=== PATIENT | male | born 1955 | race African-American/Black ===

== ENCOUNTER 2016-05-25 04:37 | Inpatient (IN) | payer OTHER ==
[2016-05-25] VITALS (8 sets, daily range): BP systolic 116–134; BP diastolic 76–104
[~2016-05-25] VITALS: Ht 172.7 cm; Wt 56.7 kg
--- NOTE | 2016-05-25 04:34 | Emergency Room Report ---
History of Present Illness General Source: Patient, EMS Present Illness HPI 60 YO M + smoker with SOB since last night associated with cough, f ever/ chills. Known COPD. Never intubated. Here before for similar per EMS. Was given 1 neb with mild improvement. Has home O2 but ran out tonight. Only other home COPD med noted by EMS was albuterol inhaler. Allergies: Coded Allergies: NO KNOWN ALLERGIES (Unverified Allergy, Unknown, 03/01/15) Patient History Past Medical History: CHF, COPD Past Surgical History: none Pertinent Family History: none Social History: Reports: smoking Immunizations: UTD Reviewed Nursing Documentation: PMH: Agreed, PSxH: Agreed Review of Systems All Other Systems: negative except mentioned in HPI Physical Exam Sp02 EP Interpretation: reviewed, abnormal General Appearance: normal inspection, alert, moderate distress, cachetic Head: normocephalic, atraumatic Eyes: bilateral eye EOMI, bilateral eye PERRL ENT: normal ENT inspection, hearing grossly normal, normal voice Neck: normal inspection, full range of motion, supple, no bony tend Respiratory: normal inspection, no rhonchi, decreased breath sounds, accessory muscle use, wheezing Cardiovascular #1: normal peripheral pulses, no edema, no gallop, no JVD, tachycardia Gastrointestinal: normal inspection, normal bowel sounds, non tender, soft, no guarding, no hernia Genitourinary: no CVA tenderness Musculoskeletal: normal inspection, back normal, normal range of motion, Long' s Sign negative Neurologic: normal inspection, alert, oriented x3, responsive, fitness and wellness manager III-XII nml as tested, motor strength/tone normal, speech normal Psychiatric: normal inspection, judgement/insight normal, mood/affect normal Skin: normal inspection, normal color, no rash Procedures Critical Care Time Critical Care Time CC time of 45 minutes for this 60YOM who p/w acute SOB. 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 Normotensive. Not hypoxic Lungs with reduced air movement bilaterally Initial management indicated: CBC, CMP, troponin, BNP, CXR, nebs, steroids, empiric Abx, BIPAP, IV Mg Highly suspected: COPD exacerbation, +/- PNA Possible interventions - BIPAP, additional Abx. CC time included frequent re-exams, interpretation of labs, imaging, adjustment of Abx Critical care time of 45 minutes does not include reportable procedures. Medical Decision Making Diagnostic Impression: Primary Impression: COPD exacerbation Additional Impression: CHF, acute on chronic Qualified Codes: I50.9 - Heart failure, unspecified ER Course 60 YO M with acute dyspnea since last night. VS notable for tachycardia on arrival to 150. Improved to 120 s/p BIPAP, duonebs, steroids, IV Azithro and IV Mg. CXR negative for PNA Likely COPD exacerbation alone Admitted to ____ for [facility] admission at ____ EKG Diagnostic Results Rate: tachycardiac Rhythm: NSR ST Segments: no acute changes ASA given to the pt in ED: No Rhythm Strip Diag. Results EP Interpretation: yes Rate: 105 Rhythm: NSR, no PVC's, no ectopy, other - +PVCs Chest X-Ray Diagnostic Results EP Interpretation: Yes Findings: no consolidation, no pneumothorax Number of Views: 1 Reevaluation Time: 06:08 Status: improved Reevaluation Impression Labs: Normal H&H. No leuks. Troponin 0. Mild pro-BNP elevation. Normal SerumCr. CXR: hyperinflated, no acute PNA A: Improved significantly with BIPAP, duonebs, Mg, Azithromycin Also gave dose of IV Lasix for concomitant acute on chronic CHF Endorsed to Dr Randolph at 7pm for MOJGAN admission Disposition: ADMITTED INPATIENT Condition: Critical ARASH MATHIS M.D. May 25, 2016 04:34
[~2016-05-25 04:37] MED LIST: ALBUTEROL SULF8.5 GM INH; Azithromycin 500 MG in NS 275 ML IV ONE; GUAIFENESIN-CO118 M1 ORAL; Levalbuterol Inh UD 1.25mg/0.5ml HHN ONE; PREDNISONE20 M1 PO; Solu-MEDROL 125mg Inj IVP ONE
[2016-05-25] MEDS: Ipratropium 0.02% Inh Soln 2.5ml UD HHN SCH ×3 (04:47→04:49)
[2016-05-25 04:51] LABS: BASOPHILS % (AUTO) 2.9 % (0.0-2.0); EOSINOPHILS % (AUTO) 7.9 % (0.0-3.0); LYMPHOCYTES % (AUTO) 24.7 % (20.0-45.0); MEAN CORPUSCULAR HEMOGLOBIN 32.2 PG (27.0-31.0); MEAN CORPUSCULAR HGB CONC 31.9 G/DL (32.0-36.0); MEAN CORPUSCULAR VOLUME 101 FL (80-99); MEAN PLATELET VOLUME 6.2 FL (6.5-10.1); MONOCYTES % (AUTO) 8.5 % (1.0-10.0); NEUTROPHILS % (AUTO) 56.1 % (45.0-75.0); PLATELET COUNT 346 K/UL (150-450); RED CELL DISTRIBUTION WIDTH 12.8 % (11.6-14.8); WHITE BLOOD COUNT 6.1 K/UL (4.8-10.8)
[2016-05-25 05:05] LABS: ALANINE AMINOTRANSFERASE 37 U/L (3-41); ALBUMIN/GLOBULIN RATIO 0.9 (1.0-2.7); ANION GAP 17 (5-15); ASPARTATE AMINO TRANSFERASE 111 U/L (5-40); CALCIUM 7.9 mg/dL (8.6-10.2); CARBON DIOXIDE 25 mEQ/L (20-30); CHLORIDE 100 mEQ/L (98-107); CREATININE 0.7 mg/dL (0.7-1.2); GLOMERULAR FILTRATION RATE > 60 mL/min (>60); HEMOLYSIS 9; POTASSIUM 3.8 mEQ/L (3.4-4.9); SODIUM 142 mEQ/L (135-145); TOTAL PROTEIN 6.6 g/dL (6.6-8.7)
[2016-05-25 05:39] LABS: TROPONIN I < 0.30 ng/mL (<=0.30)
[2016-05-25] MEDS ORDERED: Azithromycin Inj IV ONE (05:50)
[2016-05-25 06:52] LABS: CKMB 6.4 ng/mL (< 6.7)
[2016-05-25] MEDS ORDERED: OMEPRAZOLE40 M1 ORAL (08:11)
[2016-05-25] MEDS ORDERED: NITROGLYCERIN0.4 MG SL (08:11)
[2016-05-25] MEDS ORDERED: VITAMIN B-122000 MC1 PO (08:11)
[2016-05-25] MEDS ORDERED: AEROSPAN8.9 GM IH (08:13)
[2016-05-25] MEDS ORDERED: ANORO ELLIPTA1 EACH INH (08:13)
[2016-05-25] MEDS ORDERED: MULTIVITAMINS1 EAC2 ORAL (08:14)
[2016-05-25] MEDS ORDERED: DAILY VITE1 EACH ORAL (08:14)
[2016-05-25] MEDS ORDERED: FOLIC ACID1 MG ORAL (08:15)
[2016-05-25] MEDS ORDERED: FERROUS SULFAT325 MG ORAL (08:15)
[2016-05-25] MEDS ORDERED: MEGESTROL ACETA40 MG PO (08:15)
[2016-05-25] MEDS ORDERED: ASPIR 8181 MG ORAL (08:15)
[2016-05-25] MEDS ORDERED: Promethazine/Codeine 5ml UD ORAL PRN (09:30)
[2016-05-25] MEDS ORDERED: DuoNeb 0.5-3(2.5)mg/3ml neb HHN PRN (09:30)
[2016-05-25] MEDS ORDERED: Ketorolac 30mg Inj IV PRN (09:30)
[2016-05-25] MEDS ORDERED: Nitroglycerin Subl 0.4mg tab (Bottle Of 25) SL PRN (09:30)
[2016-05-25] MEDS ORDERED: Morphine Sulfate 2mg/ml Inj IVP PRN (09:30)
[2016-05-25] MEDS ORDERED: LORazepam Inj 2mg/ml 1ml IV PRN (09:30)
--- NOTE | 2016-05-25 10:02 | Diagnostic Imaging Report ---
Indication: Dyspnea Comparison: 03/01/15 A single view chest radiograph was obtained. Findings: Lungs are hyperexpanded. There is no infiltrate seen. Heart size is within normal. Bones are osteopenic. Impression: COPD
[2016-05-25] MEDS: Solu-MEDROL 125mg Inj IV SCH ×2 (12:19→18:30)
[2016-05-25] MEDS: Zosyn 3.375gm q8h **Extended infusion IVPB SCH ×4 (12:19→22:08)
[2016-05-25] MEDS: NovoLOG Insulin Flexpen SUBQ SCH ×3 (12:20→21:00)
--- NOTE | 2016-05-25 12:46 | History and Physical ---
History of Present Illness General Date patient seen: May 25, 2016 Reason for Hospitalization: Dyspnea/Respdistress Present Illness HPI 60 year old male with hx of + smoker and ETOH abuse prsented to ER with Chief Complaint of Dyspnea associated with cough, f ever/chills. Has home O2 but ran out tonight. Only other home COPD med noted by EMS was albuterol inhaler. Pt was diagnosed to have acute exacerbation of COPD and admitted for further evaluation. Allergies: Coded Allergies: NO KNOWN ALLERGIES (Unverified Allergy, Unknown, 03/01/15) Medication History Scheduled Albuterol Sulfate* (Albuterol Sulfate Mdi*), 2 PUFF INH Q4H Aspirin* (Aspir 81*), 81 MG ORAL DAILY, (Reported) Cyanocobalamin (Vitamin B-12) (Vitamin B-12), 2,000 MCG PO DAILY, (Reported) Ferrous Sulfate* (Ferrous Sulfate*), 325 MG ORAL DAILY, (Reported) Flunisolide (Aerospan), 8.9 GM IH DAILY, (Reported) Folic Acid* (Folic Acid*), 1 MG ORAL DAILY, (Reported) Megestrol Acetate (Megestrol Acetate), 40 MG PO TID, (Reported) Multivitamin (Daily Fatou), 1 TAB ORAL DAILY, (Reported) Multivitamins* (Multivitamins*), 1 TAB ORAL DAILY, (Reported) Omeprazole (Omeprazole), 40 MG ORAL DAILY, (Reported) Prednisone (Prednisone), 40 MG PO DAILY Umeclidinium Brm/Vilanterol Tr (Anoro Ellipta 62.5-25 Mcg INH), 2 PUFFS INH DAILY, (Reported) Scheduled PRN Guaifenesin/Codeine Phos* (Robitussin Ac*), 1 TSP ORAL Q6H PRN for For Cough Nitroglycerin (Nitroglycerin), 0.4 MG SL Three times PRN for CHEST PAIN, ( Reported) Patient History Healthcare decision maker Resuscitation status Full Code Advanced Directive on File Past Medical/Surgical History Past Medical/Surgical History: (1) ETOH abuse (2) COPD (chronic obstructive pulmonary disease) (3) Hypoxia Review of Systems Constitutional: Reports: weakness Respiratory: Reports: shortness of breath, wheezing All Other Systems: negative except mentioned in HPI Physical Exam General Appearance: WD/WN Lines, tubes and drains: peripheral, central line HEENT: normocephalic, atraumatic Neck: non-tender, normal alignment Respiratory/Chest: chest wall non-tender, lungs clear Cardiovascular/Chest: normal peripheral pulses, normal rate Abdomen: normal bowel sounds Genitourinary/Rectal: normal genital exam Last 24 Hour Vital Signs Date Time Temp Pulse Resp B/P Pulse Ox O2 Delivery O2 Flow Rate FiO2 05/25/16 11:14 98 18 95 05/25/16 10:00 96.8 109 20 131/90 99 Nasal Cannula 2.0 05/25/16 09:29 116 18 96 Facial 30 05/25/16 09:23 106 17 117/83 100 Bi-pap 30 05/25/16 07:23 97.1 101 17 119/81 100 Bi-pap 05/25/16 06:50 97.0 109 18 129/87 100 Bi-pap 100 05/25/16 06:44 113 21 97 Facial 30 05/25/16 06:04 30 05/25/16 05:03 118 18 100 Bi-pap 30 05/25/16 04:55 97.0 127 24 121/104 100 Bi-pap 100 05/25/16 04:51 127 24 Bi-pap 100 05/25/16 04:45 135 23 100 Bi-pap 30 05/25/16 04:42 135 23 100 Facial 30 05/25/16 04:28 97.0 141 18 121/104 97 Bi-pap 30 Intake and Output 05/24/16 05/25/16 19:00 07:00 Intake Total 375 ml Balance 375 ml Intake IV Total 375 ml Laboratory Tests Test 05/25/16 04:25 White Blood Count 6.1 K/UL (4.8-10.8) Red Blood Count 4.00 M/UL (4.70-6.10) L Hemoglobin 12.9 G/DL (14.2-18.0) L Hematocrit 40.4 % (42.0-52.0) L Mean Corpuscular Volume 101 FL (80-99) H Mean Corpuscular Hemoglobin 32.2 PG (27.0-31.0) H Mean Corpuscular Hemoglobin Concent 31.9 G/DL (32.0-36.0) L Red Cell Distribution Width 12.8 % (11.6-14.8) Platelet Count 346 K/UL (150-450) Mean Platelet Volume 6.2 FL (6.5-10.1) L Neutrophils (%) (Auto) 56.1 % (45.0-75.0) Lymphocytes (%) (Auto) 24.7 % (20.0-45.0) Monocytes (%) (Auto) 8.5 % (1.0-10.0) Eosinophils (%) (Auto) 7.9 % (0.0-3.0) H Basophils (%) (Auto) 2.9 % (0.0-2.0) H Sodium Level 142 mEQ/L (135-145) Potassium Level 3.8 mEQ/L (3.4-4.9) Chloride Level 100 mEQ/L (98-107) Carbon Dioxide Level 25 mEQ/L (20-30) Anion Gap 17 (5-15) H Blood Urea Nitrogen 4 mg/dL (7-23) L Creatinine 0.7 mg/dL (0.7-1.2) Estimat Glomerular Filtration Rate > 60 mL/min (>60) Glucose Level 173 mg/dL (74-106) H Calcium Level 7.9 mg/dL (8.6-10.2) L Total Bilirubin 0.5 mg/dL (0.0-1.2) Aspartate Amino Transf (AST/SGOT) 111 U/L (5-40) H Alanine Aminotransferase (ALT/SGPT) 37 U/L (3-41) Alkaline Phosphatase 149 U/L (40-129) H Total Creatine Kinase 181 U/L (38-174) H Creatine Kinase MB 6.4 ng/mL (< 6.7) Creatine Kinase MB Relative Index 3.5 Troponin I < 0.30 ng/mL (<=0.30) Pro-B-Type Natriuretic Peptide 1459 pg/mL (0-125) H Total Protein 6.6 g/dL (6.6-8.7) Albumin 3.2 g/dL (3.5-5.2) L Globulin 3.4 g/dL Albumin/Globulin Ratio 0.9 (1.0-2.7) L Height (Feet): 5 Height (Inches): 8.00 Weight (Pounds): 125 Medications Current Medications Medications (Trade) Dose Ordered Sig/Agustin Route PRN Reason Start Time Stop Time Status Last Admin Dose Admin Albuterol/ Ipratropium (DuoNeb 0.5-3(2.5)mg/3ml) 3 ml Q4H PRN HHN DYSPNEA 05/25/16 09:30 05/30/16 09:29 Dextrose STAT PRN IV Hypoglycemia 05/25/16 09:30 06/24/16 09:29 Folic Acid 1 mg/ Magnesium Sulfate 2000 mg/ Multivitamins 10 ml/Sodium Chloride 1,014.2 ml @ 125 mls/ hr Q24H IV 05/25/16 16:00 06/24/16 15:59 Heparin Sodium (Porcine) (Heparin 5000 units/ml) 5,000 units EVERY 12 HOURS SUBQ 05/25/16 21:00 06/24/16 20:59 Insulin Aspart (NovoLOG) BEFORE MEALS AND HS SUBQ 05/25/16 11:30 06/24/16 11:29 05/25/16 12:20 Lorazepam (Ativan 2mg/ml 1ml) 0.5 mg Q4H PRN IV For Anxiety 05/25/16 09:30 06/01/16 09:29 Methylprednisolone Sodium Succinate (Solu-MEDROL) 60 mg EVERY 6 HOURS IV 05/25/16 12:00 06/24/16 11:59 05/25/16 12:19 Morphine Sulfate (Morphine Sulfate) 2 mg Q4H PRN IVP Severe Pain (Pain Scale 7-10) 05/25/16 09:30 06/01/16 09:29 Nitroglycerin (Ntg) 0.4 mg Q5M X 3 DOSES PRN SL Prn Chest Pain 05/25/16 09:30 06/24/16 09:29 Ondansetron HCl (Zofran) 4 mg Q6H PRN IVP Nausea & Vomiting 05/25/16 09:30 06/24/16 09:29 Piperacillin Sod/ Tazobactam Sod 3.375 gm/Dextrose 110 ml @ 27.5 mls/hr EVERY 8 HOURS IVPB 05/25/16 11:00 05/30/16 10:59 05/25/16 12:19 Promethazine HCl/ Codeine (Phenergan with Codeine) 5 ml Q6H PRN ORAL cough 05/25/16 09:30 06/24/16 09:29 Temazepam (Restoril) 15 mg HSPRN PRN ORAL Insomnia 05/25/16 21:00 06/01/16 20:59 Theophylline (Gaurav-Dur) 100 mg EVERY 12 HOURS ORAL 05/25/16 21:00 06/24/16 20:59 Thiamine HCl/ Dextrose (Vitamin B1/D5W) 56 ml @ 112 mls/hr Q24H IVPB 05/25/16 16:00 06/24/16 15:59 Assessment/Plan Problem List: (1) COPD with exacerbation ICD Codes: J44.1 - Chronic obstructive pulmonary disease with (acute) exacerbation SNOMED: 386652700 (2) Acute respiratory failure ICD Codes: J96.00 - Acute respiratory failure, unspecified whether with hypoxia or hypercapnia SNOMED: 38952907 (3) Hypoxia ICD Codes: R09.02 - Hypoxemia SNOMED: 077194060 (4) ETOH abuse ICD Codes: F10.10 - Alcohol abuse, uncomplicated SNOMED: 31805405, 75599469 (5) Severe protein-calorie malnutrition ICD Codes: E43 - Unspecified severe protein-calorie malnutrition SNOMED: 584782823 Assessment/Plan respiratory treatment IV steroids IV antibiotics Banana bag because of ETOH abuse. check sputum dc planning in 1-[address] chest to evaluate the extent of emphysema LAZARUS YATES May 25, 2016 12:46
[2016-05-25] MEDS: chlordiazePOXIDE 25mg Cap ORAL SCH ×2 (13:00→21:04)
[2016-05-25] MEDS ORDERED: Piperacillin/Tazobactam 2.25 GM in D5W 55 ML IV SCH (14:00)
--- NOTE | 2016-05-25 15:00 | Diagnostic Imaging Report ---
Indication: Dyspnea Technique: Continuous helical transaxial imaging of the chest was obtained from the thoracic inlet to the upper abdomen. No intravenous contrast was administered. Coronal 2-D reformats were also obtained. Total Dose length Product (DLP): [address] Dose Index Volume (CTDIvol): 11 mGy Comparison: none Findings: There are hyperlucency noted in the upper lobes consistent with emphysema. Reticular densities are mild noted at the right lung base with mild right basilar atelectasis. No adenopathy seen. Aorta is normal caliber. Visualized upper abdomen is unremarkable. Impression: Emphysema and COPD. Right basilar atelectasis, mild in degree The CT scanner at [facility] is accredited by the [employer] and the scans are performed using protocols designed to limit radiation exposure to as low as reasonably achievable to attain images of sufficient resolution adequate for diagnostic evaluation.
[2016-05-25] MEDS ORDERED: Folic Acid 1 MG, Magnesium Sulfate 2,000 MG, Multivitamin - 12 Injection 10 ML in NS w/... IV SCH (16:00)
[2016-05-25] MEDS ORDERED: Thiamine 100mg in D5W 55ml IVPB SCH (16:00)
[2016-05-25 17:13] LABS: INR 1.1 (0.9-1.1); PROTHROMBIN TIME 10.7 SEC (9.30-11.50)
[2016-05-25 17:25] LABS: LACTATE DEHYDROGENASE 249 U/L (135-230)
[2016-05-25 17:51] LABS: HEMOLYSIS 47; IRON 66 ug/dL (59-158); TOTAL IRON BINDING CAPACITY 232 ug/dL (250-400)
[2016-05-25 18:47] LABS: BAND NEUTROPHILS % (MANUAL) 2 % (0-8); LYMPHOCYTES % (MANUAL) 11 % (20-45); NEUTROPHILS % (MANUAL) 85 % (45-75); TOTAL CELLS COUNTED 100
[2016-05-25 18:48] LABS: ANISOCYTOSIS 1+; BASOPHILS % (MANUAL) 0 % (0-2); EOSINOPHILS % (MANUAL) 0 % (0-3); PLATELET ESTIMATE ADEQUATE; PLATELET MORPHOLOGY NORMAL
[2016-05-25 18:49] LABS: PATH BLOOD SMEAR/OMC SENT TO PATHOLOGIST
--- NOTE | 2016-05-25 18:51 | Cardiology Report ---
APPROVED REPORT EKG Measurement Heart [id number] Sinus tachycardia Nonspecific ST and T wave abnormality Abnormal ECG
[2016-05-25 20:16] LABS: RETICULOCYTE COUNT 0.6 % (0.0-2.0)
[2016-05-25] MEDS ORDERED: Heparin 5000 units/ml inj SUBQ SCH (21:00)
[2016-05-25] MEDS ORDERED: Theophylline ER 100mg ORAL SCH (21:00)
[2016-05-26] VITALS (7 sets, daily range): BP systolic 97–141; BP diastolic 63–88
[2016-05-26] MEDS: Solu-MEDROL 125mg Inj IV SCH ×4 (00:29→17:24)
[2016-05-26] MEDS ORDERED: Nitroglycerin Subl 0.4mg tab (Bottle Of 25) SL PRN (01:00)
[2016-05-26] MEDS ORDERED: LORazepam Inj 2mg/ml 1ml IV PRN (01:30)
[2016-05-26] MEDS: Piperacillin/Tazobactam 3.375 GM in D5W 110 ML IVPB SCH ×3 (04:56→22:08)
[2016-05-26] MEDS: NovoLOG Insulin Flexpen SUBQ SCH ×4 (06:08→20:42)
[2016-05-26 07:28] LABS: MEAN CORPUSCULAR HEMOGLOBIN 32.4 PG (27.0-31.0); MEAN CORPUSCULAR HGB CONC 32.8 G/DL (32.0-36.0); MEAN CORPUSCULAR VOLUME 99 FL (80-99); MEAN PLATELET VOLUME 6.3 FL (6.5-10.1); PLATELET COUNT 292 K/UL (150-450); RED BLOOD COUNT 3.45 M/UL (4.70-6.10); RED CELL DISTRIBUTION WIDTH 12.8 % (11.6-14.8)
[2016-05-26] MEDS: chlordiazePOXIDE 25mg Cap ORAL SCH ×2 (09:00→20:22)
[2016-05-26] MEDS: Heparin 5000 units/ml inj SUBQ SCH ×2 (09:00→20:26)
[2016-05-26 09:02] LABS: BAND NEUTROPHILS % (MANUAL) 0 % (0-8); BASOPHILS % (MANUAL) 0 % (0-2); EOSINOPHILS % (MANUAL) 0 % (0-3); LYMPHOCYTES % (MANUAL) 9 % (20-45); NEUTROPHILS % (MANUAL) 86 % (45-75); PLATELET ESTIMATE ADEQUATE; PLATELET MORPHOLOGY NORMAL; TOTAL CELLS COUNTED 100
[2016-05-26 09:03] LABS: HYPOCHROMASIA 1+
[2016-05-26] MEDS: DuoNeb 0.5-3(2.5)mg/3ml neb HHN PRN (09:20)
[2016-05-26] MEDS: Theophylline ER 100mg ORAL SCH ×2 (09:50→20:22)
[2016-05-26] MEDS: Morphine Sulfate 2mg/ml Inj IVP PRN (09:51)
[2016-05-26] MEDS: Promethazine/Codeine 5ml UD ORAL PRN (13:03)
[2016-05-26] MEDS: Folic Acid 1 MG, Magnesium Sulfate 2,000 MG, Multivitamin - 12 Injection 10 ML in NS w/... IV SCH (16:17)
[2016-05-26] MEDS: Thiamine HCl 100 MG in D5W 55 ML IVPB SCH (16:17)
--- NOTE | 2016-05-26 23:59 | Pulmonology Progress Note ---
Assessment/Plan Problems: (1) COPD with exacerbation (2) Acute respiratory failure (3) Hypoxia (4) ETOH abuse (5) Severe protein-calorie malnutrition Assessment/Plan improving continue antibiotics steroids check cutlrues Subjective ROS Limited/Unobtainable: No Constitutional: Reports: no symptoms HEENT: Repors: no symptoms Respiratory: Reports: no symptoms Gastrointestinal/Abdominal: Reports: no symptoms Allergies: Coded Allergies: NO KNOWN ALLERGIES (Unverified Allergy, Unknown, 03/01/15) Objective Last 24 Hour Vital Signs Date Time Temp Pulse Resp B/P Pulse Ox O2 Delivery O2 Flow Rate FiO2 05/26/16 20:21 108 18 Nasal Cannula 2.0 28 05/26/16 20:20 99 Nasal Cannula 2.0 28 05/26/16 20:20 Nasal Cannula 2.0 28 05/26/16 20:00 97.7 109 18 97/63 95 05/26/16 20:00 98.2 97 16 136/76 98 Room Air 05/26/16 16:00 98.2 107 17 141/87 98 Room Air 05/26/16 12:02 97.2 102 19 132/88 99 Nasal Cannula 2.0 05/26/16 11:59 97.2 102 19 132/88 99 Nasal Cannula 2.0 05/26/16 10:21 97.5 05/26/16 09:25 89 16 100 Nasal Cannula 2.0 28 05/26/16 09:15 84 16 98 Nasal Cannula 2.0 28 05/26/16 08:48 97.5 102 21 113/69 97 Room Air 102 05/26/16 07:59 Nasal Cannula 2.0 28 05/26/16 07:54 98 Nasal Cannula 2.0 28 05/26/16 07:53 84 18 Nasal Cannula 2.0 28 05/26/16 04:00 97.3 92 22 125/76 100 Room Air 05/26/16 00:00 95 05/26/16 00:00 97.7 97 20 122/84 98 Nasal Cannula 2.0 98 Intake and Output 05/25/16 05/26/16 18:59 06:59 Intake Total 516.0 ml 1281.7 ml Output Total 1630 ml 1100 ml Balance -1114.0 ml 181.7 ml Intake Oral 280 ml 130 ml IV Total 236.0 ml 1151.7 ml Output Urine Total 1630 ml 1100 ml # Voids 2 2 # Bowel Movements 2 General Appearance: WD/WN HEENT: normocephalic, anicteric Respiratory/Chest: chest wall non-tender, lungs clear Cardiovascular: normal peripheral pulses, normal rate Abdomen: normal bowel sounds, soft, non tender Genitourinary: normal external genitalia Extremities: no clubbing 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, no motor/sensory deficits Microbiology Date/Time Source Procedure Growth Status 05/25/16 04:35 Blood Blood Culture - Preliminary Resulted 05/25/16 04:25 Blood Blood Culture - Preliminary Resulted 05/26/16 00:30 Sputum Expectorated Gram Stain - Final Resulted 05/26/16 00:30 Sputum Expectorated Sputum Culture Pending Resulted Laboratory Tests 05/26/16 04:30: White Blood Count 10.0#, Red Blood Count 3.45L, Hemoglobin 11.2L, Hematocrit 34.1L, Mean Corpuscular Volume 99, Mean Corpuscular Hemoglobin 32.4H, Mean Corpuscular Hemoglobin Concent 32.8, Red Cell Distribution Width 12.8, Platelet Count 292, Mean Platelet Volume 6.3L, Neutrophils (%) (Auto) , Lymphocytes (%) ( Auto) , Monocytes (%) (Auto) , Eosinophils (%) (Auto) , Basophils (%) (Auto) , Differential Total Cells Counted 100, Neutrophils % (Manual) 86H, Lymphocytes % (Manual) 9L, Monocytes % (Manual) 5, Eosinophils % (Manual) 0, Basophils % ( Manual) 0, Band Neutrophils 0, Platelet Estimate Adequate, Platelet Morphology Normal, Hypochromasia 1+ Current Medications Medications (Trade) Dose Ordered Sig/Agustin Route PRN Reason Start Time Stop Time Status Last Admin Dose Admin Albuterol/ Ipratropium (DuoNeb 0.5-3(2.5)mg/3ml) 3 ml Q4H PRN HHN DYSPNEA 05/26/16 01:30 05/31/16 01:29 05/26/16 09:20 Chlordiazepoxide (Librium) 25 mg EVERY 12 HOURS ORAL 05/26/16 09:00 06/02/16 08:59 05/26/16 20:22 Dextrose (Dextrose 50%) STAT PRN IV Hypoglycemia 05/26/16 09:30 2/23/17 09:29 Folic Acid 1 mg/ Magnesium Sulfate 2000 mg/ Multivitamins 10 ml/Sodium Chloride 1,014.2 ml @ 125 mls/ hr Q24H IV 05/26/16 16:00 06/25/16 15:59 05/26/16 16:17 Heparin Sodium (Porcine) (Heparin 5000 units/ml) 5,000 units EVERY 12 HOURS SUBQ 05/26/16 09:00 06/25/16 08:59 05/26/16 20:26 Insulin Aspart (NovoLOG) BEFORE MEALS AND HS SUBQ 05/26/16 06:30 06/25/16 06:29 05/26/16 20:42 Lorazepam (Ativan 2mg/ml 1ml) 0.5 mg Q4H PRN IV For Anxiety 05/26/16 01:30 06/02/16 01:29 Methylprednisolone Sodium Succinate (Solu-MEDROL) 60 mg EVERY 6 HOURS IV 05/26/16 06:00 06/25/16 05:59 05/26/16 17:24 Morphine Sulfate (Morphine Sulfate) 2 mg Q4H PRN IVP Severe Pain (Pain Scale 7-10) 05/26/16 01:30 06/02/16 01:29 05/26/16 09:51 Nitroglycerin (Ntg) 0.4 mg Q5M X 3 DOSES PRN SL Prn Chest Pain 05/26/16 01:00 06/25/16 00:59 Ondansetron HCl (Zofran) 4 mg Q6H PRN IVP Nausea & Vomiting 05/26/16 03:30 06/25/16 03:29 Pantoprazole (Protonix) 40 mg DAILY ORAL 05/26/16 09:00 06/25/16 08:59 05/26/16 09:50 Piperacillin Sod/ Tazobactam Sod 3.375 gm/Dextrose 110 ml @ 27.5 mls/hr EVERY 8 HOURS IVPB 05/26/16 06:00 06/02/16 05:59 05/26/16 22:08 Promethazine HCl/ Codeine (Phenergan with Codeine) 5 ml Q6H PRN ORAL cough 05/26/16 03:30 06/25/16 03:29 05/26/16 13:03 Temazepam (Restoril) 15 mg HSPRN PRN ORAL Insomnia 05/26/16 21:00 06/02/16 20:59 Theophylline (Gaurav-Dur) 100 mg EVERY 12 HOURS ORAL 05/26/16 09:00 06/25/16 08:59 05/26/16 20:22 Thiamine HCl/ Dextrose (Vitamin B1/D5W) 56 ml @ 112 mls/hr Q24H IVPB 05/26/16 16:00 06/25/16 15:59 05/26/16 16:17 LAZARUS YATES May 26, 2016 23:59
[2016-05-27] VITALS: BP 129/80
[2016-05-27] MEDS: DuoNeb 0.5-3(2.5)mg/3ml neb HHN PRN
[2016-05-27] MEDS: Solu-MEDROL 125mg Inj IV SCH ×4 (00:29→17:17)
[2016-05-27 04:00] VITALS: BP 137/82
[2016-05-27] MEDS: Piperacillin/Tazobactam 3.375 GM in D5W 110 ML IVPB SCH ×3 (04:54→21:10)
[2016-05-27] MEDS: NovoLOG Insulin Flexpen SUBQ SCH ×4 (05:51→21:13)
[2016-05-27 08:00] VITALS: BP 136/81
[2016-05-27] MEDS: Promethazine/Codeine 5ml UD ORAL PRN (08:43)
[2016-05-27] MEDS: chlordiazePOXIDE 25mg Cap ORAL SCH ×2 (08:43→20:14)
[2016-05-27] MEDS: Heparin 5000 units/ml inj SUBQ SCH ×2 (08:48→20:18)
[2016-05-27] MEDS: Theophylline ER 100mg ORAL SCH ×2 (10:00→20:14)
[2016-05-27] MEDS: Morphine Sulfate 2mg/ml Inj IVP PRN ×2 (10:04→21:23)
[2016-05-27 12:00] VITALS: BP 137/82
--- NOTE | 2016-05-27 15:30 | GI Initial Consult Note ---
History of Present Illness General Date patient seen: May 27, 2016 Time patient seen: 12:00 Reason for Hospitalization: Dyspnea/Respdistress Referring physician: LAZARUS WALLACE Reason for Consultation: OCCULT STOOL POSITIVE Present Illness HPI 60 YO M + smoker with SOB since last night associated with cough, f ever/ chills. Known COPD. Never intubated. Here before for similar per EMS. Was given 1 neb with mild improvement. Has home O2 but ran out tonight. Only other home COPD med noted by EMS was albuterol inhaler. GI CONSULT: HPI as noted above. GI consulted for mild anemia per pathology report and OB stool positive. Pt seen on floor, awake A&Ox4 SOB NAD after PT evaluation. Pt is a ex-smoker, presents with chronic ETOH abuse approximately half gallon of gin every 3 nights for insomnia. Hx of EGD/colonoscopy in 2012 at [facility] per patient. Home Meds Active Scripts Albuterol Sulfate* (ALBUTEROL SULFATE MDI*) 8.5 Gm Hfa.aer.ad, 2 PUFF INH Q4H, # 1 INH 0 Refills Prov:Toni Barrientos MD 03/01/15 Prednisone (Prednisone) 20 Mg Tablet, 40 MG PO DAILY, #5 TAB Prov:Toni Barrientos MD 03/01/15 Guaifenesin/Codeine Phos* (ROBITUSSIN AC*) 118 Ml Liquid, 1 TSP ORAL Q6H Y for For Cough, #118 ML 0 Refills Prov:Toni Barrientos MD 03/01/15 Reported Medications Ferrous Sulfate* (FERROUS SULFATE*) 325 Mg Tablet, 325 MG ORAL DAILY, #30 TAB 0 Refills 05/25/16 Folic Acid* (FOLIC ACID*) 1 Mg Tablet, 1 MG ORAL DAILY, TAB 05/25/16 Megestrol Acetate (MEGESTROL ACETATE) 40 Mg Tablet, 40 MG PO TID, TAB 05/25/16 Aspirin* (ASPIR 81*) 81 Mg Tablet.dr, 81 MG ORAL DAILY, TAB 05/25/16 Multivitamins* (MULTIVITAMINS*) 1 Each Tablet, 1 TAB ORAL DAILY, TAB 0 Refills 05/25/16 Multivitamin (DAILY MELANIE) 1 Each Tablet, 1 TAB ORAL DAILY, #30 TAB 0 Refills 05/25/16 Flunisolide (Aerospan) 8.9 Gm Hfa.aer.ad, 8.9 GM IH DAILY 05/25/16 Umeclidinium Brm/Vilanterol Tr (Anoro Ellipta 62.5-25 Mcg INH) 1 Each Blst.w.dev , 2 PUFFS INH DAILY 05/25/16 Cyanocobalamin (Vitamin B-12) (Vitamin B-12) 2,000 Mcg Tablet, 2000 MCG PO DAILY , TAB 05/25/16 Nitroglycerin (NITROGLYCERIN) 0.4 Mg Tab.subl, 0.4 MG SL Three times Y for CHEST PAIN, TAB 05/25/16 Omeprazole (OMEPRAZOLE) 40 Mg Capsule.dr, 40 MG ORAL DAILY, CAP 05/25/16 Med list reviewed/reconciled: Yes Allergies: Coded Allergies: NO KNOWN ALLERGIES (Unverified Allergy, Unknown, 03/01/15) Patient History History Provided By: Patient, Medical Record PMH Narrative Past Medical History: CHF, COPD Past Surgical History: none Pertinent Family History: none Social History: Reports: smoking Immunizations: UTD Reviewed Nursing Documentation: PMH: Agreed, PSxH: Agreed Social History: Reports: alcohol use - half gallon every 3 days for sleep, smoking Review of Systems All Other Systems: negative except mentioned in HPI Physical Exam Vital Signs Date Time Temp Pulse Resp B/P Pulse Ox O2 Delivery O2 Flow Rate FiO2 05/25/16 04:28 97.0 141 18 121/104 97 Bi-pap 30 05/25/16 10:00 2.0 Sp02 EP Interpretation: reviewed General Appearance: well appearing, alert, mild distress, thin Head: normocephalic EENT: normal ENT inspection Neck: supple Respiratory: other - SOB, productive cough, 02 dependent Cardiovascular: normal rate Gastrointestinal: normal inspection, non tender, soft, normal bowel sounds Rectal: deferred Genitourinary: no CVA tenderness Musculoskeletal: back normal Neurologic: normal inspection, alert, oriented x3, responsive Psychiatric: normal inspection, judgement/insight normal, memory normal Skin: normal inspection, normal color, no rash, warm/dry Lymphatic: normal inspection, no adenopathy Current Medications Current Medications Medications (Trade) Dose Ordered Sig/Agustin Route PRN Reason Start Time Stop Time Status Last Admin Dose Admin Albuterol/ Ipratropium (DuoNeb 0.5-3(2.5)mg/3ml) 3 ml Q4H PRN HHN DYSPNEA 05/26/16 01:30 05/31/16 01:29 05/27/16 00:00 Chlordiazepoxide (Librium) 25 mg EVERY 12 HOURS ORAL 05/26/16 09:00 06/02/16 08:59 05/27/16 08:43 Dextrose (Dextrose 50%) STAT PRN IV Hypoglycemia 05/26/16 09:30 06/25/16 09:29 Folic Acid 1 mg/ Magnesium Sulfate 2000 mg/ Multivitamins 10 ml/Sodium Chloride 1,014.2 ml @ 125 mls/ hr Q24H IV 05/26/16 16:00 06/25/16 15:59 05/26/16 16:17 Heparin Sodium (Porcine) (Heparin 5000 units/ml) 5,000 units EVERY 12 HOURS SUBQ 05/26/16 09:00 06/25/16 08:59 05/27/16 08:48 Insulin Aspart (NovoLOG) BEFORE MEALS AND HS SUBQ 05/26/16 06:30 06/25/16 06:29 05/27/16 12:15 Lorazepam (Ativan 2mg/ml 1ml) 0.5 mg Q4H PRN IV For Anxiety 05/26/16 01:30 06/02/16 01:29 Methylprednisolone Sodium Succinate (Solu-MEDROL) 60 mg EVERY 6 HOURS IV 05/26/16 06:00 06/25/16 05:59 05/27/16 12:07 Morphine Sulfate (Morphine Sulfate) 2 mg Q4H PRN IVP Severe Pain (Pain Scale 7-10) 05/26/16 01:30 06/02/16 01:29 05/27/16 10:04 Nitroglycerin (Ntg) 0.4 mg Q5M X 3 DOSES PRN SL Prn Chest Pain 05/26/16 01:00 06/25/16 00:59 Ondansetron HCl (Zofran) 4 mg Q6H PRN IVP Nausea & Vomiting 05/26/16 03:30 06/25/16 03:29 Pantoprazole (Protonix) 40 mg DAILY ORAL 05/26/16 09:00 06/25/16 08:59 05/27/16 08:43 Piperacillin Sod/ Tazobactam Sod 3.375 gm/Dextrose 110 ml @ 27.5 mls/hr EVERY 8 HOURS IVPB 05/26/16 06:00 06/02/16 05:59 05/27/16 14:04 Promethazine HCl/ Codeine (Phenergan with Codeine) 5 ml Q6H PRN ORAL cough 05/26/16 03:30 06/25/16 03:29 05/27/16 08:43 Temazepam (Restoril) 15 mg HSPRN PRN ORAL Insomnia 05/26/16 21:00 06/02/16 20:59 Theophylline (Gaurav-Dur) 100 mg EVERY 12 HOURS ORAL 05/26/16 09:00 06/25/16 08:59 05/27/16 10:00 Thiamine HCl/ Dextrose (Vitamin B1/D5W) 56 ml @ 112 mls/hr Q24H IVPB 05/26/16 16:00 06/25/16 15:59 05/26/16 16:17 GI: Plan Problems: (1) Anemia (2) Severe protein-calorie malnutrition (3) ETOH abuse (4) COPD (chronic obstructive pulmonary disease) (5) Hypoalbuminemia Plan EGD/colonoscopy approximately 2 years ago OB stool positive ETOH abuse obtain endoscopic records from [facility] ordered abdominal U/S monitor H&H, transfuse prn monitor LFTs ETOH cessation education given ppi cardiac diet fu labs Discussed with Dr. Patton. Thank you for referring this patient, we will follow. Virgie Rivera N.P. May 27, 2016 15:30
[2016-05-27 16:00] VITALS: BP 154/77
[2016-05-27] MEDS: Folic Acid 1 MG, Magnesium Sulfate 2,000 MG, Multivitamin - 12 Injection 10 ML in NS w/... IV SCH (16:48)
[2016-05-27] MEDS: Thiamine HCl 100 MG in D5W 55 ML IVPB SCH (17:17)
[2016-05-27 20:00] VITALS: BP 139/88
--- NOTE | 2016-05-27 22:27 | Consultation ---
Consult Note Consult Note ID Dic # [id number] MADISON DEL CID M.D. May 27, 2016 22:27
--- NOTE | 2016-05-27 22:54 | Pulmonology Progress Note ---
Assessment/Plan Problems: (1) COPD with exacerbation (2) Acute respiratory failure (3) Hypoxia (4) ETOH abuse (5) Severe protein-calorie malnutrition Assessment/Plan same dose steroids titrate fio2 check cultures contineu antibiotics Subjective Interval Events: still sob Allergies: Coded Allergies: NO KNOWN ALLERGIES (Unverified Allergy, Unknown, 03/01/15) Objective Last 24 Hour Vital Signs Date Time Temp Pulse Resp B/P Pulse Ox O2 Delivery O2 Flow Rate FiO2 05/27/16 20:00 97.9 99 22 139/88 99 Nasal Cannula 2.0 05/27/16 19:18 95 20 Nasal Cannula 2.0 28 05/27/16 19:18 98 Nasal Cannula 2.0 28 05/27/16 19:18 Nasal Cannula 2.0 28 05/27/16 16:00 99.5 105 22 154/77 97 Nasal Cannula 2.0 05/27/16 12:00 97.5 118 20 137/82 99 Nasal Cannula 05/27/16 10:34 98.1 05/27/16 08:00 98.1 110 21 136/81 94 Nasal Cannula 05/27/16 07:40 92 18 Nasal Cannula 2.0 28 05/27/16 07:40 Nasal Cannula 2.0 28 05/27/16 07:40 98 Nasal Cannula 2.0 28 05/27/16 05:53 92 16 100 Nasal Cannula 2.0 28 05/27/16 05:40 110 16 98 Nasal Cannula 2.0 28 05/27/16 04:00 97.0 90 20 137/82 98 Nasal Cannula 2.0 05/27/16 00:00 98.2 95 20 129/80 99 Nasal Cannula 2.0 05/26/16 23:55 115 16 100 Nasal Cannula 2.0 28 05/26/16 23:50 120 16 98 Nasal Cannula 2.0 28 Intake and Output 05/26/16 05/27/16 19:00 07:00 Intake Total 720.0 ml 1289.2 ml Output Total 180 ml 300 ml Balance 540.0 ml 989.2 ml Intake Oral 360 ml 360 ml IV Total 360.0 ml 929.2 ml Output Urine Total 180 ml 300 ml # Voids 1 2 General Appearance: WD/WN HEENT: normocephalic, anicteric Respiratory/Chest: chest wall non-tender, normal breath sounds Cardiovascular: normal peripheral pulses, regularly irregular Abdomen: normal bowel sounds, soft, non tender Genitourinary: normal external genitalia Skin: no ulcers Neurologic/Psychiatric: alert Microbiology Date/Time Source Procedure Growth Status 05/25/16 04:35 Blood Blood Culture - Preliminary Staphylococcus Sp Coag Neg Resulted 05/25/16 04:25 Blood Blood Culture - Preliminary Staphylococcus Sp Coag Neg Resulted 05/26/16 00:30 Sputum Expectorated Gram Stain - Final Resulted 05/26/16 00:30 Sputum Expectorated Sputum Culture Pending Resulted Current Medications Medications (Trade) Dose Ordered Sig/Agustin Route PRN Reason Start Time Stop Time Status Last Admin Dose Admin Albuterol/ Ipratropium (DuoNeb 0.5-3(2.5)mg/3ml) 3 ml Q4H PRN HHN DYSPNEA 05/26/16 01:30 05/31/16 01:29 05/27/16 00:00 Azithromycin/ Dextrose (Zithromax/D5W) 275 ml @ 275 mls/hr Q24HRS IVPB 05/27/16 22:30 06/02/16 23:29 UNV Chlordiazepoxide (Librium) 25 mg EVERY 12 HOURS ORAL 05/26/16 09:00 06/02/16 08:59 05/27/16 20:14 Dextrose (Dextrose 50%) STAT PRN IV Hypoglycemia 05/26/16 09:30 06/25/16 09:29 Folic Acid 1 mg/ Magnesium Sulfate 2000 mg/ Multivitamins 10 ml/Sodium Chloride 1,014.2 ml @ 125 mls/ hr Q24H IV 05/26/16 16:00 06/25/16 15:59 05/27/16 16:48 Heparin Sodium (Porcine) (Heparin 5000 units/ml) 5,000 units EVERY 12 HOURS SUBQ 05/26/16 09:00 06/25/16 08:59 05/27/16 20:18 Insulin Aspart (NovoLOG) BEFORE MEALS AND HS SUBQ 05/26/16 06:30 06/25/16 06:29 05/27/16 21:13 Lorazepam (Ativan 2mg/ml 1ml) 0.5 mg Q4H PRN IV For Anxiety 05/26/16 01:30 06/02/16 01:29 Methylprednisolone Sodium Succinate (Solu-MEDROL) 60 mg EVERY 6 HOURS IV 05/26/16 06:00 06/25/16 05:59 05/27/16 17:17 Morphine Sulfate (Morphine Sulfate) 2 mg Q4H PRN IVP Severe Pain (Pain Scale 7-10) 05/26/16 01:30 06/02/16 01:29 05/27/16 21:23 Nitroglycerin (Ntg) 0.4 mg Q5M X 3 DOSES PRN SL Prn Chest Pain 05/26/16 01:00 06/25/16 00:59 Ondansetron HCl (Zofran) 4 mg Q6H PRN IVP Nausea & Vomiting 05/26/16 03:30 06/25/16 03:29 Pantoprazole (Protonix) 40 mg DAILY ORAL 05/26/16 09:00 06/25/16 08:59 05/27/16 08:43 Promethazine HCl/ Codeine (Phenergan with Codeine) 5 ml Q6H PRN ORAL cough 05/26/16 03:30 06/25/16 03:29 05/27/16 08:43 Temazepam (Restoril) 15 mg HSPRN PRN ORAL Insomnia 05/26/16 21:00 06/02/16 20:59 Theophylline 100 mg 100 mg EVERY 12 HOURS ORAL 05/26/16 09:00 06/25/16 08:59 05/27/16 20:14 Thiamine HCl/ Dextrose (Vitamin B1/D5W) 56 ml @ 112 mls/hr Q24H IVPB 05/26/16 16:00 06/25/16 15:59 05/27/16 17:17 Vancomycin HCl (Vanco rx to dose) 1 ea DAILY PRN MISC Per rx protocol 05/27/16 22:30 06/26/16 22:29 LAZARUS STONE May 27, 2016 22:54
[2016-05-28] VITALS: BP 138/84
[2016-05-28] MEDS ORDERED: Azithromycin 500 MG in D5W 275 ML IV SCH ×2
[2016-05-28] MEDS ORDERED: Azithromycin Inj IV ONE (00:20)
[2016-05-28] MEDS ORDERED: Vancomycin 1gm inj IVPB ONE (00:21)
[2016-05-28] MEDS ORDERED: Vancomycin 1gm/D5W 275ml IVPB SCH ×2 (01:00)
[2016-05-28] MEDS: Morphine Sulfate 2mg/ml Inj IVP PRN ×2 (02:31→12:03)
--- NOTE | 2016-05-28 03:48 | Consultation ---
DATE OF CONSULTATION: 05/27/2016 INFECTIOUS DISEASE CONSULTATION CONSULTING PHYSICIAN: Veto Muñoz M.D. REFERRING PHYSICIAN: Tyler Randolph M.D. REASON FOR CONSULTATION: Evaluation of patient for pneumonia. HISTORY OF PRESENT ILLNESS: The patient is a 60-year-old male with multiple medical problems, who came to the hospital with the chief complaint of cough, fever, and chills. The patient has been admitted for COPD exacerbation and pneumonia. Infectious Disease consultation has been requested for further evaluation of the patient's antibiotic management. PAST MEDICAL HISTORY: 1. Significant for smoking and history of alcohol abuse. 2. History of seizure disorder. 3. Hypertension. 4. Chronic obstructive pulmonary disease/asthma. ALLERGIES: No known drug allergies. MEDICATIONS: Zosyn and Solu-Medrol. FAMILY HISTORY: Noncontributory. REVIEW OF SYSTEMS: A 10-point was done except for what was mentioned was negative. PHYSICAL EXAMINATION: VITAL SIGNS: Temperature 97.9 degrees, blood pressure 130/80, pulse 89, and respiratory rate 20. HEENT: Mild pale conjunctivae. No icterus. NECK: Supple. CHEST: Coarse breathing sounds bilateral wheezes. HEART: S1 and S2. ABDOMEN: Soft and nontender. EXTREMITIES: No cyanosis. NEUROLOGIC: Awake. LABORATORY AND DIAGNOSTIC DATA: WBC 10, hemoglobin 11, and platelets 300,000. UA unremarkable. BUN 4 and creatinine 0.7. AST 111, ALT 37, and alcohol level 49. Blood culture is growing coagulase-negative Staph. Sputum culture is pending. CT of the chest showed COPD changes right bibasilar atelectasis mild. ASSESSMENT: The patient is a 60-year-old male with multiple medical problems, who has been admitted to this medical center for shortness of breath, chronic obstructive pulmonary disease exacerbation and evidence of pneumonia. The patient's blood culture is growing coagulase-negative Staph probably contaminant. PLAN: 1. We will start the patient on Zithromax for cough, fever and COPD exacerbation and add intravenous vancomycin for coagulase-negative Staph. We will hold Zosyn. 2. Monitor blood culture. 3. tests. 4. Based on the patient's clinical course and laboratories, we will do further recommendations. Veto Muñoz M.D. DR: LUKAS JOB#: [id number] CC:
[2016-05-28 04:00] VITALS: BP 138/80
[2016-05-28] MEDS: NovoLOG Insulin Flexpen SUBQ SCH ×4 (05:51→21:26)
[2016-05-28] MEDS: Solu-MEDROL 125mg Inj IV SCH ×4 (05:51→17:30)
[2016-05-28 07:31] LABS: MEAN CORPUSCULAR HEMOGLOBIN 32.3 PG (27.0-31.0); MEAN CORPUSCULAR HGB CONC 31.6 G/DL (32.0-36.0); MEAN CORPUSCULAR VOLUME 102 FL (80-99); MEAN PLATELET VOLUME 6.7 FL (6.5-10.1); PLATELET COUNT 298 K/UL (150-450); RED BLOOD COUNT 3.63 M/UL (4.70-6.10); RED CELL DISTRIBUTION WIDTH 13.5 % (11.6-14.8); WHITE BLOOD COUNT 15.7 K/UL (4.8-10.8)
[2016-05-28 07:56] LABS: ANION GAP 11 (5-15); CARBON DIOXIDE 30 mEQ/L (20-30); CHLORIDE 100 mEQ/L (98-107); GLOMERULAR FILTRATION RATE > 60 mL/min (>60); HEMOLYSIS 4; MAGNESIUM 2.2 mg/dL (1.7-2.5); POTASSIUM 3.9 mEQ/L (3.4-4.9); SODIUM 141 mEQ/L (135-145)
[2016-05-28 08:00] VITALS: BP 146/89
[2016-05-28] MEDS: chlordiazePOXIDE 25mg Cap ORAL SCH ×2 (08:37→20:22)
[2016-05-28] MEDS: Heparin 5000 units/ml inj SUBQ SCH ×2 (08:38→20:23)
[2016-05-28] MEDS: Theophylline ER 100mg ORAL SCH ×2 (08:38→20:22)
--- NOTE | 2016-05-28 10:35 | Infectious Diseases Prog Note ---
Assessment/Plan Assessment/Plan A: he patient is a 60-year-old male with Fever COPD exacerbation and pneumonia SCx: GNR CT of the chest: COPD changes right bibasilar atelectasis mild BLcx: CoNS ( contaminant ) history of alcohol abuse. Seizure disorder. HTN PLAN: DC Zithromax and IV Vanco d# 2 ,start Levaquin d# 1 Monitor blood culture.( repeat ) Monitor CBC, Monitor BMP Subjective Allergies: Coded Allergies: NO KNOWN ALLERGIES (Unverified Allergy, Unknown, 03/01/15) Objective Vital Signs Last 24 Hour Vital Signs Date Time Temp Pulse Resp B/P Pulse Ox O2 Delivery O2 Flow Rate FiO2 05/28/16 08:08 99 Nasal Cannula 2.0 28 05/28/16 08:08 94 18 Nasal Cannula 2.0 28 05/28/16 08:08 Nasal Cannula 2.0 28 05/28/16 08:00 97.7 80 20 146/89 100 Nasal Cannula 05/28/16 04:00 98.0 88 20 138/80 100 Nasal Cannula 2.0 05/28/16 03:02 98.1 05/28/16 00:00 98.1 87 24 138/84 98 Nasal Cannula 2.0 05/27/16 20:00 97.9 99 22 139/88 99 Nasal Cannula 2.0 05/27/16 19:18 95 20 Nasal Cannula 2.0 28 05/27/16 19:18 98 Nasal Cannula 2.0 28 05/27/16 19:18 Nasal Cannula 2.0 28 05/27/16 16:00 99.5 105 22 154/77 97 Nasal Cannula 2.0 05/27/16 12:00 97.5 118 20 137/82 99 Nasal Cannula Height (Feet): 5 Height (Inches): 8.00 Weight (Pounds): 125 Microbiology Date/Time Source Procedure Growth Status 05/27/16 23:25 Nasopharynx Influenza Types A,B Antigen (PIETRO) - Final Complete 05/26/16 00:30 Sputum Expectorated Gram Stain - Final Resulted 05/26/16 00:30 Sputum Culture - Preliminary Gram Negative Bacillus 1 Usual Upper Respiratory Quiana Resulted Laboratory Tests Test 05/28/16 05:45 White Blood Count 15.7 K/UL (4.8-10.8) H Red Blood Count 3.63 M/UL (4.70-6.10) L Hemoglobin 11.7 G/DL (14.2-18.0) L Hematocrit 37.1 % (42.0-52.0) L Mean Corpuscular Volume 102 FL (80-99) H Mean Corpuscular Hemoglobin 32.3 PG (27.0-31.0) H Mean Corpuscular Hemoglobin Concent 31.6 G/DL (32.0-36.0) L Red Cell Distribution Width 13.5 % (11.6-14.8) Platelet Count 298 K/UL (150-450) Mean Platelet Volume 6.7 FL (6.5-10.1) Neutrophils (%) (Auto) % (45.0-75.0) Lymphocytes (%) (Auto) % (20.0-45.0) Monocytes (%) (Auto) % (1.0-10.0) Eosinophils (%) (Auto) % (0.0-3.0) Basophils (%) (Auto) % (0.0-2.0) Neutrophils % (Manual) Pending Lymphocytes % (Manual) Pending Platelet Estimate Pending Platelet Morphology Pending Sodium Level 141 mEQ/L (135-145) Potassium Level 3.9 mEQ/L (3.4-4.9) Chloride Level 100 mEQ/L (98-107) Carbon Dioxide Level 30 mEQ/L (20-30) Anion Gap 11 (5-15) Blood Urea Nitrogen 11 mg/dL (7-23) Creatinine 1.0 mg/dL (0.7-1.2) Estimat Glomerular Filtration Rate > 60 mL/min (>60) Glucose Level 125 mg/dL (74-106) H Calcium Level 9.0 mg/dL (8.6-10.2) Phosphorus Level 3.0 mg/dL (2.5-4.8) Magnesium Level 2.2 mg/dL (1.7-2.5) Current Medications Medications (Trade) Dose Ordered Sig/Agustin Route PRN Reason Start Time Stop Time Status Last Admin Dose Admin Albuterol/ Ipratropium (DuoNeb 0.5-3(2.5)mg/3ml) 3 ml Q4H PRN HHN DYSPNEA 05/26/16 01:30 05/31/16 01:29 05/27/16 00:00 Azithromycin/ Dextrose (Zithromax/D5W) 275 ml @ 275 mls/hr Q24HRS IV 05/28/16 00:00 06/03/16 00:59 05/28/16 00:42 Chlordiazepoxide (Librium) 25 mg EVERY 12 HOURS ORAL 05/26/16 09:00 06/02/16 08:59 05/27/16 20:14 Dextrose (Dextrose 50%) STAT PRN IV Hypoglycemia 05/26/16 09:30 06/25/16 09:29 Folic Acid 1 mg/ Magnesium Sulfate 2000 mg/ Multivitamins 10 ml/Sodium Chloride 1,014.2 ml @ 125 mls/ hr Q24H IV 05/26/16 16:00 06/25/16 15:59 05/27/16 16:48 Heparin Sodium (Porcine) (Heparin 5000 units/ml) 5,000 units EVERY 12 HOURS SUBQ 05/26/16 09:00 06/25/16 08:59 05/27/16 20:18 Insulin Aspart (NovoLOG) BEFORE MEALS AND HS SUBQ 05/26/16 06:30 06/25/16 06:29 05/28/16 05:51 Lorazepam (Ativan 2mg/ml 1ml) 0.5 mg Q4H PRN IV For Anxiety 05/26/16 01:30 06/02/16 01:29 Methylprednisolone Sodium Succinate (Solu-MEDROL) 60 mg EVERY 6 HOURS IV 05/26/16 06:00 06/25/16 05:59 05/28/16 05:51 Morphine Sulfate (Morphine Sulfate) 2 mg Q4H PRN IVP Severe Pain (Pain Scale 7-10) 05/26/16 01:30 06/02/16 01:29 05/28/16 02:31 Nitroglycerin (Ntg) 0.4 mg Q5M X 3 DOSES PRN SL Prn Chest Pain 05/26/16 01:00 06/25/16 00:59 Ondansetron HCl (Zofran) 4 mg Q6H PRN IVP Nausea & Vomiting 05/26/16 03:30 06/25/16 03:29 Pantoprazole (Protonix) 40 mg DAILY ORAL 05/26/16 09:00 06/25/16 08:59 05/27/16 08:43 Promethazine HCl/ Codeine (Phenergan with Codeine) 5 ml Q6H PRN ORAL cough 05/26/16 03:30 06/25/16 03:29 05/27/16 08:43 Temazepam (Restoril) 15 mg HSPRN PRN ORAL Insomnia 05/26/16 21:00 06/02/16 20:59 Theophylline 100 mg 100 mg EVERY 12 HOURS ORAL 05/26/16 09:00 06/25/16 08:59 05/27/16 20:14 Thiamine HCl/ Dextrose (Vitamin B1/D5W) 56 ml @ 112 mls/hr Q24H IVPB 05/26/16 16:00 06/25/16 15:59 05/27/16 17:17 Vancomycin HCl 1 ea 1 ea DAILY PRN MISC Per rx protocol 05/27/16 22:30 06/26/16 22:29 Vancomycin HCl/ Dextrose (Vancomycin/D5W) 275 ml @ 183.708 mls/hr Q12H IVPB 05/28/16 01:00 06/02/16 00:59 05/28/16 02:32 MADISON DEL CID M.D. May 28, 2016 10:35
[2016-05-28 10:44] LABS: LYMPHOCYTES % (MANUAL) 7 % (20-45); NEUTROPHILS % (MANUAL) 91 % (45-75); TOTAL CELLS COUNTED 100
[2016-05-28 10:45] LABS: BAND NEUTROPHILS % (MANUAL) 0 % (0-8); BASOPHILS % (MANUAL) 0 % (0-2); EOSINOPHILS % (MANUAL) 0 % (0-3); HYPOCHROMASIA 1+; MACROCYTES 1+; PLATELET ESTIMATE ADEQUATE; PLATELET MORPHOLOGY NORMAL
[2016-05-28 12:00] VITALS: BP 150/90
--- NOTE | 2016-05-28 14:27 | GI Progress Note ---
Assessment/Plan Problems: (1) Hypoalbuminemia ICD Codes: E88.09 - Other disorders of plasma-protein metabolism, not elsewhere classified SNOMED: 325720406 (2) Anemia ICD Codes: D64.9 - Anemia, unspecified SNOMED: 809716186 (3) Upper GI bleeding ICD Codes: K92.2 - Gastrointestinal hemorrhage, unspecified SNOMED: 37487262 (4) Severe protein-calorie malnutrition ICD Codes: E43 - Unspecified severe protein-calorie malnutrition SNOMED: 507754897 (5) ETOH abuse ICD Codes: F10.10 - Alcohol abuse, uncomplicated SNOMED: 01460132, 53550510 Status: stable, progressing Status Narrative Discussed with Dr. Patton. Assessment/Plan EGD/colonoscopy approximately 2 years ago OB stool positive ETOH abuse endoscopic records from [facility] pending fu abdominal U/S monitor H&H, transfuse prn monitor LFTs ETOH cessation education given ppi cardiac diet fu labs Subjective Gastrointestinal/Abdominal: Reports: no symptoms Subjective SOB feels better Objective Last 24 Hour Vital Signs Date Time Temp Pulse Resp B/P Pulse Ox O2 Delivery O2 Flow Rate FiO2 05/28/16 12:33 97.7 05/28/16 12:00 97.9 110 20 150/90 92 Room Air 05/28/16 08:08 99 Nasal Cannula 2.0 28 05/28/16 08:08 94 18 Nasal Cannula 2.0 28 05/28/16 08:08 Nasal Cannula 2.0 28 05/28/16 08:00 97.7 80 20 146/89 100 Nasal Cannula 05/28/16 04:00 98.0 88 20 138/80 100 Nasal Cannula 2.0 05/28/16 00:00 98.1 87 24 138/84 98 Nasal Cannula 2.0 05/27/16 20:00 97.9 99 22 139/88 99 Nasal Cannula 2.0 05/27/16 19:18 95 20 Nasal Cannula 2.0 28 05/27/16 19:18 98 Nasal Cannula 2.0 28 05/27/16 19:18 Nasal Cannula 2.0 28 05/27/16 16:00 99.5 105 22 154/77 97 Nasal Cannula 2.0 Intake and Output 05/27/16 05/28/16 19:00 07:00 Intake Total 762.0 ml 550.000 ml Output Total 400 ml Balance 762.0 ml 150.000 ml Intake Oral 360 ml IV Total 402.0 ml 550.000 ml Output Urine Total 400 ml # Voids 1 # Bowel Movements 1 Laboratory Tests Test 05/28/16 05:45 White Blood Count 15.7 K/UL (4.8-10.8) H Red Blood Count 3.63 M/UL (4.70-6.10) L Hemoglobin 11.7 G/DL (14.2-18.0) L Hematocrit 37.1 % (42.0-52.0) L Mean Corpuscular Volume 102 FL (80-99) H Mean Corpuscular Hemoglobin 32.3 PG (27.0-31.0) H Mean Corpuscular Hemoglobin Concent 31.6 G/DL (32.0-36.0) L Red Cell Distribution Width 13.5 % (11.6-14.8) Platelet Count 298 K/UL (150-450) Mean Platelet Volume 6.7 FL (6.5-10.1) Neutrophils (%) (Auto) % (45.0-75.0) Lymphocytes (%) (Auto) % (20.0-45.0) Monocytes (%) (Auto) % (1.0-10.0) Eosinophils (%) (Auto) % (0.0-3.0) Basophils (%) (Auto) % (0.0-2.0) Differential Total Cells Counted 100 Neutrophils % (Manual) 91 % (45-75) H Lymphocytes % (Manual) 7 % (20-45) L Monocytes % (Manual) 2 % (1-10) Eosinophils % (Manual) 0 % (0-3) Basophils % (Manual) 0 % (0-2) Band Neutrophils 0 % (0-8) Platelet Estimate Adequate Platelet Morphology Normal Hypochromasia 1+ Macrocytosis 1+ Sodium Level 141 mEQ/L (135-145) Potassium Level 3.9 mEQ/L (3.4-4.9) Chloride Level 100 mEQ/L (98-107) Carbon Dioxide Level 30 mEQ/L (20-30) Anion Gap 11 (5-15) Blood Urea Nitrogen 11 mg/dL (7-23) Creatinine 1.0 mg/dL (0.7-1.2) Estimat Glomerular Filtration Rate > 60 mL/min (>60) Glucose Level 125 mg/dL (74-106) H Calcium Level 9.0 mg/dL (8.6-10.2) Phosphorus Level 3.0 mg/dL (2.5-4.8) Magnesium Level 2.2 mg/dL (1.7-2.5) Microbiology Date/Time Source Procedure Growth Status 05/27/16 23:25 Nasopharynx Influenza Types A,B Antigen (PIETRO) - Final Complete Height (Feet): 5 Height (Inches): 8.00 Weight (Pounds): 125 General Appearance: no apparent distress, alert Cardiovascular: normal rate Respiratory/Chest: accessory muscle use, rhonchi - bilaterally Abdominal Exam: normal bowel sounds, non tender, soft Extremities: normal range of motion Virgie Rivera N.P. May 28, 2016 14:27
[2016-05-28 14:32] LABS: ABG BASE EXCESS 0.7; ABG PCO2 48.1 mmHg (35.0-45.0)
[2016-05-28 16:00] VITALS: BP 133/88
[2016-05-28] MEDS: Folic Acid 1 MG, Magnesium Sulfate 2,000 MG, Multivitamin - 12 Injection 10 ML in NS w/... IV SCH (16:00)
[2016-05-28] MEDS: Thiamine HCl 100 MG in D5W 55 ML IVPB SCH (16:00)
[2016-05-28] MEDS ORDERED: D5W 275ml ONE (16:48)
--- NOTE | 2016-05-28 17:22 | Diagnostic Imaging Report ---
Indication: Abnormal liver function tests Technique: Hutchins-scale and duplex images of the upper abdomen were obtained Comparison: None Findings: . Gallbladder demonstrates gallstones.. Sonographic Glass's sign is negative. No gallbladder wall thickening or pericholecystic fluid. Common bile duct measures 7 mm in diameter. No intrahepatic biliary ductal dilatation. Liver demonstrates diffusely increased echogenicity, consistent with diffuse hepatocellular disease, most likely fatty change. No focal abnormality. Portal vein and hepatic veins are patent.. Pancreas is unremarkable, but the pancreatic duct is ectatic measuring 7 mm diameter.. Spleen is unremarkable. Left kidney measures 9.4 cm in length. Right kidney measures 9.8 cm length. Both kidneys demonstrate normal echogenicity. There is no hydronephrosis. No focal abnormality. . Non-aneurysmal abdominal aorta. Small left pleural effusion is incidentally noted Impression: Cholelithiasis. Negative for dilated ducts Meds ectatic pancreatic duct, etiology/significance uncertain Liver demonstrates diffusely increased echogenicity, consistent with diffuse hepatocellular disease, most likely fatty change.
[2016-05-28] MEDS ORDERED: NS 275ml ONE (18:17)
[2016-05-28 20:00] VITALS: BP 107/89
[2016-05-29] VITALS: BP 146/90
[2016-05-29] MEDS: Solu-MEDROL 125mg Inj IV SCH ×3 (00:06→12:27)
[2016-05-29 04:00] VITALS: BP 144/92
[2016-05-29] MEDS: NovoLOG Insulin Flexpen SUBQ SCH ×4 (06:10→22:18)
[2016-05-29 07:27] LABS: MEAN CORPUSCULAR HEMOGLOBIN 32.6 PG (27.0-31.0); MEAN CORPUSCULAR HGB CONC 32.2 G/DL (32.0-36.0); MEAN CORPUSCULAR VOLUME 101 FL (80-99); MEAN PLATELET VOLUME 7.1 FL (6.5-10.1); PLATELET COUNT 217 K/UL (150-450); RED BLOOD COUNT 3.26 M/UL (4.70-6.10); RED CELL DISTRIBUTION WIDTH 13.2 % (11.6-14.8); WHITE BLOOD COUNT 9.5 K/UL (4.8-10.8)
[2016-05-29 07:50] LABS: ALANINE AMINOTRANSFERASE 46 U/L (3-41); ALBUMIN/GLOBULIN RATIO 1.2 (1.0-2.7); ANION GAP 9 (5-15); ASPARTATE AMINO TRANSFERASE 53 U/L (5-40); CARBON DIOXIDE 28 mEQ/L (20-30); CHLORIDE 104 mEQ/L (98-107); CREATININE 0.8 mg/dL (0.7-1.2); GLOMERULAR FILTRATION RATE > 60 mL/min (>60); HEMOLYSIS 5; POTASSIUM 4.2 mEQ/L (3.4-4.9); SODIUM 141 mEQ/L (135-145); TOTAL PROTEIN 5.6 g/dL (6.6-8.7)
[2016-05-29 08:00] VITALS: BP 136/89
[2016-05-29] MEDS: chlordiazePOXIDE 25mg Cap ORAL SCH ×2 (09:15→22:18)
[2016-05-29] MEDS: Theophylline ER 100mg ORAL SCH (09:15)
--- NOTE | 2016-05-29 09:17 | Infectious Diseases Prog Note ---
Assessment/Plan Assessment/Plan A: he patient is a 60-year-old male with Fever COPD exacerbation and pneumonia SCx: PSA CT of the chest: COPD changes right bibasilar atelectasis mild BLcx: CoNS ( contaminant ) history of alcohol abuse. Seizure disorder. HTN PLAN: Levaquin d# 2 / 14 ( 05/28 SP DC Zithromax and IV Vanco d# 2 ) Monitor blood culture.( repeat ) Monitor CBC, Monitor BMP Subjective Constitutional: Denies: anorexia, chills, drenching sweats, fatigue, fever, no symptoms, other Allergies: Coded Allergies: NO KNOWN ALLERGIES (Unverified Allergy, Unknown, 03/01/15) Objective Vital Signs Last 24 Hour Vital Signs Date Time Temp Pulse Resp B/P Pulse Ox O2 Delivery O2 Flow Rate FiO2 05/29/16 08:00 98.2 97 19 136/89 98 Nasal Cannula 05/29/16 04:00 98.2 77 18 144/92 97 Nasal Cannula 2.0 05/29/16 00:00 97.2 83 20 146/90 99 Nasal Cannula 2.0 05/28/16 20:03 Nasal Cannula 2.0 28 05/28/16 20:03 110 20 Nasal Cannula 2.0 28 05/28/16 20:03 98 Nasal Cannula 2.0 28 05/28/16 20:00 97.9 118 24 107/89 94 Nasal Cannula 2.0 05/28/16 16:00 97.9 109 22 133/88 98 Nasal Cannula 2.0 05/28/16 12:33 97.7 05/28/16 12:00 97.9 110 20 150/90 92 Room Air Height (Feet): 5 Height (Inches): 8.00 Weight (Pounds): 125 HEENT: anicteric Respiratory/Chest: normal breath sounds Cardiovascular: regular rhythm Abdomen: no organomegaly Microbiology Date/Time Source Procedure Growth Status 05/27/16 23:25 Nasopharynx Influenza Types A,B Antigen (PIETRO) - Final Complete Laboratory Tests Test 05/28/16 14:18 05/29/16 06:10 Arterial Blood pH 7.360 (7.350-7.450) Arterial Blood Partial Pressure CO2 48.1 mmHg (35.0-45.0) H Arterial Blood Partial Pressure O2 52.0 mmHg (75.0-100.0) L Arterial Blood HCO3 26.7 mmol/L (22.0-26.0) H Arterial Blood Oxygen Saturation 83.0 % (92.0-98.0) L Arterial Blood Base Excess 0.7 Shekhar Test White Blood Count 9.5 K/UL (4.8-10.8) Red Blood Count 3.26 M/UL (4.70-6.10) L Hemoglobin 10.6 G/DL (14.2-18.0) L Hematocrit 33.0 % (42.0-52.0) L Mean Corpuscular Volume 101 FL (80-99) H Mean Corpuscular Hemoglobin 32.6 PG (27.0-31.0) H Mean Corpuscular Hemoglobin Concent 32.2 G/DL (32.0-36.0) Red Cell Distribution Width 13.2 % (11.6-14.8) Platelet Count 217 K/UL (150-450) Mean Platelet Volume 7.1 FL (6.5-10.1) Neutrophils (%) (Auto) % (45.0-75.0) Lymphocytes (%) (Auto) % (20.0-45.0) Monocytes (%) (Auto) % (1.0-10.0) Eosinophils (%) (Auto) % (0.0-3.0) Basophils (%) (Auto) % (0.0-2.0) Neutrophils % (Manual) Pending Lymphocytes % (Manual) Pending Platelet Estimate Pending Platelet Morphology Pending Sodium Level 141 mEQ/L (135-145) Potassium Level 4.2 mEQ/L (3.4-4.9) Chloride Level 104 mEQ/L (98-107) Carbon Dioxide Level 28 mEQ/L (20-30) Anion Gap 9 (5-15) Blood Urea Nitrogen 15 mg/dL (7-23) Creatinine 0.8 mg/dL (0.7-1.2) Estimat Glomerular Filtration Rate > 60 mL/min (>60) Glucose Level 203 mg/dL (74-106) H Calcium Level 9.0 mg/dL (8.6-10.2) Total Bilirubin 0.3 mg/dL (0.0-1.2) Aspartate Amino Transf (AST/SGOT) 53 U/L (5-40) H Alanine Aminotransferase (ALT/SGPT) 46 U/L (3-41) H Alkaline Phosphatase 74 U/L (40-129) Total Protein 5.6 g/dL (6.6-8.7) L Albumin 3.1 g/dL (3.5-5.2) L Globulin 2.5 g/dL Albumin/Globulin Ratio 1.2 (1.0-2.7) Current Medications Medications (Trade) Dose Ordered Sig/Agustin Route PRN Reason Start Time Stop Time Status Last Admin Dose Admin Albuterol/ Ipratropium (DuoNeb 0.5-3(2.5)mg/3ml) 3 ml Q4H PRN HHN DYSPNEA 05/26/16 01:30 05/31/16 01:29 05/27/16 00:00 Chlordiazepoxide (Librium) 25 mg EVERY 12 HOURS ORAL 05/26/16 09:00 06/02/16 08:59 05/28/16 20:22 Dextrose (Dextrose 50%) STAT PRN IV Hypoglycemia 05/26/16 09:30 06/25/16 09:29 Folic Acid 1 mg/ Magnesium Sulfate 2000 mg/ Multivitamins 10 ml/Sodium Chloride 1,014.2 ml @ 125 mls/ hr Q24H IV 05/26/16 16:00 06/25/16 15:59 05/28/16 16:00 Heparin Sodium (Porcine) (Heparin 5000 units/ml) 5,000 units EVERY 12 HOURS SUBQ 05/26/16 09:00 06/25/16 08:59 05/28/16 20:23 Insulin Aspart (NovoLOG) BEFORE MEALS AND HS SUBQ 05/26/16 06:30 06/25/16 06:29 05/29/16 06:10 Levofloxacin (Levaquin 750mg/ D5W) 150 ml @ 100 mls/hr Q24H IVPB 05/28/16 13:00 06/04/16 12:59 05/28/16 14:06 Lorazepam (Ativan 2mg/ml 1ml) 0.5 mg Q4H PRN IV For Anxiety 05/26/16 01:30 06/02/16 01:29 Methylprednisolone Sodium Succinate (Solu-MEDROL) 60 mg EVERY 6 HOURS IV 05/26/16 06:00 06/25/16 05:59 05/29/16 05:31 Morphine Sulfate (Morphine Sulfate) 2 mg Q4H PRN IVP Severe Pain (Pain Scale 7-10) 05/26/16 01:30 06/02/16 01:29 05/28/16 12:03 Nitroglycerin (Ntg) 0.4 mg Q5M X 3 DOSES PRN SL Prn Chest Pain 05/26/16 01:00 06/25/16 00:59 Ondansetron HCl (Zofran) 4 mg Q6H PRN IVP Nausea & Vomiting 05/26/16 03:30 06/25/16 03:29 Pantoprazole (Protonix) 40 mg DAILY ORAL 05/26/16 09:00 06/25/16 08:59 05/27/16 08:43 Promethazine HCl/ Codeine (Phenergan with Codeine) 5 ml Q6H PRN ORAL cough 05/26/16 03:30 06/25/16 03:29 05/27/16 08:43 Temazepam (Restoril) 15 mg HSPRN PRN ORAL Insomnia 05/26/16 21:00 06/02/16 20:59 05/29/16 00:14 Theophylline 100 mg 100 mg EVERY 12 HOURS ORAL 05/26/16 09:00 06/25/16 08:59 05/28/16 20:22 Thiamine HCl/ Dextrose (Vitamin B1/D5W) 56 ml @ 112 mls/hr Q24H IVPB 05/26/16 16:00 06/25/16 15:59 05/28/16 16:00 MADISON DEL CID M.D. May 29, 2016 09:17
[2016-05-29] MEDS: Heparin 5000 units/ml inj SUBQ SCH ×2 (09:19→22:19)
[2016-05-29 10:34] LABS: BAND NEUTROPHILS % (MANUAL) 0 % (0-8); BASOPHILS % (MANUAL) 0 % (0-2); EOSINOPHILS % (MANUAL) 0 % (0-3); HYPOCHROMASIA 1+; LYMPHOCYTES % (MANUAL) 6 % (20-45); MACROCYTES 1+; NEUTROPHILS % (MANUAL) 89 % (45-75); PLATELET ESTIMATE ADEQUATE; PLATELET MORPHOLOGY NORMAL; TOTAL CELLS COUNTED 100
--- NOTE | 2016-05-29 10:34 | GI Progress Note ---
Assessment/Plan Problems: (1) Hypoalbuminemia ICD Codes: E88.09 - Other disorders of plasma-protein metabolism, not elsewhere classified SNOMED: 617036616 (2) Anemia ICD Codes: D64.9 - Anemia, unspecified SNOMED: 486320483 (3) Upper GI bleeding ICD Codes: K92.2 - Gastrointestinal hemorrhage, unspecified SNOMED: 10002164 (4) Severe protein-calorie malnutrition ICD Codes: E43 - Unspecified severe protein-calorie malnutrition SNOMED: 747607198 (5) ETOH abuse ICD Codes: F10.10 - Alcohol abuse, uncomplicated SNOMED: 11493703, 46364599 Status: stable Status Narrative Discussed with Dr. Patton. Assessment/Plan OB stool positive ETOH abuse abd U/S reviewed >> hepatocellular disease, most likely fatty change. endoscopic records from [facility] reviewed - s/p EGD , unremarkable - s/p colonoscopy, internal hemorrhoids - recommend SB capsule endoscopy if heme positive, can be done as outpatient stable H&H, transfuse prn monitor LFTs ETOH cessation education given ppi cardiac diet fu labs Subjective Subjective SOB feels better Objective Last 24 Hour Vital Signs Date Time Temp Pulse Resp B/P Pulse Ox O2 Delivery O2 Flow Rate FiO2 05/29/16 08:00 98.2 97 19 136/89 98 Nasal Cannula 05/29/16 04:00 98.2 77 18 144/92 97 Nasal Cannula 2.0 05/29/16 00:00 97.2 83 20 146/90 99 Nasal Cannula 2.0 05/28/16 20:03 Nasal Cannula 2.0 28 05/28/16 20:03 110 20 Nasal Cannula 2.0 28 05/28/16 20:03 98 Nasal Cannula 2.0 28 05/28/16 20:00 97.9 118 24 107/89 94 Nasal Cannula 2.0 05/28/16 16:00 97.9 109 22 133/88 98 Nasal Cannula 2.0 05/28/16 12:33 97.7 05/28/16 12:00 97.9 110 20 150/90 92 Room Air Intake and Output 05/28/16 05/29/16 19:00 07:00 Intake Total 700 ml 720 ml Output Total 720 ml Balance 700 ml 0 ml Intake Oral 700 ml 720 ml Output Urine Total 720 ml # Voids 1 # Bowel Movements 1 Laboratory Tests Test 05/28/16 14:18 05/29/16 06:10 Arterial Blood pH 7.360 (7.350-7.450) Arterial Blood Partial Pressure CO2 48.1 mmHg (35.0-45.0) H Arterial Blood Partial Pressure O2 52.0 mmHg (75.0-100.0) L Arterial Blood HCO3 26.7 mmol/L (22.0-26.0) H Arterial Blood Oxygen Saturation 83.0 % (92.0-98.0) L Arterial Blood Base Excess 0.7 Shekhar Test White Blood Count 9.5 K/UL (4.8-10.8) Red Blood Count 3.26 M/UL (4.70-6.10) L Hemoglobin 10.6 G/DL (14.2-18.0) L Hematocrit 33.0 % (42.0-52.0) L Mean Corpuscular Volume 101 FL (80-99) H Mean Corpuscular Hemoglobin 32.6 PG (27.0-31.0) H Mean Corpuscular Hemoglobin Concent 32.2 G/DL (32.0-36.0) Red Cell Distribution Width 13.2 % (11.6-14.8) Platelet Count 217 K/UL (150-450) Mean Platelet Volume 7.1 FL (6.5-10.1) Neutrophils (%) (Auto) % (45.0-75.0) Lymphocytes (%) (Auto) % (20.0-45.0) Monocytes (%) (Auto) % (1.0-10.0) Eosinophils (%) (Auto) % (0.0-3.0) Basophils (%) (Auto) % (0.0-2.0) Neutrophils % (Manual) Pending Lymphocytes % (Manual) Pending Platelet Estimate Pending Platelet Morphology Pending Sodium Level 141 mEQ/L (135-145) Potassium Level 4.2 mEQ/L (3.4-4.9) Chloride Level 104 mEQ/L (98-107) Carbon Dioxide Level 28 mEQ/L (20-30) Anion Gap 9 (5-15) Blood Urea Nitrogen 15 mg/dL (7-23) Creatinine 0.8 mg/dL (0.7-1.2) Estimat Glomerular Filtration Rate > 60 mL/min (>60) Glucose Level 203 mg/dL (74-106) H Calcium Level 9.0 mg/dL (8.6-10.2) Total Bilirubin 0.3 mg/dL (0.0-1.2) Aspartate Amino Transf (AST/SGOT) 53 U/L (5-40) H Alanine Aminotransferase (ALT/SGPT) 46 U/L (3-41) H Alkaline Phosphatase 74 U/L (40-129) Total Protein 5.6 g/dL (6.6-8.7) L Albumin 3.1 g/dL (3.5-5.2) L Globulin 2.5 g/dL Albumin/Globulin Ratio 1.2 (1.0-2.7) Height (Feet): 5 Height (Inches): 8.00 Weight (Pounds): 125 General Appearance: no apparent distress Cardiovascular: normal rate Respiratory/Chest: rhonchi - bilaterally, other - 2LNC Abdominal Exam: normal bowel sounds, non tender, soft Extremities: normal range of motion Virgie Rivera N.P. May 29, 2016 10:34
[2016-05-29 12:00] VITALS: BP 147/78
[2016-05-29 16:00] VITALS: BP 150/93
--- NOTE | 2016-05-29 16:10 | Pulmonology Progress Note ---
Assessment/Plan Problems: (1) COPD with exacerbation (2) Acute respiratory failure (3) Hypoxia (4) ETOH abuse (5) Severe protein-calorie malnutrition Assessment/Plan decrease steroids pt/ot continue antibiotics tolerating diet Subjective ROS Limited/Unobtainable: No Constitutional: Reports: no symptoms HEENT: Repors: no symptoms Respiratory: Reports: no symptoms Cardiovascular: Reports: no symptoms Allergies: Coded Allergies: NO KNOWN ALLERGIES (Unverified Allergy, Unknown, 03/01/15) Objective Last 24 Hour Vital Signs Date Time Temp Pulse Resp B/P Pulse Ox O2 Delivery O2 Flow Rate FiO2 05/29/16 14:57 94 22 82 Room Air 21 05/29/16 12:00 97.6 122 20 147/78 96 Nasal Cannula 05/29/16 08:45 Nasal Cannula 2.0 28 05/29/16 08:00 98.2 97 19 136/89 98 Nasal Cannula 05/29/16 07:45 96 Nasal Cannula 2.0 28 05/29/16 07:45 80 18 Nasal Cannula 2.0 28 05/29/16 04:00 98.2 77 18 144/92 97 Nasal Cannula 2.0 05/29/16 00:00 97.2 83 20 146/90 99 Nasal Cannula 2.0 05/28/16 20:03 Nasal Cannula 2.0 28 05/28/16 20:03 110 20 Nasal Cannula 2.0 28 05/28/16 20:03 98 Nasal Cannula 2.0 28 05/28/16 20:00 97.9 118 24 107/89 94 Nasal Cannula 2.0 Intake and Output 05/28/16 05/29/16 19:00 07:00 Intake Total 700 ml 720 ml Output Total 720 ml Balance 700 ml 0 ml Intake Oral 700 ml 720 ml Output Urine Total 720 ml # Voids 1 # Bowel Movements 1 General Appearance: WD/WN HEENT: normocephalic, atraumatic Respiratory/Chest: chest wall non-tender, lungs clear Cardiovascular: normal peripheral pulses, normal rate Abdomen: normal bowel sounds, soft, non tender Extremities: no cyanosis, no clubbing 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, alert Lymphatic: no neck adenopathy Microbiology Date/Time Source Procedure Growth Status 05/27/16 23:25 Nasopharynx Influenza Types A,B Antigen (PIETRO) - Final Complete Laboratory Tests 05/29/16 06:10: White Blood Count 9.5, Red Blood Count 3.26L, Hemoglobin 10.6L, Hematocrit 33.0L , Mean Corpuscular Volume 101H, Mean Corpuscular Hemoglobin 32.6H, Mean Corpuscular Hemoglobin Concent 32.2, Red Cell Distribution Width 13.2, Platelet Count 217, Mean Platelet Volume 7.1, Neutrophils (%) (Auto) , Lymphocytes (%) ( Auto) , Monocytes (%) (Auto) , Eosinophils (%) (Auto) , Basophils (%) (Auto) , Differential Total Cells Counted 100, Neutrophils % (Manual) 89H, Lymphocytes % (Manual) 6L, Monocytes % (Manual) 5, Eosinophils % (Manual) 0, Basophils % ( Manual) 0, Band Neutrophils 0, Platelet Estimate Adequate, Platelet Morphology Normal, Hypochromasia 1+, Macrocytosis 1+, Sodium Level 141, Potassium Level 4.2 , Chloride Level 104, Carbon Dioxide Level 28, Anion Gap 9, Blood Urea Nitrogen 15, Creatinine 0.8, Estimat Glomerular Filtration Rate > 60, Glucose Level 203H , Calcium Level 9.0, Total Bilirubin 0.3, Aspartate Amino Transf (AST/SGOT) 53H , Alanine Aminotransferase (ALT/SGPT) 46H, Alkaline Phosphatase 74, Total Protein 5.6L, Albumin 3.1L, Globulin 2.5, Albumin/Globulin Ratio 1.2 Current Medications Medications (Trade) Dose Ordered Sig/Agustin Route PRN Reason Start Time Stop Time Status Last Admin Dose Admin Albuterol/ Ipratropium (DuoNeb 0.5-3(2.5)mg/3ml) 3 ml Q4H PRN HHN DYSPNEA 05/26/16 01:30 05/31/16 01:29 05/27/16 00:00 Chlordiazepoxide (Librium) 25 mg EVERY 12 HOURS ORAL 05/26/16 09:00 06/02/16 08:59 05/29/16 09:15 Dextrose (Dextrose 50%) STAT PRN IV Hypoglycemia 05/26/16 09:30 06/25/16 09:29 Folic Acid 1 mg/ Magnesium Sulfate 2000 mg/ Multivitamins 10 ml/Sodium Chloride 1,014.2 ml @ 125 mls/ hr Q24H IV 05/26/16 16:00 06/25/16 15:59 05/28/16 16:00 Heparin Sodium (Porcine) (Heparin 5000 units/ml) 5,000 units EVERY 12 HOURS SUBQ 05/26/16 09:00 06/25/16 08:59 05/29/16 09:19 Insulin Aspart (NovoLOG) BEFORE MEALS AND HS SUBQ 05/26/16 06:30 06/25/16 06:29 05/29/16 06:10 Levofloxacin (Levaquin 750mg/ D5W) 150 ml @ 100 mls/hr Q24H IVPB 05/28/16 13:00 06/04/16 12:59 05/29/16 12:34 Lorazepam (Ativan 2mg/ml 1ml) 0.5 mg Q4H PRN IV For Anxiety 05/26/16 01:30 06/02/16 01:29 Methylprednisolone Sodium Succinate (Solu-MEDROL) 60 mg EVERY 6 HOURS IV 05/26/16 06:00 06/25/16 05:59 05/29/16 12:27 Morphine Sulfate (Morphine Sulfate) 2 mg Q4H PRN IVP Severe Pain (Pain Scale 7-10) 05/26/16 01:30 06/02/16 01:29 05/28/16 12:03 Nitroglycerin (Ntg) 0.4 mg Q5M X 3 DOSES PRN SL Prn Chest Pain 05/26/16 01:00 06/25/16 00:59 Ondansetron HCl (Zofran) 4 mg Q6H PRN IVP Nausea & Vomiting 05/26/16 03:30 06/25/16 03:29 Pantoprazole (Protonix) 40 mg DAILY ORAL 05/26/16 09:00 06/25/16 08:59 05/29/16 09:15 Promethazine HCl/ Codeine (Phenergan with Codeine) 5 ml Q6H PRN ORAL cough 05/26/16 03:30 06/25/16 03:29 05/27/16 08:43 Temazepam (Restoril) 15 mg HSPRN PRN ORAL Insomnia 05/26/16 21:00 06/02/16 20:59 05/29/16 00:14 Theophylline 100 mg 100 mg EVERY 12 HOURS ORAL 05/26/16 09:00 06/25/16 08:59 05/29/16 09:15 Thiamine HCl/ Dextrose (Vitamin B1/D5W) 56 ml @ 112 mls/hr Q24H IVPB 05/26/16 16:00 06/25/16 15:59 05/28/16 16:00 LAZARUS YATES May 29, 2016 16:10
[2016-05-29] MEDS: Thiamine HCl 100 MG in D5W 55 ML IVPB SCH (16:14)
[2016-05-29] MEDS: Folic Acid 1 MG, Magnesium Sulfate 2,000 MG, Multivitamin - 12 Injection 10 ML in NS w/... IV SCH (17:26)
[2016-05-29 20:00] VITALS: BP 151/84
[2016-05-30] VITALS: BP 146/97
[2016-05-30 04:00] VITALS: BP 147/98
[2016-05-30] MEDS: NovoLOG Insulin Flexpen SUBQ SCH ×4 (06:17→21:02)
[2016-05-30 06:54] LABS: MEAN CORPUSCULAR HEMOGLOBIN 32.1 PG (27.0-31.0); MEAN CORPUSCULAR HGB CONC 31.5 G/DL (32.0-36.0); MEAN CORPUSCULAR VOLUME 102 FL (80-99); PLATELET COUNT 252 K/UL (150-450); RED BLOOD COUNT 3.39 M/UL (4.70-6.10); RED CELL DISTRIBUTION WIDTH 13.2 % (11.6-14.8); WHITE BLOOD COUNT 10.1 K/UL (4.8-10.8)
[2016-05-30 07:12] LABS: ANION GAP 10 (5-15); CARBON DIOXIDE 28 mEQ/L (20-30); CHLORIDE 104 mEQ/L (98-107); CREATININE 0.9 mg/dL (0.7-1.2); GLOMERULAR FILTRATION RATE > 60 mL/min (>60); HEMOLYSIS 3; POTASSIUM 3.9 mEQ/L (3.4-4.9); SODIUM 142 mEQ/L (135-145)
[2016-05-30 08:13] VITALS: BP 167/100
[2016-05-30 08:53] LABS: BAND NEUTROPHILS % (MANUAL) 0 % (0-8); BASOPHILS % (MANUAL) 0 % (0-2); EOSINOPHILS % (MANUAL) 4 % (0-3); LYMPHOCYTES % (MANUAL) 6 % (20-45); NEUTROPHILS % (MANUAL) 81 % (45-75); PLATELET ESTIMATE ADEQUATE; PLATELET MORPHOLOGY NORMAL; TOTAL CELLS COUNTED 100
[2016-05-30] MEDS ORDERED: Solu-MEDROL 125mg Inj IV SCH (09:00)
[2016-05-30] MEDS: Theophylline ER 100mg ORAL SCH (09:03)
[2016-05-30] MEDS: chlordiazePOXIDE 25mg Cap ORAL SCH ×2 (09:04→21:01)
[2016-05-30] MEDS: Heparin 5000 units/ml inj SUBQ SCH ×2 (09:05→21:02)
[2016-05-30 12:19] VITALS: BP 143/95
[2016-05-30 16:00] VITALS: BP 145/96
[2016-05-30] MEDS: Thiamine HCl 100 MG in D5W 55 ML IVPB SCH (16:55)
[2016-05-30] MEDS: Folic Acid 1 MG, Magnesium Sulfate 2,000 MG, Multivitamin - 12 Injection 10 ML in NS w/... IV SCH (18:02)
--- NOTE | 2016-05-30 19:16 | General Progress Note ---
Assessment/Plan Assessment/Plan Assessment/Plan Problems: (1) Hypoalbuminemia ICD Codes: E88.09 - Other disorders of plasma-protein metabolism, not elsewhere classified SNOMED: 871736305 (2) Anemia ICD Codes: D64.9 - Anemia, unspecified SNOMED: 607044837 (3) Upper GI bleeding ICD Codes: K92.2 - Gastrointestinal hemorrhage, unspecified SNOMED: 72324907 (4) Severe protein-calorie malnutrition ICD Codes: E43 - Unspecified severe protein-calorie malnutrition SNOMED: 781276833 (5) ETOH abuse ICD Codes: F10.10 - Alcohol abuse, uncomplicated SNOMED: 07510741, 93773553 Status: stable Assessment/Plan OB stool positive ETOH abuse abd U/S reviewed >> hepatocellular disease, most likely fatty change. endoscopic records from [facility] reviewed - s/p EGD , unremarkable - s/p colonoscopy, internal hemorrhoids - recommend SB capsule endoscopy if heme positive, can be done as outpatient stable H&H, transfuse prn monitor LFTs ETOH cessation education given ppi cardiac diet fu labs Subjective Allergies: Coded Allergies: NO KNOWN ALLERGIES (Unverified Allergy, Unknown, 03/01/15) Subjective Feels OK no abd pain tolerating PO Objective Last 24 Hour Vital Signs Date Time Temp Pulse Resp B/P Pulse Ox O2 Delivery O2 Flow Rate FiO2 05/30/16 16:00 98.9 100 22 145/96 96 Nasal Cannula 2.0 05/30/16 12:19 97.0 93 20 143/95 98 Nasal Cannula 2.0 05/30/16 08:13 97.9 75 20 167/100 98 Nasal Cannula 2.0 05/30/16 08:00 Nasal Cannula 2.0 28 05/30/16 08:00 100 18 Nasal Cannula 2.0 28 05/30/16 08:00 100 Nasal Cannula 2.0 28 05/30/16 04:00 97.9 76 20 147/98 99 Room Air 05/30/16 00:00 97.3 91 20 146/97 97 Nasal Cannula 2.0 05/29/16 20:00 97.9 104 22 151/84 95 Nasal Cannula 2.0 05/29/16 19:46 Nasal Cannula 2.0 28 05/29/16 19:46 99 Nasal Cannula 2.0 28 05/29/16 19:46 96 18 Nasal Cannula 2.0 28 Intake and Output 05/29/16 05/30/16 19:00 07:00 Intake Total 881 ml 500 ml Output Total 2 ml 2 ml Balance 879 ml 498 ml Intake Oral 700 ml IV Total 181 ml 500 ml Output Urine Total 2 ml 2 ml # Voids 2 # Bowel Movements 2 1 Laboratory Tests 05/30/16 05:15: White Blood Count 10.1, Red Blood Count 3.39L, Hemoglobin 10.9L, Hematocrit 34.7L, Mean Corpuscular Volume 102H, Mean Corpuscular Hemoglobin 32.1H, Mean Corpuscular Hemoglobin Concent 31.5L, Red Cell Distribution Width 13.2, Platelet Count 252, Mean Platelet Volume 7.0, Neutrophils (%) (Auto) , Lymphocytes (%) (Auto) , Monocytes (%) (Auto) , Eosinophils (%) (Auto) , Basophils (%) (Auto) , Differential Total Cells Counted 100, Neutrophils % ( Manual) 81H, Lymphocytes % (Manual) 6L, Monocytes % (Manual) 9, Eosinophils % ( Manual) 4H, Basophils % (Manual) 0, Band Neutrophils 0, Platelet Estimate Adequate, Platelet Morphology Normal, Red Blood Cell Morphology Normal, Sodium Level 142, Potassium Level 3.9, Chloride Level 104, Carbon Dioxide Level 28, Anion Gap 10, Blood Urea Nitrogen 16, Creatinine 0.9, Estimat Glomerular Filtration Rate > 60, Glucose Level 162H, Calcium Level 9.0 Height (Feet): 5 Height (Inches): 8.00 Weight (Pounds): 125 Objective WDWN NCAT supple CTA RRR Soft ND NT No edema non focal EMILY RICE May 30, 2016 19:16
[2016-05-30 19:58] VITALS: BP 146/97
--- NOTE | 2016-05-30 21:58 | Pulmonology Progress Note ---
Assessment/Plan Problems: (1) COPD with exacerbation (2) Acute respiratory failure (3) Hypoxia (4) ETOH abuse (5) Severe protein-calorie malnutrition Assessment/Plan improving continue antibiotics check cutlrues dc planning Subjective ROS Limited/Unobtainable: No Allergies: Coded Allergies: NO KNOWN ALLERGIES (Unverified Allergy, Unknown, 03/01/15) Objective Last 24 Hour Vital Signs Date Time Temp Pulse Resp B/P Pulse Ox O2 Delivery O2 Flow Rate FiO2 05/30/16 19:58 98 18 Nasal Cannula 2.0 28 05/30/16 19:58 98.6 103 21 146/97 98 Nasal Cannula 2.0 05/30/16 19:57 Nasal Cannula 2.0 28 05/30/16 19:57 97 Nasal Cannula 2.0 28 05/30/16 16:00 98.9 100 22 145/96 96 Nasal Cannula 2.0 05/30/16 12:19 97.0 93 20 143/95 98 Nasal Cannula 2.0 05/30/16 08:13 97.9 75 20 167/100 98 Nasal Cannula 2.0 05/30/16 08:00 Nasal Cannula 2.0 28 05/30/16 08:00 100 18 Nasal Cannula 2.0 28 05/30/16 08:00 100 Nasal Cannula 2.0 28 05/30/16 04:00 97.9 76 20 147/98 99 Room Air 05/30/16 00:00 97.3 91 20 146/97 97 Nasal Cannula 2.0 Intake and Output 05/29/16 05/30/16 19:00 07:00 Intake Total 881 ml 500 ml Output Total 2 ml 2 ml Balance 879 ml 498 ml Intake Oral 700 ml IV Total 181 ml 500 ml Output Urine Total 2 ml 2 ml # Voids 2 # Bowel Movements 2 1 General Appearance: WD/WN HEENT: normocephalic Respiratory/Chest: chest wall non-tender Cardiovascular: normal peripheral pulses Abdomen: normal bowel sounds Extremities: no cyanosis 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 Microbiology Date/Time Source Procedure Growth Status 05/28/16 05:50 Blood Blood Culture - Preliminary NO GROWTH AFTER 24 HOURS Resulted 05/28/16 05:45 Blood Blood Culture - Preliminary NO GROWTH AFTER 24 HOURS Resulted 05/27/16 23:25 Nasopharynx Influenza Types A,B Antigen (PIETRO) - Final Complete Laboratory Tests 05/30/16 05:15: White Blood Count 10.1, Red Blood Count 3.39L, Hemoglobin 10.9L, Hematocrit 34.7L, Mean Corpuscular Volume 102H, Mean Corpuscular Hemoglobin 32.1H, Mean Corpuscular Hemoglobin Concent 31.5L, Red Cell Distribution Width 13.2, Platelet Count 252, Mean Platelet Volume 7.0, Neutrophils (%) (Auto) , Lymphocytes (%) (Auto) , Monocytes (%) (Auto) , Eosinophils (%) (Auto) , Basophils (%) (Auto) , Differential Total Cells Counted 100, Neutrophils % ( Manual) 81H, Lymphocytes % (Manual) 6L, Monocytes % (Manual) 9, Eosinophils % ( Manual) 4H, Basophils % (Manual) 0, Band Neutrophils 0, Platelet Estimate Adequate, Platelet Morphology Normal, Red Blood Cell Morphology Normal, Sodium Level 142, Potassium Level 3.9, Chloride Level 104, Carbon Dioxide Level 28, Anion Gap 10, Blood Urea Nitrogen 16, Creatinine 0.9, Estimat Glomerular Filtration Rate > 60, Glucose Level 162H, Calcium Level 9.0 Current Medications Medications (Trade) Dose Ordered Sig/Agustin Route PRN Reason Start Time Stop Time Status Last Admin Dose Admin Albuterol/ Ipratropium (DuoNeb 0.5-3(2.5)mg/3ml) 3 ml Q4H PRN HHN DYSPNEA 05/26/16 01:30 05/31/16 01:29 05/27/16 00:00 Chlordiazepoxide (Librium) 25 mg EVERY 12 HOURS ORAL 05/26/16 09:00 06/02/16 08:59 05/30/16 21:01 Dextrose (Dextrose 50%) STAT PRN IV Hypoglycemia 05/26/16 09:30 06/25/16 09:29 Folic Acid 1 mg/ Magnesium Sulfate 2000 mg/ Multivitamins 10 ml/Sodium Chloride 1,014.2 ml @ 125 mls/ hr Q24H IV 05/26/16 16:00 06/25/16 15:59 05/30/16 18:02 Heparin Sodium (Porcine) (Heparin 5000 units/ml) 5,000 units EVERY 12 HOURS SUBQ 05/26/16 09:00 06/25/16 08:59 05/30/16 21:02 Insulin Aspart (NovoLOG) BEFORE MEALS AND HS SUBQ 05/26/16 06:30 06/25/16 06:29 05/30/16 21:02 Levofloxacin (Levaquin) 750 mg DAILY ORAL 05/31/16 09:00 06/04/16 08:59 Lorazepam (Ativan 2mg/ml 1ml) 0.5 mg Q4H PRN IV For Anxiety 05/26/16 01:30 06/02/16 01:29 Methylprednisolone Sodium Succinate (Solu-MEDROL) 60 mg DAILY IV 05/30/16 09:00 06/29/16 08:59 05/30/16 09:03 Morphine Sulfate (Morphine Sulfate) 2 mg Q4H PRN IVP Severe Pain (Pain Scale 7-10) 05/26/16 01:30 06/02/16 01:29 05/28/16 12:03 Nitroglycerin (Ntg) 0.4 mg Q5M X 3 DOSES PRN SL Prn Chest Pain 05/26/16 01:00 06/25/16 00:59 Ondansetron HCl (Zofran) 4 mg Q6H PRN IVP Nausea & Vomiting 05/26/16 03:30 06/25/16 03:29 Pantoprazole (Protonix) 40 mg DAILY ORAL 05/26/16 09:00 06/25/16 08:59 05/30/16 09:03 Promethazine HCl/ Codeine (Phenergan with Codeine) 5 ml Q6H PRN ORAL cough 05/26/16 03:30 06/25/16 03:29 05/27/16 08:43 Temazepam (Restoril) 15 mg HSPRN PRN ORAL Insomnia 05/26/16 21:00 06/02/16 20:59 05/30/16 21:40 Theophylline (Gaurav-Dur) 100 mg DAILY ORAL 05/30/16 09:00 06/29/16 08:59 05/30/16 09:03 Thiamine HCl/ Dextrose (Vitamin B1/D5W) 56 ml @ 112 mls/hr Q24H IVPB 05/26/16 16:00 06/25/16 15:59 05/30/16 16:55 LAZARUS YATES May 30, 2016 21:58
[2016-05-31] VITALS: BP 148/100
[2016-05-31 04:00] VITALS: BP 144/101
[2016-05-31] MEDS: NovoLOG Insulin Flexpen SUBQ SCH ×4 (06:26→21:00)
[2016-05-31 08:00] VITALS: BP 117/99
[2016-05-31] MEDS: Theophylline ER 100mg ORAL SCH (08:36)
[2016-05-31] MEDS: chlordiazePOXIDE 25mg Cap ORAL SCH ×2 (08:36→21:16)
[2016-05-31] MEDS: Heparin 5000 units/ml inj SUBQ SCH ×2 (08:45→21:16)
[2016-05-31 12:00] VITALS: BP 139/88
--- NOTE | 2016-05-31 14:00 | Infectious Diseases Prog Note ---
Assessment/Plan Assessment/Plan A: he patient is a 60-year-old male with Fever, SP COPD exacerbation and pneumonia SCx: PSA CT of the chest: COPD changes right bibasilar atelectasis mild BLcx: CoNS ( contaminant ) history of alcohol abuse. Seizure disorder. HTN PLAN: Levaquin d# 4 /14 ( 05/28 SP DC Zithromax and IV Vanco d# 2 ) Monitor blood culture.( repeat ) Monitor CBC, Monitor BMP Subjective Constitutional: Denies: anorexia, chills, drenching sweats, fatigue, fever, no symptoms, other Allergies: Coded Allergies: NO KNOWN ALLERGIES (Unverified Allergy, Unknown, 03/01/15) Objective Vital Signs Last 24 Hour Vital Signs Date Time Temp Pulse Resp B/P Pulse Ox O2 Delivery O2 Flow Rate FiO2 05/31/16 12:00 97.5 98 20 139/88 99 Nasal Cannula 2.0 05/31/16 08:00 97.3 110 19 117/99 98 Room Air 05/31/16 07:30 98 Nasal Cannula 2.0 28 05/31/16 07:30 Nasal Cannula 2.0 28 05/31/16 07:30 77 18 Nasal Cannula 2.0 28 05/31/16 04:00 97.3 86 18 144/101 100 Nasal Cannula 2.0 05/31/16 00:00 97.7 86 18 148/100 100 Nasal Cannula 2.0 05/30/16 19:58 98 18 Nasal Cannula 2.0 28 05/30/16 19:58 98.6 103 21 146/97 98 Nasal Cannula 2.0 05/30/16 19:57 Nasal Cannula 2.0 28 05/30/16 19:57 97 Nasal Cannula 2.0 28 05/30/16 16:00 98.9 100 22 145/96 96 Nasal Cannula 2.0 Height (Feet): 5 Height (Inches): 8.00 Weight (Pounds): 125 HEENT: atraumatic Respiratory/Chest: lungs clear, normal breath sounds Cardiovascular: normal rate Abdomen: soft, non tender, no organomegaly Current Medications Medications (Trade) Dose Ordered Sig/Agustin Route PRN Reason Start Time Stop Time Status Last Admin Dose Admin Chlordiazepoxide (Librium) 25 mg EVERY 12 HOURS ORAL 05/26/16 09:00 06/02/16 08:59 05/31/16 08:36 Dextrose (Dextrose 50%) STAT PRN IV Hypoglycemia 05/26/16 09:30 06/25/16 09:29 Folic Acid 1 mg/ Magnesium Sulfate 2000 mg/ Multivitamins 10 ml/Sodium Chloride 1,014.2 ml @ 125 mls/ hr Q24H IV 05/26/16 16:00 06/25/16 15:59 05/30/16 18:02 Heparin Sodium (Porcine) (Heparin 5000 units/ml) 5,000 units EVERY 12 HOURS SUBQ 05/26/16 09:00 06/25/16 08:59 05/31/16 08:45 Insulin Aspart (NovoLOG) BEFORE MEALS AND HS SUBQ 05/26/16 06:30 06/25/16 06:29 05/30/16 21:02 Levofloxacin (Levaquin) 750 mg DAILY ORAL 05/31/16 09:00 06/04/16 08:59 05/31/16 08:36 Lorazepam (Ativan 2mg/ml 1ml) 0.5 mg Q4H PRN IV For Anxiety 05/26/16 01:30 06/02/16 01:29 Morphine Sulfate (Morphine Sulfate) 2 mg Q4H PRN IVP Severe Pain (Pain Scale 7-10) 05/26/16 01:30 06/02/16 01:29 05/28/16 12:03 Nitroglycerin (Ntg) 0.4 mg Q5M X 3 DOSES PRN SL Prn Chest Pain 05/26/16 01:00 06/25/16 00:59 Ondansetron HCl (Zofran) 4 mg Q6H PRN IVP Nausea & Vomiting 05/26/16 03:30 06/25/16 03:29 Pantoprazole (Protonix) 40 mg DAILY ORAL 05/26/16 09:00 06/25/16 08:59 05/31/16 08:36 Promethazine HCl/ Codeine (Phenergan with Codeine) 5 ml Q6H PRN ORAL cough 05/26/16 03:30 06/25/16 03:29 05/27/16 08:43 Temazepam (Restoril) 15 mg HSPRN PRN ORAL Insomnia 05/26/16 21:00 06/02/16 20:59 05/30/16 21:40 Theophylline (Gaurav-Dur) 100 mg DAILY ORAL 05/30/16 09:00 06/29/16 08:59 05/31/16 08:36 Thiamine HCl/ Dextrose (Vitamin B1/D5W) 56 ml @ 112 mls/hr Q24H IVPB 05/26/16 16:00 06/25/16 15:59 05/30/16 16:55 MADISON DEL CID M.D. May 31, 2016 14:00
[2016-05-31 16:00] VITALS: BP 124/94
[2016-05-31] MEDS: Thiamine HCl 100 MG in D5W 55 ML IVPB SCH (16:53)
[2016-05-31] MEDS: Folic Acid 1 MG, Magnesium Sulfate 2,000 MG, Multivitamin - 12 Injection 10 ML in NS w/... IV SCH (16:54)
[2016-05-31 20:00] VITALS: BP 127/86
--- NOTE | 2016-05-31 21:51 | Pulmonology Progress Note ---
Assessment/Plan Problems: (1) COPD with exacerbation (2) Acute respiratory failure (3) Hypoxia (4) ETOH abuse (5) Severe protein-calorie malnutrition Assessment/Plan improving continue antibiotics check cutlrues dc planning for am Subjective ROS Limited/Unobtainable: No Allergies: Coded Allergies: NO KNOWN ALLERGIES (Unverified Allergy, Unknown, 03/01/15) Objective Last 24 Hour Vital Signs Date Time Temp Pulse Resp B/P Pulse Ox O2 Delivery O2 Flow Rate FiO2 05/31/16 20:20 Nasal Cannula 2.0 28 05/31/16 20:20 97 Nasal Cannula 2.0 28 05/31/16 20:00 97.7 94 20 127/86 99 Nasal Cannula 2.0 05/31/16 16:00 97.7 105 20 124/94 99 Nasal Cannula 2.0 05/31/16 12:00 97.5 98 20 139/88 99 Nasal Cannula 2.0 05/31/16 08:00 97.3 110 19 117/99 98 Room Air 05/31/16 07:30 98 Nasal Cannula 2.0 05/31/16 07:30 Nasal Cannula 2.0 28 05/31/16 07:30 77 18 Nasal Cannula 2.0 05/31/16 04:00 97.3 86 18 144/101 100 Nasal Cannula 2.0 05/31/16 00:00 97.7 86 18 148/100 100 Nasal Cannula 2.0 Intake and Output 05/30/16 05/31/16 19:00 07:00 Intake Total 566 ml 1725 ml Output Total 240 ml 1000 ml Balance 326 ml 725 ml Intake Oral 360 ml 600 ml IV Total 206 ml 1125 ml Output Urine Total 240 ml 1000 ml # Voids 1 4 General Appearance: WD/WN HEENT: normocephalic Respiratory/Chest: chest wall non-tender, normal breath sounds Cardiovascular: normal peripheral pulses Abdomen: normal bowel sounds Current Medications Medications (Trade) Dose Ordered Sig/Agustin Route PRN Reason Start Time Stop Time Status Last Admin Dose Admin Chlordiazepoxide (Librium) 25 mg EVERY 12 HOURS ORAL 05/26/16 09:00 06/02/16 08:59 05/31/16 21:16 Dextrose (Dextrose 50%) STAT PRN IV Hypoglycemia 05/26/16 09:30 06/25/16 09:29 Folic Acid 1 mg/ Magnesium Sulfate 2000 mg/ Multivitamins 10 ml/Sodium Chloride 1,014.2 ml @ 125 mls/ hr Q24H IV 05/26/16 16:00 06/25/16 15:59 05/31/16 16:54 Heparin Sodium (Porcine) (Heparin 5000 units/ml) 5,000 units EVERY 12 HOURS SUBQ 05/26/16 09:00 06/25/16 08:59 05/31/16 21:16 Insulin Aspart (NovoLOG) BEFORE MEALS AND HS SUBQ 05/26/16 06:30 06/25/16 06:29 05/31/16 16:58 Levofloxacin (Levaquin) 750 mg DAILY ORAL 05/31/16 09:00 06/04/16 08:59 05/31/16 08:36 Lorazepam (Ativan 2mg/ml 1ml) 0.5 mg Q4H PRN IV For Anxiety 05/26/16 01:30 06/02/16 01:29 Morphine Sulfate (Morphine Sulfate) 2 mg Q4H PRN IVP Severe Pain (Pain Scale 7-10) 05/26/16 01:30 06/02/16 01:29 05/28/16 12:03 Nitroglycerin (Ntg) 0.4 mg Q5M X 3 DOSES PRN SL Prn Chest Pain 05/26/16 01:00 06/25/16 00:59 Ondansetron HCl (Zofran) 4 mg Q6H PRN IVP Nausea & Vomiting 05/26/16 03:30 06/25/16 03:29 Pantoprazole (Protonix) 40 mg DAILY ORAL 05/26/16 09:00 06/25/16 08:59 05/31/16 08:36 Promethazine HCl/ Codeine (Phenergan with Codeine) 5 ml Q6H PRN ORAL cough 05/26/16 03:30 06/25/16 03:29 05/27/16 08:43 Temazepam (Restoril) 15 mg HSPRN PRN ORAL Insomnia 05/26/16 21:00 06/02/16 20:59 05/30/16 21:40 Theophylline (Gaurav-Dur) 100 mg DAILY ORAL 05/30/16 09:00 06/29/16 08:59 05/31/16 08:36 Thiamine HCl/ Dextrose (Vitamin B1/D5W) 56 ml @ 112 mls/hr Q24H IVPB 05/26/16 16:00 06/25/16 15:59 05/31/16 16:53 LAZARUS YATES May 31, 2016 21:51
[2016-06-01] VITALS: BP 141/94
[2016-06-01 04:00] VITALS: BP 149/98
[2016-06-01] MEDS: NovoLOG Insulin Flexpen SUBQ SCH ×4 (06:30→20:19)
[2016-06-01 08:00] VITALS: BP 145/91
[2016-06-01] MEDS: Theophylline ER 100mg ORAL SCH (09:30)
[2016-06-01] MEDS: chlordiazePOXIDE 25mg Cap ORAL SCH ×2 (09:30→20:12)
[2016-06-01] MEDS: Heparin 5000 units/ml inj SUBQ SCH ×2 (09:32→20:18)
--- NOTE | 2016-06-01 11:04 | GI Progress Note ---
Assessment/Plan Problems: (1) Hypoalbuminemia ICD Codes: E88.09 - Other disorders of plasma-protein metabolism, not elsewhere classified SNOMED: 550915060 (2) Anemia ICD Codes: D64.9 - Anemia, unspecified SNOMED: 709716880 (3) Upper GI bleeding ICD Codes: K92.2 - Gastrointestinal hemorrhage, unspecified SNOMED: 85183363 (4) Severe protein-calorie malnutrition ICD Codes: E43 - Unspecified severe protein-calorie malnutrition SNOMED: 690269731 (5) ETOH abuse ICD Codes: F10.10 - Alcohol abuse, uncomplicated SNOMED: 01697589, 92003687 Status: stable Status Narrative Discussed with Dr. Patton. Assessment/Plan OB stool positive ETOH abuse abd U/S reviewed >> hepatocellular disease, most likely fatty change. endoscopic records from [facility] reviewed - s/p EGD -, unremarkable - s/p colonoscopy, internal hemorrhoids - recommend SB capsule endoscopy if heme positive, can be done as outpatient ok for DC per GI standpoint stable H&H, transfuse prn monitor LFTs ETOH cessation education given ppi cardiac diet fu labs Subjective Gastrointestinal/Abdominal: Reports: no symptoms Subjective SOB feels better Objective Last 24 Hour Vital Signs Date Time Temp Pulse Resp B/P Pulse Ox O2 Delivery O2 Flow Rate FiO2 06/01/16 08:12 98 Nasal Cannula 2.0 28 06/01/16 08:12 Nasal Cannula 2.0 28 06/01/16 08:00 97.5 80 20 145/91 98 Nasal Cannula 2.0 06/01/16 04:00 97.3 92 19 149/98 98 Nasal Cannula 2.0 06/01/16 00:00 97.9 118 20 141/94 90 Room Air 05/31/16 20:20 Nasal Cannula 2.0 28 05/31/16 20:20 97 Nasal Cannula 2.0 28 05/31/16 20:00 97.7 94 20 127/86 99 Nasal Cannula 2.0 05/31/16 16:00 97.7 105 20 124/94 99 Nasal Cannula 2.0 05/31/16 12:00 97.5 98 20 139/88 99 Nasal Cannula 2.0 Intake and Output 05/31/16 06/01/16 19:00 07:00 Intake Total 725 ml 1370 ml Output Total 300 ml 1000 ml Balance 425 ml 370 ml Intake Oral 600 ml 620 ml IV Total 125 ml 750 ml Output Urine Total 300 ml 1000 ml # Voids 2 # Bowel Movements 1 1 Height (Feet): 5 Height (Inches): 8.00 Weight (Pounds): 125 General Appearance: no apparent distress, alert Cardiovascular: normal rate Respiratory/Chest: other - 2LNC Abdominal Exam: normal bowel sounds, non tender, soft Extremities: normal range of motion Virgie Rivera N.P. Jun 01, 2016 11:04
[2016-06-01 12:00] VITALS: BP 131/88
[2016-06-01 16:13] VITALS: BP 118/86
[2016-06-01] MEDS: Thiamine HCl 100 MG in D5W 55 ML IVPB SCH (16:50)
[2016-06-01] MEDS: Folic Acid 1 MG, Magnesium Sulfate 2,000 MG, Multivitamin - 12 Injection 10 ML in NS w/... IV SCH (16:50)
--- NOTE | 2016-06-01 18:31 | Infectious Diseases Prog Note ---
Assessment/Plan Assessment/Plan A: he patient is a 60-year-old male with Fever, SP COPD exacerbation and pneumonia SCx: PSA CT of the chest: COPD changes right bibasilar atelectasis mild BLcx: CoNS ( contaminant ) history of alcohol abuse. Seizure disorder. HTN PLAN: Levaquin d# 5 / ( 05/28 SP DC Zithromax and IV Vanco d# 2 ) Monitor blood culture.( repeat ) Monitor CBC, Monitor BMP Subjective Constitutional: Denies: anorexia, chills, drenching sweats, fatigue, fever, no symptoms, other Allergies: Coded Allergies: NO KNOWN ALLERGIES (Unverified Allergy, Unknown, 03/01/15) Objective Vital Signs Last 24 Hour Vital Signs Date Time Temp Pulse Resp B/P Pulse Ox O2 Delivery O2 Flow Rate FiO2 06/01/16 16:13 97.9 107 21 118/86 94 Nasal Cannula 2.0 06/01/16 12:00 97.2 100 18 131/88 99 Nasal Cannula 2.0 06/01/16 08:12 98 Nasal Cannula 2.0 28 06/01/16 08:12 Nasal Cannula 2.0 28 06/01/16 08:00 97.5 80 20 145/91 98 Nasal Cannula 2.0 06/01/16 04:00 97.3 92 19 149/98 98 Nasal Cannula 2.0 06/01/16 00:00 97.9 118 20 141/94 90 Room Air 05/31/16 20:20 Nasal Cannula 2.0 28 05/31/16 20:20 97 Nasal Cannula 2.0 28 05/31/16 20:00 97.7 94 20 127/86 99 Nasal Cannula 2.0 Height (Feet): 5 Height (Inches): 8.00 Weight (Pounds): 125 HEENT: anicteric Respiratory/Chest: normal breath sounds Cardiovascular: normal rate Abdomen: non distended Current Medications Medications (Trade) Dose Ordered Sig/Agustin Route PRN Reason Start Time Stop Time Status Last Admin Dose Admin Chlordiazepoxide (Librium) 25 mg EVERY 12 HOURS ORAL 05/26/16 09:00 06/02/16 08:59 06/01/16 09:30 Dextrose (Dextrose 50%) STAT PRN IV Hypoglycemia 05/26/16 09:30 06/25/16 09:29 Folic Acid 1 mg/ Magnesium Sulfate 2000 mg/ Multivitamins 10 ml/Sodium Chloride 1,014.2 ml @ 125 mls/ hr Q24H IV 05/26/16 16:00 06/25/16 15:59 06/01/16 16:50 Heparin Sodium (Porcine) (Heparin 5000 units/ml) 5,000 units EVERY 12 HOURS SUBQ 05/26/16 09:00 06/25/16 08:59 06/01/16 09:32 Insulin Aspart (NovoLOG) BEFORE MEALS AND HS SUBQ 05/26/16 06:30 06/25/16 06:29 05/31/16 16:58 Levofloxacin (Levaquin) 750 mg DAILY ORAL 05/31/16 09:00 06/04/16 08:59 06/01/16 09:31 Lorazepam (Ativan 2mg/ml 1ml) 0.5 mg Q4H PRN IV For Anxiety 05/26/16 01:30 06/02/16 01:29 Morphine Sulfate (Morphine Sulfate) 2 mg Q4H PRN IVP Severe Pain (Pain Scale 7-10) 05/26/16 01:30 06/02/16 01:29 05/28/16 12:03 Nitroglycerin (Ntg) 0.4 mg Q5M X 3 DOSES PRN SL Prn Chest Pain 05/26/16 01:00 06/25/16 00:59 Ondansetron HCl (Zofran) 4 mg Q6H PRN IVP Nausea & Vomiting 05/26/16 03:30 06/25/16 03:29 Pantoprazole (Protonix) 40 mg DAILY ORAL 05/26/16 09:00 06/25/16 08:59 06/01/16 09:31 Promethazine HCl/ Codeine (Phenergan with Codeine) 5 ml Q6H PRN ORAL cough 05/26/16 03:30 06/25/16 03:29 05/27/16 08:43 Temazepam (Restoril) 15 mg HSPRN PRN ORAL Insomnia 05/26/16 21:00 06/02/16 20:59 06/01/16 00:28 Theophylline (Gaurav-Dur) 100 mg DAILY ORAL 05/30/16 09:00 06/29/16 08:59 06/01/16 09:30 Thiamine HCl/ Dextrose (Vitamin B1/D5W) 56 ml @ 112 mls/hr Q24H IVPB 05/26/16 16:00 06/25/16 15:59 06/01/16 16:50 MADISON DEL CID M.D. Jun 01, 2016 18:31
[2016-06-01 19:56] VITALS: BP 137/82
--- NOTE | 2016-06-01 23:36 | Pulmonology Progress Note ---
Assessment/Plan Problems: (1) COPD with exacerbation (2) Acute respiratory failure (3) Hypoxia (4) ETOH abuse (5) Severe protein-calorie malnutrition Assessment/Plan improving titrate fio2 to sat of 92% comfort care dc planning for am Subjective ROS Limited/Unobtainable: No Allergies: Coded Allergies: NO KNOWN ALLERGIES (Unverified Allergy, Unknown, 03/01/15) Objective Last 24 Hour Vital Signs Date Time Temp Pulse Resp B/P Pulse Ox O2 Delivery O2 Flow Rate FiO2 06/01/16 19:56 98.6 110 23 137/82 93 Nasal Cannula 2.0 06/01/16 16:13 97.9 107 21 118/86 94 Nasal Cannula 2.0 06/01/16 12:00 97.2 100 18 131/88 99 Nasal Cannula 2.0 06/01/16 08:12 98 Nasal Cannula 2.0 28 06/01/16 08:12 Nasal Cannula 2.0 28 06/01/16 08:00 97.5 80 20 145/91 98 Nasal Cannula 2.0 06/01/16 04:00 97.3 92 19 149/98 98 Nasal Cannula 2.0 06/01/16 00:00 97.9 118 20 141/94 90 Room Air Intake and Output 05/31/16 06/01/16 19:00 07:00 Intake Total 725 ml 1370 ml Output Total 300 ml 1000 ml Balance 425 ml 370 ml Intake Oral 600 ml 620 ml IV Total 125 ml 750 ml Output Urine Total 300 ml 1000 ml # Voids 2 # Bowel Movements 1 1 General Appearance: WD/WN HEENT: normocephalic, anicteric Respiratory/Chest: chest wall non-tender, lungs clear Cardiovascular: normal peripheral pulses Abdomen: normal bowel sounds, soft, non tender Extremities: no clubbing Neurologic/Psychiatric: pm head cook II-XII grossly normal, no motor/sensory deficits Lymphatic: no neck adenopathy Current Medications Medications (Trade) Dose Ordered Sig/Agustin Route PRN Reason Start Time Stop Time Status Last Admin Dose Admin Chlordiazepoxide (Librium) 25 mg EVERY 12 HOURS ORAL 05/26/16 09:00 06/02/16 08:59 06/01/16 20:12 Dextrose (Dextrose 50%) STAT PRN IV Hypoglycemia 05/26/16 09:30 06/25/16 09:29 Folic Acid 1 mg/ Magnesium Sulfate 2000 mg/ Multivitamins 10 ml/Sodium Chloride 1,014.2 ml @ 125 mls/ hr Q24H IV 05/26/16 16:00 06/25/16 15:59 06/01/16 16:50 Heparin Sodium (Porcine) (Heparin 5000 units/ml) 5,000 units EVERY 12 HOURS SUBQ 05/26/16 09:00 06/25/16 08:59 06/01/16 20:18 Insulin Aspart (NovoLOG) BEFORE MEALS AND HS SUBQ 05/26/16 06:30 06/25/16 06:29 06/01/16 20:19 Levofloxacin (Levaquin) 750 mg DAILY ORAL 05/31/16 09:00 06/04/16 08:59 06/01/16 09:31 Lorazepam (Ativan 2mg/ml 1ml) 0.5 mg Q4H PRN IV For Anxiety 05/26/16 01:30 06/02/16 01:29 Morphine Sulfate (Morphine Sulfate) 2 mg Q4H PRN IVP Severe Pain (Pain Scale 7-10) 05/26/16 01:30 06/02/16 01:29 05/28/16 12:03 Nitroglycerin (Ntg) 0.4 mg Q5M X 3 DOSES PRN SL Prn Chest Pain 05/26/16 01:00 06/25/16 00:59 Ondansetron HCl (Zofran) 4 mg Q6H PRN IVP Nausea & Vomiting 05/26/16 03:30 06/25/16 03:29 Pantoprazole (Protonix) 40 mg DAILY ORAL 05/26/16 09:00 06/25/16 08:59 06/01/16 09:31 Promethazine HCl/ Codeine (Phenergan with Codeine) 5 ml Q6H PRN ORAL cough 05/26/16 03:30 06/25/16 03:29 05/27/16 08:43 Temazepam (Restoril) 15 mg HSPRN PRN ORAL Insomnia 05/26/16 21:00 06/02/16 20:59 06/01/16 00:28 Theophylline (Gaurav-Dur) 100 mg DAILY ORAL 05/30/16 09:00 06/29/16 08:59 06/01/16 09:30 Thiamine HCl/ Dextrose (Vitamin B1/D5W) 56 ml @ 112 mls/hr Q24H IVPB 05/26/16 16:00 06/25/16 15:59 06/01/16 16:50 LAZARUS YATES Jun 01, 2016 23:36
[2016-06-02] VITALS: BP 117/81
[2016-06-02 04:00] VITALS: BP 143/101
[2016-06-02] MEDS: NovoLOG Insulin Flexpen SUBQ SCH ×2 (06:30→11:30)
[2016-06-02 07:18] LABS: EOSINOPHILS % (AUTO) 5.7 % (0.0-3.0); MEAN CORPUSCULAR HGB CONC 32.8 G/DL (32.0-36.0); MEAN CORPUSCULAR VOLUME 101 FL (80-99); MEAN PLATELET VOLUME 6.6 FL (6.5-10.1); MONOCYTES % (AUTO) 13.3 % (1.0-10.0); PLATELET COUNT 180 K/UL (150-450); RED BLOOD COUNT 3.27 M/UL (4.70-6.10); RED CELL DISTRIBUTION WIDTH 13.1 % (11.6-14.8); WHITE BLOOD COUNT 7.4 K/UL (4.8-10.8)
[2016-06-02 07:33] LABS: ANION GAP 10 (5-15); CALCIUM 8.8 mg/dL (8.6-10.2); CARBON DIOXIDE 32 mEQ/L (20-30); CHLORIDE 101 mEQ/L (98-107); CREATININE 0.7 mg/dL (0.7-1.2); GLOMERULAR FILTRATION RATE > 60 mL/min (>60); HEMOLYSIS 1; POTASSIUM 3.6 mEQ/L (3.4-4.9); SODIUM 143 mEQ/L (135-145)
[2016-06-02 08:00] VITALS: BP 129/96
[2016-06-02] MEDS: Theophylline ER 100mg ORAL SCH (08:06)
[2016-06-02] MEDS: Heparin 5000 units/ml inj SUBQ SCH (08:08)
--- NOTE | 2016-06-02 10:00 | Infectious Diseases Prog Note ---
Assessment/Plan Assessment/Plan A: he patient is a 60-year-old male with Fever, SP COPD exacerbation and pneumonia SCx: PSA CT of the chest: COPD changes right bibasilar atelectasis mild BLcx: CoNS ( contaminant ) history of alcohol abuse. Seizure disorder. HTN PLAN: Levaquin d# 6 / , ok to DC w cont of oral Levaquin to complete the course ( 05/28 SP DC Zithromax and IV Vanco d# 2 ) Monitor blood culture.( repeat ) Monitor CBC, Monitor BMP Subjective Constitutional: Denies: anorexia, chills, drenching sweats, fatigue, fever, no symptoms, other Allergies: Coded Allergies: NO KNOWN ALLERGIES (Unverified Allergy, Unknown, 03/01/15) Objective Vital Signs Last 24 Hour Vital Signs Date Time Temp Pulse Resp B/P Pulse Ox O2 Delivery O2 Flow Rate FiO2 06/02/16 08:55 Nasal Cannula 2.0 28 06/02/16 08:55 98 Nasal Cannula 2.0 28 06/02/16 08:00 97.7 108 20 129/96 Nasal Cannula 2.0 06/02/16 04:00 97.9 96 20 143/101 96 Nasal Cannula 2.0 06/02/16 00:00 97.9 91 20 117/81 97 Nasal Cannula 2.0 06/01/16 19:56 98.6 110 23 137/82 93 Nasal Cannula 2.0 06/01/16 16:13 97.9 107 21 118/86 94 Nasal Cannula 2.0 06/01/16 12:00 97.2 100 18 131/88 99 Nasal Cannula 2.0 Height (Feet): 5 Height (Inches): 8.00 Weight (Pounds): 125 HEENT: atraumatic Respiratory/Chest: lungs clear Cardiovascular: normal rate Abdomen: soft, non tender Laboratory Tests Test 06/02/16 05:15 White Blood Count 7.4 K/UL (4.8-10.8) Red Blood Count 3.27 M/UL (4.70-6.10) L Hemoglobin 10.8 G/DL (14.2-18.0) L Hematocrit 32.9 % (42.0-52.0) L Mean Corpuscular Volume 101 FL (80-99) H Mean Corpuscular Hemoglobin 33.0 PG (27.0-31.0) H Mean Corpuscular Hemoglobin Concent 32.8 G/DL (32.0-36.0) Red Cell Distribution Width 13.1 % (11.6-14.8) Platelet Count 180 K/UL (150-450) Mean Platelet Volume 6.6 FL (6.5-10.1) Neutrophils (%) (Auto) 66.0 % (45.0-75.0) Lymphocytes (%) (Auto) 13.0 % (20.0-45.0) L Monocytes (%) (Auto) 13.3 % (1.0-10.0) H Eosinophils (%) (Auto) 5.7 % (0.0-3.0) H Basophils (%) (Auto) 2.0 % (0.0-2.0) Sodium Level 143 mEQ/L (135-145) Potassium Level 3.6 mEQ/L (3.4-4.9) Chloride Level 101 mEQ/L (98-107) Carbon Dioxide Level 32 mEQ/L (20-30) H Anion Gap 10 (5-15) Blood Urea Nitrogen 7 mg/dL (7-23) Creatinine 0.7 mg/dL (0.7-1.2) Estimat Glomerular Filtration Rate > 60 mL/min (>60) Glucose Level 79 mg/dL (74-106) Calcium Level 8.8 mg/dL (8.6-10.2) Current Medications Medications (Trade) Dose Ordered Sig/Agustin Route PRN Reason Start Time Stop Time Status Last Admin Dose Admin Dextrose (Dextrose 50%) STAT PRN IV Hypoglycemia 05/26/16 09:30 06/25/16 09:29 Folic Acid 1 mg/ Magnesium Sulfate 2000 mg/ Multivitamins 10 ml/Sodium Chloride 1,014.2 ml @ 125 mls/ hr Q24H IV 05/26/16 16:00 06/25/16 15:59 06/01/16 16:50 Heparin Sodium (Porcine) (Heparin 5000 units/ml) 5,000 units EVERY 12 HOURS SUBQ 05/26/16 09:00 06/25/16 08:59 06/02/16 08:08 Insulin Aspart (NovoLOG) BEFORE MEALS AND HS SUBQ 05/26/16 06:30 06/25/16 06:29 06/01/16 20:19 Levofloxacin (Levaquin) 750 mg DAILY ORAL 05/31/16 09:00 06/04/16 08:59 06/02/16 08:06 Nitroglycerin (Ntg) 0.4 mg Q5M X 3 DOSES PRN SL Prn Chest Pain 05/26/16 01:00 06/25/16 00:59 Ondansetron HCl (Zofran) 4 mg Q6H PRN IVP Nausea & Vomiting 05/26/16 03:30 06/25/16 03:29 Pantoprazole (Protonix) 40 mg DAILY ORAL 05/26/16 09:00 06/25/16 08:59 06/02/16 08:06 Promethazine HCl/ Codeine (Phenergan with Codeine) 5 ml Q6H PRN ORAL cough 05/26/16 03:30 06/25/16 03:29 05/27/16 08:43 Temazepam (Restoril) 15 mg HSPRN PRN ORAL Insomnia 05/26/16 21:00 06/02/16 20:59 06/02/16 00:06 Theophylline (Gaurav-Dur) 100 mg DAILY ORAL 05/30/16 09:00 06/29/16 08:59 06/02/16 08:06 Thiamine HCl/ Dextrose (Vitamin B1/D5W) 56 ml @ 112 mls/hr Q24H IVPB 05/26/16 16:00 06/25/16 15:59 06/01/16 16:50 MADISON DEL CID M.D. Jun 02, 2016 10:00
--- NOTE | 2016-06-02 11:33 | GI Progress Note ---
Assessment/Plan Problems: (1) Hypoalbuminemia ICD Codes: E88.09 - Other disorders of plasma-protein metabolism, not elsewhere classified SNOMED: 629218793 (2) Anemia ICD Codes: D64.9 - Anemia, unspecified SNOMED: 646029420 (3) Upper GI bleeding ICD Codes: K92.2 - Gastrointestinal hemorrhage, unspecified SNOMED: 59936610 (4) Severe protein-calorie malnutrition ICD Codes: E43 - Unspecified severe protein-calorie malnutrition SNOMED: 066762658 (5) ETOH abuse ICD Codes: F10.10 - Alcohol abuse, uncomplicated SNOMED: 92959679, 83560501 Status: stable Status Narrative Discussed with Dr. Patton. Assessment/Plan OB stool positive ETOH abuse abd U/S reviewed >> hepatocellular disease, most likely fatty change. endoscopic records from [facility] reviewed - s/p EGD -, unremarkable - s/p colonoscopy, internal hemorrhoids - recommend SB capsule endoscopy if heme positive, can be done as outpatient ok for DC per GI standpoint stable H&H, transfuse prn monitor LFTs ETOH cessation education given ppi cardiac diet fu labs Subjective Gastrointestinal/Abdominal: Reports: no symptoms Subjective SOB feels better Objective Last 24 Hour Vital Signs Date Time Temp Pulse Resp B/P Pulse Ox O2 Delivery O2 Flow Rate FiO2 06/02/16 08:55 Nasal Cannula 2.0 28 06/02/16 08:55 98 Nasal Cannula 2.0 28 06/02/16 08:00 97.7 108 20 129/96 Nasal Cannula 2.0 06/02/16 04:00 97.9 96 20 143/101 96 Nasal Cannula 2.0 06/02/16 00:00 97.9 91 20 117/81 97 Nasal Cannula 2.0 06/01/16 19:56 98.6 110 23 137/82 93 Nasal Cannula 2.0 06/01/16 16:13 97.9 107 21 118/86 94 Nasal Cannula 2.0 06/01/16 12:00 97.2 100 18 131/88 99 Nasal Cannula 2.0 Intake and Output 06/01/16 06/02/16 19:00 07:00 Intake Total 837 ml 1620 ml Output Total 1300 ml 600 ml Balance -463 ml 1020 ml Intake Oral 600 ml 1120 ml IV Total 237 ml 500 ml Output Urine Total 1300 ml 600 ml # Voids 5 # Bowel Movements 2 Laboratory Tests Test 06/02/16 05:15 White Blood Count 7.4 K/UL (4.8-10.8) Red Blood Count 3.27 M/UL (4.70-6.10) L Hemoglobin 10.8 G/DL (14.2-18.0) L Hematocrit 32.9 % (42.0-52.0) L Mean Corpuscular Volume 101 FL (80-99) H Mean Corpuscular Hemoglobin 33.0 PG (27.0-31.0) H Mean Corpuscular Hemoglobin Concent 32.8 G/DL (32.0-36.0) Red Cell Distribution Width 13.1 % (11.6-14.8) Platelet Count 180 K/UL (150-450) Mean Platelet Volume 6.6 FL (6.5-10.1) Neutrophils (%) (Auto) 66.0 % (45.0-75.0) Lymphocytes (%) (Auto) 13.0 % (20.0-45.0) L Monocytes (%) (Auto) 13.3 % (1.0-10.0) H Eosinophils (%) (Auto) 5.7 % (0.0-3.0) H Basophils (%) (Auto) 2.0 % (0.0-2.0) Sodium Level 143 mEQ/L (135-145) Potassium Level 3.6 mEQ/L (3.4-4.9) Chloride Level 101 mEQ/L (98-107) Carbon Dioxide Level 32 mEQ/L (20-30) H Anion Gap 10 (5-15) Blood Urea Nitrogen 7 mg/dL (7-23) Creatinine 0.7 mg/dL (0.7-1.2) Estimat Glomerular Filtration Rate > 60 mL/min (>60) Glucose Level 79 mg/dL (74-106) Calcium Level 8.8 mg/dL (8.6-10.2) Height (Feet): 5 Height (Inches): 8.00 Weight (Pounds): 125 General Appearance: no apparent distress, alert, thin Cardiovascular: normal rate Respiratory/Chest: accessory muscle use, rhonchi - bilaterally, other - SOB with ambulation Abdominal Exam: normal bowel sounds, non tender, soft Extremities: normal range of motion Rivera,Virgie Ck N.P. Jun 02, 2016 11:33
[2016-06-02 12:00] VITALS: BP 129/87
[2016-06-02] MEDS ORDERED: Sterile Water Irrig 1000ml IRRIG ONE (15:29)
[2016-06-02] MEDS ORDERED: NS 550ML IV ONE (15:29)
[2016-06-02] MEDS ORDERED: Tubing IV Secondary IV ONE (15:29)
--- NOTE | 2016-06-03 19:20 | Discharge Summary ---
Discharge Summary Hospital Course Date of Admission May 25, 2016 at 05:55 Date of Discharge Jun 02, 2016 at 15:30 Admitting Diagnosis COPD exacerbation HPI Cesar Mckinney is a 60 year old male who was admitted on May 25, 2016 at 05:55 for Copd Exacerbation Hospital Course [id number] Discharge Discharge Disposition Patient was discharged to Home (01) Discharge Diagnoses: Chely Almonte NP Jun 03, 2016 19:19
--- NOTE | 2016-06-04 11:08 | Discharge Summary 2 SIG ---
DATE OF ADMISSION: 05/25/2016 DATE OF DISCHARGE: 06/02/2016 CONSULTANTS: 1. Veto Muñoz M.D. 2. Grover Patton M.D. BRIEF HOSPITAL COURSE: The patient is a 60-year-old male with history of smoking and ETOH abuse, presented to the ER with chief complaint of dyspnea associated with cough, fever, and chills. The patient is O2 dependent and has been on home O2, but ran out. On evaluation at ED, the patient was tachycardic and heart rate of 150s. He was placed on BiPAP and was given DuoNebs, IV antibiotics, steroids, and magnesium. Chest x-ray was negative for pneumonia. The patient was admitted to [facility] due to COPD exacerbation. He was given respiratory treatments, chest percussion, IV steroids and was started on banana bag secondary to ETOH abuse. Dr. Patton was consulted for mild anemia and stool OB was positive. He was given PPI and was educated on ETOH cessation. Dr. Muñoz was also consulted. CT of the chest showed COPD changes with right bibasilar atelectasis. He was given Zithromax for cough, fever, and COPD exacerbation and also vancomycin for coagulase-negative Staph. Sputum culture showed gram-negative [place] and pseudomonas. He was then given Levaquin. Repeat blood culture done was negative. Abdominal ultrasound was done and showed cholelithiasis negative dilated ducts with hepatocellular disease most likely fatty change. Endoscopic records from [facility] was reviewed. The patient had an unremarkable EGD with colonoscopy showing internal hemorrhoids. He was recommended small bowel capsule endoscopy, which can be done as an outpatient. He was eventually discharged home with hospice. FINAL DIAGNOSES: 1. Chronic obstructive pulmonary disease exacerbation. 2. Acute respiratory failure requiring BiPAP, resolved. 3. Hypoxia. 4. ETOH abuse. 5. Severe protein-calorie malnutrition. 6. Anemia. 7. Hypoalbuminemia. Tyler Randolph M.D. I have been assigned to dictate discharge summary on this account and I was not involved in the patient's management. Chely Almonte N.P. DR: Irene JOB#: [id number] CC:
== END 2016-06-02 15:30 | disposition hospice, home (50) | DRG 140 ==
LOC: EDBD 04:37 → EMR 05:30 → 2W 05:55 → EDBEDREQ 09:04 → 4W 05-26 00:41
PROC: 5A09357 Assistance with Respiratory Ventilation, Less than 24 Consecutive Hours, Continuous Positive Airway Pressure (ICD-10-PCS; principal; 2016-05-25)
DX: J44.1 Chronic obstructive pulmonary disease with (acute) exacerbation (principal); J96.01 Acute respiratory failure with hypoxia; E43 Unspecified severe protein-calorie malnutrition; Z99.81 Dependence on supplemental oxygen; E88.09 Other disorders of plasma-protein metabolism, not elsewhere classified; K92.2 Gastrointestinal hemorrhage, unspecified; F10.10 Alcohol abuse, uncomplicated; Z68.1 Body mass index [BMI] 19.9 or less, adult; D64.9 Anemia, unspecified; Z72.0 Tobacco use; K80.20 Calculus of gallbladder without cholecystitis without obstruction; J98.11 Atelectasis; K64.8 Other hemorrhoids; I10 Essential (primary) hypertension; G40.909 Epilepsy, unspecified, not intractable, without status epilepticus; Z51.5 Encounter for palliative care
CPT/HCPCS: 36415; 36600; 71010; 71250; 76700; 80048; 80053; 82270; 82378; 82550; 82553; 82607; 82746; 82803; 82962; 83540; 83550; 83615; 83735; 83880; 84100; 84484; 85007; 85025; 85044; 85060; 85610; 85651; 85730; 86710; 87040; 87070; 87181; 87205; 93005; 94640; 94660; 94664; 94760; J1815; J7620

== ENCOUNTER 2016-06-14 19:57 | Inpatient (IN) | payer OTHER ==
[~2016-06-14] VITALS: Ht 172.7 cm; Wt 59.0 kg
[~2016-06-14 19:57] MED LIST changes: +AEROSPAN8.9 GM IH; +ANORO ELLIPTA1 EACH INH; +ASPIR 8181 MG ORAL; -Azithromycin 500 MG in NS 275 ML IV ONE; +DAILY VITE1 EACH ORAL; +FERROUS SULFAT325 MG ORAL; +FOLIC ACID1 MG ORAL; -Levalbuterol Inh UD 1.25mg/0.5ml HHN ONE; +MEGESTROL ACETA40 MG PO; +MULTIVITAMINS1 EAC2 ORAL; +NITROGLYCERIN0.4 MG SL; +OMEPRAZOLE40 M1 ORAL; -Solu-MEDROL 125mg Inj IVP ONE; +VITAMIN B-122000 MC1 PO
[2016-06-14 20:04] VITALS: BP 163/107
[2016-06-14] MEDS ORDERED: Solu-MEDROL 125mg Inj IVP ONE (20:15)
[2016-06-14] MEDS ORDERED: Ipratropium 0.02% Inh Soln 2.5ml UD HHN ONE (20:15)
[2016-06-14] MEDS ORDERED: Nitroglycerin 2% oint pkt TOPIC ONE (20:45)
[2016-06-14] MEDS ORDERED: Morphine Sulfate 2mg/ml Inj IVP ONE (20:45)
[2016-06-14 20:59] LABS: PROTHROMBIN TIME 10.5 SEC (9.30-11.50)
[2016-06-14 21:11] LABS: BASOPHILS % (AUTO) 1.5 % (0.0-2.0); LYMPHOCYTES % (AUTO) 23.9 % (20.0-45.0); MEAN CORPUSCULAR HEMOGLOBIN 31.4 PG (27.0-31.0); MEAN CORPUSCULAR HGB CONC 31.8 G/DL (32.0-36.0); MEAN CORPUSCULAR VOLUME 99 FL (80-99); MEAN PLATELET VOLUME 5.9 FL (6.5-10.1); NEUTROPHILS % (AUTO) 58.6 % (45.0-75.0); PLATELET COUNT 225 K/UL (150-450); RED BLOOD COUNT 3.44 M/UL (4.70-6.10); RED CELL DISTRIBUTION WIDTH 13.2 % (11.6-14.8); WHITE BLOOD COUNT 7.8 K/UL (4.8-10.8)
[2016-06-14 21:12] LABS: ALANINE AMINOTRANSFERASE 16 U/L (3-41); ALBUMIN/GLOBULIN RATIO 1.2 (1.0-2.7); ANION GAP 16 (5-15); ASPARTATE AMINO TRANSFERASE 25 U/L (5-40); CALCIUM 9.3 mg/dL (8.6-10.2); CARBON DIOXIDE 29 mEQ/L (20-30); CHLORIDE 98 mEQ/L (98-107); CREATININE 0.7 mg/dL (0.7-1.2); GLOMERULAR FILTRATION RATE > 60 mL/min (>60); HEMOLYSIS 16; POTASSIUM 3.5 mEQ/L (3.4-4.9); SODIUM 143 mEQ/L (135-145); TOTAL PROTEIN 6.8 g/dL (6.6-8.7); TROPONIN I < 0.30 ng/mL (<=0.30)
--- NOTE | 2016-06-14 22:01 | Emergency Room Report ---
History of Present Illness General Chief Complaint: Chest Pain Source: Patient Present Illness HPI Patient presents with several days of dyspnea and wheezing. Use of inhaler and nebulizer. Possible fever, not documented. Rates dyspnea as severe. Has been on prednisone. He also has sharp and pressured chest pain across chest. He rates the pain as 8 /10 mid to upper chest band-like across the chest. Somewhat pleuritic. Also states has had some alcohol. No NVD. Continued weight loss. Generalized weakness. No headache. No rashes. No dysuria. Recent admission for COPD. Discharge dx: 1. Chronic obstructive pulmonary disease exacerbation. 2. Acute respiratory failure requiring BiPAP, resolved. 3. Hypoxia. 4. ETOH abuse. 5. Severe protein-calorie malnutrition. 6. Anemia. 7. Hypoalbuminemia. Allergies: Coded Allergies: NO KNOWN ALLERGIES (Unverified Allergy, Unknown, 03/01/15) Patient History Past Medical History: see triage record Social History: Reports: alcohol use, smoking - prior Social History Narrative hospice Reviewed Nursing Documentation: PMH: Agreed, PSxH: Agreed Nursing Documentation-PMH Hx Cardiac Problems: Yes - HTN Hx Hypertension: Yes Hx Asthma: Yes Hx COPD: Yes Hx Cancer: No Hx Gastrointestinal Problems: No Hx Seizures: Yes - > couple of years ago Review of Systems All Other Systems: negative except mentioned in HPI Physical Exam Vital Signs Date Time Temp Pulse Resp B/P Pulse Ox O2 Delivery O2 Flow Rate FiO2 06/14/16 19:53 97.5 107 16 163/107 99 Nasal Cannula 6.0 Sp02 EP Interpretation: reviewed, normal General Appearance: no apparent distress, GCS 15, non-toxic, thin, Chronically Ill Head: normocephalic Eyes: bilateral eye PERRL, bilateral eye normal inspection ENT: moist mucus membranes Neck: supple Respiratory: chest non-tender, wheezing, expiration, inspiration Cardiovascular #1: no edema, tachycardia Cardiovascular #2: 2+ radial (R) Gastrointestinal: soft, scaphoid Musculoskeletal: no calf tenderness, other - atrophy Neurologic: oriented x3, DTRs symmetric, grossly normal Psychiatric: mood/affect normal Skin: normal inspection, normal color, other - alopecia Medical Decision Making Diagnostic Impression: Primary Impression: COPD with exacerbation Additional Impression: Chest pain Qualified Codes: R07.9 - Chest pain, unspecified ER Course Patient presents with dyspnea and wheezing. Ddx: COPD exacerbation, bronchitis , pneumonia. With chest pain need to consider AMI, ACS, GERD, gastritis. Patient with mild resp distress and poor respiratory reserve. Emergent evaluation with labs, EKG, CXR. Treatment with solumedrol, albuterol/atrovent and fluids. Some improvement with breathing treatments. Labs against acute significant infection. EKG against ischemia or acute injury. CXR with COPD, scarring, RLL process not significantly changed. Improved, but still ARMENDARIZ with minimal exertion. Admit tele Dr. Randolph. Laboratory Tests Test 06/14/16 20:30 06/14/16 21:38 White Blood Count 7.8 K/UL (4.8-10.8) Red Blood Count 3.44 M/UL (4.70-6.10) L Hemoglobin 10.8 G/DL (14.2-18.0) L Hematocrit 34.0 % (42.0-52.0) L Mean Corpuscular Volume 99 FL (80-99) Mean Corpuscular Hemoglobin 31.4 PG (27.0-31.0) H Mean Corpuscular Hemoglobin Concent 31.8 G/DL (32.0-36.0) L Red Cell Distribution Width 13.2 % (11.6-14.8) Platelet Count 225 K/UL (150-450) Mean Platelet Volume 5.9 FL (6.5-10.1) L Neutrophils (%) (Auto) 58.6 % (45.0-75.0) Lymphocytes (%) (Auto) 23.9 % (20.0-45.0) Monocytes (%) (Auto) 6.0 % (1.0-10.0) Eosinophils (%) (Auto) 10.0 % (0.0-3.0) H Basophils (%) (Auto) 1.5 % (0.0-2.0) Prothrombin Time 10.5 SEC (9.30-11.50) Prothrombin Time INR 1.0 (0.9-1.1) PTT 27 SEC (23-33) Sodium Level 143 mEQ/L (135-145) Potassium Level 3.5 mEQ/L (3.4-4.9) Chloride Level 98 mEQ/L (98-107) Carbon Dioxide Level 29 mEQ/L (20-30) Anion Gap 16 (5-15) H Blood Urea Nitrogen 6 mg/dL (7-23) L Creatinine 0.7 mg/dL (0.7-1.2) Estimate Glomerular Filtration Rate > 60 mL/min (>60) Glucose Level 101 mg/dL (74-106) Lactic Acid Level 1.20 mmol/L (0.66-2.22) Calcium Level 9.3 mg/dL (8.6-10.2) Total Bilirubin 0.4 mg/dL (0.0-1.2) Aspartate Amino Transferase (AST) 25 U/L (5-40) Alanine Aminotransferase (ALT) 16 U/L (3-41) Alkaline Phosphatase 87 U/L (40-129) Total Creatine Kinase 93 U/L (38-174) Troponin I < 0.30 ng/mL (<=0.30) Pro-B-Type Natriuretic Peptide 2096 pg/mL (0-125) H Total Protein 6.8 g/dL (6.6-8.7) Albumin 3.8 g/dL (3.5-5.2) Globulin 3.0 g/dL Albumin/Globulin Ratio 1.2 (1.0-2.7) Urine Color Pale yellow Urine Appearance Clear Urine pH 8 (4.5-8.0) Urine Specific [place] 1.010 (1.005-1.035) Urine Protein Negative (NEGATIVE) Urine Glucose (UA) Negative (NEGATIVE) Urine Ketones Negative (NEGATIVE) Urine Occult Blood Negative (NEGATIVE) Urine Nitrite Negative (NEGATIVE) Urine Bilirubin Negative (NEGATIVE) Urine Urobilinogen Normal MG/DL (0.0-1.0) Urine Leukocyte Esterase Negative (NEGATIVE) Microbiology Date/Time Source Procedure Growth Status 06/14/16 20:30 Nasal Nares Influenza Types A,B Antigen (PIETRO) - Final Complete EKG Diagnostic Results Rate: tachycardiac ST Segments: no acute changes Rhythm Strip Diag. Results EP Interpretation: yes Rhythm: no PVC's, no ectopy, other - ST Chest X-Ray Diagnostic Results EP Interpretation: Yes Findings: other - COPD consolidation which has been present before Number of Views: 1 Last Vital Signs Date Time Temp Pulse Resp B/P Pulse Ox O2 Delivery O2 Flow Rate FiO2 06/14/16 20:51 141/101 06/14/16 20:04 97.5 79 16 99 Nasal Cannula 6.0 Status: improved Disposition: ADMITTED INPATIENT Condition: Serious Referrals: [facility],REFERRING (PCP) Nicolas Chavez M.D. Jun 14, 2016 22:01
[2016-06-14] MEDS: Albuterol ud Inhalation HHN SCH ×3 (22:08→22:32)
[2016-06-14 22:24] LABS: APPEARANCE,URINE CLEAR; KETONES,URINE NEGATIVE (NEGATIVE); LEUKOCYTE ESTERASE ,URINE NEGATIVE (NEGATIVE); NITRITE,URINE NEGATIVE (NEGATIVE); PH,URINE 8 (4.5-8.0); PROTEIN,URINE NEGATIVE (NEGATIVE); UROBILINOGEN,URINE NORMAL MG/DL (0.0-1.0)
[2016-06-14 22:39] VITALS: BP 150/98
[2016-06-14 23:18] VITALS: BP 145/91
[2016-06-15] VITALS (7 sets, daily range): BP systolic 125–160; BP diastolic 87–110
[2016-06-15] MEDS ORDERED: LORazepam Inj 2mg/ml 1ml IV PRN (00:15)
[2016-06-15] MEDS ORDERED: Promethazine/Codeine 5ml UD ORAL PRN (00:15)
[2016-06-15] MEDS ORDERED: Nitroglycerin Subl 0.4mg tab (Bottle Of 25) SL PRN (00:15)
[2016-06-15] MEDS ORDERED: Ketorolac 30mg Inj IV PRN (00:15)
[2016-06-15] MEDS ORDERED: DuoNeb 0.5-3(2.5)mg/3ml neb HHN PRN (00:15)
[2016-06-15] MEDS ORDERED: Morphine Sulfate 2mg/ml Inj IVP PRN (00:15)
[2016-06-15] MEDS ORDERED: TYLENOL EXTRA500 MG ORAL (01:11)
[2016-06-15] MEDS ORDERED: SENNA8.6 M2 PO (01:14)
[2016-06-15] MEDS ORDERED: NORCO 5-325 TA1 EAC1 ORAL (01:14)
[2016-06-15] MEDS ORDERED: Zosyn 3.375gm inj ONE (01:57)
[2016-06-15] MEDS: Zoysn 3.37gm in D5W 110ml IVPB SCH ×3 (02:07→17:14)
[2016-06-15] MEDS ORDERED: VITAMIN D1000 UNI1 ORAL (02:40)
[2016-06-15] MEDS ORDERED: TYLENOL650 MG/20. ORAL (02:40)
[2016-06-15] MEDS ORDERED: MAGNESIUM250 M3 PO (02:40)
[2016-06-15] MEDS ORDERED: Piperacillin/Tazobactam 2.25 GM in D5W 55 ML IV SCH (06:00)
[2016-06-15] MEDS: Solu-MEDROL 125mg Inj IV SCH ×3 (06:20→17:15)
[2016-06-15] MEDS: NovoLOG Insulin Flexpen SUBQ SCH ×4 (06:22→21:42)
[2016-06-15] MEDS: Theophylline ER 100mg ORAL SCH ×2 (08:33→21:39)
[2016-06-15] MEDS: Heparin 5000 units/ml inj SUBQ SCH ×2 (08:34→21:41)
--- NOTE | 2016-06-15 11:55 | Diagnostic Imaging Report ---
Indication: COUGH Technique: One view of the chest Comparison: 05/25/2016 Findings: Lungs are hyperinflated, as in COPD. There is slight flattening of diaphragm, presumably related to the above. Calcified fibronodular markings are seen at the right lung apex and reticular markings at the right lung base, presumed chronic, similar to previous. No acute infiltrates. No definite effusions. Normal heart size Impression: Findings as noted. No acute process This agrees with the preliminary interpretation provided by the emergency room physician
--- NOTE | 2016-06-15 12:14 | Cardiology Report ---
APPROVED REPORT EKG Measurement Heart [id number] Sinus tachycardia Otherwise normal ECG
--- NOTE | 2016-06-15 15:16 | History and Physical ---
History of Present Illness General Date patient seen: Jun 15, 2016 Reason for Hospitalization: Chest Pain Present Illness HPI 60 year old male with hx of end stage COPD, emphysema on home O2 presents to [facility] [place] [facility] via Paramedics with CC of several days of dyspnea and wheezing. Use of inhaler and nebulizer. Possible fever, not documented. He also has sharp and pressured chest pain across chest. Patient admits to prudencio drinking. seems chronically ill and dyspnic. Allergies: Coded Allergies: NO KNOWN ALLERGIES (Unverified Allergy, Unknown, 03/01/15) Medication History Scheduled Aspirin* (Aspir 81*), 81 MG ORAL DAILY, (Reported) Cholecalciferol (Vitamin D3)* (Vitamin D*), 1,000 UNIT ORAL DAILY, (Reported) Cyanocobalamin (Vitamin B-12) (Vitamin B-12), 2,000 MCG PO DAILY, (Reported) Ferrous Sulfate* (Ferrous Sulfate*), 325 MG ORAL DAILY, (Reported) Flunisolide (Aerospan), 8.9 GM IH DAILY, (Reported) Folic Acid* (Folic Acid*), 1 MG ORAL DAILY, (Reported) Magnesium (Magnesium), 500 MG PO DAILY, (Reported) Megestrol Acetate (Megestrol Acetate), 40 MG PO TID, (Reported) Omeprazole (Omeprazole), 40 MG ORAL DAILY, (Reported) Prednisone (Prednisone), 40 MG PO DAILY Umeclidinium Brm/Vilanterol Tr (Anoro Ellipta 62.5-25 Mcg INH), 2 PUFFS INH DAILY, (Reported) Scheduled PRN Acetaminophen (Acetaminophen), 650 MG ORAL Q6H PRN for Prn Headache/Temp > 101, (Reported) Nitroglycerin (Nitroglycerin), 0.4 MG SL Three times PRN for CHEST PAIN, ( Reported) Miscellaneous Medications Sennosides (Senna), Unknown Dose PO, (Reported) Patient History Healthcare decision maker Resuscitation status Full Code Advanced Directive on File Past Medical/Surgical History Past Medical/Surgical History: (1) Respiratory distress (2) Acute respiratory failure (3) Severe protein-calorie malnutrition (4) Anemia (5) Hypoalbuminemia (6) Upper GI bleeding (7) Hypoxia (8) COPD (chronic obstructive pulmonary disease) (9) Chest pain (10) COPD with exacerbation (11) ETOH abuse Review of Systems Constitutional: Reports: malaise, weakness Respiratory: Reports: ARMENDARIZ, cough, orthopnea, shortness of breath, wheezing Physical Exam General Appearance: moderate distress Lines, tubes and drains: peripheral HEENT: normocephalic, atraumatic, anicteric, PERRL Neck: non-tender, normal alignment, supple Respiratory/Chest: decreased breath sounds, accessory muscle use, crackles/ rales, rhonchi - bilaterally, expiratory wheezing Cardiovascular/Chest: normal peripheral pulses, normal rate, regular rhythm, no JVD Abdomen: normal bowel sounds, non tender, soft, no organomegaly Genitourinary/Rectal: normal genital exam, normal rectal exam Extremities: normal range of motion, non-tender, normal inspection Skin Exam: normal pigmentation, warm/dry 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, no motor/sensory deficits Last 24 Hour Vital Signs Date Time Temp Pulse Resp B/P Pulse Ox O2 Delivery O2 Flow Rate FiO2 06/15/16 12:00 98.0 97 16 125/94 98 Room Air 06/15/16 12:00 92 06/15/16 08:00 101 06/15/16 08:00 98.2 99 17 138/87 97 Room Air 06/15/16 07:00 103 19 99 Room Air 21 06/15/16 07:00 109 18 95 Nasal Cannula 2.0 28 06/15/16 07:00 103 21 Room Air 21 06/15/16 04:30 97.0 101 20 155/92 97 Nasal Cannula 2.0 06/15/16 04:00 87 06/15/16 01:41 97.7 110 24 159/100 94 Nasal Cannula 2.0 06/15/16 01:15 97.5 110 19 145/88 95 Nasal Cannula 3.0 32 06/15/16 01:05 110 19 145/88 95 Nasal Cannula 3.0 32 06/14/16 23:18 97.5 98 22 145/91 98 Nasal Cannula 3.0 32 06/14/16 22:44 108 20 99 Nasal Cannula 3.0 32 06/14/16 22:39 97.5 117 25 150/98 100 Nasal Cannula 3.0 32 06/14/16 22:30 98 19 100 Nasal Cannula 3.0 32 06/14/16 22:30 98 20 100 Nasal Cannula 3.0 32 2/12/17 22:18 93 17 100 Nasal Cannula 3.0 32 06/14/16 22:18 93 17 100 Nasal Cannula 3.0 32 06/14/16 22:05 101 19 Nasal Cannula 3.0 32 06/14/16 22:05 101 19 94 Nasal Cannula 3.0 32 06/14/16 21:49 97.5 06/14/16 21:19 97.5 06/14/16 20:51 141/101 06/14/16 20:04 97.5 79 16 163/107 99 Nasal Cannula 6.0 06/14/16 20:04 107 16 Nasal Cannula 6.0 06/14/16 19:53 97.5 107 16 163/107 99 Nasal Cannula 6.0 Intake and Output 06/14/16 06/15/16 19:00 07:00 Intake Total 1055.0 ml Balance 1055.0 ml IV Total 1055.0 ml # Voids 1 Laboratory Tests Test 06/14/16 20:30 06/14/16 21:38 White Blood Count 7.8 K/UL (4.8-10.8) Red Blood Count 3.44 M/UL (4.70-6.10) L Hemoglobin 10.8 G/DL (14.2-18.0) L Hematocrit 34.0 % (42.0-52.0) L Mean Corpuscular Volume 99 FL (80-99) Mean Corpuscular Hemoglobin 31.4 PG (27.0-31.0) H Mean Corpuscular Hemoglobin Concent 31.8 G/DL (32.0-36.0) L Red Cell Distribution Width 13.2 % (11.6-14.8) Platelet Count 225 K/UL (150-450) Mean Platelet Volume 5.9 FL (6.5-10.1) L Neutrophils (%) (Auto) 58.6 % (45.0-75.0) Lymphocytes (%) (Auto) 23.9 % (20.0-45.0) Monocytes (%) (Auto) 6.0 % (1.0-10.0) Eosinophils (%) (Auto) 10.0 % (0.0-3.0) H Basophils (%) (Auto) 1.5 % (0.0-2.0) Prothrombin Time 10.5 SEC (9.30-11.50) Prothromb Time International Ratio 1.0 (0.9-1.1) Activated Partial Thromboplast Time 27 SEC (23-33) Sodium Level 143 mEQ/L (135-145) Potassium Level 3.5 mEQ/L (3.4-4.9) Chloride Level 98 mEQ/L (98-107) Carbon Dioxide Level 29 mEQ/L (20-30) Anion Gap 16 (5-15) H Blood Urea Nitrogen 6 mg/dL (7-23) L Creatinine 0.7 mg/dL (0.7-1.2) Estimat Glomerular Filtration Rate > 60 mL/min (>60) Glucose Level 101 mg/dL (74-106) Lactic Acid Level 1.20 mmol/L (0.66-2.22) Calcium Level 9.3 mg/dL (8.6-10.2) Total Bilirubin 0.4 mg/dL (0.0-1.2) Aspartate Amino Transf (AST/SGOT) 25 U/L (5-40) Alanine Aminotransferase (ALT/SGPT) 16 U/L (3-41) Alkaline Phosphatase 87 U/L (40-129) Total Creatine Kinase 93 U/L (38-174) Troponin I < 0.30 ng/mL (<=0.30) Pro-B-Type Natriuretic Peptide 2096 pg/mL (0-125) H Total Protein 6.8 g/dL (6.6-8.7) Albumin 3.8 g/dL (3.5-5.2) Globulin 3.0 g/dL Albumin/Globulin Ratio 1.2 (1.0-2.7) Urine Color Pale yellow Urine Appearance Clear Urine pH 8 (4.5-8.0) Urine Specific [place] 1.010 (1.005-1.035) Urine Protein Negative (NEGATIVE) Urine Glucose (UA) Negative (NEGATIVE) Urine Ketones Negative (NEGATIVE) Urine Occult Blood Negative (NEGATIVE) Urine Nitrite Negative (NEGATIVE) Urine Bilirubin Negative (NEGATIVE) Urine Urobilinogen Normal MG/DL (0.0-1.0) Urine Leukocyte Esterase Negative (NEGATIVE) Microbiology Date/Time Source Procedure Growth Status 06/14/16 20:30 Nasal Nares Influenza Types A,B Antigen (PIETRO) - Final Complete Height (Feet): 5 Height (Inches): 8.00 Weight (Pounds): 130 Medications Current Medications Medications (Trade) Dose Ordered Sig/Agustin Route PRN Reason Start Time Stop Time Status Last Admin Dose Admin Albuterol/ Ipratropium (DuoNeb 0.5-3(2.5)mg/3ml) 3 ml Q4H PRN HHN dyspnea 06/15/16 00:15 06/20/16 00:14 Dextrose STAT PRN IV Hypoglycemia 06/15/16 00:15 07/15/16 00:14 Heparin Sodium (Porcine) (Heparin 5000 units/ml) 5,000 units EVERY 12 HOURS SUBQ 06/15/16 09:00 07/15/16 08:59 06/15/16 08:34 Insulin Aspart (NovoLOG) BEFORE MEALS AND HS SUBQ 06/15/16 06:30 07/15/16 06:29 06/15/16 11:58 Ketorolac Tromethamine (Toradol 30mg) 30 mg Q8H PRN IV moderate pain 4-6 06/15/16 00:15 06/20/16 00:14 Lorazepam (Ativan 2mg/ml 1ml) 0.5 mg Q4H PRN IV For Anxiety 06/15/16 00:15 06/22/16 00:14 Methylprednisolone Sodium Succinate (Solu-MEDROL) 60 mg EVERY 6 HOURS IV 06/15/16 06:00 07/15/16 05:59 06/15/16 11:56 Morphine Sulfate (Morphine Sulfate) 2 mg Q4H PRN IVP severe pain 7-10 06/15/16 00:15 06/22/16 00:14 Nitroglycerin (Ntg) 0.4 mg Q5M X 3 DOSES PRN SL Prn Chest Pain 06/15/16 00:15 07/15/16 00:14 Ondansetron HCl (Zofran) 4 mg Q6H PRN IVP Nausea & Vomiting 06/15/16 00:15 07/15/16 00:14 Piperacillin Sod/ Tazobactam Sod/ Dextrose (Zosyn/D5W) 110 ml @ 27.5 mls/hr Q8H IVPB 06/15/16 01:30 06/22/16 01:29 06/15/16 08:33 Promethazine HCl/ Codeine (Phenergan with Codeine) 5 ml Q6H PRN ORAL cough 06/15/16 00:15 07/15/16 00:14 Temazepam (Restoril) 15 mg HSPRN PRN ORAL Insomnia 06/15/16 00:15 06/22/16 00:14 06/15/16 02:07 Theophylline (Gaurav-Dur) 100 mg EVERY 12 HOURS ORAL 06/15/16 09:00 07/15/16 08:59 06/15/16 08:33 Assessment/Plan Status: stable, progressing Assessment/Plan Assessment/Plan Problems: (1) COPD with exacerbation (2) Chest pain (3) ETOH abuse Assessment/Plan Supplemental O2 Aspiration precautions Breathing Tx as needed for SOB Albuterol / Atroven UD q 6 hours continue current meds LAZARUS YATES Jun 15, 2016 15:16
[2016-06-16] VITALS: BP 140/105
[2016-06-16] MEDS: Solu-MEDROL 125mg Inj IV SCH ×4 (00:24→18:23)
[2016-06-16] MEDS: Zoysn 3.37gm in D5W 110ml IVPB SCH ×2 (00:31→08:46)
[2016-06-16 04:00] VITALS: BP 147/95
[2016-06-16] MEDS: NovoLOG Insulin Flexpen SUBQ SCH ×4 (06:31→22:32)
[2016-06-16 08:40] VITALS: BP 148/95
[2016-06-16] MEDS: Theophylline ER 100mg ORAL SCH ×2 (08:46→22:30)
[2016-06-16] MEDS: Heparin 5000 units/ml inj SUBQ SCH ×2 (08:47→22:31)
[2016-06-16 11:44] VITALS: BP 150/95
[2016-06-16] MEDS ORDERED: Nitroglycerin Subl 0.4mg tab (Bottle Of 25) SL PRN (14:45)
--- NOTE | 2016-06-16 15:05 | Pulmonology Progress Note ---
Assessment/Plan Problems: (1) COPD with exacerbation (2) Chest pain (3) ETOH abuse Assessment/Plan improving respiratory status better continue current meds Subjective ROS Limited/Unobtainable: No Constitutional: Reports: no symptoms HEENT: Repors: no symptoms Respiratory: Reports: no symptoms Cardiovascular: Reports: no symptoms Allergies: Coded Allergies: NO KNOWN ALLERGIES (Unverified Allergy, Unknown, 03/01/15) Objective Last 24 Hour Vital Signs Date Time Temp Pulse Resp B/P Pulse Ox O2 Delivery O2 Flow Rate FiO2 06/16/16 12:00 86 06/16/16 11:44 97.2 102 20 150/95 95 Nasal Cannula 3.0 06/16/16 08:40 98.1 107 20 148/95 98 Nasal Cannula 3.0 06/16/16 08:00 107 06/16/16 06:50 104 18 Nasal Cannula 3.0 96 06/16/16 04:00 85 06/16/16 04:00 98.1 97 20 147/95 95 Nasal Cannula 3.0 06/16/16 00:00 95 06/16/16 00:00 98.1 91 22 140/105 99 Nasal Cannula 3.0 06/15/16 20:00 101 06/15/16 20:00 98.2 133 20 160/110 Nasal Cannula 2.0 91 06/15/16 16:00 98.2 92 19 158/98 Nasal Cannula 2.0 93 06/15/16 16:00 116 Intake and Output 06/15/16 06/16/16 19:00 07:00 Intake Total 1118.5 ml 637.0 ml Output Total 430 ml 700 ml Balance 688.5 ml -63.0 ml Intake Oral 960 ml 500 ml IV Total 158.5 ml 137.0 ml Output Urine Total 430 ml 700 ml # Voids 2 General Appearance: no acute distress HEENT: normocephalic Respiratory/Chest: chest wall non-tender, normal breath sounds Cardiovascular: normal peripheral pulses, normal rate Abdomen: normal bowel sounds, soft, non tender Genitourinary: normal external genitalia Extremities: no cyanosis 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 Microbiology Date/Time Source Procedure Growth Status 06/14/16 20:30 Blood Blood Culture - Preliminary NO GROWTH AFTER 24 HOURS Resulted 06/14/16 20:15 Blood Blood Culture - Preliminary NO GROWTH AFTER 24 HOURS Resulted 06/14/16 20:30 Nasal Nares Influenza Types A,B Antigen (PIETRO) - Final Complete Current Medications Medications (Trade) Dose Ordered Sig/Agustin Route PRN Reason Start Time Stop Time Status Last Admin Dose Admin Albuterol/ Ipratropium (DuoNeb 0.5-3(2.5)mg/3ml) 3 ml Q4H PRN HHN dyspnea 06/16/16 16:15 06/21/16 16:14 UNV Dextrose (Dextrose 50%) STAT PRN IV Hypoglycemia 06/17/16 00:15 07/17/16 00:14 UNV Heparin Sodium (Porcine) (Heparin 5000 units/ml) 5,000 units EVERY 12 HOURS SUBQ 06/16/16 21:00 07/16/16 20:59 UNV Insulin Aspart (NovoLOG) BEFORE MEALS AND HS SUBQ 06/16/16 16:30 07/16/16 16:29 UNV Ketorolac Tromethamine (Toradol 30mg) 30 mg Q8H PRN IV moderate pain 4-6 06/16/16 16:15 06/21/16 16:14 UNV Lorazepam (Ativan 2mg/ml 1ml) 0.5 mg Q4H PRN IV For Anxiety 06/16/16 16:15 06/23/16 16:14 UNV Methylprednisolone Sodium Succinate (Solu-MEDROL) 60 mg EVERY 6 HOURS IV 06/16/16 18:00 07/16/16 17:59 UNV Morphine Sulfate (Morphine Sulfate) 2 mg Q4H PRN IVP severe pain 7-10 06/16/16 16:15 06/23/16 16:14 UNV Nitroglycerin (Ntg) 0.4 mg Q5M X 3 DOSES PRN SL Prn Chest Pain 06/16/16 14:45 07/16/16 14:44 UNV Ondansetron HCl (Zofran) 4 mg Q6H PRN IVP Nausea & Vomiting 06/16/16 18:15 07/16/16 18:14 UNV Piperacillin Sod/ Tazobactam Sod/ Dextrose (Zosyn/D5W) 110 ml @ 27.5 mls/hr Q8H IVPB 06/16/16 17:30 06/23/16 17:29 UNV Promethazine HCl/ Codeine (Phenergan with Codeine) 5 ml Q6H PRN ORAL cough 06/16/16 18:15 07/16/16 18:14 UNV Temazepam (Restoril) 15 mg HSPRN PRN ORAL Insomnia 06/17/16 00:15 06/24/16 00:14 UNV Theophylline (Gaurav-Dur) 100 mg EVERY 12 HOURS ORAL 06/16/16 21:00 07/16/16 20:59 UNV LAZARUS YATES Jun 16, 2016 15:05
[2016-06-16 16:00] VITALS: BP 157/89
[2016-06-16] MEDS ORDERED: Promethazine/Codeine 5ml UD ORAL PRN (16:00)
[2016-06-16] MEDS ORDERED: Ketorolac 30mg Inj IV PRN (16:15)
[2016-06-16] MEDS ORDERED: DuoNeb 0.5-3(2.5)mg/3ml neb HHN PRN (16:15)
[2016-06-16] MEDS ORDERED: Morphine Sulfate 2mg/ml Inj IVP PRN (16:15)
[2016-06-16] MEDS ORDERED: LORazepam Inj 2mg/ml 1ml IV PRN (16:15)
[2016-06-16] MEDS: Piperacillin/Tazobactam 3.375 GM in D5W 110 ML IVPB SCH (18:23)
[2016-06-16 19:00] VITALS: BP 153/94
[2016-06-17] VITALS: BP 156/96
[2016-06-17] MEDS: Solu-MEDROL 125mg Inj IV SCH ×3 (00:02→12:40)
[2016-06-17] MEDS ORDERED: Zosyn 3.375gm inj ONE (01:26)
[2016-06-17] MEDS: Piperacillin/Tazobactam 3.375 GM in D5W 110 ML IVPB SCH ×2 (01:30→09:57)
[2016-06-17 04:00] VITALS: BP 144/94
[2016-06-17] MEDS: NovoLOG Insulin Flexpen SUBQ SCH ×2 (06:18→12:39)
[2016-06-17 08:12] VITALS: BP 136/82
[2016-06-17] MEDS: Theophylline ER 100mg ORAL SCH (09:52)
[2016-06-17] MEDS: Heparin 5000 units/ml inj SUBQ SCH (09:57)
[2016-06-17 11:48] VITALS: BP 148/88
--- NOTE | 2016-06-18 16:17 | Discharge Summary ---
Discharge Summary Hospital Course Date of Admission Jun 14, 2016 at 22:24 Date of Discharge Jun 17, 2016 at 15:16 Admitting Diagnosis COPD exacerbation/chest pain HPI Cesar Mckinney is a 60 year old male who was admitted on Jun 14, 2016 at 22:24 for Chronic Obstructive Pulmonary Disease Exacerbation Hospital Course [id number] Discharge Discharge Disposition Patient was discharged to Home (01) Discharge Diagnoses: Chely Almonte NP Jun 18, 2016 16:17
--- NOTE | 2016-06-18 22:49 | Discharge Summary 2 SIG ---
DATE OF ADMISSION: 06/14/2016 DATE OF DISCHARGE: 06/17/2016 BRIEF HOSPITAL COURSE: The patient is a 60-year-old male with history of end-stage chronic obstructive pulmonary disease and emphysema, who is on home O2, presented to the ED for several days of dyspnea and wheezing despite the use of inhaler and nebulizers. He also had sharp chest pain across the chest and admits to binge drinking. Chest x-ray done showed COPD with scarring on the right lower lobe process. He continued to have dyspnea on minimal exertion and was admitted to telemetry for further workup. He was given IV antibiotics and IV prednisolone. His blood sugars were monitored. Influenza A and B was negative. Sputum culture showed growth of normal upper respiratory haylee. Blood culture did not isolate any growth. Respiratory status improved and the patient was discharged home. FINAL DIAGNOSES: 1. Acute chronic obstructive pulmonary disease exacerbation. 2. Etoh abuse. 3. Chest pain. Tyler Randolph M.D. I have been assigned to dictate discharge summary on this account and I was not involved in the patient's management. Chely Almonte N.P. DR: DEXTER JOB#: [id number] CC: CASA
== END 2016-06-17 15:16 | disposition home or self-care (01) | DRG 140 ==
LOC: EDBD 19:57 → EMR 20:15 → 2E 22:24 → EDBEDREQ 06-15 00:45 → 4E 06-16 14:46
DX: J44.1 Chronic obstructive pulmonary disease with (acute) exacerbation (principal); Z99.81 Dependence on supplemental oxygen; F10.10 Alcohol abuse, uncomplicated; Z79.82 Long term (current) use of aspirin
CPT/HCPCS: 36415; 71010; 80053; 81003; 82550; 82962; 83605; 83880; 84484; 85025; 85610; 85730; 86710; 87040; 87070; 87205; 93005; 94640; 94664; J1815

== ENCOUNTER 2016-08-03 13:49 | Emergency (ER) | payer MEDICAID, OTHER ==
[~2016-08-03] VITALS: Ht 172.7 cm; Wt 63.5 kg
[~2016-08-03 13:49] MED LIST changes: +MAGNESIUM250 M3 PO; +NORCO 5-325 TA1 EAC1 ORAL; +SENNA8.6 M2 PO; +TYLENOL EXTRA500 MG ORAL; +TYLENOL650 MG/20. ORAL; +VITAMIN D1000 UNI1 ORAL
[2016-08-03] MEDS ORDERED: Albuterol ud Inhalation HHN ONE (14:30)
[2016-08-03] MEDS ORDERED: PrednisoLONE 15mg/5ml Syrup ORAL ONE (14:30)
[2016-08-03] MEDS ORDERED: Ipratropium 0.02% Inh Soln 2.5ml UD HHN ONE (14:30)
--- NOTE | 2016-08-03 14:37 | Emergency Room Report ---
History of Present Illness General Chief Complaint: Dyspnea/Respdistress Source: Patient Present Illness HPI Patient present with complaints of sore throat Also felt short of breath Patient has a history of COPD Has had recent previous admission Denies any chest pain denies any fevers or chills He feels that his voice is somewhat hoarse as well Denies any recent travel denies any neck pain or photophobia Denies any difficulty swallowing Allergies: Coded Allergies: NO KNOWN ALLERGIES (Unverified Allergy, Unknown, 03/01/15) Patient History Past Medical History: see triage record Pertinent Family History: none Reviewed Nursing Documentation: PMH: Agreed, PSxH: Agreed Nursing Documentation-PMH Past Medical History: No History, Except For Hx Cardiac Problems: Yes Hx Hypertension: Yes Hx Asthma: Yes Hx COPD: Yes Hx Cancer: No Hx Gastrointestinal Problems: No Hx Neurological Problems: Yes Hx Seizures: Yes - > couple of years ago Review of Systems All Other Systems: negative except mentioned in HPI Physical Exam Vital Signs Date Time Temp Pulse Resp B/P Pulse Ox O2 Delivery O2 Flow Rate FiO2 08/03/16 14:05 98.1 121 18 140/80 94 Nasal Cannula 2.0 Sp02 EP Interpretation: reviewed, normal General Appearance: well appearing, no apparent distress Head: normocephalic, atraumatic Eyes: bilateral eye EOMI, bilateral eye PERRL ENT: hearing grossly normal, normal pharynx, TMs + canals normal, uvula midline Neck: full range of motion, supple, no meningismus, no bony tend Respiratory: no rhonchi, no respiratory distress, no retraction, no accessory muscle use, crackles - Fine crackles diffusely Cardiovascular #1: normal peripheral pulses, regular rate, rhythm, no edema, no gallop, no JVD, no murmur Gastrointestinal: normal bowel sounds, non tender, soft, no mass, no organomegaly, non-distended, no guarding, no hernia, no pulsatile mass, no rebound Genitourinary: no CVA tenderness Musculoskeletal: normal inspection Neurologic: oriented x3, responsive, sample builder III-XII nml as tested, motor strength/ tone normal, sensory intact Psychiatric: mood/affect normal Skin: normal color, no rash, warm/dry, palpation normal Lymphatic: normal inspection, no adenopathy Medical Decision Making Diagnostic Impression: Primary Impression: Laryngitis Additional Impression: COPD (chronic obstructive pulmonary disease) ER Course Multiple differentials were considered Patient's breath sounds had fine crackles in very mild wheezing significantly improved with one breathing treatment patient remains appropriate with oxygenation reported that his oxygen tanks were getting empty We did make contact with his oxygen supplier And they will be coming tonight to replace his oxygen tank Patient does not have any upper respiratory distress no stridor appears to have findings in line with likely laryngitis and stable for close outpatient followup Last Vital Signs Date Time Temp Pulse Resp B/P Pulse Ox O2 Delivery O2 Flow Rate FiO2 08/03/16 14:05 98.1 121 18 140/80 94 Nasal Cannula 2.0 Status: improved Disposition: HOME, SELF-CARE Condition: Improved Scripts Prednisolone* (PRELONE*) 15 Mg/5 Ml Solution 45 MG ORAL DAILY for 7 Days, ML Prov: GUANAKITO CAPONE D.O. 08/03/16 Additional Instructions: Patient is provided with the discharge instructions notified to follow up with primary doctor in the next 2-3 days otherwise return to the er with any worsening symptoms. Please note that this report is being documented using Logopro technology. This can lead to erroneous entry secondary to incorrect interpretation by the dictating instrument. GUANAKITO CAPONE D.O. Aug 03, 2016 14:37
[2016-08-03] MEDS ORDERED: PREDNISOLO15 MG/5 M1 ORAL (15:01)
[2016-08-03 15:22] VITALS: BP 140/80
[2016-08-03 15:29] VITALS: BP 140/80
== END 2016-08-03 17:48 | disposition home or self-care (01) ==
LOC: EMR 14:50
DX: J44.9 Chronic obstructive pulmonary disease, unspecified (principal); J04.0 Acute laryngitis; J45.909 Unspecified asthma, uncomplicated; I10 Essential (primary) hypertension
CPT/HCPCS: 94640; 94664; 99283

== ENCOUNTER 2016-10-19 16:35 | Inpatient (IN) | payer MEDICAID ==
[~2016-10-19] VITALS: Ht 175.3 cm; Wt 79.4 kg
[~2016-10-19 16:35] MED LIST changes: +PREDNISOLO15 MG/5 M1 ORAL
[2016-10-19] MEDS ORDERED: Ipratropium 0.02% Inh Soln 2.5ml UD HHN ONE (17:00)
[2016-10-19] MEDS ORDERED: Albuterol ud Inhalation HHN ONE (17:00)
[2016-10-19 17:34] VITALS: BP 160/85
[2016-10-19 17:50] LABS: MEAN CORPUSCULAR HEMOGLOBIN 23.9 PG (27.0-31.0); MEAN CORPUSCULAR HGB CONC 29.7 G/DL (32.0-36.0); MEAN CORPUSCULAR VOLUME 80 FL (80-99); PLATELET COUNT 248 K/UL (150-450); RED BLOOD COUNT 3.78 M/UL (4.70-6.10); RED CELL DISTRIBUTION WIDTH 19.1 % (11.6-14.8); WHITE BLOOD COUNT 12.2 K/UL (4.8-10.8)
[2016-10-19 18:06] LABS: TROPONIN I < 0.30 ng/mL (<=0.30)
[2016-10-19 18:09] LABS: ALANINE AMINOTRANSFERASE 17 U/L (3-41); ALBUMIN/GLOBULIN RATIO 1.7 (1.0-2.7); ANION GAP 14 (5-15); ASPARTATE AMINO TRANSFERASE 24 U/L (5-40); CALCIUM 9.3 mg/dL (8.6-10.2); CARBON DIOXIDE 30 mEQ/L (20-30); CHLORIDE 95 mEQ/L (98-107); CREATININE 0.9 mg/dL (0.7-1.2); GLOMERULAR FILTRATION RATE > 60 mL/min (>60); HEMOLYSIS 20; POTASSIUM 4.8 mEQ/L (3.4-4.9); SODIUM 139 mEQ/L (135-145); TOTAL PROTEIN 6.3 g/dL (6.6-8.7)
[2016-10-19 18:19] LABS: CKMB 4.1 ng/mL (< 6.7)
[2016-10-19 18:28] LABS: BASOPHILS % (AUTO) 0.3 % (0.0-2.0); LYMPHOCYTES % (AUTO) 3.3 % (20.0-45.0); MONOCYTES % (AUTO) 1.8 % (1.0-10.0); NEUTROPHILS % (AUTO) 94.6 % (45.0-75.0)
[2016-10-19 18:50] VITALS: BP 145/86
--- NOTE | 2016-10-19 19:15 | Emergency Room Report ---
History of Present Illness General Chief Complaint: Dyspnea/Respdistress Source: Patient, EMS Present Illness HPI This patient has a history of COPD. He has home oxygen. He is very distressed and states that he continues to have difficulty breathing. He states he feels like his throat is swelling up. He is very frustrated and states he has too many medications. He is afraid that his medications are causing his symptoms. 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 He admits that he did stop drinking alcohol 2 days ago. He has been taking prednisone for the past few days hoping that we'll halt his lungs. He denies nausea or vomiting. He denies chest pain. He denies abdominal pain. He has no other complaints. Allergies: Coded Allergies: NO KNOWN ALLERGIES (Unverified Allergy, Unknown, 03/01/15) Patient History Past Medical History: see triage record, HTN, asthma, COPD, GERD, seizures, psych hx Social History: Reports: alcohol use, smoking, Denies: drug use Reviewed Nursing Documentation: PMH: Agreed, PSxH: Agreed Nursing Documentation-PMH Past Medical History: No History, Except For Hx Cardiac Problems: Yes Hx Hypertension: Yes Hx Asthma: Yes Hx COPD: Yes Hx Cancer: No Hx Gastrointestinal Problems: No Hx Neurological Problems: Yes Hx Seizures: Yes - > couple of years ago Review of Systems All Other Systems: negative except mentioned in HPI Physical Exam Vital Signs Date Time Temp Pulse Resp B/P Pulse Ox O2 Delivery O2 Flow Rate FiO2 10/19/16 16:29 98.1 109 20 135/93 100 Room Air 10/19/16 17:00 2.0 28 Sp02 EP Interpretation: reviewed, normal General Appearance: no apparent distress, alert, GCS 15, non-toxic Head: normocephalic, atraumatic Eyes: bilateral eye PERRL, bilateral eye normal inspection ENT: hearing grossly normal, normal pharynx, no angioedema, normal voice Neck: full range of motion, supple/symm/no masses Respiratory: chest non-tender, no respiratory distress, no retraction, no accessory muscle use, speaking full sentences, wheezing, expiration Cardiovascular #1: no edema, tachycardia Gastrointestinal: normal bowel sounds, non tender, soft, non-distended, no guarding, no rebound Rectal: deferred Musculoskeletal: back normal, gait/station normal, normal range of motion, non- tender, calf tenderness Neurologic: alert, oriented x3, responsive, motor strength/tone normal, sensory intact, speech normal Psychiatric: judgement/insight normal, memory normal, no suicidal/homicidal ideation, anxious Skin: normal color, no rash, warm/dry, well hydrated Medical Decision Making Diagnostic Impression: Primary Impression: COPD with exacerbation Additional Impression: Alcohol withdrawal ER Course This patient has ongoing COPD. Patient has a poor sophistication level with his treatments. He has a very complicated medication regimen and his very overwhelmed by this. I feel this patient's presentation is multifactorial. Patient has ongoing poorly controlled COPD and also is having some mild alcohol withdrawal. Patient was given breathing treatments and Ativan. He is admitted for further evaluation and treatment. Labs Test 10/19/16 17:40 10/19/16 20:11 White Blood Count 12.2 K/UL (4.8-10.8) Red Blood Count 3.78 M/UL (4.70-6.10) Hemoglobin 9.0 G/DL (14.2-18.0) Hematocrit 30.3 % (42.0-52.0) Mean Corpuscular Volume 80 FL (80-99) Mean Corpuscular Hemoglobin 23.9 PG (27.0-31.0) Mean Corpuscular Hemoglobin Concent 29.7 G/DL (32.0-36.0) Red Cell Distribution Width 19.1 % (11.6-14.8) Platelet Count 248 K/UL (150-450) Mean Platelet Volume 7.0 FL (6.5-10.1) Neutrophils (%) (Auto) 94.6 % (45.0-75.0) Lymphocytes (%) (Auto) 3.3 % (20.0-45.0) Monocytes (%) (Auto) 1.8 % (1.0-10.0) Eosinophils (%) (Auto) 0.0 % (0.0-3.0) Basophils (%) (Auto) 0.3 % (0.0-2.0) Sodium Level 139 mEQ/L (135-145) Potassium Level 4.8 mEQ/L (3.4-4.9) Chloride Level 95 mEQ/L (98-107) Carbon Dioxide Level 30 mEQ/L (20-30) Anion Gap 14 (5-15) Blood Urea Nitrogen 12 mg/dL (7-23) Creatinine 0.9 mg/dL (0.7-1.2) Estimat Glomerular Filtration Rate > 60 mL/min (>60) Glucose Level 191 mg/dL (74-106) Calcium Level 9.3 mg/dL (8.6-10.2) Total Bilirubin 0.6 mg/dL (0.0-1.2) Aspartate Amino Transf (AST/SGOT) 24 U/L (5-40) Alanine Aminotransferase (ALT/SGPT) 17 U/L (3-41) Alkaline Phosphatase 38 U/L (40-129) Total Creatine Kinase 67 U/L (38-174) Creatine Kinase MB 4.1 ng/mL (< 6.7) Creatine Kinase MB Relative Index 6.1 Troponin I < 0.30 ng/mL (<=0.30) Total Protein 6.3 g/dL (6.6-8.7) Albumin 4.0 g/dL (3.5-5.2) Globulin 2.3 g/dL Albumin/Globulin Ratio 1.7 (1.0-2.7) Serum Alcohol < 10 mg/dL Urine Opiates Screen Negative (NEGATIVE) Urine Barbiturates Screen Negative (NEGATIVE) Phencyclidine (PCP) Screen Negative (NEGATIVE) Urine Amphetamines Screen Negative (NEGATIVE) Urine Benzodiazepines Screen Negative (NEGATIVE) Urine Cocaine Screen Negative (NEGATIVE) Urine Marijuana (THC) Screen Negative (NEGATIVE) Labs Test 10/19/16 17:40 White Blood Count 12.2 K/UL (4.8-10.8) Red Blood Count 3.78 M/UL (4.70-6.10) Hemoglobin 9.0 G/DL (14.2-18.0) Hematocrit 30.3 % (42.0-52.0) Mean Corpuscular Volume 80 FL (80-99) Mean Corpuscular Hemoglobin 23.9 PG (27.0-31.0) Mean Corpuscular Hemoglobin Concent 29.7 G/DL (32.0-36.0) Red Cell Distribution Width 19.1 % (11.6-14.8) Platelet Count 248 K/UL (150-450) Mean Platelet Volume 7.0 FL (6.5-10.1) Neutrophils (%) (Auto) 94.6 % (45.0-75.0) Lymphocytes (%) (Auto) 3.3 % (20.0-45.0) Monocytes (%) (Auto) 1.8 % (1.0-10.0) Eosinophils (%) (Auto) 0.0 % (0.0-3.0) Basophils (%) (Auto) 0.3 % (0.0-2.0) Sodium Level 139 mEQ/L (135-145) Potassium Level 4.8 mEQ/L (3.4-4.9) Chloride Level 95 mEQ/L (98-107) Carbon Dioxide Level 30 mEQ/L (20-30) Anion Gap 14 (5-15) Blood Urea Nitrogen 12 mg/dL (7-23) Creatinine 0.9 mg/dL (0.7-1.2) Estimat Glomerular Filtration Rate > 60 mL/min (>60) Glucose Level 191 mg/dL (74-106) Calcium Level 9.3 mg/dL (8.6-10.2) Total Bilirubin 0.6 mg/dL (0.0-1.2) Aspartate Amino Transf (AST/SGOT) 24 U/L (5-40) Alanine Aminotransferase (ALT/SGPT) 17 U/L (3-41) Alkaline Phosphatase 38 U/L (40-129) Total Creatine Kinase 67 U/L (38-174) Creatine Kinase MB 4.1 ng/mL (< 6.7) Creatine Kinase MB Relative Index 6.1 Troponin I < 0.30 ng/mL (<=0.30) Total Protein 6.3 g/dL (6.6-8.7) Albumin 4.0 g/dL (3.5-5.2) Globulin 2.3 g/dL Albumin/Globulin Ratio 1.7 (1.0-2.7) EKG Diagnostic Results Rate: normal Rhythm: NSR ST Segments: no acute changes Rhythm Strip Diag. Results EP Interpretation: yes Rate: 60's Rhythm: NSR, no PVC's, no ectopy Chest X-Ray Diagnostic Results Chest X-Ray Ordered: Yes # of Views/Limited/Complete: 1 View Interpretation: no consolidation, no effusion, no pneumothorax, no acute cardiopulmonary disease Indication: Shortness of Breath Impression: No acute disease Date Electronically Signed: Oct 19, 2016 Time Electronically Signed: 19:59 Interpreting ER Physician: Femi Last Vital Signs Date Time Temp Pulse Resp B/P Pulse Ox O2 Delivery O2 Flow Rate FiO2 10/19/16 18:50 70 20 145/86 100 Nasal Cannula 2.0 28 10/19/16 16:29 98.1 Disposition: ADMITTED INPATIENT Condition: Stable Referrals: [id number],REFERRING (PCP) JO-ANN ARBOLEDA D.O. Oct 19, 2016 19:15
[2016-10-19] MEDS ORDERED: LOSARTAN POTASS25 MG ORAL (19:24)
[2016-10-19] MEDS ORDERED: VITAMIN B-1100 MG ORAL (19:24)
[2016-10-19] MEDS ORDERED: TRAZODONE HCL150 MG ORAL (19:24)
[2016-10-19] MEDS ORDERED: ATORVASTATIN CA10 MG ORAL (19:24)
[2016-10-19] MEDS ORDERED: LORAZEPAM1 MG ORAL (19:24)
[2016-10-19] MEDS ORDERED: PREDNISONE20 MG ORAL (19:24)
[2016-10-19] MEDS ORDERED: AEROSPAN8.9 GM IH (19:24)
[2016-10-19] MEDS ORDERED: SPIRONOLACTONE1 EACH ORAL (19:24)
[2016-10-19] MEDS ORDERED: LORazepam 1mg tab ORAL ONE (20:00)
[2016-10-19 20:43] VITALS: BP 139/92
[2016-10-19] MEDS ORDERED: Morphine Sulfate 2mg/ml Inj IVP PRN (22:30)
[2016-10-19] MEDS ORDERED: LORazepam Inj 2mg/ml 1ml IV PRN (22:30)
[2016-10-19] MEDS ORDERED: Promethazine/Codeine 5ml UD ORAL PRN (22:30)
[2016-10-19] MEDS ORDERED: Nitroglycerin Subl 0.4mg tab (Bottle Of 25) SL PRN (22:30)
[2016-10-19 22:39] VITALS: BP 139/72
[2016-10-20] MEDS ORDERED: Zosyn 3.375gm inj ONE (00:30)
[2016-10-20 00:31] VITALS: BP 142/90
[2016-10-20] MEDS: Solu-MEDROL 125mg Inj IV SCH ×5 (00:45→23:39)
[2016-10-20] MEDS: Zosyn 3.375gm q8h **Extended infusion IVPB SCH ×8 (00:46→23:37)
[2016-10-20 04:42] VITALS: BP 154/81
[2016-10-20] MEDS ORDERED: Piperacillin/Tazobactam 2.25 GM in D5W 55 ML IV SCH (06:00)
[2016-10-20 08:30] VITALS: BP 143/82
[2016-10-20] MEDS: Theophylline ER 100mg ORAL SCH ×2 (08:55→20:26)
[2016-10-20] MEDS: Losartan 25mg tab ORAL SCH (08:55)
[2016-10-20] MEDS ORDERED: Aspirin EC 81mg tab ORAL SCH (09:00)
[2016-10-20] MEDS: Heparin 5000 units/ml inj SUBQ SCH ×2 (09:08→20:33)
[2016-10-20 09:23] LABS: MEAN CORPUSCULAR HEMOGLOBIN 23.7 PG (27.0-31.0); MEAN CORPUSCULAR HGB CONC 29.3 G/DL (32.0-36.0); MEAN CORPUSCULAR VOLUME 81 FL (80-99); MEAN PLATELET VOLUME 5.6 FL (6.5-10.1); PLATELET COUNT 232 K/UL (150-450); RED BLOOD COUNT 3.68 M/UL (4.70-6.10); WHITE BLOOD COUNT 11.8 K/UL (4.8-10.8)
[2016-10-20] MEDS: DuoNeb 0.5-3(2.5)mg/3ml neb HHN PRN (09:23)
[2016-10-20 09:40] LABS: PROTHROMBIN TIME 10.5 SEC (9.30-11.50)
[2016-10-20 10:20] LABS: ANISOCYTOSIS 1+; BAND NEUTROPHILS % (MANUAL) 0 % (0-8); BASOPHILS % (MANUAL) 0 % (0-2); EOSINOPHILS % (MANUAL) 0 % (0-3); HYPOCHROMASIA 1+; LYMPHOCYTES % (MANUAL) 1 % (20-45); MICROCYTES 1+; NEUTROPHILS % (MANUAL) 98 % (45-75); PLATELET ESTIMATE ADEQUATE; PLATELET MORPHOLOGY NORMAL; TOTAL CELLS COUNTED 100
[2016-10-20 10:39] LABS: ERYTHROCYTE SEDIMENTATION RATE 19 MM/HR (0-20); PATH BLOOD SMEAR/OMC SENT TO PATHOLOGIST
[2016-10-20 11:30] LABS: RETICULOCYTE COUNT 1.7 % (0.0-2.0)
[2016-10-20 11:50] VITALS: BP 149/87
--- NOTE | 2016-10-20 12:53 | Diagnostic Imaging Report ---
Indication: SOB Technique: One view of the chest Comparison: 06/14/2016 Findings: Upper lobe hyperinflation, lower lobe prominent interstitial opacities probably reflect chronic changes. No definite acute infiltrates, effusions, or congestion. Normal heart size. No significant change Impression: No acute process. Findings as noted
--- NOTE | 2016-10-20 15:27 | History and Physical ---
History of Present Illness General Date patient seen: Oct 20, 2016 Reason for Hospitalization: Dyspnea/Respdistress Present Illness HPI 60 year old male with hx of COPD on home oxygen presented to Er with CC of difficulty breathing. He states he feels like his throat is swelling up. He is admitted for acute exacerbation of COPD. Allergies: Coded Allergies: NO KNOWN ALLERGIES (Unverified Allergy, Unknown, 03/01/15) Medication History Scheduled Aspirin* (Aspir 81*), 81 MG ORAL DAILY, (Reported) Atorvastatin Calcium* (Lipitor*), 10 MG ORAL BEDTIME, (Reported) Cholecalciferol (Vitamin D3)* (Vitamin D*), 1,000 UNIT ORAL DAILY, (Reported) Cyanocobalamin (Vitamin B-12) (Vitamin B-12), 2,000 MCG PO DAILY, (Reported) Ferrous Sulfate* (Ferrous Sulfate*), 325 MG ORAL DAILY, (Reported) Flunisolide (Aerospan), 8.9 GM IH DAILY, (Reported) Folic Acid* (Folic Acid*), 1 MG ORAL DAILY, (Reported) Lorazepam* (Lorazepam*), 1 MG ORAL THREE TIMES A DAY, (Reported) Losartan Potassium* (Losartan Potassium*), 25 MG ORAL DAILY, (Reported) Magnesium (Magnesium), 500 MG PO DAILY, (Reported) Megestrol Acetate (Megestrol Acetate), 40 MG PO TID, (Reported) Omeprazole (Omeprazole), 40 MG ORAL DAILY, (Reported) Prednisolone* (Prelone*), 45 MG ORAL DAILY Prednisone (Prednisone), 40 MG PO DAILY Prednisone* (Prednisone*), 20 MG ORAL DAILY, (Reported) Spironolact/Hydrochlorothiazid (Spironolactone-Hctz 25-25 Tab), 1 TAB ORAL DAILY , (Reported) Thiamine Hcl* (Vitamin B-1*), 100 MG ORAL DAILY, (Reported) Trazodone* (Trazodone*), 50 MG ORAL BEDTIME, (Reported) Umeclidinium Brm/Vilanterol Tr (Anoro Ellipta 62.5-25 Mcg INH), 2 PUFFS INH DAILY, (Reported) Scheduled PRN Acetaminophen (Acetaminophen), 650 MG ORAL Q6H PRN for Prn Headache/Temp > 101, (Reported) Nitroglycerin (Nitroglycerin), 0.4 MG SL Three times PRN for CHEST PAIN, ( Reported) Miscellaneous Medications Flunisolide (Aerospan), 8.9 GM IH, (Reported) Sennosides (Senna), Unknown Dose PO, (Reported) Patient History Healthcare decision maker Resuscitation status Advanced Directive on File Past Medical/Surgical History Past Medical/Surgical History: (1) COPD (chronic obstructive pulmonary disease) (2) Hypoxia (3) Anemia Review of Systems All Other Systems: negative except mentioned in HPI Physical Exam General Appearance: cachetic Lines, tubes and drains: peripheral HEENT: normocephalic, atraumatic Neck: non-tender, normal alignment Respiratory/Chest: chest wall non-tender, lungs clear Cardiovascular/Chest: normal peripheral pulses Abdomen: normal bowel sounds, non tender Extremities: normal range of motion Last 24 Hour Vital Signs Date Time Temp Pulse Resp B/P Pulse Ox O2 Delivery O2 Flow Rate FiO2 10/20/16 11:50 98.1 100 20 149/87 98 Nasal Cannula 2.0 10/20/16 09:33 77 20 100 Nasal Cannula 2.0 10/20/16 09:23 77 20 100 Nasal Cannula 2.0 10/20/16 08:55 143/82 10/20/16 08:30 97.3 86 20 143/82 100 Nasal Cannula 2.0 10/20/16 07:22 77 20 Nasal Cannula 2.0 10/20/16 04:42 98.1 70 18 154/81 100 Nasal Cannula 2.0 10/20/16 00:31 96.8 102 20 142/90 99 Nasal Cannula 2.0 10/19/16 22:41 98.1 71 17 139/72 100 Nasal Cannula 2.0 10/19/16 22:39 98.1 71 17 139/72 100 Nasal Cannula 2.0 10/19/16 20:43 98.1 92 20 139/92 100 Nasal Cannula 2.0 10/19/16 18:50 70 20 145/86 100 Nasal Cannula 2.0 10/19/16 17:34 99 20 160/85 100 Nasal Cannula 2.0 10/19/16 17:00 99 20 Nasal Cannula 2.0 10/19/16 17:00 99 20 Nasal Cannula 2.0 28 10/19/16 17:00 99 20 100 Nasal Cannula 2.0 10/19/16 16:29 98.1 109 20 135/93 100 Room Air Intake and Output 10/19/16 10/20/16 19:00 07:00 Intake Total 0 ml 240 ml Output Total 500 ml Balance 0 ml -260 ml Intake Oral 0 ml 240 ml Output Urine Total 500 ml # Voids 1 # Bowel Movements 1 Laboratory Tests Test 10/19/16 17:40 10/19/16 20:11 10/20/16 08:55 White Blood Count 12.2 K/UL (4.8-10.8) H 11.8 K/UL (4.8-10.8) H Red Blood Count 3.78 M/UL (4.70-6.10) L 3.68 M/UL (4.70-6.10) L Hemoglobin 9.0 G/DL (14.2-18.0) L 8.7 G/DL (14.2-18.0) L Hematocrit 30.3 % (42.0-52.0) L 29.8 % (42.0-52.0) L Mean Corpuscular Volume 80 FL (80-99) 81 FL (80-99) Mean Corpuscular Hemoglobin 23.9 PG (27.0-31.0) L 23.7 PG (27.0-31.0) L Mean Corpuscular Hemoglobin Concent 29.7 G/DL (32.0-36.0) L 29.3 G/DL (32.0-36.0) L Red Cell Distribution Width 19.1 % (11.6-14.8) H 19.0 % (11.6-14.8) H Platelet Count 248 K/UL (150-450) 232 K/UL (150-450) Mean Platelet Volume 7.0 FL (6.5-10.1) 5.6 FL (6.5-10.1) L Neutrophils (%) (Auto) 94.6 % (45.0-75.0) H % (45.0-75.0) Lymphocytes (%) (Auto) 3.3 % (20.0-45.0) L % (20.0-45.0) Monocytes (%) (Auto) 1.8 % (1.0-10.0) % (1.0-10.0) Eosinophils (%) (Auto) 0.0 % (0.0-3.0) % (0.0-3.0) Basophils (%) (Auto) 0.3 % (0.0-2.0) % (0.0-2.0) Sodium Level 139 mEQ/L (135-145) Potassium Level 4.8 mEQ/L (3.4-4.9) Chloride Level 95 mEQ/L (98-107) L Carbon Dioxide Level 30 mEQ/L (20-30) Anion Gap 14 (5-15) Blood Urea Nitrogen 12 mg/dL (7-23) Creatinine 0.9 mg/dL (0.7-1.2) Estimat Glomerular Filtration Rate > 60 mL/min (>60) Glucose Level 191 mg/dL (74-106) H Calcium Level 9.3 mg/dL (8.6-10.2) Total Bilirubin 0.6 mg/dL (0.0-1.2) Aspartate Amino Transf (AST/SGOT) 24 U/L (5-40) Alanine Aminotransferase (ALT/SGPT) 17 U/L (3-41) Alkaline Phosphatase 38 U/L (40-129) L Total Creatine Kinase 67 U/L (38-174) Creatine Kinase MB 4.1 ng/mL (< 6.7) Creatine Kinase MB Relative Index 6.1 Troponin I < 0.30 ng/mL (<=0.30) Total Protein 6.3 g/dL (6.6-8.7) L Albumin 4.0 g/dL (3.5-5.2) Globulin 2.3 g/dL Albumin/Globulin Ratio 1.7 (1.0-2.7) Serum Alcohol < 10 mg/dL Urine Opiates Screen Negative (NEGATIVE) Urine Barbiturates Screen Negative (NEGATIVE) Phencyclidine (PCP) Screen Negative (NEGATIVE) Urine Amphetamines Screen Negative (NEGATIVE) Urine Benzodiazepines Screen Negative (NEGATIVE) Urine Cocaine Screen Negative (NEGATIVE) Urine Marijuana (THC) Screen Negative (NEGATIVE) Differential Total Cells Counted 100 Neutrophils % (Manual) 98 % (45-75) H Lymphocytes % (Manual) 1 % (20-45) L Monocytes % (Manual) 1 % (1-10) Eosinophils % (Manual) 0 % (0-3) Basophils % (Manual) 0 % (0-2) Band Neutrophils 0 % (0-8) Platelet Estimate Adequate Platelet Morphology Normal Hypochromasia 1+ Anisocytosis 1+ Microcytosis 1+ Erythrocyte Sedimentation Rate 19 MM/HR (0-20) Reticulocyte Count 1.7 % (0.0-2.0) Prothrombin Time 10.5 SEC (9.30-11.50) Prothromb Time International Ratio 1.0 (0.9-1.1) Activated Partial Thromboplast Time 24 SEC (23-33) Iron Level 28 ug/dL (59-158) L Total Iron Binding Capacity 356 ug/dL (250-400) Percent Iron Saturation 8 % (15-50) L Unsaturated Iron Binding 328 ug/dL (112-346) Lactate Dehydrogenase 218 U/L (135-230) Carcinoembryonic Antigen 2.3 ng/mL Vitamin B12 Level 645 pg/mL (211-946) Folate Pending Height (Feet): 5 Height (Inches): 9.00 Weight (Pounds): 175 Medications Current Medications Medications (Trade) Dose Ordered Sig/Agustin Route PRN Reason Start Time Stop Time Status Last Admin Dose Admin Albuterol/ Ipratropium (DuoNeb 0.5-3(2.5)mg/3ml) 3 ml Q4H PRN HHN dyspnea 10/19/16 22:30 10/24/16 22:29 10/20/16 09:23 Aspirin (Ecotrin) 81 mg DAILY ORAL 10/20/16 09:00 11/19/16 08:59 10/20/16 08:54 Atorvastatin Calcium (Lipitor) 10 mg BEDTIME ORAL 10/20/16 21:00 11/19/16 20:59 Dextrose STAT PRN IV Hypoglycemia 10/19/16 22:30 11/18/16 22:29 Folic Acid (Folate) 1 mg DAILY ORAL 10/20/16 09:00 11/19/16 08:59 10/20/16 08:55 Heparin Sodium (Porcine) (Heparin 5000 units/ml) 5,000 units EVERY 12 HOURS SUBQ 10/20/16 09:00 11/19/16 08:59 10/20/16 09:08 Iron Sucrose/ Sodium Chloride (Venofer/Sodium Chloride) 60 ml @ 240 mls/hr BEDTIME IVPB 10/20/16 21:00 10/24/16 21:14 Lorazepam (Ativan 2mg/ml 1ml) 0.5 mg Q4H PRN IV For Anxiety 10/19/16 22:30 10/26/16 22:29 Losartan Potassium (Cozaar) 25 mg DAILY ORAL 10/20/16 09:00 11/19/16 08:59 10/20/16 08:55 Methylprednisolone Sodium Succinate (Solu-MEDROL) 60 mg EVERY 6 HOURS IV 10/20/16 00:00 11/19/16 00:00 10/20/16 12:49 Morphine Sulfate (Morphine Sulfate) 2 mg Q4H PRN IVP severe pain 7-10 10/19/16 22:30 10/26/16 22:29 Nitroglycerin (Ntg) 0.4 mg Q5M X 3 DOSES PRN SL Prn Chest Pain 10/19/16 22:30 11/18/16 22:29 Ondansetron HCl (Zofran) 4 mg Q6H PRN IVP Nausea & Vomiting 10/19/16 22:30 11/18/16 22:29 Piperacillin Sod/ Tazobactam Sod 3.375 gm/Dextrose 110 ml @ 27.5 mls/hr Q8H IVPB 10/20/16 00:00 10/27/16 00:00 10/20/16 08:54 Promethazine HCl/ Codeine (Phenergan with Codeine) 5 ml Q6H PRN ORAL cough 10/19/16 22:30 11/18/16 22:29 Temazepam (Restoril) 15 mg HSPRN PRN ORAL Insomnia 10/19/16 22:30 10/26/16 22:29 10/20/16 00:46 Theophylline (Gaurav-Dur) 100 mg EVERY 12 HOURS ORAL 10/20/16 09:00 11/19/16 08:59 10/20/16 08:55 Trazodone HCl (Desyrel) 50 mg BEDTIME ORAL 10/20/16 21:00 11/19/16 20:59 Assessment/Plan Problem List: (1) Acute respiratory failure ICD Codes: J96.00 - Acute respiratory failure, unspecified whether with hypoxia or hypercapnia SNOMED: 04737962 (2) COPD with exacerbation ICD Codes: J44.1 - Chronic obstructive pulmonary disease with (acute) exacerbation SNOMED: 244725040 (3) Laryngitis ICD Codes: J04.0 - Acute laryngitis SNOMED: 84512875 (4) Anemia ICD Codes: D64.9 - Anemia, unspecified SNOMED: 230748593 (5) Hypoxia ICD Codes: R09.02 - Hypoxemia SNOMED: 279422259 (6) Severe protein-calorie malnutrition ICD Codes: E43 - Unspecified severe protein-calorie malnutrition SNOMED: 453445619 (7) Hypoalbuminemia ICD Codes: E88.09 - Other disorders of plasma-protein metabolism, not elsewhere classified SNOMED: 347432799 Assessment/Plan iv abx iv steroids check sputum respiratory treatment chest PT LAZARUS YATES Oct 20, 2016 15:27
--- NOTE | 2016-10-20 15:29 | Cardiology Report ---
APPROVED REPORT EKG Measurement Heart [id number] VA 100P77 [id number] Sinus rhythm with short VA with premature atrial complexes, blocked PACs. Nonspecific ST abnormality Abnormal ECG
[2016-10-20 16:06] VITALS: BP 129/84
[2016-10-20 20:00] VITALS: BP 128/74
[2016-10-20] MEDS: Iron Sucrose 100 MG in NS 55 ML IVPB SCH (20:26)
[2016-10-20] MEDS: TraZODone 50mg tab ORAL SCH (20:26)
[2016-10-21 00:25] VITALS: BP 131/66
--- NOTE | 2016-10-21 03:00 | Consultation ---
DATE OF CONSULTATION: HISTORY OF PRESENT ILLNESS: This is a 60-year-old -[place] male with a history of COPD, on home oxygen, admitted to the hospital due to difficulty breathing. The patient has a history of hypoxia and anemia. He is a smoker. During the evaluation, presents with depressed mood, anhedonia, worthlessness, hopelessness, decreased energy, insomnia, and anxiety. The patient also has a history of drinking. He stopped drinking alcohol. He is afebrile. ALLERGIES: No known drug allergies. SUBSTANCE ABUSE HISTORY: As above. MENTAL STATUS EXAMINATION: The patient is alert and oriented x3. Mood is depressed. Affect is constricted. Congruent with mood. Thought process is concrete. Thought content, no suicidal, homicidal ideation. ASSESSMENT: [place] I Major depressive disorder. [place] II Deferred. [place] III As above. [place] IV Moderate. [place] V Global assessment of functioning is 20. PLAN: 1. The patient will be started on fluoxetine 20 mg in the morning. 2. Trazodone 50 mg at bedtime. 3. We will continue Ativan p.r.n. 4. We will continue to follow and readjust the medications. Sun Christina M.D. DR: FABIANO JOB#: [id number] CC:
[2016-10-21 04:00] VITALS: BP 121/70
[2016-10-21] MEDS: Solu-MEDROL 125mg Inj IV SCH ×4 (05:31→23:35)
[2016-10-21 06:14] LABS: MEAN CORPUSCULAR HEMOGLOBIN 24.4 PG (27.0-31.0); MEAN CORPUSCULAR HGB CONC 30.4 G/DL (32.0-36.0); MEAN CORPUSCULAR VOLUME 80 FL (80-99); MEAN PLATELET VOLUME 6.2 FL (6.5-10.1); PLATELET COUNT 179 K/UL (150-450); RED BLOOD COUNT 3.24 M/UL (4.70-6.10); RED CELL DISTRIBUTION WIDTH 19.2 % (11.6-14.8); WHITE BLOOD COUNT 17.9 K/UL (4.8-10.8)
[2016-10-21 06:29] LABS: ALANINE AMINOTRANSFERASE 13 U/L (3-41); ALBUMIN/GLOBULIN RATIO 1.5 (1.0-2.7); ANION GAP 16 (5-15); ASPARTATE AMINO TRANSFERASE 14 U/L (5-40); CALCIUM 8.8 mg/dL (8.6-10.2); CARBON DIOXIDE 27 mEQ/L (20-30); CHLORIDE 94 mEQ/L (98-107); CREATININE 0.9 mg/dL (0.7-1.2); GLOMERULAR FILTRATION RATE > 60 mL/min (>60); HEMOLYSIS 7; PHOSPHORUS 3.3 mg/dL (2.5-4.8); POTASSIUM 4.1 mEQ/L (3.4-4.9); SODIUM 137 mEQ/L (135-145); TOTAL PROTEIN 5.6 g/dL (6.6-8.7)
[2016-10-21 08:08] VITALS: BP 130/73
[2016-10-21] MEDS: Zosyn 3.375gm q8h **Extended infusion IVPB SCH ×6 (08:11→23:36)
[2016-10-21] MEDS: Theophylline ER 100mg ORAL SCH ×2 (08:11→21:43)
[2016-10-21] MEDS: Losartan 25mg tab ORAL SCH (08:12)
[2016-10-21] MEDS: Heparin 5000 units/ml inj SUBQ SCH ×2 (08:18→21:47)
[2016-10-21 08:23] LABS: BAND NEUTROPHILS % (MANUAL) 0 % (0-8); BASOPHILS % (MANUAL) 0 % (0-2); EOSINOPHILS % (MANUAL) 0 % (0-3); LYMPHOCYTES % (MANUAL) 2 % (20-45); NEUTROPHILS % (MANUAL) 95 % (45-75); PLATELET ESTIMATE ADEQUATE; TOTAL CELLS COUNTED 100
[2016-10-21 08:24] LABS: ANISOCYTOSIS 2+; HYPOCHROMASIA 3+; PLATELET MORPHOLOGY NORMAL
[2016-10-21] MEDS: DuoNeb 0.5-3(2.5)mg/3ml neb HHN PRN ×2 (10:13→14:54)
[2016-10-21 12:27] VITALS: BP 141/65
--- NOTE | 2016-10-21 13:08 | Consultation ---
MADISON DEL CID M.D. Oct 21, 2016 13:08
[2016-10-21 15:58] VITALS: BP 132/75
--- NOTE | 2016-10-21 17:15 | Pulmonology Progress Note ---
Assessment/Plan Problems: (1) Acute respiratory failure (2) COPD with exacerbation (3) Laryngitis (4) Anemia (5) Hypoxia (6) Severe protein-calorie malnutrition (7) Hypoalbuminemia Assessment/Plan improving no new cultures continue the same treatment dc planning for am Subjective ROS Limited/Unobtainable: No Constitutional: Reports: no symptoms HEENT: Repors: no symptoms Respiratory: Reports: no symptoms Cardiovascular: Reports: no symptoms Allergies: Coded Allergies: NO KNOWN ALLERGIES (Unverified Allergy, Unknown, 03/01/15) Objective Last 24 Hour Vital Signs Date Time Temp Pulse Resp B/P Pulse Ox O2 Delivery O2 Flow Rate FiO2 10/21/16 15:58 98.2 68 20 132/75 100 Nasal Cannula 2.0 10/21/16 15:02 78 18 100 Nasal Cannula 2.0 10/21/16 14:52 75 18 96 Nasal Cannula 2.0 28 10/21/16 12:27 97.2 100 21 141/65 97 Nasal Cannula 2.0 10/21/16 10:26 75 18 100 Nasal Cannula 2.0 10/21/16 10:18 65 18 100 Nasal Cannula 2.0 10/21/16 08:12 130/73 10/21/16 08:08 97.7 92 20 130/73 100 Nasal Cannula 2.0 10/21/16 07:16 96 Nasal Cannula 2.0 10/21/16 07:16 Nasal Cannula 2.0 10/21/16 07:16 85 18 Nasal Cannula 2.0 10/21/16 04:00 97.7 63 18 121/70 97 Room Air 10/21/16 00:25 97.8 97 20 131/66 97 Room Air 10/20/16 20:00 97.0 97 18 128/74 100 Room Air 10/20/16 19:30 Nasal Cannula 2.0 28 10/20/16 19:30 95 Nasal Cannula 2.0 28 10/20/16 19:30 120 20 Nasal Cannula 2.0 28 Intake and Output 10/20/16 10/21/16 19:00 07:00 Intake Total 1342.5 ml 530.0 ml Output Total 750 ml 500 ml Balance 592.5 ml 30.0 ml Intake Oral 1315 ml 360 ml IV Total 27.5 ml 170.0 ml Output Urine Total 750 ml 500 ml # Voids 4 1 # Bowel Movements 2 General Appearance: WD/WN HEENT: normocephalic, atraumatic Respiratory/Chest: chest wall non-tender, lungs clear Cardiovascular: normal peripheral pulses, normal rate Abdomen: normal bowel sounds, soft, non tender Genitourinary: normal external genitalia Extremities: no cyanosis Skin: no lesions Neurologic/Psychiatric: abnormal gait Microbiology Date/Time Source Procedure Growth Status 10/20/16 09:25 Sputum Gram Stain - Final Resulted 10/20/16 09:25 Sputum Sputum Culture Pending Resulted Laboratory Tests 10/21/16 05:00: White Blood Count 17.9#H, Red Blood Count 3.24L, Hemoglobin 7.9L, Hematocrit 26.1L, Mean Corpuscular Volume 80, Mean Corpuscular Hemoglobin 24.4L, Mean Corpuscular Hemoglobin Concent 30.4L, Red Cell Distribution Width 19.2H, Platelet Count 179, Mean Platelet Volume 6.2L, Neutrophils (%) (Auto) , Lymphocytes (%) (Auto) , Monocytes (%) (Auto) , Eosinophils (%) (Auto) , Basophils (%) (Auto) , Differential Total Cells Counted 100, Neutrophils % ( Manual) 95H, Lymphocytes % (Manual) 2L, Monocytes % (Manual) 3, Eosinophils % ( Manual) 0, Basophils % (Manual) 0, Band Neutrophils 0, Platelet Estimate Adequate, Platelet Morphology Normal, Hypochromasia 3+, Anisocytosis 2+, Sodium Level 137, Potassium Level 4.1, Chloride Level 94L, Carbon Dioxide Level 27, Anion Gap 16H, Blood Urea Nitrogen 17, Creatinine 0.9, Estimat Glomerular Filtration Rate > 60, Glucose Level 232H, Calcium Level 8.8, Phosphorus Level 3.3, Magnesium Level 2.0, Total Bilirubin 0.3, Aspartate Amino Transf (AST/SGOT ) 14, Alanine Aminotransferase (ALT/SGPT) 13, Alkaline Phosphatase 36L, Total Protein 5.6L, Albumin 3.4L, Globulin 2.2, Albumin/Globulin Ratio 1.5 Current Medications Medications (Trade) Dose Ordered Sig/Agustin Route PRN Reason Start Time Stop Time Status Last Admin Dose Admin Albuterol/ Ipratropium (DuoNeb 0.5-3(2.5)mg/3ml) 3 ml Q4H PRN HHN dyspnea 10/19/16 22:30 10/24/16 22:29 10/21/16 14:54 Dextrose STAT PRN IV Hypoglycemia 10/19/16 22:30 11/18/16 22:29 Fluoxetine HCl (PROzac) 20 mg DAILY ORAL 10/21/16 09:00 11/20/16 08:59 10/21/16 08:12 Heparin Sodium (Porcine) (Heparin 5000 units/ml) 5,000 units EVERY 12 HOURS SUBQ 10/20/16 09:00 11/19/16 08:59 10/21/16 08:18 Iron Sucrose/ Sodium Chloride (Venofer/Sodium Chloride) 60 ml @ 240 mls/hr BEDTIME IVPB 10/20/16 21:00 10/24/16 21:14 10/20/16 20:26 Lorazepam (Ativan 2mg/ml 1ml) 0.5 mg Q4H PRN IV For Anxiety 10/19/16 22:30 10/26/16 22:29 Losartan Potassium (Cozaar) 25 mg DAILY ORAL 10/20/16 09:00 11/19/16 08:59 10/21/16 08:12 Methylprednisolone Sodium Succinate (Solu-MEDROL) 60 mg EVERY 6 HOURS IV 10/20/16 00:00 11/19/16 00:00 10/21/16 17:07 Morphine Sulfate (Morphine Sulfate) 2 mg Q4H PRN IVP severe pain 7-10 10/19/16 22:30 10/26/16 22:29 Nitroglycerin (Ntg) 0.4 mg Q5M X 3 DOSES PRN SL Prn Chest Pain 10/19/16 22:30 11/18/16 22:29 Ondansetron HCl (Zofran) 4 mg Q6H PRN IVP Nausea & Vomiting 10/19/16 22:30 11/18/16 22:29 Piperacillin Sod/ Tazobactam Sod 3.375 gm/Dextrose 110 ml @ 27.5 mls/hr Q8H IVPB 10/20/16 00:00 10/27/16 00:00 10/21/16 17:07 Promethazine HCl/ Codeine (Phenergan with Codeine) 5 ml Q6H PRN ORAL cough 10/19/16 22:30 11/18/16 22:29 Temazepam (Restoril) 15 mg HSPRN PRN ORAL Insomnia 10/19/16 22:30 10/26/16 22:29 10/20/16 23:41 Theophylline (Gaurav-Dur) 100 mg EVERY 12 HOURS ORAL 10/20/16 09:00 11/19/16 08:59 10/21/16 08:11 Trazodone HCl (Desyrel) 50 mg BEDTIME ORAL 10/20/16 21:00 11/19/16 20:59 10/20/16 20:26 LAZARUS YATES Oct 21, 2016 17:15
[2016-10-21 20:00] VITALS: BP 146/87
[2016-10-21] MEDS: Iron Sucrose 100 MG in NS 55 ML IVPB SCH (21:43)
[2016-10-21] MEDS: TraZODone 50mg tab ORAL SCH (21:43)
[2016-10-22 04:00] VITALS: BP 132/70
[2016-10-22] MEDS: Solu-MEDROL 125mg Inj IV SCH ×4 (06:21→23:35)
[2016-10-22 07:47] VITALS: BP 142/90
[2016-10-22] MEDS: Theophylline ER 100mg ORAL SCH ×2 (08:26→21:54)
[2016-10-22] MEDS: Losartan 25mg tab ORAL SCH (08:26)
[2016-10-22] MEDS: Zosyn 3.375gm q8h **Extended infusion IVPB SCH ×6 (08:28→23:35)
[2016-10-22] MEDS: Heparin 5000 units/ml inj SUBQ SCH ×2 (08:28→21:57)
--- NOTE | 2016-10-22 10:22 | General Progress Note ---
Assessment/Plan Status: stable, not improved Assessment/Plan MDD prozac 20mg qam trazadone 50mg qhs Subjective Date patient seen: Oct 21, 2016 Constitutional: Reports: weakness Neurologic/Psychiatric: Reports: anxiety, depressed, emotional problems Allergies: Coded Allergies: NO KNOWN ALLERGIES (Unverified Allergy, Unknown, 03/01/15) Objective Last 24 Hour Vital Signs Date Time Temp Pulse Resp B/P Pulse Ox O2 Delivery O2 Flow Rate FiO2 10/22/16 08:26 142/90 10/22/16 07:47 97.7 71 20 142/90 97 Nasal Cannula 2.0 10/22/16 07:24 100 Nasal Cannula 2.0 28 10/22/16 07:24 Nasal Cannula 2.0 28 10/22/16 07:24 60 18 Nasal Cannula 2.0 28 10/22/16 04:00 97.5 69 18 132/70 96 Nasal Cannula 2.0 10/21/16 20:24 100 Nasal Cannula 2.0 28 10/21/16 20:24 Nasal Cannula 2.0 28 10/21/16 20:24 60 18 Nasal Cannula 2.0 28 10/21/16 20:00 97.7 87 20 146/87 99 Nasal Cannula 2.0 10/21/16 15:58 98.2 68 20 132/75 100 Nasal Cannula 2.0 10/21/16 15:02 78 18 100 Nasal Cannula 2.0 28 10/21/16 14:52 75 18 96 Nasal Cannula 2.0 28 10/21/16 12:27 97.2 100 21 141/65 97 Nasal Cannula 2.0 10/21/16 10:26 75 18 100 Nasal Cannula 2.0 28 Intake and Output 10/21/16 10/22/16 19:00 07:00 Intake Total 1430.0 ml 780 ml Output Total 350 ml 1000 ml Balance 1080.0 ml -220 ml Intake Oral 1320 ml 780 ml IV Total 110.0 ml Output Urine Total 350 ml 1000 ml # Voids 3 # Bowel Movements 2 1 Height (Feet): 5 Height (Inches): 9.00 Weight (Pounds): 175 General Appearance: no apparent distress, alert, thin Neurologic: alert, oriented x 3, responsive, depressed affect Sun Christina M.D. Oct 22, 2016 10:22
--- NOTE | 2016-10-22 11:15 | Progress Note ---
SUBJECTIVE: The patient overall doing better, however, still believes that he is presenting with depressed mood, anhedonia, worthlessness, hopelessness, and decreased energy. He does not have any side effects from new antidepressant. MENTAL STATUS EXAMINATION: Alert and oriented x4. Mood is depressed. Affect is constricted. Congruent mood. Thought process is concrete. Thought content, no suicidal or homicidal ideation. ASSESSMENT: Major depressive disorder, recurrent, moderate. PLAN: 1. The patient will be continued on fluoxetine 20 mg in the morning. 2. Trazodone 50 mg at bedtime. 3. We will continue to readjust the medications and monitor his symptoms. Sun Christina M.D. DR: Gary JOB#: [id number] CC:
[2016-10-22 11:56] VITALS: BP 130/93
--- NOTE | 2016-10-22 13:29 | Pulmonology Progress Note ---
Assessment/Plan Problems: (1) Acute respiratory failure (2) COPD with exacerbation (3) Laryngitis (4) Anemia (5) Hypoxia (6) Severe protein-calorie malnutrition (7) Hypoalbuminemia Assessment/Plan improving no new cultures continue the same treatment dc planning today taper steroids avoid ETOH Subjective ROS Limited/Unobtainable: No Constitutional: Reports: no symptoms HEENT: Repors: no symptoms Respiratory: Reports: no symptoms Cardiovascular: Reports: no symptoms Allergies: Coded Allergies: NO KNOWN ALLERGIES (Unverified Allergy, Unknown, 03/01/15) Objective Last 24 Hour Vital Signs Date Time Temp Pulse Resp B/P Pulse Ox O2 Delivery O2 Flow Rate FiO2 10/22/16 11:56 98.2 82 20 130/93 100 Nasal Cannula 2.0 10/22/16 08:26 142/90 10/22/16 07:47 97.7 71 20 142/90 97 Nasal Cannula 2.0 10/22/16 07:24 100 Nasal Cannula 2.0 28 10/22/16 07:24 Nasal Cannula 2.0 28 10/22/16 07:24 60 18 Nasal Cannula 2.0 28 10/22/16 04:00 97.5 69 18 132/70 96 Nasal Cannula 2.0 10/21/16 20:24 100 Nasal Cannula 2.0 28 10/21/16 20:24 Nasal Cannula 2.0 28 10/21/16 20:24 60 18 Nasal Cannula 2.0 28 10/21/16 20:00 97.7 87 20 146/87 99 Nasal Cannula 2.0 10/21/16 15:58 98.2 68 20 132/75 100 Nasal Cannula 2.0 10/21/16 15:02 78 18 100 Nasal Cannula 2.0 28 10/21/16 14:52 75 18 96 Nasal Cannula 2.0 28 Intake and Output 10/21/16 10/22/16 19:00 07:00 Intake Total 1430.0 ml 780 ml Output Total 350 ml 1000 ml Balance 1080.0 ml -220 ml Intake Oral 1320 ml 780 ml IV Total 110.0 ml Output Urine Total 350 ml 1000 ml # Voids 3 # Bowel Movements 2 1 General Appearance: cachetic HEENT: normocephalic, atraumatic Respiratory/Chest: decreased breath sounds, crackles/rales Cardiovascular: normal peripheral pulses, normal rate, regular rhythm Abdomen: normal bowel sounds, soft, non tender, no organomegaly Extremities: no cyanosis 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 Microbiology Date/Time Source Procedure Growth Status 10/20/16 09:25 Sputum Gram Stain - Final Resulted 10/20/16 09:25 Sputum Culture - Preliminary Gram Negative Bacillus 1 Carmen Albicans Usual Respiratory Quiana Resulted Current Medications Medications (Trade) Dose Ordered Sig/Agustin Route PRN Reason Start Time Stop Time Status Last Admin Dose Admin Albuterol/ Ipratropium (DuoNeb 0.5-3(2.5)mg/3ml) 3 ml Q4H PRN HHN dyspnea 10/19/16 22:30 10/24/16 22:29 10/21/16 14:54 Dextrose STAT PRN IV Hypoglycemia 10/19/16 22:30 11/18/16 22:29 Fluoxetine HCl (PROzac) 20 mg DAILY ORAL 10/21/16 09:00 11/20/16 08:59 10/22/16 08:27 Heparin Sodium (Porcine) (Heparin 5000 units/ml) 5,000 units EVERY 12 HOURS SUBQ 10/20/16 09:00 11/19/16 08:59 10/22/16 08:28 Iron Sucrose/ Sodium Chloride (Venofer/Sodium Chloride) 60 ml @ 240 mls/hr BEDTIME IVPB 10/20/16 21:00 10/24/16 21:14 10/21/16 21:43 Lorazepam (Ativan 2mg/ml 1ml) 0.5 mg Q4H PRN IV For Anxiety 10/19/16 22:30 10/26/16 22:29 Losartan Potassium (Cozaar) 25 mg DAILY ORAL 10/20/16 09:00 11/19/16 08:59 10/22/16 08:26 Methylprednisolone Sodium Succinate (Solu-MEDROL) 60 mg EVERY 6 HOURS IV 10/20/16 00:00 11/19/16 00:00 10/22/16 12:59 Morphine Sulfate (Morphine Sulfate) 2 mg Q4H PRN IVP severe pain 7-10 10/19/16 22:30 10/26/16 22:29 Nitroglycerin (Ntg) 0.4 mg Q5M X 3 DOSES PRN SL Prn Chest Pain 10/19/16 22:30 11/18/16 22:29 Ondansetron HCl (Zofran) 4 mg Q6H PRN IVP Nausea & Vomiting 10/19/16 22:30 11/18/16 22:29 Piperacillin Sod/ Tazobactam Sod 3.375 gm/Dextrose 110 ml @ 27.5 mls/hr Q8H IVPB 10/20/16 00:00 10/27/16 00:00 10/22/16 08:28 Promethazine HCl/ Codeine (Phenergan with Codeine) 5 ml Q6H PRN ORAL cough 10/19/16 22:30 11/18/16 22:29 Temazepam (Restoril) 15 mg HSPRN PRN ORAL Insomnia 10/19/16 22:30 10/26/16 22:29 10/20/16 23:41 Theophylline (Gaurav-Dur) 100 mg EVERY 12 HOURS ORAL 10/20/16 09:00 11/19/16 08:59 10/22/16 08:26 Trazodone HCl (Desyrel) 50 mg BEDTIME ORAL 10/20/16 21:00 11/19/16 20:59 10/21/16 21:43 LAZARUS YATES Oct 22, 2016 13:29
[2016-10-22] MEDS ORDERED: THEOPHYLLINE A100 MG ORAL (13:32)
[2016-10-22] MEDS ORDERED: FLUOXETINE HCL20 MG ORAL (13:32)
[2016-10-22] MEDS ORDERED: Tubing IV Secondary IV ONE (15:27)
[2016-10-22 16:01] VITALS: BP 121/59
[2016-10-22 20:00] VITALS: BP 150/85
--- NOTE | 2016-10-22 21:23 | Infectious Diseases Prog Note ---
Assessment/Plan Assessment/Plan A: he patient is a 60-year-old male with COPD exacerbation and pneumonia SCx: GNR Leukocytosis : 2/2 steroids history of alcohol abuse. Seizure disorder. HTN PLAN: con IV Zosyn d # 3 Monitor SP culture Monitor CBC, Monitor BMP Monitor Cxray Subjective Respiratory: Reports: dry cough, productive cough, shortness of breath Allergies: Coded Allergies: NO KNOWN ALLERGIES (Unverified Allergy, Unknown, 03/01/15) Objective Vital Signs Last 24 Hour Vital Signs Date Time Temp Pulse Resp B/P Pulse Ox O2 Delivery O2 Flow Rate FiO2 10/22/16 20:00 97.6 91 21 150/85 100 Room Air 10/22/16 19:27 100 Nasal Cannula 2.0 28 10/22/16 19:27 Nasal Cannula 2.0 28 10/22/16 19:26 62 18 Nasal Cannula 2.0 28 10/22/16 16:01 97.6 100 20 121/59 100 Room Air 10/22/16 11:56 98.2 82 20 130/93 100 Nasal Cannula 2.0 10/22/16 08:26 142/90 10/22/16 07:47 97.7 71 20 142/90 97 Nasal Cannula 2.0 10/22/16 07:24 100 Nasal Cannula 2.0 28 10/22/16 07:24 Nasal Cannula 2.0 28 10/22/16 07:24 60 18 Nasal Cannula 2.0 28 10/22/16 04:00 97.5 69 18 132/70 96 Nasal Cannula 2.0 Height (Feet): 5 Height (Inches): 9.00 Weight (Pounds): 175 Respiratory/Chest: no respiratory distress Cardiovascular: regularly irregular Abdomen: non distended Microbiology Date/Time Source Procedure Growth Status 10/20/16 09:25 Sputum Gram Stain - Final Resulted 10/20/16 09:25 Sputum Culture - Preliminary Gram Negative Bacillus 1 Carmen Albicans Usual Respiratory Quiana Resulted Current Medications Medications (Trade) Dose Ordered Sig/Agustin Route PRN Reason Start Time Stop Time Status Last Admin Dose Admin Albuterol/ Ipratropium (DuoNeb 0.5-3(2.5)mg/3ml) 3 ml Q4H PRN HHN dyspnea 10/19/16 22:30 10/24/16 22:29 10/21/16 14:54 Dextrose STAT PRN IV Hypoglycemia 10/19/16 22:30 11/18/16 22:29 Fluoxetine HCl (PROzac) 20 mg DAILY ORAL 10/21/16 09:00 11/20/16 08:59 10/22/16 08:27 Heparin Sodium (Porcine) (Heparin 5000 units/ml) 5,000 units EVERY 12 HOURS SUBQ 10/20/16 09:00 11/19/16 08:59 10/22/16 08:28 Iron Sucrose/ Sodium Chloride (Venofer/Sodium Chloride) 60 ml @ 240 mls/hr BEDTIME IVPB 10/20/16 21:00 10/24/16 21:14 10/21/16 21:43 Lorazepam (Ativan 2mg/ml 1ml) 0.5 mg Q4H PRN IV For Anxiety 10/19/16 22:30 10/26/16 22:29 Losartan Potassium (Cozaar) 25 mg DAILY ORAL 10/20/16 09:00 11/19/16 08:59 10/22/16 08:26 Methylprednisolone Sodium Succinate (Solu-MEDROL) 60 mg EVERY 6 HOURS IV 10/20/16 00:00 11/19/16 00:00 10/22/16 12:59 Morphine Sulfate (Morphine Sulfate) 2 mg Q4H PRN IVP severe pain 7-10 10/19/16 22:30 10/26/16 22:29 Nitroglycerin (Ntg) 0.4 mg Q5M X 3 DOSES PRN SL Prn Chest Pain 10/19/16 22:30 11/18/16 22:29 Ondansetron HCl (Zofran) 4 mg Q6H PRN IVP Nausea & Vomiting 10/19/16 22:30 11/18/16 22:29 Piperacillin Sod/ Tazobactam Sod 3.375 gm/Dextrose 110 ml @ 27.5 mls/hr Q8H IVPB 10/20/16 00:00 10/27/16 00:00 10/22/16 08:28 Promethazine HCl/ Codeine (Phenergan with Codeine) 5 ml Q6H PRN ORAL cough 10/19/16 22:30 11/18/16 22:29 Temazepam (Restoril) 15 mg HSPRN PRN ORAL Insomnia 10/19/16 22:30 10/26/16 22:29 10/20/16 23:41 Theophylline (Gaurav-Dur) 100 mg EVERY 12 HOURS ORAL 10/20/16 09:00 11/19/16 08:59 10/22/16 08:26 Trazodone HCl (Desyrel) 50 mg BEDTIME ORAL 10/20/16 21:00 11/19/16 20:59 10/21/16 21:43 MADISON DEL CID M.D. Oct 22, 2016 21:23
[2016-10-22] MEDS: Iron Sucrose 100 MG in NS 55 ML IVPB SCH (21:54)
[2016-10-22] MEDS: TraZODone 50mg tab ORAL SCH (21:55)
--- NOTE | 2016-10-22 22:00 | Consultation ---
DATE OF CONSULTATION: 10/21/2016 INFECTIOUS DISEASES CONSULT CONSULTING PHYSICIAN: Veto Muñoz M.D. REQUESTING PHYSICIAN: Tyler Randolph M.D. REASON FOR CONSULTATION: Evaluation of the patient for pneumonia and antibiotic management. HISTORY OF PRESENT ILLNESS: The patient is a 60-year-old male with multiple medical problems, as listed above, who has been admitted to this medical center due to shortness of breath and hypoxemia. The patient was admitted with the impression of COPD exacerbation. An Infectious Diseases consultation has been requested for further evaluation of the patient and antibiotic management. PAST MEDICAL HISTORY: 1. Seizure disorder. 2. Hypertension. 3. COPD. 4. Asthma. 5. History of alcohol abuse. MEDICATIONS: Zosyn and Solu-Medrol. FAMILY HISTORY: Noncontributory. REVIEW OF SYSTEMS: HEENT: No recent change in vision or hearing. Pulmonary: Cough, shortness of breath, and sputum production. Cardiovascular: No chest pain or palpitations. Gastrointestinal/Abdomen: No nausea or vomiting. Genitourinary: No dysuria. Musculoskeletal: No pain in the extremities. Neurologic: As mentioned above. PHYSICAL EXAMINATION: VITAL SIGNS: Temperature 98.2 degrees, pulse 86, respiratory rate 18, and blood pressure 150/85. HEENT: Mild pale conjunctivae. No icterus. NECK: No lymphadenopathy. CHEST: Coarse breathing sounds. Mild wheezes at bases of both lungs. HEART: S1 and S2. ABDOMEN: Soft and nontender. EXTREMITIES: No cyanosis. NEUROLOGIC: Awake and alert. LABORATORY DATA: White blood cells , hemoglobin 8.7, and platelets 232,000. UA, unremarkable. BUN 12 and creatinine 0.9. ALT, AST, and alkaline phosphatase were all unremarkable. Sputum culture is pending. Chest x-ray showed no acute process. ASSESSMENT: The patient is a 60-year-old male with multiple medical problems with a history of chronic obstructive pulmonary disease exacerbation, who came to the hospital with mild leukocytosis and pneumonia. The patient has been started on IV antibiotics and Solu-Medrol. PLAN: 1. We will continue the patient on Zosyn. 2. Monitor CBC. 3. Monitor BMP. 4. Monitor cultures. 5. Monitor chest x-ray. 6. Based on the patient's clinical course and labs, we will do further recommendation. Thank you, Dr. Randolph, for allowing me to participate in the care of this patient. I will follow the patient with you during this hospitalization. Veto Muñoz M.D. DR: GIFTY JOB#: [id number] CC:
[2016-10-23] VITALS: BP 152/95
[2016-10-23 04:00] VITALS: BP 145/84
[2016-10-23] MEDS: Solu-MEDROL 125mg Inj IV SCH (05:56)
[2016-10-23 08:00] VITALS: BP 150/84
[2016-10-23] MEDS: Theophylline ER 100mg ORAL SCH (08:49)
[2016-10-23] MEDS: Losartan 25mg tab ORAL SCH (08:49)
[2016-10-23] MEDS: Zosyn 3.375gm q8h **Extended infusion IVPB SCH ×2 (08:49)
[2016-10-23] MEDS: Heparin 5000 units/ml inj SUBQ SCH (08:51)
[2016-10-23 09:14] LABS: MEAN CORPUSCULAR HEMOGLOBIN 25.5 PG (27.0-31.0); MEAN CORPUSCULAR HGB CONC 30.3 G/DL (32.0-36.0); MEAN CORPUSCULAR VOLUME 84 FL (80-99); PLATELET COUNT 167 K/UL (150-450); RED BLOOD COUNT 4.28 M/UL (4.70-6.10); RED CELL DISTRIBUTION WIDTH 19.1 % (11.6-14.8)
[2016-10-23 10:48] LABS: BAND NEUTROPHILS % (MANUAL) 0 % (0-8); BASOPHILS % (MANUAL) 0 % (0-2); EOSINOPHILS % (MANUAL) 0 % (0-3); LYMPHOCYTES % (MANUAL) 2 % (20-45); NEUTROPHILS % (MANUAL) 94 % (45-75); NUCLEATED RED BLOOD CELLS 2 /100 WBC; PLATELET ESTIMATE ADEQUATE; TOTAL CELLS COUNTED 100
[2016-10-23 10:49] LABS: ANISOCYTOSIS 2+; HYPOCHROMASIA 1+; PLATELET MORPHOLOGY NORMAL
[2016-10-23 12:00] VITALS: BP 120/87
--- NOTE | 2016-10-23 12:38 | Infectious Diseases Prog Note ---
Assessment/Plan Assessment/Plan A: he patient is a 60-year-old male with COPD exacerbation and pneumonia SCx: Ecoli and Yeast Leukocytosis : 2/2 steroids , improving history of alcohol abuse. Seizure disorder. HTN PLAN: DC IV Zosyn d # 4 , change to Keflex : , ok to DC pt from ID stand point on oral AB Rx to complete the course Monitor CBC, Monitor BMP Monitor Cxray Subjective Allergies: Coded Allergies: NO KNOWN ALLERGIES (Unverified Allergy, Unknown, 03/01/15) Subjective cough improving Objective Vital Signs Last 24 Hour Vital Signs Date Time Temp Pulse Resp B/P Pulse Ox O2 Delivery O2 Flow Rate FiO2 10/23/16 12:00 97.7 69 20 120/87 98 Nasal Cannula 2.0 10/23/16 08:49 150/84 10/23/16 08:00 97.5 79 20 150/84 97 Nasal Cannula 2.0 10/23/16 07:32 97 Nasal Cannula 2.0 10/23/16 07:32 Nasal Cannula 2.0 10/23/16 07:32 107 18 Nasal Cannula 2.0 10/23/16 04:00 97.8 61 19 145/84 93 Room Air 10/23/16 00:00 97.8 90 20 152/95 98 Nasal Cannula 2.0 10/22/16 20:00 97.6 91 21 150/85 100 Room Air 10/22/16 19:27 100 Nasal Cannula 2.0 28 10/22/16 19:27 Nasal Cannula 2.0 28 10/22/16 19:26 62 18 Nasal Cannula 2.0 28 10/22/16 16:01 97.6 100 20 121/59 100 Room Air Height (Feet): 5 Height (Inches): 9.00 Weight (Pounds): 175 HEENT: atraumatic Respiratory/Chest: no accessory muscle use Cardiovascular: regular rhythm Abdomen: no mass Laboratory Tests Test 10/23/16 08:00 White Blood Count 12.0 K/UL (4.8-10.8) H Red Blood Count 4.28 M/UL (4.70-6.10) L Hemoglobin 10.9 G/DL (14.2-18.0) L Hematocrit 36.0 % (42.0-52.0) L Mean Corpuscular Volume 84 FL (80-99) Mean Corpuscular Hemoglobin 25.5 PG (27.0-31.0) L Mean Corpuscular Hemoglobin Concent 30.3 G/DL (32.0-36.0) L Red Cell Distribution Width 19.1 % (11.6-14.8) H Platelet Count 167 K/UL (150-450) Mean Platelet Volume 7.0 FL (6.5-10.1) Neutrophils (%) (Auto) % (45.0-75.0) Lymphocytes (%) (Auto) % (20.0-45.0) Monocytes (%) (Auto) % (1.0-10.0) Eosinophils (%) (Auto) % (0.0-3.0) Basophils (%) (Auto) % (0.0-2.0) Differential Total Cells Counted 100 Neutrophils % (Manual) 94 % (45-75) H Lymphocytes % (Manual) 2 % (20-45) L Monocytes % (Manual) 4 % (1-10) Eosinophils % (Manual) 0 % (0-3) Basophils % (Manual) 0 % (0-2) Band Neutrophils 0 % (0-8) Nucleated Red Blood Cells 2 /100 WBC Platelet Estimate Adequate Platelet Morphology Normal Hypochromasia 1+ Anisocytosis 2+ Current Medications Medications (Trade) Dose Ordered Sig/Agustin Route PRN Reason Start Time Stop Time Status Last Admin Dose Admin Albuterol/ Ipratropium (DuoNeb 0.5-3(2.5)mg/3ml) 3 ml Q4H PRN HHN dyspnea 10/19/16 22:30 10/24/16 22:29 10/21/16 14:54 Dextrose STAT PRN IV Hypoglycemia 10/19/16 22:30 11/18/16 22:29 Fluoxetine HCl (PROzac) 20 mg DAILY ORAL 10/21/16 09:00 11/20/16 08:59 10/23/16 08:55 Heparin Sodium (Porcine) (Heparin 5000 units/ml) 5,000 units EVERY 12 HOURS SUBQ 10/20/16 09:00 11/19/16 08:59 10/23/16 08:51 Iron Sucrose/ Sodium Chloride (Venofer/Sodium Chloride) 60 ml @ 240 mls/hr BEDTIME IVPB 10/20/16 21:00 10/24/16 21:14 10/22/16 21:54 Lorazepam (Ativan 2mg/ml 1ml) 0.5 mg Q4H PRN IV For Anxiety 10/19/16 22:30 10/26/16 22:29 Losartan Potassium (Cozaar) 25 mg DAILY ORAL 10/20/16 09:00 11/19/16 08:59 10/23/16 08:49 Methylprednisolone Sodium Succinate (Solu-MEDROL) 60 mg EVERY 6 HOURS IV 10/20/16 00:00 11/19/16 00:00 10/23/16 05:56 Morphine Sulfate (Morphine Sulfate) 2 mg Q4H PRN IVP severe pain 7-10/19/16 22:30 10/26/16 22:29 Nitroglycerin (Ntg) 0.4 mg Q5M X 3 DOSES PRN SL Prn Chest Pain 10/19/16 22:30 11/18/16 22:29 Ondansetron HCl (Zofran) 4 mg Q6H PRN IVP Nausea & Vomiting 10/19/16 22:30 11/18/16 22:29 Piperacillin Sod/ Tazobactam Sod 3.375 gm/Dextrose 110 ml @ 27.5 mls/hr Q8H IVPB 10/20/16 00:00 10/27/16 00:00 10/23/16 08:49 Promethazine HCl/ Codeine (Phenergan with Codeine) 5 ml Q6H PRN ORAL cough 10/19/16 22:30 11/18/16 22:29 Temazepam (Restoril) 15 mg HSPRN PRN ORAL Insomnia 10/19/16 22:30 10/26/16 22:29 10/20/16 23:41 Theophylline (Gaurav-Dur) 100 mg EVERY 12 HOURS ORAL 10/20/16 09:00 11/19/16 08:59 10/23/16 08:49 Trazodone HCl (Desyrel) 50 mg BEDTIME ORAL 10/20/16 21:00 11/19/16 20:59 10/22/16 21:55 MADSION DEL CID M.D. Oct 23, 2016 12:38
--- NOTE | 2016-10-23 12:48 | Pulmonology Progress Note ---
Assessment/Plan Problems: (1) Acute respiratory failure (2) COPD with exacerbation (3) Laryngitis (4) Anemia (5) Hypoxia (6) Severe protein-calorie malnutrition (7) Hypoalbuminemia Assessment/Plan improving no new cultures continue the same treatment dc planning today taper steroids avoid ETOH received one unit of prbc yesterday. Subjective ROS Limited/Unobtainable: No Constitutional: Reports: no symptoms HEENT: Repors: no symptoms Respiratory: Reports: no symptoms Cardiovascular: Reports: no symptoms Allergies: Coded Allergies: NO KNOWN ALLERGIES (Unverified Allergy, Unknown, 03/01/15) Objective Last 24 Hour Vital Signs Date Time Temp Pulse Resp B/P Pulse Ox O2 Delivery O2 Flow Rate FiO2 10/23/16 12:00 97.7 69 20 120/87 98 Nasal Cannula 2.0 10/23/16 08:49 150/84 10/23/16 08:00 97.5 79 20 150/84 97 Nasal Cannula 2.0 10/23/16 07:32 97 Nasal Cannula 2.0 10/23/16 07:32 Nasal Cannula 2.0 10/23/16 07:32 107 18 Nasal Cannula 2.0 10/23/16 04:00 97.8 61 19 145/84 93 Room Air 10/23/16 00:00 97.8 90 20 152/95 98 Nasal Cannula 2.0 10/22/16 20:00 97.6 91 21 150/85 100 Room Air 10/22/16 19:27 100 Nasal Cannula 2.0 28 10/22/16 19:27 Nasal Cannula 2.0 28 10/22/16 19:26 62 18 Nasal Cannula 2.0 28 10/22/16 16:01 97.6 100 20 121/59 100 Room Air Intake and Output 10/22/16 10/23/16 19:00 07:00 Intake Total 1090.0 ml 120 ml Output Total 300 ml 300 ml Balance 790.0 ml -180 ml Intake Oral 980 ml 120 ml IV Total 110.0 ml Output Urine Total 300 ml 300 ml # Voids 5 # Bowel Movements 2 General Appearance: cachetic HEENT: normocephalic, atraumatic Respiratory/Chest: chest wall non-tender, lungs clear Cardiovascular: normal peripheral pulses, normal rate Abdomen: normal bowel sounds, soft, non tender Extremities: no cyanosis Skin: no lesions Laboratory Tests 10/23/16 08:00: White Blood Count 12.0H, Red Blood Count 4.28L, Hemoglobin 10.9L, Hematocrit 36.0L, Mean Corpuscular Volume 84, Mean Corpuscular Hemoglobin 25.5L, Mean Corpuscular Hemoglobin Concent 30.3L, Red Cell Distribution Width 19.1H, Platelet Count 167, Mean Platelet Volume 7.0, Neutrophils (%) (Auto) , Lymphocytes (%) (Auto) , Monocytes (%) (Auto) , Eosinophils (%) (Auto) , Basophils (%) (Auto) , Differential Total Cells Counted 100, Neutrophils % ( Manual) 94H, Lymphocytes % (Manual) 2L, Monocytes % (Manual) 4, Eosinophils % ( Manual) 0, Basophils % (Manual) 0, Band Neutrophils 0, Nucleated Red Blood Cells 2, Platelet Estimate Adequate, Platelet Morphology Normal, Hypochromasia 1 +, Anisocytosis 2+ Current Medications Medications (Trade) Dose Ordered Sig/Agustin Route PRN Reason Start Time Stop Time Status Last Admin Dose Admin Albuterol/ Ipratropium (DuoNeb 0.5-3(2.5)mg/3ml) 3 ml Q4H PRN HHN dyspnea 10/19/16 22:30 10/24/16 22:29 10/21/16 14:54 Cephalexin (Keflex) 500 mg FOUR TIMES A DAY ORAL 10/23/16 13:00 10/30/16 12:59 Dextrose STAT PRN IV Hypoglycemia 10/19/16 22:30 11/18/16 22:29 Fluoxetine HCl (PROzac) 20 mg DAILY ORAL 10/21/16 09:00 11/20/16 08:59 10/23/16 08:55 Heparin Sodium (Porcine) (Heparin 5000 units/ml) 5,000 units EVERY 12 HOURS SUBQ 10/20/16 09:00 11/19/16 08:59 10/23/16 08:51 Iron Sucrose/ Sodium Chloride (Venofer/Sodium Chloride) 60 ml @ 240 mls/hr BEDTIME IVPB 10/20/16 21:00 10/24/16 21:14 10/22/16 21:54 Lorazepam (Ativan 2mg/ml 1ml) 0.5 mg Q4H PRN IV For Anxiety 10/19/16 22:30 10/26/16 22:29 Losartan Potassium (Cozaar) 25 mg DAILY ORAL 10/20/16 09:00 11/19/16 08:59 10/23/16 08:49 Methylprednisolone Sodium Succinate (Solu-MEDROL) 60 mg EVERY 6 HOURS IV 10/20/16 00:00 11/19/16 00:00 10/23/16 05:56 Morphine Sulfate (Morphine Sulfate) 2 mg Q4H PRN IVP severe pain 7-10 10/19/16 22:30 10/26/16 22:29 Nitroglycerin (Ntg) 0.4 mg Q5M X 3 DOSES PRN SL Prn Chest Pain 10/19/16 22:30 11/18/16 22:29 Ondansetron HCl (Zofran) 4 mg Q6H PRN IVP Nausea & Vomiting 10/19/16 22:30 11/18/16 22:29 Promethazine HCl/ Codeine (Phenergan with Codeine) 5 ml Q6H PRN ORAL cough 10/19/16 22:30 11/18/16 22:29 Temazepam (Restoril) 15 mg HSPRN PRN ORAL Insomnia 10/19/16 22:30 10/26/16 22:29 10/20/16 23:41 Theophylline (Gaurav-Dur) 100 mg EVERY 12 HOURS ORAL 10/20/16 09:00 11/19/16 08:59 10/23/16 08:49 Trazodone HCl (Desyrel) 50 mg BEDTIME ORAL 10/20/16 21:00 11/19/16 20:59 10/22/16 21:55 LAZARUS YATES Oct 23, 2016 12:48
[2016-10-23] MEDS ORDERED: Cephalexin 500mg cap ORAL SCH (13:00)
[2016-10-26] MEDS ORDERED: CEPHALEXIN500 MG ORAL (10:10)
--- NOTE | 2016-10-26 10:18 | Discharge Summary ---
Discharge Summary Hospital Course Date of Admission Oct 19, 2016 at 21:00 Date of Discharge Oct 23, 2016 at 12:50 Admitting Diagnosis COPD exacerbation HPI Cesar Mckinney is a 60 year old male who was admitted on Oct 19, 2016 at 21: 00 for Chronic Obstructive Pulmonary Disease Hospital Course dc summary #[id number] Discharge Medications New Medications: Cephalexin* (Keflex*) 500 Mg Capsule 500 MG ORAL EVERY 12 HOURS, #8 CAP 0 Refills Fluoxetine Hcl* (Fluoxetine Hcl*) 20 Mg Capsule 20 MG ORAL DAILY for 30 Days, CAP Theophylline (Theodur*) 100 Mg Tab.er.12h 100 MG ORAL EVERY 12 HOURS for 30 Days, TAB Continued Medications: Lorazepam* (Lorazepam*) 1 Mg Tablet 1 MG ORAL THREE TIMES A DAY, TAB Prednisone* (Prednisone*) 20 Mg Tablet 20 MG ORAL DAILY, TAB 0 Refills Trazodone* (Trazodone*) 150 Mg Tablet 50 MG ORAL BEDTIME, TAB Discharge Condition Upon Discharge: stable Discharge Disposition Patient was discharged to Home (01) Discharge Diagnoses: Discharge Instructions Discharge Instructions Special Instructions I have been assigned to complete a D/C Summary on this account. I was not involved in the patient management Kim Turcios NP ([place]te[place]) Oct 26, 2016 10:18
--- NOTE | 2016-10-27 01:01 | Discharge Summary 2 SIG ---
DATE OF ADMISSION: 10/19/2016 DATE OF DISCHARGE: 10/23/2016 REASON FOR ADMISSION: The patient is a 60-year-old male with history of chronic obstructive pulmonary disease presents to emergency department with the complaints of difficulty breathing. The patient uses home oxygen. The patient reported weak and feeling like his throat was swollen. 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 He admits to drinking alcohol two days ago. He took prednisone for past few days without any relieve. No nausea. No vomiting. No chest pain. No abdominal pain. No other complaints. Workup in the emergency room revealed mild leukocytosis of 12.2. Anemia with hemoglobin 9, hematocrit 30.3. On two liters nasal cannula, the patient was saturating 100%. LFT were within normal limits. Troponin negative. Serum alcohol level less than 10. Urine toxicology screen negative. EKG shows normal sinus rhythm. Chest x-ray revealed no acute cardiopulmonary process. In the emergency department, patient received nebulizing treatment with bronchodilator, given Ativan and admitted for further management. ADMITTING DIAGNOSES: 1. Acute hypoxemic respiratory failure. 2. Chronic obstructive pulmonary disease with exacerbation. 3. Possible pneumonia. 4. Laryngitis. 5. Alcohol abuse. HOSPITAL COURSE: The patient admitted. ID and psych consult was requested. The patient started on supplemental oxygen and pulmonary toilet in form of nebulizing treatment and chest physical therapy. Antitussive provided as needed. The patient started on theophylline. Sputum culture revealed E coli, and Carmen. ID followed. The patient was on the IV antibiotics, we changed to the oral prior to discharge per ID recommendation. Chest x-ray revealed no evidence of pneumonia. It showed upper lobe hyperinflation, lower lobe prominent interstitial opacity probably reflected chronic changes, no definite acute infiltrate, effusion, or congestion. The patient noted to be anemic. At some point, hemoglobin down to 7.9, hematocrit 26.1. The patient undergone transfusion of one unit of packed red blood cells on 10/21/2016 and prior to discharge latest hemoglobin 10.9, hematocrit 36. Anemia workup revealed iron deficiency anemia. Stool OB was not collected since the patient did not provide. CEA was within normal limits. Recommended outpatient colonoscopy. Psychiatrist seen and evaluated the patient and diagnosed him with major depressive recurrent disorder. She added Prozac to psychiatric medication regimen in the morning and continued trazodone at night time. The patient was stable for discharge. DISCHARGE DIAGNOSES: 1. Acute hypoxemic respiratory failure, chronic obstructive pulmonary disease with exacerbation. 2. Laryngitis. 3. Possible pneumonia. 4. Alcohol abuse. 5. Hypertension. 6. Anemia, status post blood transfusion. 7. Major depressive disorder, recurrent. DISCHARGE MEDICATIONS: See medication reconciliation list. DISCHARGE INSTRUCTIONS: The patient discharged home. Followup with the primary medical doctor. Recommended outpatient colonoscopy . Tyler Randolph M.D. I have been assigned to dictate discharge summary on this account and I was not involved in the patient's management. [facility] N.PKt DR: Aiden JOB#: [id number] CC:
== END 2016-10-23 12:50 | disposition home or self-care (01) | DRG 140 ==
LOC: EDBD 16:35 → EMR 17:02 → 3E 21:00 → EDBEDREQ 22:14
PROC: 30233N1 Transfusion of Nonautologous Red Blood Cells into Peripheral Vein, Percutaneous Approach (ICD-10-PCS; principal; 2016-10-22)
DX: J44.1 Chronic obstructive pulmonary disease with (acute) exacerbation (principal); J96.01 Acute respiratory failure with hypoxia; E43 Unspecified severe protein-calorie malnutrition; J18.9 Pneumonia, unspecified organism; R56.9 Unspecified convulsions; J04.0 Acute laryngitis; D64.9 Anemia, unspecified; E88.09 Other disorders of plasma-protein metabolism, not elsewhere classified; I10 Essential (primary) hypertension; F33.9 Major depressive disorder, recurrent, unspecified; F17.200 Nicotine dependence, unspecified, uncomplicated; F10.21 Alcohol dependence, in remission; D72.829 Elevated white blood cell count, unspecified; T38.0X5A Adverse effect of glucocorticoids and synthetic analogues, initial encounter
CPT/HCPCS: 36415; 71010; 80053; 80300; 80329; 82378; 82550; 82553; 82607; 82746; 83540; 83550; 83615; 83735; 84100; 84484; 85007; 85025; 85044; 85060; 85610; 85651; 85730; 86850; 86900; 86901; 86920; 87070; 87181; 87205; 93005; 94640; 94664; 94760; J7620

== ENCOUNTER 2017-04-26 20:55 | Inpatient (IN) | payer MEDICAID ==
[~2017-04-26] VITALS: Ht 172.7 cm; Wt 71.7 kg
[~2017-04-26 20:55] MED LIST changes: +ATORVASTATIN CA10 MG ORAL; +CEPHALEXIN500 MG ORAL; +FLUOXETINE HCL20 MG ORAL; +LORAZEPAM1 MG ORAL; +LOSARTAN POTASS25 MG ORAL; +PREDNISONE20 MG ORAL; +SPIRONOLACTONE1 EACH ORAL; +THEOPHYLLINE A100 MG ORAL; +TRAZODONE HCL150 MG ORAL; +VITAMIN B-1100 MG ORAL
[2017-04-26] MEDS ORDERED: Ipratropium 0.02% Inh Soln 2.5ml UD HHN ONE (21:30)
[2017-04-26] MEDS: Albuterol ud Inhalation HHN SCH ×3 (21:30→22:00)
[2017-04-26] MEDS ORDERED: Solu-MEDROL 125mg Inj IVP ONE (21:30)
[2017-04-26 22:04] LABS: BASOPHILS % (AUTO) 1.4 % (0.0-2.0); EOSINOPHILS % (AUTO) 2.9 % (0.0-3.0); HEMATOCRIT 40.7 % (42.0-52.0); HEMOGLOBIN 11.9 G/DL (14.2-18.0); LYMPHOCYTES % (AUTO) 19.5 % (20.0-45.0); MEAN CORPUSCULAR VOLUME 90 FL (80-99); MONOCYTES % (AUTO) 6.5 % (1.0-10.0); NEUTROPHILS % (AUTO) 69.7 % (45.0-75.0); PLATELET COUNT 463 K/UL (150-450); RED BLOOD COUNT 4.54 M/UL (4.70-6.10); RED CELL DISTRIBUTION WIDTH 17.4 % (11.6-14.8); WHITE BLOOD COUNT 7.7 K/UL (4.8-10.8)
[2017-04-26 22:16] LABS: ANION GAP 9 mmol/L (5-15); BLOOD UREA NITROGEN 5 mg/dL (7-18); CALCIUM 8.4 MG/DL (8.5-10.1); CARBON DIOXIDE 30 MMOL/L (21-32); CHLORIDE 97 MMOL/L (98-107); CREATININE 0.9 MG/DL (0.55-1.30); POTASSIUM 3.9 MMOL/L (3.5-5.1); SODIUM 136 MMOL/L (136-145)
[2017-04-26 22:21] LABS: INR 1.1 (0.9-1.1)
[2017-04-26 22:27] LABS: ALANINE AMINOTRANSFERASE 10 U/L (12-78); ALBUMIN 2.7 G/DL (3.4-5.0); ALBUMIN/GLOBULIN RATIO 0.5 (1.0-2.7); ALKALINE PHOSPHATASE 95 U/L (46-116); ASPARTATE AMINO TRANSFERASE 22 U/L (15-37); BILIRUBIN,TOTAL 0.2 MG/DL (0.2-1.0); CREATINE KINASE 68 U/L (26-308)
[2017-04-27] VITALS (7 sets, daily range): BP systolic 108–137; BP diastolic 64–81
[2017-04-27 00:25] LABS: APPEARANCE,URINE CLEAR; BILIRUBIN, URINE NEGATIVE (NEGATIVE); GLUCOSE, URINE (UA) NEGATIVE (NEGATIVE); KETONES,URINE NEGATIVE (NEGATIVE); LEUKOCYTE ESTERASE ,URINE NEGATIVE (NEGATIVE); NITRITE,URINE NEGATIVE (NEGATIVE); PH,URINE 5 (4.5-8.0); PROTEIN,URINE NEGATIVE (NEGATIVE); UROBILINOGEN,URINE NORMAL MG/DL (0.0-1.0)
[2017-04-27 00:28] LABS: COLOR,URINE YELLOW
--- NOTE | 2017-04-27 00:58 | Emergency Room Report ---
History of Present Illness General Chief Complaint: Dyspnea/Respdistress Source: Patient Present Illness HPI Patient presents with dyspnea and wheezing. Denies fever or productive cough. States emphysema is worsened. Has had prednisone in the past, not now. On home O2. Minimal chest pain 2/10, L sided. Not worst "attack". No NVD, dysuria, muscle pain, anxiety, rashes, constipation. Not depressed, but some anxiety. + lack of appetite. Last discharge October 2016 with these dx: 1. Acute hypoxemic respiratory failure 2. Chronic obstructive pulmonary disease with exacerbation. 3. Laryngitis. 4. Pneumonia with E coli. 5. Hypertension. 6. Iron deficiency anemia, status post blood transfusion. 7. Major depressive disorder, recurrent. 8. Alcohol abuse Allergies: Coded Allergies: NO KNOWN ALLERGIES (Unverified Allergy, Unknown, 03/01/15) Patient History Past Medical History: see triage record, old chart reviewed Social History: Reports: smoking - prior, alcohol use Social History Narrative at home Reviewed Nursing Documentation: PMH: Agreed, PSxH: Agreed Nursing Documentation-PMH Hx Cardiac Problems: Yes Hx Hypertension: Yes Hx Asthma: Yes Hx COPD: Yes Hx Cancer: No Hx Gastrointestinal Problems: No Hx Neurological Problems: Yes Hx Seizures: Yes - > couple of years ago Review of Systems All Other Systems: negative except mentioned in HPI Physical Exam Vital Signs Date Time Temp Pulse Resp B/P (MAP) Pulse Ox O2 Delivery O2 Flow Rate FiO2 04/26/17 21:13 98.4 125 16 118/66 85 Room Air 04/26/17 23:30 3.0 32 Sp02 EP Interpretation: reviewed, abnormal - low as interpreted by me General Appearance: cachetic, thin, Chronically Ill Head: normocephalic Eyes: bilateral eye normal inspection, bilateral eye PERRL ENT: moist mucus membranes Neck: supple Respiratory: wheezing, expiration, inspiration Cardiovascular #1: tachycardia Cardiovascular #2: 2+ radial (R) Gastrointestinal: normal inspection, normal bowel sounds, non tender, no mass, non-distended, scaphoid Musculoskeletal: back normal, gait/station normal, normal range of motion Neurologic: alert, oriented x3, motor strength/tone normal, normal gait, grossly normal Psychiatric: depressed affect Skin: normal inspection, warm/dry Medical Decision Making Diagnostic Impression: Primary Impression: COPD with exacerbation Additional Impressions: Hypoxia Severe protein-calorie malnutrition ER Course Patient presents with several days of worsened dyspnea with h/o COPD. DDx: pneumonia, bronchitis, AMI, exacerbation of COPD amongst others. Evaluation with EKG, CXR and labs. Treatment with steroids and breathing treatments. EKG with ST, no injury. CXR with COPD, no infiltrates. Labs with normal WBC and neg troponin. Improved, but still with resting dyspnea and hypoxia. O2 sats still low but improved. Admit med Dr. Randolph. Dr. Dumont covering. Laboratory Tests Test 04/26/17 21:45 04/27/17 00:05 White Blood Count 7.7 K/UL (4.8-10.8) Red Blood Count 4.54 M/UL (4.70-6.10) L Hemoglobin 11.9 G/DL (14.2-18.0) L Hematocrit 40.7 % (42.0-52.0) L Mean Corpuscular Volume 90 FL (80-99) Mean Corpuscular Hemoglobin 26.1 PG (27.0-31.0) L Mean Corpuscular Hemoglobin Concent 29.1 G/DL (32.0-36.0) L Red Cell Distribution Width 17.4 % (11.6-14.8) H Platelet Count 463 K/UL (150-450) H Mean Platelet Volume 5.6 FL (6.5-10.1) L Neutrophils (%) (Auto) 69.7 % (45.0-75.0) Lymphocytes (%) (Auto) 19.5 % (20.0-45.0) L Monocytes (%) (Auto) 6.5 % (1.0-10.0) Eosinophils (%) (Auto) 2.9 % (0.0-3.0) Basophils (%) (Auto) 1.4 % (0.0-2.0) Prothrombin Time 11.0 SEC (9.30-11.50) Prothrombin Time INR 1.1 (0.9-1.1) PTT 28 SEC (23-33) Sodium Level 136 MMOL/L (136-145) Potassium Level 3.9 MMOL/L (3.5-5.1) Chloride Level 97 MMOL/L (98-107) L Carbon Dioxide Level 30 MMOL/L (21-32) Anion Gap 9 mmol/L (5-15) Blood Urea Nitrogen 5 mg/dL (7-18) L Creatinine 0.9 MG/DL (0.55-1.30) Estimate Glomerular Filtration Rate > 60 mL/min (>60) Glucose Level 119 MG/DL (74-106) H Lactic Acid Level 1.20 mmol/L (0.66-2.22) Calcium Level 8.4 MG/DL (8.5-10.1) L Total Bilirubin 0.2 MG/DL (0.2-1.0) Aspartate Amino Transferase (AST) 22 U/L (15-37) Alanine Aminotransferase (ALT) 10 U/L (12-78) L Alkaline Phosphatase 95 U/L (46-116) Total Creatine Kinase 68 U/L (26-308) Troponin I 0.002 ng/mL (0.000-0.056) Pro-B-Type Natriuretic Peptide 651 pg/mL (0-125) H Total Protein 7.9 G/DL (6.4-8.2) Albumin 2.7 G/DL (3.4-5.0) L Globulin 5.2 g/dL Albumin/Globulin Ratio 0.5 (1.0-2.7) L Urine Color Yellow Urine Appearance Clear Urine pH 5 (4.5-8.0) Urine Specific [place] 1.015 (1.005-1.035) Urine Protein Negative (NEGATIVE) Urine Glucose (UA) Negative (NEGATIVE) Urine Ketones Negative (NEGATIVE) Urine Occult Blood 2+ (NEGATIVE) H Urine Nitrite Negative (NEGATIVE) Urine Bilirubin Negative (NEGATIVE) Urine Urobilinogen Normal MG/DL (0.0-1.0) Urine Leukocyte Esterase Negative (NEGATIVE) Urine RBC 5-10 /HPF (0 - 0) H Urine WBC 0-2 /HPF (0 - 0) Urine Squamous Epithelial Cells Occasional /LPF Urine Bacteria Occasional /HPF (NONE) Urine Opiates Screen Negative (NEGATIVE) Urine Barbiturates Screen Negative (NEGATIVE) Phencyclidine (PCP) Screen Negative (NEGATIVE) Urine Amphetamines Screen Negative (NEGATIVE) Urine Benzodiazepines Screen Positive (NEGATIVE) H Urine Cocaine Screen Negative (NEGATIVE) Urine Marijuana (THC) Screen Negative (NEGATIVE) EKG Diagnostic Results Rate: tachycardiac ST Segments: no acute changes Rhythm Strip Diag. Results EP Interpretation: yes Rhythm: no PVC's, no ectopy, other - ST Chest X-Ray Diagnostic Results Chest X-Ray Diagnostic Results : Chest X-Ray Ordered: Yes # of Views/Limited/Complete: 1 View Indication: Shortness of Breath Interpretation: no consolidation, no effusion, no pneumothorax, other - COPD Impression: Other Electronically Signed by: Electronically signed by Nicolas Chavez MD Status: improved Disposition: ADMITTED INPATIENT Condition: Serious Referrals: [facility]ERR[facility] (PCP) Nicolas Chavez M.D. Apr 27, 2017 00:58
[2017-04-27] MEDS: Heparin 5000 units/ml inj SUBQ SCH ×2 (09:34→21:20)
[2017-04-27] MEDS: Solu-MEDROL 125mg Inj IVP SCH (09:34)
[2017-04-27 09:40] LABS: HEMATOCRIT 38.3 % (42.0-52.0); HEMOGLOBIN 11.8 G/DL (14.2-18.0); MEAN CORPUSCULAR VOLUME 90 FL (80-99); PLATELET COUNT 478 K/UL (150-450); RED BLOOD COUNT 4.27 M/UL (4.70-6.10); RED CELL DISTRIBUTION WIDTH 18.1 % (11.6-14.8); WHITE BLOOD COUNT 6.8 K/UL (4.8-10.8)
[2017-04-27 09:46] LABS: ANION GAP 8 mmol/L (5-15); BLOOD UREA NITROGEN 6 mg/dL (7-18); CALCIUM 8.1 MG/DL (8.5-10.1); CARBON DIOXIDE 30 MMOL/L (21-32); CHLORIDE 101 MMOL/L (98-107); CREATININE 0.8 MG/DL (0.55-1.30); POTASSIUM 4.2 MMOL/L (3.5-5.1); SODIUM 139 MMOL/L (136-145)
--- NOTE | 2017-04-27 12:16 | Diagnostic Imaging Report ---
Indication: Dyspnea Comparison: 10/19/2016 A single view chest radiograph was obtained. Findings: Reticular densities consistent with scarring noted at the right lung base with some pleural thickening. Findings are unchanged. Heart is normal in size. Bones are unremarkable. IMPRESSION: No acute disease
[2017-04-27] MEDS ORDERED: LORazepam 1mg tab ORAL PRN (18:30)
[2017-04-27] MEDS ORDERED: Nitroglycerin Subl 0.4mg tab SL PRN (18:30)
--- NOTE | 2017-04-27 20:15 | Consultation ---
DATE OF CONSULTATION: 04/27/2017 PULMONARY CONSULTATION REASON FOR CONSULTATION: COPD and shortness of breath. HISTORY OF PRESENT ILLNESS: The patient is a 61-year-old male with history known history of underlying COPD, presents with increasing shortness of breath and increasing distress. The patient now admitted for further care and management. I was called to assist and evaluate from pulmonary standpoint. The patient denies significant sputum production at present. PAST MEDICAL HISTORY: As above and also notable for seizures, COPD as mentioned, and history of cardiac disease of unclear severity. MEDICATIONS: Reviewed. PHYSICAL EXAMINATION: GENERAL: A well-developed male, somewhat frail. VITAL SIGNS: Blood pressure 126/81, pulse 98, respirations 21, saturation 91%, and temperature 97.7 degrees. HEENT: Negative. NECK: Supple. LUNGS: Moderate breath sounds. Scattered wheezes. CARDIAC: Normal S1 and S2. Regular rate and rhythm. ABDOMEN: Soft and nontender. EXTREMITIES: No edema. NEUROLOGICAL: Grossly nonfocal. Alert and oriented x3. LABORATORY DATA: Lab data reviewed. IMPRESSION: 1. Chronic obstructive pulmonary disease acute exacerbation. 2. Shortness of breath. 3. Respiratory insufficiency, possibly mild acute bronchitis. RECOMMENDATIONS: Supportive care. IV Solu-Medrol. Recommended nebulized therapy. Recommended oxygen therapy. I will follow clinically for further changes, intervention, and ongoing recommendations, and taper medications to off pending evaluation. Jeffery [place] M.D. DR: YANET JOB#: [id number] CC: CASA
[2017-04-27] MEDS: TraZODone 50mg tab ORAL SCH (21:12)
[2017-04-27] MEDS: Theophylline ER 100mg ORAL SCH (21:12)
[2017-04-27] MEDS: Chloraseptic Spray 20mL Bottle ORAL PRN (21:13)
[2017-04-28] VITALS: BP 132/89
[2017-04-28 04:00] VITALS: BP 138/81
--- NOTE | 2017-04-28 04:15 | History and Physical Report ---
DATE OF ADMISSION: 04/27/[address] Randolph. IDENTIFICATION DATA: The patient is a pleasant 61-year-old male with past medical history significant for chronic obstructive pulmonary disease, prior exacerbations, most recent noted to be in October 2016. He received intravenous antibiotics by ID service and sputum and respiratory cultures, at this time presents with similar exacerbation. Pulmonary team has been consulted. According to Dr. Randolph, the patient did have significant sputum production at the moment. Continue to closely monitor. PAST MEDICAL HISTORY: Seizure disorder, COPD, and cardiac disease, unknown history. MEDICATIONS: Reviewed. REVIEW OF SYSTEMS: CONSTITUTIONAL: No fevers, chills, or night sweats. SKIN: No rashes, bumps, or itching. HEENT: No headache, hearing or vision changes. BREASTS: No lumps, pain, or discharge. PULMONARY: No cough, sputum, or shortness of breath. GASTROINTESTINAL: No nausea or vomiting. GENITOURINARY: No dysuria, frequency, or urgency. MUSCULOSKELETAL: No joint swelling, muscle pain, or trauma. PHYSICAL EXAMINATION: VITAL SIGNS: Reviewed. GENERAL: No acute distress. PULMONARY: Decreased breath sounds. CARDIOVASCULAR: Regular rate. No S3 or S4. ABDOMEN: Soft, nontender, and nondistended. EXTREMITIES: A 1+ edema. LABORATORY DATA: WBC of 6.9, hemoglobin 11.8, and platelet count 178,000. BUN of 6 and creatinine 0.8. INR 1.1. Urine toxicology is positive for benzodiazepines. ASSESSMENT AND RECOMMENDATIONS: 1. Chronic obstructive pulmonary disease exacerbation. Continue steroids, fluids, and antibiotics as needed. 2. Shortness of breath due to chronic obstructive pulmonary disease exacerbation. 3. Alcohol abuse history. Continue to closely monitor. Currently, . 4. Hypertension. 5. Iron deficiency anemia history in the past, status post blood transfusion. 6. Laryngitis history. I appreciate consult and care. Tab Rapp M.D. DR: LOBITO JOB#: [id number] CC:
--- NOTE | 2017-04-28 08:27 | Pulmonology Progress Note ---
Assessment/Plan Assessment/Plan IMPRESSION: 1. Chronic obstructive pulmonary disease acute exacerbation. 2. Shortness of breath. 3. Respiratory insufficiency, possibly mild acute bronchitis. PLAN overall stable care reviewed oxygen monitor and optimize impression, plan, and exam edited and reviewed in detail care discussed with RN Subjective Allergies: Coded Allergies: NO KNOWN ALLERGIES (Unverified Allergy, Unknown, 03/01/15) Subjective stable Objective Last 24 Hour Vital Signs Date Time Temp Pulse Resp B/P (MAP) Pulse Ox O2 Delivery O2 Flow Rate FiO2 04/28/17 05:20 98.7 04/28/17 04:00 101.0 101 20 138/81 95 Nasal Cannula 2.0 04/28/17 00:00 98.6 104 20 132/89 95 Nasal Cannula 2.0 04/27/17 20:00 98.3 98 18 113/76 96 Room Air 04/27/17 16:00 97.6 99 18 108/64 96 04/27/17 12:20 97.9 91 20 128/73 97 Intake and Output 04/27/17 04/28/17 19:00 07:00 Intake Total 805 ml Balance 805 ml Intake Oral 805 ml Objective PHYSICAL EXAMINATION: GENERAL: A well-developed male, somewhat frail. HEENT: Negative. NECK: Supple. LUNGS: Moderate breath sounds. Scattered wheezes. CARDIAC: Normal S1 and S2. Regular rate and rhythm. ABDOMEN: Soft and nontender. EXTREMITIES: No edema. NEUROLOGICAL: Grossly nonfocal. Alert and oriented x3. Laboratory Tests 04/27/17 09:10: White Blood Count 6.8, Red Blood Count 4.27L, Hemoglobin 11.8L, Hematocrit 38.3L , Mean Corpuscular Volume 90, Mean Corpuscular Hemoglobin 27.5, Mean Corpuscular Hemoglobin Concent 30.7L, Red Cell Distribution Width 18.1H, Platelet Count 478H, Mean Platelet Volume 6.4L, Neutrophils (%) (Auto) , Lymphocytes (%) (Auto) , Monocytes (%) (Auto) , Eosinophils (%) (Auto) , Basophils (%) (Auto) , Differential Total Cells Counted 100, Neutrophils % ( Manual) 93H, Lymphocytes % (Manual) 4L, Monocytes % (Manual) 3, Eosinophils % ( Manual) 0, Basophils % (Manual) 0, Band Neutrophils 0, Platelet Estimate Adequate, Platelet Morphology Normal, Hypochromasia 1+, Anisocytosis 1+, Sodium Level 139, Potassium Level 4.2, Chloride Level 101, Carbon Dioxide Level 30, Anion Gap 8, Blood Urea Nitrogen 6L, Creatinine 0.8, Estimat Glomerular Filtration Rate > 60, Glucose Level 201H, Calcium Level 8.1L Current Medications Medications (Trade) Dose Ordered Sig/Agustin Route PRN Reason Start Time Stop Time Status Last Admin Dose Admin Acetaminophen (Tylenol) 650 mg Q6H PRN ORAL Headache/Temp > 101 04/27/17 18:30 05/27/17 18:29 04/28/17 04:21 Albuterol Sulfate (Proventil MDI) 2 puff Q4H PRN INH Shortness of Breath 04/28/17 06:45 05/28/17 06:44 Aspirin (Ecotrin) 81 mg DAILY ORAL 04/28/17 09:00 05/28/17 08:59 Atorvastatin Calcium (Lipitor) 10 mg BEDTIME ORAL 04/27/17 21:00 05/27/17 20:59 04/27/17 21:12 Ferrous Sulfate (Feosol) 325 mg DAILY ORAL 04/28/17 09:00 05/28/17 08:59 Fluoxetine HCl (PROzac) 20 mg DAILY ORAL 04/28/17 09:00 05/28/17 08:59 Folic Acid (Folate) 1 mg DAILY ORAL 04/28/17 09:00 05/28/17 08:59 Heparin Sodium (Porcine) (Heparin 5000 units/ml) 5,000 units EVERY 12 HOURS SUBQ 04/27/17 09:00 05/27/17 08:59 04/27/17 21:20 Lorazepam (Ativan) 1 mg THREE TIMES A DAY PRN ORAL ANXIETY 04/27/17 18:30 05/04/17 18:29 Losartan Potassium (Cozaar) 25 mg DAILY ORAL 04/28/17 09:00 05/28/17 08:59 Methylprednisolone Sodium Succinate (Solu-MEDROL) 125 mg DAILY IVP 04/27/17 09:00 04/30/17 09:00 04/27/17 09:34 Nitroglycerin (Ntg) 0.4 mg Q5MIN X 3 DOSES PRN SL Prn Chest Pain 04/27/17 18:30 05/27/17 18:29 Phenol/Menthol (Chloraseptic) 1 spray Q3H PRN ORAL Sore throat 04/27/17 18:30 05/27/17 18:29 04/27/17 21:13 Sennosides (Senokot) 1 tab DAILY ORAL 04/28/17 09:00 05/28/17 08:59 Theophylline (Gaurav-Dur) 100 mg EVERY 12 HOURS ORAL 04/27/17 21:00 05/27/17 20:59 04/27/17 21:12 Thiamine HCl (Vitamin B1) 100 mg DAILY ORAL 04/28/17 09:00 05/28/17 08:59 Trazodone HCl (Desyrel) 50 mg BEDTIME ORAL 04/27/17 21:00 05/27/17 20:59 04/27/17 21:12 Vitamin D (Vitamin D) 1,000 intlu DAILY ORAL 04/28/17 09:00 05/28/17 08:59 MIRIAN BLANCO Apr 28, 2017 08:27
[2017-04-28] MEDS: Thiamine 100mg tab ORAL SCH (09:01)
[2017-04-28] MEDS: Solu-MEDROL 125mg Inj IVP SCH (09:01)
[2017-04-28] MEDS: Vitamin D 1000 IU Tab ORAL SCH (09:01)
[2017-04-28] MEDS: Theophylline ER 100mg ORAL SCH ×2 (09:02→20:46)
[2017-04-28] MEDS: Sennosides 8.6mg ORAL SCH (09:02)
[2017-04-28] MEDS: Losartan 25mg tab ORAL SCH (09:02)
[2017-04-28] MEDS: Heparin 5000 units/ml inj SUBQ SCH ×2 (09:05→20:50)
[2017-04-28] MEDS: Aspirin EC 81mg tab ORAL SCH (09:06)
[2017-04-28 12:00] VITALS: BP 127/81
[2017-04-28 16:02] VITALS: BP 126/74
[2017-04-28 20:25] VITALS: BP 126/74
[2017-04-28] MEDS: TraZODone 50mg tab ORAL SCH (20:45)
--- NOTE | 2017-04-28 21:43 | General Progress Note ---
Assessment/Plan Assessment/Plan ASSESSMENT AND RECOMMENDATIONS: 1. Chronic obstructive pulmonary disease exacerbation. Continue steroids, fluids, and antibiotics as needed. 2. Shortness of breath due to chronic obstructive pulmonary disease exacerbation. 3. Alcohol abuse history. Continue to closely monitor. 4. Hypertension. 5. Iron deficiency anemia history in the past, currently mild. Will order anemia work up if H/H drops further. Subjective Constitutional: Reports: no symptoms HEENT: Reports: no symptoms Cardiovascular: Reports: no symptoms Respiratory: Reports: SOB with excertion Gastrointestinal/Abdominal: Reports: no symptoms Neurologic/Psychiatric: Reports: no symptoms Endocrine: Reports: no symptoms Hematologic/Lymphatic: Reports: no symptoms Allergies: Coded Allergies: NO KNOWN ALLERGIES (Unverified Allergy, Unknown, 03/01/15) All Systems: reviewed and negative except above Subjective no events overnight, on 2L NC Objective Last 24 Hour Vital Signs Date Time Temp Pulse Resp B/P (MAP) Pulse Ox O2 Delivery O2 Flow Rate FiO2 04/28/17 20:25 98.2 81 20 126/74 100 04/28/17 17:20 98.2 04/28/17 16:02 98.2 81 20 126/74 100 04/28/17 12:00 98.3 77 20 127/81 99 04/28/17 09:02 130/81 04/28/17 04:00 101.0 101 20 138/81 95 Nasal Cannula 2.0 04/28/17 00:00 98.6 104 20 132/89 95 Nasal Cannula 2.0 Intake and Output 04/27/17 04/28/17 19:00 07:00 Intake Total 805 ml Balance 805 ml Intake Oral 805 ml Height (Feet): 5 Height (Inches): 8.00 Weight (Pounds): 158 General Appearance: no apparent distress EENT: normal ENT inspection Neck: normal alignment Cardiovascular: normal peripheral pulses Abdomen: normal bowel sounds, non tender Neurologic: deburrer machine II-XII grossly normal Skin: normal pigmentation Tab Rapp Apr 28, 2017 21:43
[2017-04-29 00:39] VITALS: BP 120/65
[2017-04-29 04:00] VITALS: BP 117/70
--- NOTE | 2017-04-29 08:26 | Pulmonology Progress Note ---
Assessment/Plan Assessment/Plan IMPRESSION: 1. Chronic obstructive pulmonary disease acute exacerbation. 2. Shortness of breath. 3. Respiratory insufficiency, possibly mild acute bronchitis. PLAN overall stable care reviewed oxygen monitor and optimize reduce iv solumedrol with hopes of po in am add advair hope to dc in am impression, plan, and exam edited and reviewed in detail care discussed with RN Subjective Allergies: Coded Allergies: NO KNOWN ALLERGIES (Unverified Allergy, Unknown, 03/01/15) Subjective stable Objective Last 24 Hour Vital Signs Date Time Temp Pulse Resp B/P (MAP) Pulse Ox O2 Delivery O2 Flow Rate FiO2 04/29/17 04:00 98.1 90 20 117/70 97 04/29/17 04:00 Nasal Cannula 2.0 04/29/17 00:39 Nasal Cannula 2.0 04/29/17 00:39 98.2 73 19 120/65 100 04/28/17 20:25 98.2 81 20 126/74 100 04/28/17 20:25 Nasal Cannula 2.0 04/28/17 17:20 98.2 04/28/17 16:02 98.2 81 20 126/74 100 04/28/17 12:00 98.3 77 20 127/81 99 04/28/17 09:02 130/81 Intake and Output 04/28/17 04/29/17 19:00 07:00 Intake Total 1060 ml 240 ml Balance 1060 ml 240 ml Intake Oral 1060 ml 240 ml # Voids 2 1 # Bowel Movements 2 Objective PHYSICAL EXAMINATION: GENERAL: A well-developed male, somewhat frail. HEENT: Negative. NECK: Supple. LUNGS: Moderate breath sounds. Scattered wheezes. CARDIAC: Normal S1 and S2. Regular rate and rhythm. ABDOMEN: Soft and nontender. EXTREMITIES: No edema. NEUROLOGICAL: Grossly nonfocal. Alert and oriented x3. Current Medications Medications (Trade) Dose Ordered Sig/Agustin Route PRN Reason Start Time Stop Time Status Last Admin Dose Admin Acetaminophen (Tylenol) 650 mg Q6H PRN ORAL Headache/Temp > 101 04/27/17 18:30 05/27/17 18:29 04/28/17 16:23 Albuterol Sulfate (Proventil MDI) 2 puff Q4H PRN INH Shortness of Breath 04/28/17 06:45 05/28/17 06:44 Aspirin (Ecotrin) 81 mg DAILY ORAL 04/28/17 09:00 05/28/17 08:59 04/28/17 09:06 Atorvastatin Calcium (Lipitor) 10 mg BEDTIME ORAL 04/27/17 21:00 05/27/17 20:59 04/28/17 20:45 Ferrous Sulfate (Feosol) 325 mg DAILY ORAL 04/28/17 09:00 05/28/17 08:59 04/28/17 09:01 Fluoxetine HCl (PROzac) 20 mg DAILY ORAL 04/28/17 09:00 05/28/17 08:59 04/28/17 09:01 Folic Acid (Folate) 1 mg DAILY ORAL 04/28/17 09:00 05/28/17 08:59 04/28/17 09:01 Heparin Sodium (Porcine) (Heparin 5000 units/ml) 5,000 units EVERY 12 HOURS SUBQ 04/27/17 09:00 05/27/17 08:59 04/28/17 20:50 Lorazepam (Ativan) 1 mg THREE TIMES A DAY PRN ORAL ANXIETY 04/27/17 18:30 05/04/17 18:29 Losartan Potassium (Cozaar) 25 mg DAILY ORAL 04/28/17 09:00 05/28/17 08:59 04/28/17 09:02 Methylprednisolone Sodium Succinate (Solu-MEDROL) 40 mg EVERY 12 HOURS IVP 04/29/17 09:00 05/29/17 08:59 Nitroglycerin (Ntg) 0.4 mg Q5MIN X 3 DOSES PRN SL Prn Chest Pain 04/27/17 18:30 05/27/17 18:29 Phenol/Menthol (Chloraseptic) 1 spray Q3H PRN ORAL Sore throat 04/27/17 18:30 05/27/17 18:29 04/27/17 21:13 Sennosides (Senokot) 1 tab DAILY ORAL 04/28/17 09:00 05/28/17 08:59 04/28/17 09:02 Theophylline (Gaurav-Dur) 100 mg EVERY 12 HOURS ORAL 04/27/17 21:00 05/27/17 20:59 04/28/17 20:46 Thiamine HCl (Vitamin B1) 100 mg DAILY ORAL 04/28/17 09:00 05/28/17 08:59 04/28/17 09:01 Trazodone HCl (Desyrel) 50 mg BEDTIME ORAL 04/27/17 21:00 05/27/17 20:59 04/28/17 20:45 Vitamin D (Vitamin D) 1,000 intlu DAILY ORAL 04/28/17 09:00 05/28/17 08:59 04/28/17 09:01 MIRIAN BLANCO Apr 29, 2017 08:26
[2017-04-29 08:52] VITALS: BP 108/63
[2017-04-29] MEDS ORDERED: Solu-MEDROL 40mg Inj IVP SCH ×2 (09:00)
[2017-04-29] MEDS: Sennosides 8.6mg ORAL SCH (09:00)
[2017-04-29] MEDS: Advair 250/50 Inhaler - 14 dose INH SCH ×2 (09:00→20:44)
[2017-04-29] MEDS: Solu-MEDROL 40mg Inj IM SCH (09:28)
[2017-04-29] MEDS: Chloraseptic Spray 20mL Bottle ORAL PRN (09:28)
[2017-04-29] MEDS: Losartan 25mg tab ORAL SCH (09:28)
[2017-04-29] MEDS: Vitamin D 1000 IU Tab ORAL SCH (09:28)
[2017-04-29] MEDS: Aspirin EC 81mg tab ORAL SCH (09:28)
[2017-04-29] MEDS: Thiamine 100mg tab ORAL SCH (09:28)
[2017-04-29] MEDS: Theophylline ER 100mg ORAL SCH ×2 (09:28→20:24)
[2017-04-29] MEDS: Heparin 5000 units/ml inj SUBQ SCH ×2 (09:30→20:28)
[2017-04-29 12:52] VITALS: BP 116/77
[2017-04-29] MEDS: Albuterol 90mcg Inhaler 8gm INH PRN (15:18)
[2017-04-29 15:52] VITALS: BP 100/62
[2017-04-29] MEDS: TraZODone 50mg tab ORAL SCH (20:24)
[2017-04-29 20:26] VITALS: BP 107/61
[2017-04-30 00:21] VITALS: BP 110/60
[2017-04-30] MEDS: Albuterol 90mcg Inhaler 8gm INH PRN (03:45)
[2017-04-30 04:00] VITALS: BP 120/70
[2017-04-30 08:00] VITALS: BP 107/65
--- NOTE | 2017-04-30 08:32 | General Progress Note ---
Assessment/Plan Assessment/Plan ASSESSMENT AND RECOMMENDATIONS: 1. Chronic obstructive pulmonary disease exacerbation. Continue steroids, fluids, and antibiotics as needed. Pulm following 2. Shortness of breath due to chronic obstructive pulmonary disease exacerbation. 3. Alcohol abuse history. Continue to closely monitor. 4. Hypertension. 5. Iron deficiency anemia history in the past, currently mild. Will order anemia work up if H/H drops further. Subjective Date patient seen: Apr 29, 2017 Allergies: Coded Allergies: NO KNOWN ALLERGIES (Unverified Allergy, Unknown, 03/01/15) All Systems: reviewed and negative except above Subjective NAD Objective Last 24 Hour Vital Signs Date Time Temp Pulse Resp B/P (MAP) Pulse Ox O2 Delivery O2 Flow Rate FiO2 04/30/17 08:00 97.7 104 20 107/65 96 04/30/17 04:00 98.1 81 18 120/70 98 04/30/17 03:46 82 22 95 Nasal Cannula 3.0 32 04/30/17 03:45 32 04/30/17 03:45 80 22 95 Nasal Cannula 3.0 32 04/30/17 00:21 97.9 80 19 110/60 95 04/29/17 20:46 84 20 98 Nasal Cannula 2.0 28 04/29/17 20:44 86 20 96 Nasal Cannula 2.0 28 04/29/17 20:26 97.6 78 17 107/61 96 04/29/17 15:52 97.4 87 20 100/62 98 04/29/17 15:21 90 22 97 Nasal Cannula 2.0 28 04/29/17 15:18 88 22 96 Nasal Cannula 2.0 28 04/29/17 12:52 97.4 86 18 116/77 98 04/29/17 10:00 Nasal Cannula 2.0 04/29/17 10:00 Nasal Cannula 2.0 04/29/17 09:28 108/63 04/29/17 08:52 98.1 84 18 108/63 97 Intake and Output 04/29/17 04/30/17 19:00 07:00 Intake Total 935 ml 1020 ml Output Total 700 ml Balance 935 ml 320 ml Intake Oral 935 ml 1020 ml Output Urine Total 700 ml # Voids 4 1 # Bowel Movements 3 Height (Feet): 5 Height (Inches): 8.00 Weight (Pounds): 158 General Appearance: no apparent distress EENT: normal ENT inspection Neck: normal alignment Cardiovascular: normal peripheral pulses Respiratory/Chest: chest wall non-tender, respiratory distress Extremities: non-tender Tab Rapp Apr 30, 2017 08:32
[2017-04-30] MEDS: Solu-MEDROL 40mg Inj IM SCH (08:50)
[2017-04-30] MEDS: Vitamin D 1000 IU Tab ORAL SCH (08:50)
[2017-04-30] MEDS: Aspirin EC 81mg tab ORAL SCH (08:50)
[2017-04-30] MEDS: Heparin 5000 units/ml inj SUBQ SCH (08:53)
[2017-04-30 09:01] VITALS: BP 107/65
[2017-04-30] MEDS: Sennosides 8.6mg ORAL SCH (09:01)
[2017-04-30] MEDS: Thiamine 100mg tab ORAL SCH (09:01)
[2017-04-30] MEDS: Theophylline ER 100mg ORAL SCH (09:01)
[2017-04-30] MEDS: Losartan 25mg tab ORAL SCH (09:01)
[2017-04-30] MEDS: Advair 250/50 Inhaler - 14 dose INH SCH (09:56)
--- NOTE | 2017-04-30 13:01 | Pulmonology Progress Note ---
Assessment/Plan Assessment/Plan IMPRESSION: 1. Chronic obstructive pulmonary disease acute exacerbation. 2. Shortness of breath. 3. Respiratory insufficiency, possibly mild acute bronchitis. PLAN overall stable care reviewed oxygen monitor and optimize dc solumedrol prednisone dc with advair ok to dc per pulmonary impression, plan, and exam edited and reviewed in detail care discussed with RN Subjective Allergies: Coded Allergies: NO KNOWN ALLERGIES (Unverified Allergy, Unknown, 03/01/15) Subjective stable Objective Last 24 Hour Vital Signs Date Time Temp Pulse Resp B/P (MAP) Pulse Ox O2 Delivery O2 Flow Rate FiO2 04/30/17 09:56 80 20 96 Nasal Cannula 2.0 28 04/30/17 09:56 80 20 98 Nasal Cannula 2.0 28 04/30/17 09:01 107/65 04/30/17 08:00 97.7 104 20 107/65 96 04/30/17 04:00 98.1 81 18 120/70 98 04/30/17 03:46 82 22 95 Nasal Cannula 3.0 32 04/30/17 03:45 32 04/30/17 03:45 80 22 95 Nasal Cannula 3.0 32 04/30/17 00:21 97.9 80 19 110/60 95 04/29/17 20:46 84 20 98 Nasal Cannula 2.0 28 04/29/17 20:44 86 20 96 Nasal Cannula 2.0 28 04/29/17 20:26 97.6 78 17 107/61 96 04/29/17 15:52 97.4 87 20 100/62 98 04/29/17 15:21 90 22 97 Nasal Cannula 2.0 28 04/29/17 15:18 88 22 96 Nasal Cannula 2.0 28 Intake and Output 04/29/17 04/30/17 19:00 07:00 Intake Total 935 ml 1020 ml Output Total 700 ml Balance 935 ml 320 ml Intake Oral 935 ml 1020 ml Output Urine Total 700 ml # Voids 4 1 # Bowel Movements 3 Objective PHYSICAL EXAMINATION: GENERAL: A well-developed male, somewhat frail. HEENT: Negative. NECK: Supple. LUNGS: Moderate breath sounds. Scattered wheezes. CARDIAC: Normal S1 and S2. Regular rate and rhythm. ABDOMEN: Soft and nontender. EXTREMITIES: No edema. NEUROLOGICAL: Grossly nonfocal. Alert and oriented x3. Current Medications Medications (Trade) Dose Ordered Sig/Agustin Route PRN Reason Start Time Stop Time Status Last Admin Dose Admin Acetaminophen (Tylenol) 650 mg Q6H PRN ORAL Headache/Temp > 101 04/27/17 18:30 05/27/17 18:29 04/30/17 05:16 Albuterol Sulfate (Proventil MDI) 2 puff Q4H PRN INH Shortness of Breath 04/28/17 06:45 05/28/17 06:44 04/30/17 03:45 Aspirin (Ecotrin) 81 mg DAILY ORAL 04/28/17 09:00 05/28/17 08:59 04/30/17 08:50 Atorvastatin Calcium (Lipitor) 10 mg BEDTIME ORAL 04/27/17 21:00 05/27/17 20:59 04/29/17 20:24 Ferrous Sulfate (Feosol) 325 mg DAILY ORAL 04/28/17 09:00 05/28/17 08:59 04/30/17 08:50 Fluoxetine HCl (PROzac) 20 mg DAILY ORAL 04/28/17 09:00 05/28/17 08:59 04/30/17 08:51 Folic Acid (Folate) 1 mg DAILY ORAL 04/28/17 09:00 05/28/17 08:59 04/30/17 08:51 Heparin Sodium (Porcine) (Heparin 5000 units/ml) 5,000 units EVERY 12 HOURS SUBQ 04/27/17 09:00 05/27/17 08:59 04/30/17 08:53 Lorazepam (Ativan) 1 mg THREE TIMES A DAY PRN ORAL ANXIETY 04/27/17 18:30 05/04/17 18:29 Losartan Potassium (Cozaar) 25 mg DAILY ORAL 04/28/17 09:00 05/28/17 08:59 04/30/17 09:01 Methylprednisolone Sodium Succinate (Solu-MEDROL) 40 mg DAILY IM 04/29/17 09:00 05/29/17 08:59 04/30/17 08:50 Nitroglycerin (Ntg) 0.4 mg Q5MIN X 3 DOSES PRN SL Prn Chest Pain 04/27/17 18:30 05/27/17 18:29 Phenol/Menthol (Chloraseptic) 1 spray Q3H PRN ORAL Sore throat 04/27/17 18:30 05/27/17 18:29 04/29/17 09:28 Salmeterol Xinafoate/ Fluticasone (Advair 250/50 Diskus) 1 puffs BID INH 04/29/17 09:00 05/29/17 08:59 04/30/17 09:56 Sennosides (Senokot) 1 tab DAILY ORAL 04/28/17 09:00 05/28/17 08:59 04/30/17 09:01 Theophylline (Gaurav-Dur) 100 mg EVERY 12 HOURS ORAL 04/27/17 21:00 05/27/17 20:59 04/30/17 09:01 Thiamine HCl (Vitamin B1) 100 mg DAILY ORAL 04/28/17 09:00 05/28/17 08:59 04/30/17 09:01 Trazodone HCl (Desyrel) 50 mg BEDTIME ORAL 04/27/17 21:00 05/27/17 20:59 04/29/17 20:24 Vitamin D (Vitamin D) 1,000 intlu DAILY ORAL 04/28/17 09:00 05/28/17 08:59 04/30/17 08:50 MIRIAN BLANCO Apr 30, 2017 13:01
[2017-04-30] MEDS ORDERED: NS 500ML ONE (13:56)
--- NOTE | 2017-05-04 10:21 | Discharge Summary ---
Discharge Summary Hospital Course Date of Admission Apr 27, 2017 at 00:20 Date of Discharge Apr 30, 2017 at 13:57 Admitting Diagnosis COPD exacerbation HPI Cesar Mckinney is a 61 year old male who was admitted on Apr 27, 2017 at 00: 20 for Chronic Obstructive Pulmonary Disease Exacerbation Hospital Course dc summary #[id number] Discharge Medications Continued Medications: Acetaminophen (Acetaminophen) 650 Mg/20.3 Ml Solution 650 MG ORAL Q6H PRN for Prn Headache/Temp > 101, ML 0 Refills Aspirin* (Aspir 81*) 81 Mg Tablet.dr 81 MG ORAL DAILY, TAB Atorvastatin Calcium* (Lipitor*) 10 Mg Tablet 10 MG ORAL BEDTIME, TAB Cephalexin* (Keflex*) 500 Mg Capsule 500 MG ORAL EVERY 12 HOURS, #8 CAP 0 Refills Cholecalciferol (Vitamin D3)* (Vitamin D*) 1,000 Unit Tablet 1000 UNIT ORAL DAILY, #30 TAB Ferrous Sulfate* (Ferrous Sulfate*) 325 Mg Tablet 325 MG ORAL DAILY, #30 TAB 0 Refills Fluoxetine Hcl* (Fluoxetine Hcl*) 20 Mg Capsule 20 MG ORAL DAILY for 30 Days, CAP Folic Acid* (Folic Acid*) 1 Mg Tablet 1 MG ORAL DAILY, TAB Lorazepam* (Lorazepam*) 1 Mg Tablet 1 MG ORAL THREE TIMES A DAY, TAB Losartan Potassium* (Losartan Potassium*) 25 Mg Tablet 25 MG ORAL DAILY, TAB Nitroglycerin (Nitroglycerin) 0.4 Mg Tab.subl 0.4 MG SL Three times PRN for CHEST PAIN, TAB Omeprazole (Omeprazole) 40 Mg Capsule.dr 40 MG ORAL DAILY, CAP Prednisolone* (Prelone*) 15 Mg/5 Ml Solution 45 MG ORAL DAILY for 7 Days, ML Prednisone (Prednisone) 20 Mg Tablet 40 MG PO DAILY, #5 TAB Prednisone* (Prednisone*) 20 Mg Tablet 20 MG ORAL DAILY, TAB 0 Refills Sennosides (Senna) 8.6 Mg Tablet Unknown Dose PO, TAB Theophylline (Theodur*) 100 Mg Tab.er.12h 100 MG ORAL EVERY 12 HOURS for 30 Days, TAB Thiamine Hcl* (Vitamin B-1*) 100 Mg Tablet 100 MG ORAL DAILY, #30 TAB 0 Refills Trazodone* (Trazodone*) 150 Mg Tablet 50 MG ORAL BEDTIME, TAB Discharge Condition Upon Discharge: stable Discharge Disposition Patient was discharged to Home (01) Discharge Diagnoses: Discharge Instructions Discharge Instructions Special Instructions I have been assigned to complete a D/C Summary on this account. I was not involved in the patient management Kim Turcios NP (Vanchte[facility]) May 04, 2017 10:21
--- NOTE | 2017-05-05 02:30 | Discharge Summary 2 SIG ---
DATE OF ADMISSION: 04/27/2017 DATE OF DISCHARGE: 04/30/2017 REASON FOR ADMISSION: 61-year-old male with history of COPD, hypertension, iron-deficiency anemia, major depressive disorder, and alcohol abuse, presented with dyspnea and wheezing. He denied fever and cough. The patient uses oxygen at home. Chest pain was minimal 2/10, left-sided. Upon evaluation in the emergency room, the patient was found to be hypoxic. Pulse oximetry on room air was 85%. The patient required placement on oxygen via nasal cannula. The patient was afebrile, but tachycardic with heart rate of 125. No leukocytosis. Hemoglobin -11.9 and hematocrit- 40.7. Stable renal parameters and electrolytes. Lactic acid-1.2. Troponin negative. ProBNP- 651. Urine toxicology screen was positive for benzodiazepine. EKG revealed sinus tachycardia, but no acute ischemic changes. Chest x-ray revealed changes consistent with COPD, but no acute cardiopulmonary pathology. The patient was admitted with acute exacerbation of chronic obstructive pulmonary disease and hypoxia. HOSPITAL COURSE: The patient was admitted. Pulmonology consult was requested. The patient was started on supplemental oxygen, which was titrated to keep saturation above 92%. Pulmonary toilet with bronchodilator was provided. The patient was started on the IV steroids, which were gradually tapered as permitted. Patient was started on empiric antibiotics. A trial of theophylline was started. Antitussive provided as needed. Home medications were resumed including antihypertensive for blood pressure control. Aspirin and nitrates were continued. Hemoglobin and hematocrit were closely monitored and remained at the baseline. Iron supplement was continued. Thiamine replacement was continued. The patient was counseled on abstinence from the alcohol. Bowel regimen instituted. DVT prophylaxis provided. The patient was clinically improving. The patient was stable for discharge home. FINAL DIAGNOSES: 1. Chronic obstructive pulmonary disease with acute exacerbation. 2. Possible acute bronchitis. 3. Shortness of breath secondary to acute chronic obstructive pulmonary disease exacerbation. 4. Hypertension. 5. Iron-deficiency anemia. 6. History of alcohol abuse. 7. Respiratory insufficiency DISCHARGE MEDICATIONS: See medication reconciliation list. DISCHARGE INSTRUCTIONS: The patient was discharged home. FOLLOWUP: Follow up with the primary medical doctor next week. The patient was advised on abstinence from alcohol. Tab Rapp M.D. I have been assigned to dictate discharge summary on this account and I was not involved in the patient's management. Kim Turcios (Vanchtein) NCeli DR: JANNA JOB#: [id number] CC: CASA
--- NOTE | 2017-05-11 00:23 | Cardiology Report ---
APPROVED REPORT EKG Measurement Heart [id number] Sinus tachycardia with premature atrial complexes Nonspecific ST and T wave abnormality Abnormal ECG
== END 2017-04-30 13:57 | disposition home or self-care (01) | DRG 140 ==
LOC: EMR 21:50 → 3E 04-27 00:20 → EDBEDREQ 04-27 01:48 → 3E 04-28 08:09
DX: J44.1 Chronic obstructive pulmonary disease with (acute) exacerbation (principal); E43 Unspecified severe protein-calorie malnutrition; I10 Essential (primary) hypertension; F10.11 Alcohol abuse, in remission; R09.02 Hypoxemia; J44.0 Chronic obstructive pulmonary disease with (acute) lower respiratory infection; J20.9 Acute bronchitis, unspecified; Z68.24 Body mass index [BMI] 24.0-24.9, adult; Z79.899 Other long term (current) drug therapy
CPT/HCPCS: 36415; 71010; 80048; 80053; 80307; 81003; 82550; 83605; 83880; 84484; 85007; 85025; 85610; 85730; 93005; 94640; 94664; 99285

== ENCOUNTER 2017-09-21 18:20 | Inpatient (IN) | payer MEDICAID ==
[~2017-09-21] VITALS: Ht 172.7 cm; Wt 56.7 kg
[2017-09-21 18:50] VITALS: BP 85/55
[2017-09-21] MEDS ORDERED: Albuterol ud Inhalation HHN ONE (19:00)
[2017-09-21] MEDS ORDERED: Solu-MEDROL 125mg Inj IVP ONE (19:00)
[2017-09-21] MEDS ORDERED: Ipratropium 0.02% Inh Soln 2.5ml UD HHN ONE (19:00)
[2017-09-21] MEDS ORDERED: Naloxone 1mg/ml 2ml IVP ONE ×2 (19:15→21:15)
--- NOTE | 2017-09-21 19:16 | Emergency Room Report ---
History of Present Illness General Chief Complaint: Generalized Weakness Source: Patient, Family Member Present Illness HPI Patient is brought in for complaints of shortness of breath Upon arrival the patient reports that the patient was found with her morphine pills in his hand and appeared to be altered Patient is extremely hypoxic has history of COPD Is on oxygen at home Patient himself is altered and cannot provide significant history History of present illness is limited Allergies: Coded Allergies: NO KNOWN ALLERGIES (Unverified Allergy, Unknown, 03/01/15) Patient History Past Medical History: see triage record Pertinent Family History: none Reviewed Nursing Documentation: PMH: Agreed; PSxH: Agreed Nursing Documentation-PMH Hx Cardiac Problems: Yes Hx Hypertension: Yes Hx Asthma: Yes Hx COPD: Yes Hx Cancer: No Hx Gastrointestinal Problems: No Hx Neurological Problems: Yes Hx Seizures: Yes - > couple of years ago Review of Systems All Other Systems: limited - Other than the ones mentioned in the history of present illness all others are reviewed however they do stay limited due to the patient's mental status Physical Exam Vital Signs Date Time Temp Pulse Resp B/P (MAP) Pulse Ox O2 Delivery O2 Flow Rate FiO2 09/21/17 18:44 97.9 130 17 85/55 62 Room Air 97.9 Sp02 EP Interpretation: reviewed, abnormal - Abnormal pulse ox interpretation, on 3 L nasal cannula, patient is saturating at 95% which is normal General Appearance: mild distress - Appears confused Head: normocephalic, atraumatic Eyes: bilateral eye other - Pinpoint pupils ENT: normal pharynx, dry mucus membranes Neck: supple Respiratory: no respiratory distress, no retraction, crackles - Diffusely Cardiovascular #1: regular rate, rhythm, no edema Gastrointestinal: non tender, soft Musculoskeletal: other - Patient not following commands fully however no obvious focal deficit, withdraws from physical stimuli Neurologic: responsive - To physical stimuli Skin: normal color, no rash Lymphatic: no adenopathy Procedures Critical Care Time Critical Care Time 50 minutes for multiple re-evaluations Concerning findings with abnormal blood work concerning for cardiac pathology and possible worsening decompensation not including any procedural time Medical Decision Making Diagnostic Impression: Primary Impression: Respiratory distress Additional Impressions: COPD (chronic obstructive pulmonary disease) Drug overdose Elevated troponin I level Rhabdomyolysis ER Course Patient is a fairly complex patient with multiple differential to consideration including but not limited to cardiac cardiopulmonary and vascular emergencies Given the 's history patient was given Narcan and did respond well to that becoming more awake and responsive patient has significantly abnormal blood work including elevated troponin and total CK Chest x-ray does not show obvious CHF however BNP was elevated Patient receiving further hydration given the rhabdo Labs Test 09/21/17 19:10 09/21/17 19:30 09/21/17 19:35 09/21/17 20:51 White Blood Count 12.0 K/UL (4.8-10.8) Red Blood Count 5.89 M/UL (4.70-6.10) Hemoglobin 12.5 G/DL (14.2-18.0) Hematocrit 43.6 % (42.0-52.0) Mean Corpuscular Volume 74 FL (80-99) Mean Corpuscular Hemoglobin 21.2 PG (27.0-31.0) Mean Corpuscular Hemoglobin Concent 28.7 G/DL (32.0-36.0) Red Cell Distribution Width 17.3 % (11.6-14.8) Platelet Count 328 K/UL (150-450) Mean Platelet Volume 6.5 FL (6.5-10.1) Neutrophils (%) (Auto) 73.1 % (45.0-75.0) Lymphocytes (%) (Auto) 13.0 % (20.0-45.0) Monocytes (%) (Auto) 10.3 % (1.0-10.0) Eosinophils (%) (Auto) 1.5 % (0.0-3.0) Basophils (%) (Auto) 2.1 % (0.0-2.0) Sodium Level 143 MMOL/L (136-145) Potassium Level 4.8 MMOL/L (3.5-5.1) Chloride Level 100 MMOL/L (98-107) Carbon Dioxide Level 28 MMOL/L (21-32) Anion Gap 15 mmol/L (5-15) Blood Urea Nitrogen 15 mg/dL (7-18) Creatinine 2.6 MG/DL (0.55-1.30) Estimat Glomerular Filtration Rate 30.4 mL/min (>60) Glucose Level 100 MG/DL (74-106) Calcium Level 9.9 MG/DL (8.5-10.1) Total Bilirubin 0.5 MG/DL (0.2-1.0) Aspartate Amino Transf (AST/SGOT) 215 U/L (15-37) Alanine Aminotransferase (ALT/SGPT) 62 U/L (12-78) Alkaline Phosphatase 105 U/L (46-116) Total Creatine Kinase 5706 U/L (26-308) Creatine Kinase MB 167.0 NG/ML (0.0-3.6) Creatine Kinase MB Relative Index 2.9 Troponin I 0.476 ng/mL (0.000-0.056) Pro-B-Type Natriuretic Peptide 3164 pg/mL (0-125) Total Protein 9.4 G/DL (6.4-8.2) Albumin 4.2 G/DL (3.4-5.0) Globulin 5.2 g/dL Albumin/Globulin Ratio 0.8 (1.0-2.7) Lipase 136 U/L (73-393) Arterial Blood pH 7.357 (7.350-7.450) Arterial Blood Partial Pressure CO2 58.1 mmHg (35.0-45.0) Arterial Blood Partial Pressure O2 62.0 mmHg (75.0-100.0) Arterial Blood HCO3 31.9 mmol/L (22.0-26.0) Arterial Blood Oxygen Saturation 88.9 % (92.0-98.0) Arterial Blood Base Excess 5.0 Shekhar Test Positive Lactic Acid Level 5.50 mmol/L (0.66-2.22) Rhythm Strip Diag. Results EP Interpretation: yes Rate: 110 Rhythm: no PVC's, no ectopy, other - Sinus tach Chest X-Ray Diagnostic Results Chest X-Ray Diagnostic Results : Chest X-Ray Ordered: Yes # of Views/Limited/Complete: 1 View Indication: Chest Pain EP Interpretation: Yes Interpretation: no consolidation, no effusion, no pneumothorax Impression: Other - Left lower lobe had a Marcaine concerning for possible free air however appears to be likely breathing danyell Electronically Signed by: Amador Morgan DO CT/MRI/US Diagnostic Results CT/MRI/US Diagnostic Results : Impression CT abdomen pelvis:C report for full detail no obvious perforation Last Vital Signs Date Time Temp Pulse Resp B/P (MAP) Pulse Ox O2 Delivery O2 Flow Rate FiO2 09/21/17 18:44 97.9 130 17 85/55 62 Room Air 97.9 Status: improved Disposition: ADMITTED INPATIENT Condition: Critical Amador Morgan DO September 21, 2017 19:16
[2017-09-21 19:50] LABS: BASOPHILS % (AUTO) 2.1 % (0.0-2.0); EOSINOPHILS % (AUTO) 1.5 % (0.0-3.0); HEMATOCRIT 43.6 % (42.0-52.0); HEMOGLOBIN 12.5 G/DL (14.2-18.0); MEAN CORPUSCULAR VOLUME 74 FL (80-99); MONOCYTES % (AUTO) 10.3 % (1.0-10.0); NEUTROPHILS % (AUTO) 73.1 % (45.0-75.0); PLATELET COUNT 328 K/UL (150-450); RED BLOOD COUNT 5.89 M/UL (4.70-6.10); RED CELL DISTRIBUTION WIDTH 17.3 % (11.6-14.8)
[2017-09-21 20:03] LABS: ANION GAP 15 mmol/L (5-15); BLOOD UREA NITROGEN 15 mg/dL (7-18); CALCIUM 9.9 MG/DL (8.5-10.1); CARBON DIOXIDE 28 MMOL/L (21-32); CHLORIDE 100 MMOL/L (98-107); CREATININE 2.6 MG/DL (0.55-1.30); POTASSIUM 4.8 MMOL/L (3.5-5.1); SODIUM 143 MMOL/L (136-145)
[2017-09-21 20:33] LABS: ALANINE AMINOTRANSFERASE 62 U/L (12-78); ALBUMIN 4.2 G/DL (3.4-5.0); ALBUMIN/GLOBULIN RATIO 0.8 (1.0-2.7); ALKALINE PHOSPHATASE 105 U/L (46-116); ASPARTATE AMINO TRANSFERASE 215 U/L (15-37); BILIRUBIN,TOTAL 0.5 MG/DL (0.2-1.0); CREATINE KINASE 5706 U/L (26-308)
[2017-09-21] MEDS ORDERED: Enoxaparin 60mg Inj SUBQ ONE (21:00)
[2017-09-21 21:07] LABS: APPEARANCE,URINE CLEAR; BILIRUBIN, URINE NEGATIVE (NEGATIVE); COLOR,URINE PALE YELLOW; GLUCOSE, URINE (UA) NEGATIVE (NEGATIVE); KETONES,URINE NEGATIVE (NEGATIVE); LEUKOCYTE ESTERASE ,URINE NEGATIVE (NEGATIVE); NITRITE,URINE NEGATIVE (NEGATIVE); PH,URINE 5 (4.5-8.0); PROTEIN,URINE 2+ (NEGATIVE); UROBILINOGEN,URINE NORMAL MG/DL (0.0-1.0)
--- NOTE | 2017-09-21 22:34 | Consultation ---
Consult Note Consult Note [facility] DICT # [id number] CLYDE RICH M.D. September 21, 2017 22:34
[2017-09-21 22:50] VITALS: BP 120/78
[2017-09-21] MEDS: D5NS 1,000 ML IV SCH (23:13)
[2017-09-22] MEDS ORDERED: Acetaminophen 500mg (ES) tab ORAL PRN
[2017-09-22 00:18] VITALS: BP 118/70
[2017-09-22 00:50] VITALS: BP 125/78
[2017-09-22] MEDS ORDERED: UNOBMED (00:55)
[2017-09-22] MEDS: Albuterol/Ipratropium 3ml neb HHN SCH ×4 (00:56→20:23)
--- NOTE | 2017-09-22 01:00 | Consultation ---
DATE OF CONSULTATION: PULMONARY CONSULTATION CONSULTING PHYSICIAN: Israel Byers M.D. REFERRING PHYSICIAN: Amador Brennan M.D. REASON FOR CONSULTATION: COPD exacerbation and shortness of breath. HISTORY OF PRESENT ILLNESS: The patient is a very unfortunate 61-year-old male with a history of tobacco use and chronic obstructive pulmonary disease on home O2, who was brought in by his with shortness of breath. Per report, the patient was short of breath and when his arrived, he was altered and had his morphine pills in her hand. The patient cannot provide any history. He was brought to the ER. Since arrival in the ER, he has been afebrile, sinus tachycardia, and on and off of BiPAP. He has been hypoxemic. His ABG was 7.37/58/62/31/88. He had a mild leukocytosis. He has a new acute kidney injury, lactic acidosis, elevated CK, troponin, and BNP, although he is dry on exam. He also has 2+ blood in his urine. Chest x-ray in the emergency department was unrevealing except for some chronic scarring at the bases. The patient received Narcan with a transient improvement in his mental status and has been on and off of BiPAP since then. He himself is unable to provide any further history. PAST MEDICAL HISTORY: 1. COPD. 2. Home O2 dependence. 3. Seizure disorder. 4. Hypertension. MEDICATIONS: Prior to admission, medications reviewed, specifically respiratory medications include Javier, , prednisone. ALLERGIES: No known drug allergies. SOCIAL HISTORY: He has a history of tobacco use. No drug or alcohol use. FAMILY HISTORY: Noncontributory. Not obtainable. REVIEW OF SYSTEMS: Unobtainable. PHYSICAL EXAMINATION: VITAL SIGNS: Temperature 97.8 degrees, pulse 108, blood pressure 88/55, respiratory rate low 20s, saturating well on two liters nasal cannula. GENERAL: He is confused, in mild distress. HEENT: Normocephalic and atraumatic. Oropharynx is clear with dry mucous membranes. NECK: Supple without lymphadenopathy. CHEST: Clear, but distant. HEART: Tachycardic, but regular. ABDOMEN: Soft, nontender, and nondistended. EXTREMITIES: No cyanosis, clubbing, or edema. ANCILLARY DATA: White count 12, hemoglobin 12.5, platelet count 328. ABG 7.37/58/62/31/88. Sodium , potassium 4.8, chloride 100, bicarbonate 28, BUN 15, creatinine 2.6. Lactic acid 5.5, calcium 9. Total bilirubin 0.5. AST 215, ALT 62, alkaline phosphatase 105. CK 5706. CK-MB 167. Troponin 0.476. BNP 3164, total protein 9.4, albumin 4.2, globulin 5.2. Urinalysis 5+ blood. Imaging, chest x-ray no acute findings. ASSESSMENT: The patient is a 61-year-old male smoker with a history of COPD, seizure disorder, hypertension presenting with shortness of breath and altered mental status likely secondary to hypercarbia, and opiate narcosis on top of underlying chronic obstructive pulmonary disease. His workup is also positive for acute kidney injury, rhabdomyolysis, lactic acidosis, and elevated cardiac biomarkers, likely secondary to demand ischemia. He did receive a dose of intravenous Lovenox in the emergency department. Despite his elevated BNP, clinically he is dry and dehydrated. PROBLEM LIST: 1. Chronic obstructive pulmonary disease with acute exacerbation. 2. Altered mental status, secondary to hypercarbia and CO2 and opiate narcosis. 3. Opiate overdose. 4. Acute kidney injury. 5. Lactic acidosis. 6. Rhabdomyolysis. 7. Elevated cardiac biomarkers, likely demand ischemia. 8. History of hypertension. 9. History of seizure disorder. TREATMENT PLAN: 1. Optimize pulmonary hygiene/mobilize as tolerated. 2. P.r.n. BiPAP. 3. Ziude-glj-epaaf and p.r.n. bronchodilators. 4. Solu-Medrol 60 mg IV daily. 5. Observe off of antibiotics for any signs of infection. 6. IV fluid hydration. 7. Trend lactic acid, CK, and creatinine. 8. The patient received 1 dose of Lovenox in the emergency department. We will trend troponins. If they fail to down trend, I would start him on treatment dose Lovenox (b.i.d. dosing) or a heparin drip. 9. Follow up echocardiogram. 10. Cardiology consultation. 11. Monitor mental status. 12. Monitor ability to protect airway. 13. Low threshold to intubate. 14. NPO until mental status improves. 15. Monitor volumes. Dr. Brennan, thank you for allowing me to assist in the care of your patient. If I may be of any assistance, please not hesitate to ask. Israel Byers M.D. DR: Adela JOB#: [id number] CC:
[2017-09-22 08:00] VITALS: BP 106/59
--- NOTE | 2017-09-22 08:57 | Pulmonology Progress Note ---
Assessment/Plan Problems: (1) COPD with exacerbation (2) Respiratory distress (3) Rhabdomyolysis (4) Elevated troponin I level (5) Severe protein-calorie malnutrition (6) Hypoxia (7) Hypoalbuminemia Assessment/Plan ASSESSMENT: The patient is a 61-year-old male smoker with a history of COPD, seizure disorder, hypertension presenting with shortness of breath and altered mental status likely secondary to hypercarbia, and opiate narcosis on top of underlying chronic obstructive pulmonary disease. His workup is also positive for acute kidney injury, rhabdomyolysis, lactic acidosis , and elevated cardiac biomarkers, likely secondary to demand ischemia. He did receive a dose of intravenous Lovenox in the emergency department. Despite his elevated BNP, clinically he is dry and dehydrated. PROBLEM LIST: 1. Chronic obstructive pulmonary disease with acute exacerbation. 2. Altered mental status, secondary to hypercarbia and CO2 and opiate narcosis. 3. Opiate overdose. 4. Acute kidney injury. 5. Lactic acidosis. 6. Rhabdomyolysis. 7. Elevated cardiac biomarkers, likely demand ischemia. 8. History of hypertension. 9. History of seizure disorder. TREATMENT PLAN: 1. Optimize pulmonary hygiene/mobilize as tolerated. 2. P.r.n. BiPAP. 3. [id number] and p.r.n. bronchodilators. 4. Solu-Medrol 60 mg IV daily (D2) 5. Observe off of antibiotics for any signs of infection. 6. IV fluid hydration ---> D5NS @ 100 7. Trend lactic acid, CK, and creatinine - AM LABS PENDING 8. The patient received 1 dose of Lovenox in the emergency department. We will trend troponins. If they fail to down trend, I would start him on treatment dose Lovenox (b.i.d. dosing) or a heparin drip. Otherwise, will continue Hep SQ for PPx only. 9. Follow up final echocardiogram. 10. Cardiology consultation. 11. Monitor mental status. 12. Monitor ability to protect airway. 13. Low threshold to intubate. 14. NPO ---> TELESAL[employer] CONSULTANT eval ---> then advance diet. Once starts PO will likely D/C the dextrose from the IVF 15. Monitor volumes. D/W RN and floor tech Subjective Allergies: Coded Allergies: NO KNOWN ALLERGIES (Unverified Allergy, Unknown, 03/01/15) Subjective AFVSS, O2 needs stable Awake and alert Less SOB, no cough, no F/C, no CP TTE was done with me @ bedside ---> LVEF ~ 50-55%, mild DD, IVC collapsible Objective Last 24 Hour Vital Signs Date Time Temp Pulse Resp B/P (MAP) Pulse Ox O2 Delivery O2 Flow Rate FiO2 09/22/17 08:00 3.0 09/22/17 07:11 101 22 99 Nasal Cannula 3.0 32 09/22/17 07:01 114 24 69 Room Air 21 09/22/17 05:43 99 28 95 Facial 40 09/22/17 04:00 99 09/22/17 03:22 40 09/22/17 02:08 101 31 98 Facial 40 09/22/17 01:15 98 18 92 Nasal Cannula 3.0 09/22/17 00:58 106 22 91 Nasal Cannula 2.0 28 09/22/17 00:58 98.0 96 16 125/78 85 Nasal Cannula 2.0 98.0 09/22/17 00:50 96 16 125/78 85 Room Air 2.0 40 09/22/17 00:18 98.0 99 18 118/70 98 Bi-pap 2.0 40 98.0 09/21/17 23:27 40 09/21/17 23:27 108 18 98 Facial 40 09/21/17 22:50 97.9 98 25 120/78 94 Nasal Cannula 3.0 97.9 09/21/17 20:45 116 25 99 Facial 28 09/21/17 19:50 105 18 99 Nasal Cannula 2.0 09/21/17 19:40 118 22 95 Nasal Cannula 2.0 28 09/21/17 19:40 118 22 Nasal Cannula 2.0 09/21/17 18:50 97.8 108 8 85/55 57 Room Air 97.8 09/21/17 18:44 97.9 130 17 85/55 62 Room Air 97.9 Intake and Output 09/21/17 09/22/17 19:00 07:00 Intake Total 30 ml 206.25 ml Balance 30 ml 206.25 ml Intake Oral 30 ml IV Total 206.25 ml General Appearance: no acute distress, cachetic HEENT: normocephalic, atraumatic, anicteric, mucous membranes moist Respiratory/Chest: lungs clear - but distant, normal breath sounds, no respiratory distress Cardiovascular: normal peripheral pulses, normal rate, regular rhythm Abdomen: normal bowel sounds, soft, non tender, no organomegaly, non distended , no mass Extremities: no cyanosis, no clubbing, no edema Laboratory Tests 09/21/17 19:10: White Blood Count 12.0H, Red Blood Count 5.89, Hemoglobin 12.5L, Hematocrit 43.6 , Mean Corpuscular Volume 74L, Mean Corpuscular Hemoglobin 21.2L, Mean Corpuscular Hemoglobin Concent 28.7L, Red Cell Distribution Width 17.3H, Platelet Count 328, Mean Platelet Volume 6.5, Neutrophils (%) (Auto) 73.1, Lymphocytes (%) (Auto) 13.0L, Monocytes (%) (Auto) 10.3H, Eosinophils (%) (Auto ) 1.5, Basophils (%) (Auto) 2.1H, Sodium Level 143, Potassium Level 4.8, Chloride Level 100, Carbon Dioxide Level 28, Anion Gap 15, Blood Urea Nitrogen 15, Creatinine 2.6H, Estimat Glomerular Filtration Rate 30.4, Glucose Level 100 , Calcium Level 9.9, Total Bilirubin 0.5, Aspartate Amino Transf (AST/SGOT) 215H , Alanine Aminotransferase (ALT/SGPT) 62, Alkaline Phosphatase 105, Total Creatine Kinase 5706H, Creatine Kinase MB 167.0H, Creatine Kinase MB Relative Index 2.9, Troponin I 0.476H, Pro-B-Type Natriuretic Peptide 3164H, Total Protein 9.4H, Albumin 4.2, Globulin 5.2, Albumin/Globulin Ratio 0.8L, Lipase 136 , HIV (1&2) Antibody Rapid Negative 09/21/17 19:30: Arterial Blood pH 7.357, Arterial Blood Partial Pressure CO2 58.1*H, Arterial Blood Partial Pressure O2 62.0L, Arterial Blood HCO3 31.9H, Arterial Blood Oxygen Saturation 88.9L, Arterial Blood Base Excess 5.0, Shekhar Test Positive 09/21/17 19:35: Lactic Acid Level 5.50H 09/21/17 20:51: Urine Color Pale yellow, Urine Appearance Clear, Urine pH 5, Urine Specific [place] 1.010, Urine Protein 2+H, Urine Glucose (UA) Negative, Urine Ketones Negative, Urine Occult Blood 5+H, Urine Nitrite Negative, Urine Bilirubin Negative, Urine Urobilinogen Normal, Urine Leukocyte Esterase Negative, Urine RBC 2-4H, Urine WBC 0-2, Urine Squamous Epithelial Cells None, Urine Bacteria Few, Urine Opiates Screen PositiveH, Urine Barbiturates Screen Negative, Phencyclidine (PCP) Screen Negative, Urine Amphetamines Screen Negative, Urine Benzodiazepines Screen PositiveH, Urine Cocaine Screen Negative, Urine Marijuana (THC) Screen Negative 09/21/17 22:20: Arterial Blood pH 7.294L, Arterial Blood Partial Pressure CO2 56.9*H, Arterial Blood Partial Pressure O2 49.2*L, Arterial Blood HCO3 27.0H, Arterial Blood Oxygen Saturation 76.0L, Arterial Blood Base Excess -0.3, Shekhar Test Positive 09/21/17 23:33: Lactic Acid Level 3.40H 09/22/17 05:45: Lactic Acid Level 1.80 Current Medications Medications (Trade) Dose Ordered Sig/Agustin Route PRN Reason Start Time Stop Time Status Last Admin Dose Admin Acetaminophen (Tylenol) 500 mg Q4H PRN ORAL For Pain 09/22/17 00:00 10/22/17 00:00 09/22/17 01:59 Albuterol/ Ipratropium (Albuterol/ Ipratropium) 3 ml Q6HRT HHN 09/22/17 01:00 09/27/17 00:59 09/22/17 07:01 Dextrose/Sodium Chloride 1,000 ml @ 100 mls/hr Q10H IV 09/21/17 22:45 10/21/17 22:44 09/21/17 23:13 Heparin Sodium (Porcine) (Heparin 5000 units/ml) 5,000 units BID SUBQ 09/22/17 09:00 10/22/17 08:59 Methylprednisolone Sodium Succinate (Solu-MEDROL) 60 mg DAILY IVP 09/22/17 09:00 10/22/17 08:59 Sodium Chloride 1,000 ml @ 55 mls/hr [id number] IV 09/22/17 00:00 10/22/17 00:00 09/22/17 03:13 CLYDE RICH M.D. September 22, 2017 08:57
--- NOTE | 2017-09-22 09:08 | Consultation ---
History of Present Illness General Date patient seen: September 22, 2017 Time patient seen: 07:45 - am Chief Complaint: Generalized Weakness Referring physician: Dr. Brennan Reason for Consultation: Pain management Present Illness HPI This is a 61 y/o male being seen in the [facility] [place] for initial pain management consultations. Patient is a poor historian however reports that he has severe COPD and he was on and prescribed Morphine 20mg/1mg judie as an out patient this was seen on the [facility] PDMP report last prescribed on 08/13/2017, he does not remember why he was prescribed it. At this time patient is in bed showing no signs of distress admitted for COPD exacerbation. He has no c/o pain at this time. Allergies: Coded Allergies: NO KNOWN ALLERGIES (Unverified Allergy, Unknown, 03/01/15) Medication History Scheduled Aspirin* (Aspir 81*), 81 MG ORAL DAILY, (Reported) Atorvastatin Calcium* (Lipitor*), 10 MG ORAL BEDTIME, (Reported) Cephalexin* (Keflex*), 500 MG ORAL EVERY 12 HOURS Cholecalciferol (Vitamin D3)* (Vitamin D*), 1,000 UNIT ORAL DAILY, (Reported) Cyanocobalamin (Vitamin B-12) (Vitamin B-12), 2,000 MCG PO DAILY, (Reported) Ferrous Sulfate* (Ferrous Sulfate*), 325 MG ORAL DAILY, (Reported) Flunisolide (Aerospan), 8.9 GM IH DAILY, (Reported) Fluoxetine Hcl* (Fluoxetine Hcl*), 20 MG ORAL DAILY Folic Acid* (Folic Acid*), 1 MG ORAL DAILY, (Reported) Lorazepam* (Lorazepam*), 1 MG ORAL THREE TIMES A DAY, (Reported) Losartan Potassium* (Losartan Potassium*), 25 MG ORAL DAILY, (Reported) Magnesium (Magnesium), 500 MG PO DAILY, (Reported) Omeprazole (Omeprazole), 40 MG ORAL DAILY, (Reported) Prednisolone* (Prelone*), 45 MG ORAL DAILY Prednisone (Prednisone), 40 MG PO DAILY Prednisone* (Prednisone*), 20 MG ORAL DAILY, (Reported) Spironolact/Hydrochlorothiazid (Spironolactone-Hctz 25-25 Tab), 1 TAB ORAL DAILY , (Reported) Theophylline (Theodur*), 100 MG ORAL EVERY 12 HOURS Thiamine Hcl* (Vitamin B-1*), 100 MG ORAL DAILY, (Reported) Trazodone* (Trazodone*), 50 MG ORAL BEDTIME, (Reported) Umeclidinium Brm/Vilanterol Tr (Anoro Ellipta 62.5-25 Mcg INH), 2 PUFFS INH DAILY, (Reported) Scheduled PRN Acetaminophen (Acetaminophen), 650 MG ORAL Q6H PRN for Prn Headache/Temp > 101, (Reported) Nitroglycerin (Nitroglycerin), 0.4 MG SL Three times PRN for CHEST PAIN, ( Reported) Miscellaneous Medications Flunisolide (Aerospan), 8.9 GM IH, (Reported) Sennosides (Senna), Unknown Dose PO, (Reported) Unable to Obtain Medications (Unable To Obtain Meds), (Reported) Patient History Healthcare decision maker Resuscitation status Full Code Advanced Directive on File Patient History Narrative Hx Cardiac Problems: Yes Hx Hypertension: Yes Hx Asthma: Yes Hx COPD: Yes Hx Neurological Problems: Yes Hx Seizures: Yes - > couple of years ago SOCIAL HISTORY: He has a history of tobacco use. No drug or alcohol use. Review of Systems Constitutional: Reports: no symptoms Eye: Reports: no symptoms ENT: Reports: no symptoms Respiratory: Reports: shortness of breath Cardiovascular: Reports: no symptoms Gastrointestinal: Reports: no symptoms Genitourinary: Reports: no symptoms Musculoskeletal: Reports: no symptoms Skin: Reports: no symptoms Psychiatric: Reports: no symptoms Neurological: Reports: no symptoms Endocrine: Reports: no symptoms Hematologic/Lymphatic: Reports: no symptoms Physical Exam General Appearance: no apparent distress, alert HEENT: PERRL, EOMI Neck: non-tender, supple Respiratory/Chest: decreased breath sounds Cardiovascular/Chest: normal rate, regular rhythm Abdomen: non tender, soft Extremities: non-tender, normal inspection Skin Exam: normal pigmentation, warm/dry Neurologic: alert, responsive Last 24 Hour Vital Signs Date Time Temp Pulse Resp B/P (MAP) Pulse Ox O2 Delivery O2 Flow Rate FiO2 09/22/17 08:00 3.0 09/22/17 07:11 101 22 99 Nasal Cannula 3.0 32 09/22/17 07:01 114 24 69 Room Air 21 09/22/17 05:43 99 28 95 Facial 40 09/22/17 04:00 99 09/22/17 03:22 40 09/22/17 02:08 101 31 98 Facial 40 09/22/17 01:15 98 18 92 Nasal Cannula 3.0 09/22/17 00:58 106 22 91 Nasal Cannula 2.0 28 09/22/17 00:58 98.0 96 16 125/78 85 Nasal Cannula 2.0 98.0 09/22/17 00:50 96 16 125/78 85 Room Air 2.0 40 09/22/17 00:18 98.0 99 18 118/70 98 Bi-pap 2.0 40 98.0 09/21/17 23:27 40 09/21/17 23:27 108 18 98 Facial 40 09/21/17 22:50 97.9 98 25 120/78 94 Nasal Cannula 3.0 97.9 09/21/17 20:45 116 25 99 Facial 28 09/21/17 19:50 105 18 99 Nasal Cannula 2.0 09/21/17 19:40 118 22 95 Nasal Cannula 2.0 28 09/21/17 19:40 118 22 Nasal Cannula 2.0 09/21/17 18:50 97.8 108 8 85/55 57 Room Air 97.8 09/21/17 18:44 97.9 130 17 85/55 62 Room Air 97.9 Intake and Output 09/21/17 09/22/17 19:00 07:00 Intake Total 30 ml 206.25 ml Balance 30 ml 206.25 ml Intake Oral 30 ml IV Total 206.25 ml Laboratory Tests Test 09/21/17 19:10 09/21/17 19:30 09/21/17 19:35 09/21/17 20:51 White Blood Count 12.0 K/UL (4.8-10.8) H Red Blood Count 5.89 M/UL (4.70-6.10) Hemoglobin 12.5 G/DL (14.2-18.0) L Hematocrit 43.6 % (42.0-52.0) Mean Corpuscular Volume 74 FL (80-99) L Mean Corpuscular Hemoglobin 21.2 PG (27.0-31.0) L Mean Corpuscular Hemoglobin Concent 28.7 G/DL (32.0-36.0) L Red Cell Distribution Width 17.3 % (11.6-14.8) H Platelet Count 328 K/UL (150-450) Mean Platelet Volume 6.5 FL (6.5-10.1) Neutrophils (%) (Auto) 73.1 % (45.0-75.0) Lymphocytes (%) (Auto) 13.0 % (20.0-45.0) L Monocytes (%) (Auto) 10.3 % (1.0-10.0) H Eosinophils (%) (Auto) 1.5 % (0.0-3.0) Basophils (%) (Auto) 2.1 % (0.0-2.0) H Sodium Level 143 MMOL/L (136-145) Potassium Level 4.8 MMOL/L (3.5-5.1) Chloride Level 100 MMOL/L (98-107) Carbon Dioxide Level 28 MMOL/L (21-32) Anion Gap 15 mmol/L (5-15) Blood Urea Nitrogen 15 mg/dL (7-18) Creatinine 2.6 MG/DL (0.55-1.30) H Estimat Glomerular Filtration Rate 30.4 mL/min (>60) Glucose Level 100 MG/DL (74-106) Calcium Level 9.9 MG/DL (8.5-10.1) Total Bilirubin 0.5 MG/DL (0.2-1.0) Aspartate Amino Transf (AST/SGOT) 215 U/L (15-37) H Alanine Aminotransferase (ALT/SGPT) 62 U/L (12-78) Alkaline Phosphatase 105 U/L (46-116) Total Creatine Kinase 5706 U/L (26-308) H Creatine Kinase MB 167.0 NG/ML (0.0-3.6) H Creatine Kinase MB Relative Index 2.9 Troponin I 0.476 ng/mL (0.000-0.056) Pro-B-Type Natriuretic Peptide 3164 pg/mL (0-125) H Total Protein 9.4 G/DL (6.4-8.2) H Albumin 4.2 G/DL (3.4-5.0) Globulin 5.2 g/dL Albumin/Globulin Ratio 0.8 (1.0-2.7) L Lipase 136 U/L (73-393) HIV (1&2) Antibody Rapid Negative (NEGATIVE) Arterial Blood pH 7.357 (7.350-7.450) Arterial Blood Partial Pressure CO2 58.1 mmHg (35.0-45.0) *H Arterial Blood Partial Pressure O2 62.0 mmHg (75.0-100.0) L Arterial Blood HCO3 31.9 mmol/L (22.0-26.0) H Arterial Blood Oxygen Saturation 88.9 % (92.0-98.0) L Arterial Blood Base Excess 5.0 Shekhar Test Positive Lactic Acid Level 5.50 mmol/L (0.66-2.22) H Urine Color Pale yellow Urine Appearance Clear Urine pH 5 (4.5-8.0) Urine Specific [place] 1.010 (1.005-1.035) Urine Protein 2+ (NEGATIVE) H Urine Glucose (UA) Negative (NEGATIVE) Urine Ketones Negative (NEGATIVE) Urine Occult Blood 5+ (NEGATIVE) H Urine Nitrite Negative (NEGATIVE) Urine Bilirubin Negative (NEGATIVE) Urine Urobilinogen Normal MG/DL (0.0-1.0) Urine Leukocyte Esterase Negative (NEGATIVE) Urine RBC 2-4 /HPF (0 - 0) H Urine WBC 0-2 /HPF (0 - 0) Urine Squamous Epithelial Cells None /LPF (NONE/OCC) Urine Bacteria Few /HPF (NONE) Urine Opiates Screen Positive (NEGATIVE) H Urine Barbiturates Screen Negative (NEGATIVE) Phencyclidine (PCP) Screen Negative (NEGATIVE) Urine Amphetamines Screen Negative (NEGATIVE) Urine Benzodiazepines Screen Positive (NEGATIVE) H Urine Cocaine Screen Negative (NEGATIVE) Urine Marijuana (THC) Screen Negative (NEGATIVE) Test 09/21/17 22:20 09/21/17 23:33 09/22/17 05:45 Arterial Blood pH 7.294 (7.350-7.450) Arterial Blood Partial Pressure CO2 56.9 mmHg (35.0-45.0) *H Arterial Blood Partial Pressure O2 49.2 mmHg (75.0-100.0) Arterial Blood HCO3 27.0 mmol/L (22.0-26.0) H Arterial Blood Oxygen Saturation 76.0 % (92.0-98.0) L Arterial Blood Base Excess -0.3 Shekhar Test Positive Lactic Acid Level 3.40 mmol/L (0.66-2.22) H 1.80 mmol/L (0.66-2.22) Height (Feet): 5 Height (Inches): 8.00 Weight (Pounds): 125 Medications Current Medications Medications (Trade) Dose Ordered Sig/Agustin Route PRN Reason Start Time Stop Time Status Last Admin Dose Admin Acetaminophen (Tylenol) 500 mg Q4H PRN ORAL For Pain 09/22/17 00:00 10/22/17 00:00 09/22/17 01:59 Albuterol/ Ipratropium (Albuterol/ Ipratropium) 3 ml Q6HRT HHN 09/22/17 01:00 09/27/17 00:59 09/22/17 07:01 Dextrose/Sodium Chloride 1,000 ml @ 100 mls/hr Q10H IV 09/21/17 22:45 10/21/17 22:44 09/21/17 23:13 Heparin Sodium (Porcine) (Heparin 5000 units/ml) 5,000 units BID SUBQ 09/22/17 09:00 10/22/17 08:59 Methylprednisolone Sodium Succinate (Solu-MEDROL) 60 mg DAILY IVP 09/22/17 09:00 10/22/17 08:59 Sodium Chloride 1,000 ml @ 55 mls/hr [id number] IV 09/22/17 00:00 10/22/17 00:00 09/22/17 03:13 Assessment/Plan Assessment/Plan (1) Atypical chest pain (2) COPD exacerbation Patient will be continued on Tylenol for pain. We will start patient on Ativan 1mg PO 1 tab Q4H PRN anxiety. D/w Dr. Miller and he concurred. Thank you for consult. NOAH SILVA September 22, 2017 09:08
[2017-09-22] MEDS: Solu-MEDROL 125mg Inj IVP SCH (09:26)
[2017-09-22] MEDS: D5NS 1,000 ML IV SCH (09:26)
[2017-09-22] MEDS: Heparin 5000 units/ml inj SUBQ SCH ×2 (09:29→17:14)
--- NOTE | 2017-09-22 09:37 | Diagnostic Imaging Report ---
Indication: Abdominal pain Technique: Continuous helical transaxial imaging of the abdomen and pelvis was obtained from the lung bases to the pubic symphysis. No intravenous contrast was administered. Coronal 2-D reformats were also obtained. Automatic Exposure Control was utilized. Total Dose length Product (DLP): 558.[address] Dose Index Volume (CTDIvol): 10.35 mGy Comparison: none Findings: There is a small right pleural effusion. Peripheral reticulation noted the within the visualized part of the right lower lobe. This may be due to adjacent compressive atelectasis. Pneumonia not excluded. Correlate clinically. Some emphysematous changes are present at the lung bases. A small right adrenal mass noted. This measures about 1 cm. There is no nephrolithiasis or hydronephrosis. Gallstones are present. The stomach is somewhat distended and fluid-filled. Aorta is moderately calcified. There is no evidence of bowel obstruction. There are pins in the right hip reducing the fracture. Degenerative changes of the lumbar spine noted. The prostate measures 5 x 3.8 x 4 cm. In the area of the uncinate process there is a partially calcified cystic appearing mass. There is dilatation of the main pancreatic duct and some atrophy of the body and tail the pancreas. Further evaluation is recommended. The concern is a cystic neoplasm. IMPRESSION: Multicystic focus in the uncinate process measuring about 2 to 3 cm. Further evaluation is recommended with gadolinium-enhanced MRI. Cholelithiasis. Right basilar infiltrate and small effusion. Correlate clinically. Degenerative changes of the spine. 1 cm right adrenal mass. Consider MRI for further evaluation. Prostate enlargement. [facility] has communicated the preliminary results to the Emergency Department. Their findings are largely concordant with this report. The CT scanner at [facility] is accredited by the [employer] and the scans are performed using dose optimization techniques as appropriate to a performed exam including Automatic Exposure control.
[2017-09-22 10:00] LABS: HEMATOCRIT 34.7 % (42.0-52.0); HEMOGLOBIN 10.2 G/DL (14.2-18.0); MEAN CORPUSCULAR VOLUME 73 FL (80-99); PLATELET COUNT 289 K/UL (150-450); RED BLOOD COUNT 4.75 M/UL (4.70-6.10); RED CELL DISTRIBUTION WIDTH 17.5 % (11.6-14.8); WHITE BLOOD COUNT 12.9 K/UL (4.8-10.8)
--- NOTE | 2017-09-22 11:30 | Diagnostic Imaging Report ---
Indication: Chest pain Comparison: 04/26/2017 A single view chest radiograph was obtained. Findings: The heart is enlarged. Lungs are clear. There is a mild basal atelectasis on the right versus scarring. No change seen. IMPRESSION: Mild basal atelectasis versus scarring at the right lung base. No change
[2017-09-22 11:34] LABS: ANION GAP 15 mmol/L (5-15); BLOOD UREA NITROGEN 22 mg/dL (7-18); CALCIUM 8.7 MG/DL (8.5-10.1); CARBON DIOXIDE 23 MMOL/L (21-32); CHLORIDE 101 MMOL/L (98-107); CREATININE 1.7 MG/DL (0.55-1.30); POTASSIUM 4.9 MMOL/L (3.5-5.1); SODIUM 139 MMOL/L (136-145)
[2017-09-22 11:47] LABS: ALANINE AMINOTRANSFERASE 55 U/L (12-78); ALBUMIN 3.4 G/DL (3.4-5.0); ALBUMIN/GLOBULIN RATIO 0.7 (1.0-2.7); ALKALINE PHOSPHATASE 79 U/L (46-116); ASPARTATE AMINO TRANSFERASE 149 U/L (15-37); BILIRUBIN,TOTAL 0.3 MG/DL (0.2-1.0); CREATINE KINASE 2842 U/L (26-308)
[2017-09-22 12:00] VITALS: BP 125/72
--- NOTE | 2017-09-22 13:08 | Consultation ---
History of Present Illness General Date patient seen: September 22, 2017 Chief Complaint: Generalized Weakness Present Illness HPI 61-year-old male with a history of mdd tobacco use and chronic obstructive pulmonary disease on home O2, who was brought in by his with shortness of breath. the patient was short of breath and when his arrived, he was altered and had his morphine pills which belonged to his . the pt stated that he took the pills to numb the emotional pain. No si Allergies: Coded Allergies: NO KNOWN ALLERGIES (Unverified Allergy, Unknown, 03/01/15) Medication History Scheduled Aspirin* (Aspir 81*), 81 MG ORAL DAILY, (Reported) Atorvastatin Calcium* (Lipitor*), 10 MG ORAL BEDTIME, (Reported) Cephalexin* (Keflex*), 500 MG ORAL EVERY 12 HOURS Cholecalciferol (Vitamin D3)* (Vitamin D*), 1,000 UNIT ORAL DAILY, (Reported) Cyanocobalamin (Vitamin B-12) (Vitamin B-12), 2,000 MCG PO DAILY, (Reported) Ferrous Sulfate* (Ferrous Sulfate*), 325 MG ORAL DAILY, (Reported) Flunisolide (Aerospan), 8.9 GM IH DAILY, (Reported) Fluoxetine Hcl* (Fluoxetine Hcl*), 20 MG ORAL DAILY Folic Acid* (Folic Acid*), 1 MG ORAL DAILY, (Reported) Lorazepam* (Lorazepam*), 1 MG ORAL THREE TIMES A DAY, (Reported) Losartan Potassium* (Losartan Potassium*), 25 MG ORAL DAILY, (Reported) Magnesium (Magnesium), 500 MG PO DAILY, (Reported) Omeprazole (Omeprazole), 40 MG ORAL DAILY, (Reported) Prednisolone* (Prelone*), 45 MG ORAL DAILY Prednisone (Prednisone), 40 MG PO DAILY Prednisone* (Prednisone*), 20 MG ORAL DAILY, (Reported) Spironolact/Hydrochlorothiazid (Spironolactone-Hctz 25-25 Tab), 1 TAB ORAL DAILY , (Reported) Theophylline (Theodur*), 100 MG ORAL EVERY 12 HOURS Thiamine Hcl* (Vitamin B-1*), 100 MG ORAL DAILY, (Reported) Trazodone* (Trazodone*), 50 MG ORAL BEDTIME, (Reported) Umeclidinium Brm/Vilanterol Tr (Anoro Ellipta 62.5-25 Mcg INH), 2 PUFFS INH DAILY, (Reported) Scheduled PRN Acetaminophen (Acetaminophen), 650 MG ORAL Q6H PRN for Prn Headache/Temp > 101, (Reported) Nitroglycerin (Nitroglycerin), 0.4 MG SL Three times PRN for CHEST PAIN, ( Reported) Miscellaneous Medications Flunisolide (Aerospan), 8.9 GM IH, (Reported) Sennosides (Senna), Unknown Dose PO, (Reported) Unable to Obtain Medications (Unable To Obtain Meds), (Reported) Patient History Limited by: medical condition History Provided By: Patient, Significant Other, PMD Healthcare decision maker Resuscitation status Full Code Advanced Directive on File Past Medical/Surgical History Past Medical/Surgical History: (1) Chest pain (2) ETOH abuse (3) Upper GI bleeding (4) Anemia (5) Acute respiratory failure (6) Laryngitis (7) Infection (8) Respiratory distress (9) Drug overdose (10) Rhabdomyolysis (11) Elevated troponin I level (12) Hypoalbuminemia (13) Hypoxia (14) Severe protein-calorie malnutrition (15) COPD with exacerbation (16) COPD (chronic obstructive pulmonary disease) Review of Systems Psychiatric: Reports: prior hx, anxiety, depressed feelings Physical Exam General Appearance: no apparent distress, alert Neurologic: oriented x 3, responsive, depressed affect Last 24 Hour Vital Signs Date Time Temp Pulse Resp B/P (MAP) Pulse Ox O2 Delivery O2 Flow Rate FiO2 09/22/17 12:03 96 Nasal Cannula 3.0 32 09/22/17 12:01 Nasal Cannula 3.0 32 09/22/17 08:00 3.0 09/22/17 08:00 96 09/22/17 07:11 101 22 99 Nasal Cannula 3.0 32 09/22/17 07:01 114 24 69 Room Air 21 09/22/17 05:43 99 28 95 Facial 40 09/22/17 04:00 99 09/22/17 03:22 40 09/22/17 02:08 101 31 98 Facial 40 09/22/17 01:15 98 18 92 Nasal Cannula 3.0 09/22/17 00:58 106 22 91 Nasal Cannula 2.0 28 09/22/17 00:58 98.0 96 16 125/78 85 Nasal Cannula 2.0 98.0 09/22/17 00:50 96 16 125/78 85 Room Air 2.0 40 09/22/17 00:18 98.0 99 18 118/70 98 Bi-pap 2.0 40 98.0 09/21/17 23:27 40 09/21/17 23:27 108 18 98 Facial 40 09/21/17 22:50 97.9 98 25 120/78 94 Nasal Cannula 3.0 97.9 09/21/17 20:45 116 25 99 Facial 28 09/21/17 19:50 105 18 99 Nasal Cannula 2.0 09/21/17 19:40 118 22 95 Nasal Cannula 2.0 28 09/21/17 19:40 118 22 Nasal Cannula 2.0 09/21/17 18:50 97.8 108 8 85/55 57 Room Air 97.8 09/21/17 18:44 97.9 130 17 85/55 62 Room Air 97.9 Intake and Output 09/21/17 09/22/17 19:00 07:00 Intake Total 30 ml 206.25 ml Balance 30 ml 206.25 ml Intake Oral 30 ml IV Total 206.25 ml Laboratory Tests Test 09/21/17 19:10 09/21/17 19:30 09/21/17 19:35 09/21/17 20:51 White Blood Count 12.0 K/UL (4.8-10.8) H Red Blood Count 5.89 M/UL (4.70-6.10) Hemoglobin 12.5 G/DL (14.2-18.0) L Hematocrit 43.6 % (42.0-52.0) Mean Corpuscular Volume 74 FL (80-99) L Mean Corpuscular Hemoglobin 21.2 PG (27.0-31.0) L Mean Corpuscular Hemoglobin Concent 28.7 G/DL (32.0-36.0) L Red Cell Distribution Width 17.3 % (11.6-14.8) H Platelet Count 328 K/UL (150-450) Mean Platelet Volume 6.5 FL (6.5-10.1) Neutrophils (%) (Auto) 73.1 % (45.0-75.0) Lymphocytes (%) (Auto) 13.0 % (20.0-45.0) L Monocytes (%) (Auto) 10.3 % (1.0-10.0) H Eosinophils (%) (Auto) 1.5 % (0.0-3.0) Basophils (%) (Auto) 2.1 % (0.0-2.0) H Sodium Level 143 MMOL/L (136-145) Potassium Level 4.8 MMOL/L (3.5-5.1) Chloride Level 100 MMOL/L (98-107) Carbon Dioxide Level 28 MMOL/L (21-32) Anion Gap 15 mmol/L (5-15) Blood Urea Nitrogen 15 mg/dL (7-18) Creatinine 2.6 MG/DL (0.55-1.30) H Estimat Glomerular Filtration Rate 30.4 mL/min (>60) Glucose Level 100 MG/DL (74-106) Calcium Level 9.9 MG/DL (8.5-10.1) Total Bilirubin 0.5 MG/DL (0.2-1.0) Aspartate Amino Transf (AST/SGOT) 215 U/L (15-37) H Alanine Aminotransferase (ALT/SGPT) 62 U/L (12-78) Alkaline Phosphatase 105 U/L (46-116) Total Creatine Kinase 5706 U/L (26-308) H Creatine Kinase MB 167.0 NG/ML (0.0-3.6) H Creatine Kinase MB Relative Index 2.9 Troponin I 0.476 ng/mL (0.000-0.056) Pro-B-Type Natriuretic Peptide 3164 pg/mL (0-125) H Total Protein 9.4 G/DL (6.4-8.2) H Albumin 4.2 G/DL (3.4-5.0) Globulin 5.2 g/dL Albumin/Globulin Ratio 0.8 (1.0-2.7) L Lipase 136 U/L (73-393) HIV (1&2) Antibody Rapid Negative (NEGATIVE) Arterial Blood pH 7.357 (7.350-7.450) Arterial Blood Partial Pressure CO2 58.1 mmHg (35.0-45.0) *H Arterial Blood Partial Pressure O2 62.0 mmHg (75.0-100.0) L Arterial Blood HCO3 31.9 mmol/L (22.0-26.0) H Arterial Blood Oxygen Saturation 88.9 % (92.0-98.0) L Arterial Blood Base Excess 5.0 Shekhar Test Positive Lactic Acid Level 5.50 mmol/L (0.66-2.22) H Urine Color Pale yellow Urine Appearance Clear Urine pH 5 (4.5-8.0) Urine Specific [place] 1.010 (1.005-1.035) Urine Protein 2+ (NEGATIVE) H Urine Glucose (UA) Negative (NEGATIVE) Urine Ketones Negative (NEGATIVE) Urine Occult Blood 5+ (NEGATIVE) H Urine Nitrite Negative (NEGATIVE) Urine Bilirubin Negative (NEGATIVE) Urine Urobilinogen Normal MG/DL (0.0-1.0) Urine Leukocyte Esterase Negative (NEGATIVE) Urine RBC 2-4 /HPF (0 - 0) H Urine WBC 0-2 /HPF (0 - 0) Urine Squamous Epithelial Cells None /LPF (NONE/OCC) Urine Bacteria Few /HPF (NONE) Urine Opiates Screen Positive (NEGATIVE) H Urine Barbiturates Screen Negative (NEGATIVE) Phencyclidine (PCP) Screen Negative (NEGATIVE) Urine Amphetamines Screen Negative (NEGATIVE) Urine Benzodiazepines Screen Positive (NEGATIVE) H Urine Cocaine Screen Negative (NEGATIVE) Urine Marijuana (THC) Screen Negative (NEGATIVE) Test 09/21/17 22:20 09/21/17 23:33 09/22/17 05:45 09/22/17 09:20 Arterial Blood pH 7.294 (7.350-7.450) 7.316 (7.350-7.450) Arterial Blood Partial Pressure CO2 56.9 mmHg (35.0-45.0) *H 56.8 mmHg (35.0-45.0) *H Arterial Blood Partial Pressure O2 49.2 mmHg (75.0-100.0) 68.6 mmHg (75.0-100.0) L Arterial Blood HCO3 27.0 mmol/L (22.0-26.0) H 28.3 mmol/L (22.0-26.0) H Arterial Blood Oxygen Saturation 76.0 % (92.0-98.0) L 90.7 % (92.0-98.0) L Arterial Blood Base Excess -0.3 1.4 Shekhar Test Positive Positive Lactic Acid Level 3.40 mmol/L (0.66-2.22) H 1.80 mmol/L (0.66-2.22) Test 09/22/17 09:45 White Blood Count 12.9 K/UL (4.8-10.8) H Red Blood Count 4.75 M/UL (4.70-6.10) Hemoglobin 10.2 G/DL (14.2-18.0) L Hematocrit 34.7 % (42.0-52.0) L Mean Corpuscular Volume 73 FL (80-99) L Mean Corpuscular Hemoglobin 21.4 PG (27.0-31.0) L Mean Corpuscular Hemoglobin Concent 29.2 G/DL (32.0-36.0) L Red Cell Distribution Width 17.5 % (11.6-14.8) H Platelet Count 289 K/UL (150-450) Mean Platelet Volume 7.9 FL (6.5-10.1) Neutrophils (%) (Auto) % (45.0-75.0) Lymphocytes (%) (Auto) % (20.0-45.0) Monocytes (%) (Auto) % (1.0-10.0) Eosinophils (%) (Auto) % (0.0-3.0) Basophils (%) (Auto) % (0.0-2.0) Differential Total Cells Counted 100 Neutrophils % (Manual) 80 % (45-75) H Lymphocytes % (Manual) 19 % (20-45) L Monocytes % (Manual) 1 % (1-10) Eosinophils % (Manual) 0 % (0-3) Basophils % (Manual) 0 % (0-2) Band Neutrophils 0 % (0-8) Platelet Estimate Adequate Platelet Morphology Normal Hypochromasia 1+ Anisocytosis 1+ Sodium Level 139 MMOL/L (136-145) Potassium Level 4.9 MMOL/L (3.5-5.1) Chloride Level 101 MMOL/L (98-107) Carbon Dioxide Level 23 MMOL/L (21-32) Anion Gap 15 mmol/L (5-15) Blood Urea Nitrogen 22 mg/dL (7-18) H Creatinine 1.7 MG/DL (0.55-1.30) H Estimat Glomerular Filtration Rate 49.6 mL/min (>60) Glucose Level 126 MG/DL (74-106) H Uric Acid 9.3 MG/DL (2.6-7.2) H Calcium Level 8.7 MG/DL (8.5-10.1) Phosphorus Level 4.0 MG/DL (2.5-4.9) Magnesium Level 1.7 MG/DL (1.8-2.4) L Total Bilirubin 0.3 MG/DL (0.2-1.0) Aspartate Amino Transf (AST/SGOT) 149 U/L (15-37) H Alanine Aminotransferase (ALT/SGPT) 55 U/L (12-78) Alkaline Phosphatase 79 U/L (46-116) Total Creatine Kinase 2842 U/L (26-308) H Troponin I 0.120 ng/mL (0.000-0.056) Total Protein 8.0 G/DL (6.4-8.2) Albumin 3.4 G/DL (3.4-5.0) Globulin 4.6 g/dL Albumin/Globulin Ratio 0.7 (1.0-2.7) L Height (Feet): 5 Height (Inches): 8.00 Weight (Pounds): 125 Medications Current Medications Medications (Trade) Dose Ordered Sig/Agustin Route PRN Reason Start Time Stop Time Status Last Admin Dose Admin Acetaminophen (Tylenol) 500 mg Q4H PRN ORAL For Pain 09/22/17 00:00 10/22/17 00:00 09/22/17 01:59 Albuterol/ Ipratropium (Albuterol/ Ipratropium) 3 ml Q6HRT HHN 09/22/17 01:00 09/27/17 00:59 09/22/17 07:01 Dextrose/Sodium Chloride 1,000 ml @ 100 mls/hr Q10H IV 09/21/17 22:45 10/21/17 22:44 09/22/17 09:26 Heparin Sodium (Porcine) (Heparin 5000 units/ml) 5,000 units BID SUBQ 09/22/17 09:00 10/22/17 08:59 09/22/17 09:29 Lorazepam (Ativan) 1 mg Q6H PRN ORAL For Anxiety 09/22/17 09:30 09/29/17 09:29 Methylprednisolone Sodium Succinate (Solu-MEDROL) 60 mg DAILY IVP 09/22/17 09:00 10/22/17 08:59 09/22/17 09:26 Sodium Chloride 1,000 ml @ 55 mls/hr [id number] IV 09/22/17 00:00 10/22/17 00:00 09/22/17 03:13 Assessment/Plan Status: stable Assessment/Plan substance abuse mdd -folate -thiamine -benzos -prozac Sun Christina M.D. September 22, 2017 13:07
--- NOTE | 2017-09-22 13:19 | Diagnostic Imaging Report ---
APPROVED REPORT CPT Code: 26054 Present Symptoms Shortness of breath BILATERAL: Imaging reveals a patent deep venous system bilaterally. There is no evidence of thrombus within the femoral, popliteal or tibial segments. The greater saphenous veins are also within normal limits. Doppler indicates normal spontaneous flow within these segments.
--- NOTE | 2017-09-22 15:27 | Cardiology Report ---
APPROVED REPORT EXAM: Two-dimensional and M-mode echocardiogram with Doppler and color Doppler. INDICATION Atrial flutter M-Mode DIMENSIONS IVSd0.6 (0.7-1.1cm)Left Atrium (MM)3.6 (1.6-4.0cm) LVDd4.9 (3.5-5.6cm)Aortic Root2.7 (2.0-3.7cm) PWd0.8 (0.7-1.1cm)Aortic Cusp Exc.1.8 (1.5-2.0cm) LVDs2.8 (2.5-4.0cm) PWs1.0 cm Normal left ventricular chamber size, systolic function and wall motion. Left ventricular ejection fraction estimated to be 60-65%. No evidence of left ventricular hypertrophy. No evidence of pericardial or pleural effusion. All other cardiac chamber sizes are within normal limits. Focal aortic valve sclerosis with adequate cusp excursion. Normal mitral valve leaflets with normal excursion. Normal mitral annulus and aortic root. Pulmonic valve not well visualized. Normal tricuspid valve structure. IVC is normal in size and collapsible with respiration. A color flow and spectral Doppler study was performed and revealed: No aortic regurgitation. No mitral regurgitation. Mitral inflow velocities indicates possible pseudo normalization pattern implying significant left ventricular diastolic dysfunction. No tricuspid regurgitation.
--- NOTE | 2017-09-22 16:40 | Cardiology Report ---
APPROVED REPORT EKG Measurement Heart [id number] Sinus tachycardia Abnormal ECG
--- NOTE | 2017-09-22 17:13 | Consultation ---
Consult Note Consult Note asked to eval for renal failure Chief Complaint: Generalized Weakness Patient is brought in for complaints of shortness of breath Upon arrival the patient reports that the patient was found with her morphine pills in his hand and appeared to be altered Patient is extremely hypoxic has history of COPD Is on oxygen at home Patient himself is altered and cannot provide significant history Hx Cardiac Problems: Yes Hx Hypertension: Yes Hx Asthma: Yes Hx COPD: Yes Hx Neurological Problems: Yes Hx Seizures: Yes - > couple of years ago Interviewed, examined- data reviewed Assessment/Plan Acute on chronic renal failure- COPD Rhabdo- Drug overdose Anemia Low BP on presentation Malnutrition BPH troponin leak Plan: Gastric support Hydrate Flomax pulm toilet monitor CPK CELESTE CHOE September 22, 2017 17:13
[2017-09-22] MEDS: Tamsulosin 0.4mg cap ORAL SCH (18:39)
--- NOTE | 2017-09-22 19:12 | Cardiology Progress Note ---
Assessment/Plan Assessment/Plan The patient is seen and examined, full consult note is dictated. Objective Last 24 Hour Vital Signs Date Time Temp Pulse Resp B/P (MAP) Pulse Ox O2 Delivery O2 Flow Rate FiO2 09/22/17 16:00 112 09/22/17 16:00 3.0 09/22/17 13:11 95 16 99 Nasal Cannula 3.0 32 09/22/17 13:05 93 16 93 Nasal Cannula 3.0 32 09/22/17 12:14 90 09/22/17 12:03 96 Nasal Cannula 3.0 32 09/22/17 12:01 Nasal Cannula 3.0 32 09/22/17 12:00 97.8 90 20 125/72 96 Nasal Cannula 3.0 97.8 09/22/17 12:00 3.0 09/22/17 08:00 98.0 97 20 106/59 96 Nasal Cannula 3.0 98.0 09/22/17 08:00 3.0 09/22/17 08:00 96 09/22/17 07:11 101 22 99 Nasal Cannula 3.0 32 09/22/17 07:01 114 24 69 Room Air 21 09/22/17 05:43 99 28 95 Facial 40 09/22/17 04:00 99 09/22/17 03:22 40 09/22/17 02:08 101 31 98 Facial 40 09/22/17 01:15 98 18 92 Nasal Cannula 3.0 09/22/17 00:58 106 22 91 Nasal Cannula 2.0 28 09/22/17 00:58 98.0 96 16 125/78 85 Nasal Cannula 2.0 98.0 09/22/17 00:50 96 16 125/78 85 Room Air 2.0 40 09/22/17 00:18 98.0 99 18 118/70 98 Bi-pap 2.0 40 98.0 09/21/17 23:27 40 09/21/17 23:27 108 18 98 Facial 40 09/21/17 22:50 97.9 98 25 120/78 94 Nasal Cannula 3.0 97.9 09/21/17 20:45 116 25 99 Facial 28 09/21/17 19:50 105 18 99 Nasal Cannula 2.0 09/21/17 19:40 118 22 95 Nasal Cannula 2.0 28 09/21/17 19:40 118 22 Nasal Cannula 2.0 Intake and Output 5/22/18 5/23/18 19:00 07:00 Intake Total 30 ml 206.25 ml Balance 30 ml 206.25 ml Intake Oral 30 ml IV Total 206.25 ml Laboratory Tests Test 09/21/17 19:30 09/21/17 19:35 09/21/17 20:51 09/21/17 22:20 Arterial Blood pH 7.357 (7.350-7.450) 7.294 (7.350-7.450) Arterial Blood Partial Pressure CO2 58.1 mmHg (35.0-45.0) *H 56.9 mmHg (35.0-45.0) *H Arterial Blood Partial Pressure O2 62.0 mmHg (75.0-100.0) L 49.2 mmHg (75.0-100.0) Arterial Blood HCO3 31.9 mmol/L (22.0-26.0) H 27.0 mmol/L (22.0-26.0) H Arterial Blood Oxygen Saturation 88.9 % (92.0-98.0) L 76.0 % (92.0-98.0) L Arterial Blood Base Excess 5.0 -0.3 Shekhar Test Positive Positive Lactic Acid Level 5.50 mmol/L (0.66-2.22) H Urine Color Pale yellow Urine Appearance Clear Urine pH 5 (4.5-8.0) Urine Specific [place] 1.010 (1.005-1.035) Urine Protein 2+ (NEGATIVE) H Urine Glucose (UA) Negative (NEGATIVE) Urine Ketones Negative (NEGATIVE) Urine Occult Blood 5+ (NEGATIVE) H Urine Nitrite Negative (NEGATIVE) Urine Bilirubin Negative (NEGATIVE) Urine Urobilinogen Normal MG/DL (0.0-1.0) Urine Leukocyte Esterase Negative (NEGATIVE) Urine RBC 2-4 /HPF (0 - 0) H Urine WBC 0-2 /HPF (0 - 0) Urine Squamous Epithelial Cells None /LPF (NONE/OCC) Urine Bacteria Few /HPF (NONE) Urine Opiates Screen Positive (NEGATIVE) H Urine Barbiturates Screen Negative (NEGATIVE) Phencyclidine (PCP) Screen Negative (NEGATIVE) Urine Amphetamines Screen Negative (NEGATIVE) Urine Benzodiazepines Screen Positive (NEGATIVE) H Urine Cocaine Screen Negative (NEGATIVE) Urine Marijuana (THC) Screen Negative (NEGATIVE) Test 09/21/17 23:33 09/22/17 05:45 09/22/17 09:20 09/22/17 09:45 Lactic Acid Level 3.40 mmol/L (0.66-2.22) H 1.80 mmol/L (0.66-2.22) Arterial Blood pH 7.316 (7.350-7.450) Arterial Blood Partial Pressure CO2 56.8 mmHg (35.0-45.0) *H Arterial Blood Partial Pressure O2 68.6 mmHg (75.0-100.0) L Arterial Blood HCO3 28.3 mmol/L (22.0-26.0) H Arterial Blood Oxygen Saturation 90.7 % (92.0-98.0) L Arterial Blood Base Excess 1.4 Shekhar Test Positive White Blood Count 12.9 K/UL (4.8-10.8) H Red Blood Count 4.75 M/UL (4.70-6.10) Hemoglobin 10.2 G/DL (14.2-18.0) L Hematocrit 34.7 % (42.0-52.0) L Mean Corpuscular Volume 73 FL (80-99) L Mean Corpuscular Hemoglobin 21.4 PG (27.0-31.0) L Mean Corpuscular Hemoglobin Concent 29.2 G/DL (32.0-36.0) L Red Cell Distribution Width 17.5 % (11.6-14.8) H Platelet Count 289 K/UL (150-450) Mean Platelet Volume 7.9 FL (6.5-10.1) Neutrophils (%) (Auto) % (45.0-75.0) Lymphocytes (%) (Auto) % (20.0-45.0) Monocytes (%) (Auto) % (1.0-10.0) Eosinophils (%) (Auto) % (0.0-3.0) Basophils (%) (Auto) % (0.0-2.0) Differential Total Cells Counted 100 Neutrophils % (Manual) 80 % (45-75) H Lymphocytes % (Manual) 19 % (20-45) L Monocytes % (Manual) 1 % (1-10) Eosinophils % (Manual) 0 % (0-3) Basophils % (Manual) 0 % (0-2) Band Neutrophils 0 % (0-8) Platelet Estimate Adequate Platelet Morphology Normal Hypochromasia 1+ Anisocytosis 1+ Sodium Level 139 MMOL/L (136-145) Potassium Level 4.9 MMOL/L (3.5-5.1) Chloride Level 101 MMOL/L (98-107) Carbon Dioxide Level 23 MMOL/L (21-32) Anion Gap 15 mmol/L (5-15) Blood Urea Nitrogen 22 mg/dL (7-18) H Creatinine 1.7 MG/DL (0.55-1.30) H Estimat Glomerular Filtration Rate 49.6 mL/min (>60) Glucose Level 126 MG/DL (74-106) H Uric Acid 9.3 MG/DL (2.6-7.2) H Calcium Level 8.7 MG/DL (8.5-10.1) Phosphorus Level 4.0 MG/DL (2.5-4.9) Magnesium Level 1.7 MG/DL (1.8-2.4) L Total Bilirubin 0.3 MG/DL (0.2-1.0) Aspartate Amino Transf (AST/SGOT) 149 U/L (15-37) H Alanine Aminotransferase (ALT/SGPT) 55 U/L (12-78) Alkaline Phosphatase 79 U/L (46-116) Total Creatine Kinase 2842 U/L (26-308) H Troponin I 0.120 ng/mL (0.000-0.056) C-Reactive Protein, Quantitative 2.9 mg/dL (0.00-0.90) H Total Protein 8.0 G/DL (6.4-8.2) Albumin 3.4 G/DL (3.4-5.0) Globulin 4.6 g/dL Albumin/Globulin Ratio 0.7 (1.0-2.7) L Bharat Rowe MD September 22, 2017 19:12
[2017-09-22 20:00] VITALS: BP 122/69
[2017-09-22] MEDS: LORazepam 1mg tab ORAL PRN (20:12)
[2017-09-23] VITALS: BP 119/79
[2017-09-23] MEDS: Albuterol/Ipratropium 3ml neb HHN SCH ×5 (01:35→20:26)
[2017-09-23 04:00] VITALS: BP 134/84
[2017-09-23 04:29] LABS: HEMATOCRIT 28.4 % (42.0-52.0); HEMOGLOBIN 8.4 G/DL (14.2-18.0); MEAN CORPUSCULAR VOLUME 73 FL (80-99); PLATELET COUNT 265 K/UL (150-450); RED BLOOD COUNT 3.91 M/UL (4.70-6.10); RED CELL DISTRIBUTION WIDTH 17.1 % (11.6-14.8); WHITE BLOOD COUNT 14.1 K/UL (4.8-10.8)
[2017-09-23 05:03] LABS: ALANINE AMINOTRANSFERASE 47 U/L (12-78); ALBUMIN/GLOBULIN RATIO 0.8 (1.0-2.7); ALKALINE PHOSPHATASE 61 U/L (46-116); ANION GAP 4 mmol/L (5-15); ASPARTATE AMINO TRANSFERASE 94 U/L (15-37); BILIRUBIN,TOTAL 0.2 MG/DL (0.2-1.0); BLOOD UREA NITROGEN 24 mg/dL (7-18); CALCIUM 8.5 MG/DL (8.5-10.1); CARBON DIOXIDE 29 MMOL/L (21-32); CHLORIDE 106 MMOL/L (98-107); CHOLESTEROL 132 MG/DL (< 200); CREATINE KINASE 1321 U/L (26-308); CREATININE 1.2 MG/DL (0.55-1.30); FERRITIN 16 NG/ML (8-388); GAMMA GLUTAMYL TRANSPEPTIDASE 21 U/L (5-85); HDL CHOLESTEROL 67 MG/DL (40-60); PHOSPHORUS 1.9 MG/DL (2.5-4.9); POTASSIUM 4.3 MMOL/L (3.5-5.1); SODIUM 139 MMOL/L (136-145); TRIGLYCERIDES 55 MG/DL (30-150)
[2017-09-23 08:00] VITALS: BP 122/69
[2017-09-23] MEDS: LORazepam 1mg tab ORAL PRN (08:42)
[2017-09-23] MEDS: Solu-MEDROL 125mg Inj IVP SCH (08:43)
[2017-09-23] MEDS: Tamsulosin 0.4mg cap ORAL SCH ×2 (08:43→18:14)
[2017-09-23] MEDS: Heparin 5000 units/ml inj SUBQ SCH ×2 (08:44→18:13)
--- NOTE | 2017-09-23 08:45 | Consultation ---
DATE OF CONSULTATION: 09/22/2017 CARDIOLOGY CONSULTATION CONSULTING PHYSICIAN: Bharat Rowe M.D. REFERRING PHYSICIAN: Amador Brennan M.D. REASON FOR CONSULTATION: Management of shortness of breath. HISTORY OF PRESENT ILLNESS: The patient is a very unfortunate 61-year-old gentleman, who was brought in for complaints of shortness of breath. Upon arrival, the patient's reports that the patient was found with her morphine pills in his hand. He appeared to be altered at the time of arrival to the hospital and very hypoxic. Initial vital signs showed blood pressure of 85/55 mmHg, heart rate of 130, and O2 saturation of 62% on room air. Initial 12-lead electrocardiogram was significant for sinus tachycardia, rate of [address] and T-wave abnormality in the lateral leads as well as inferior lead, ischemia could not be ruled out. Initial chest x-ray showed normal cardiac silhouette with no evidence of pulmonary edema. Initial troponin I level was elevated and proBNP was 3164. The patient was also found to have creatinine of 2.6. Blood gas was significant for hypoxic hypercarbic respiratory acidosis with metabolic alkalosis. The patient was admitted to [facility] for further evaluation and management. Cardiology consultation was made at request of Dr. Brennan. PAST MEDICAL HISTORY: 1. History of COPD due to long-standing tobacco use of at least 30 pack-year. 2. History of hypertension. 3. History of cardiac disease, the detail of which is unknown. 4. History of seizures. ALLERGIES: No known drug allergies. FAMILY HISTORY: No premature coronary artery disease in first-degree relatives. MEDICATIONS: List of medications at home including acetaminophen 650 mg q.6 h. p.r.n. pain or temperature of 101, aspirin 81 mg p.o. daily, Lipitor 10 mg p.o. nightly, Keflex 500 mg p.o. q.12 h., vitamin D 1000 units daily, vitamin B12 2000 mcg p.o. daily, ferrous sulfate 325 mg daily, flunisolide 8.9 g inhaler daily, fluoxetine 20 mg p.o. daily, folic acid 1 mg p.o. daily, lorazepam 1 mg p.o. three times a day, losartan 25 mg p.o. daily, magnesium 500 mg p.o. daily, nitroglycerin 0.4 mg sublingual p.r.n. chest pain x3 dose, omeprazole 40 mg p.o. daily, mg p.o. daily for 7 days mg probably tapering dose, unknown dose, spironolactone/hydrochlorothiazide 25/25 one tablet p.o. daily, theophylline 100 mg p.o. q.12 h., vitamin B1 100 mg p.o. daily, trazodone 50 mg p.o. nightly. PHYSICAL EXAMINATION: VITAL SIGNS: Blood pressure at time of arrival to the hospital 85/55, respirations 18, pulse of 130, temperature 97.9 degrees Fahrenheit, and O2 saturation on room air. GENERAL: The patient is a very unfortunate 61-year-old gentleman, in no apparent respiratory distress at this time, alert and oriented x4. HEENT: Atraumatic, normocephalic. Anicteric. Pupils are equal, round, and reactive to light and accommodation. Extraocular muscles intact. NECK: JVP is elevated just about 15 cm. No carotid bruit. CARDIOVASCULAR SYSTEM: Normal S1, S2. Regular rate and rhythm. No RV heave. Tachycardic. No murmurs, gallops, or rubs. LUNGS: Basically, no breath sounds throughout both lungs. No wheezing, crackles, or rhonchi. ABDOMEN: Soft, nontender, and nondistended. No hepatosplenomegaly. Positive bowel sounds. EXTREMITIES: No evidence of edema, clubbing, or cyanosis. LABORATORY FINDINGS: Chemistry showed sodium 143, potassium 4.8, chloride 100, bicarbonate 28, BUN of 15, creatinine 2.6, glucose 100, calcium 9.9, 1.7. AST 215. Total CK was 5706. CK-MB was 167. Troponin I was 0.476. ProBNP was 3164. Toxicology showed positive benzodiazepines and opiates. Hematology showed WBC 12.0, hemoglobin of 12.5, hematocrit of 43.6, and platelet count 328,000. Chest x-ray showed mild basilar atelectasis, no pulmonary edema, normal cardiac silhouette. A 2D echocardiography shows normal LV size and function, LVEF of approximately 73%, no wall motion abnormalities. Diastolic data shows normal diastolic function with normal intracardiac filling pressures, there is slight right ventricular enlargement, pulmonary artery pressure is within normal limit, IVC is collapsible. A 12-lead electrocardiogram shows sinus tachycardia, rate of [address]-T changes in the lateral leads which is nonspecific and may suggest ischemia, there is no ST elevation. ASSESSMENT AND PLAN: 1. Dyspnea. This is likely due to respiratory failure as the patient shows hypoxic hypercarbia due to opiate and benzodiazepine overdose. Chest x-ray shows no pulmonary edema. Elevation of the beta-natriuretic peptide could be secondary to right ventricular strain or other causes. Physical exam is in favor of severe emphysema. The patient will require Pulmonary consultation for continuation of care. 2. Slight elevation of troponin I level could be secondary to troponin leak in view of renal failure with associated small rhabdomyolysis or demand ischemia as there were some questionable changes on the lateral leads. A 2D echocardiography does not show any wall motion abnormalities. I will continue with serial troponin I level measurements. We would consider a stress test on this patient to assess the degree of ischemia and to determine whether the patient would benefit from left heart catheterization and coronary angiography. Risk factors for coronary artery disease in this patient include tobacco use, hypertension, and age. Fasting lipid panel will be done in the morning. I would like to thank, Dr. Brennan, for the courtesy of this consultation. Bharat Rowe M.D. DR: Neil JOB#: [id number] CC:
--- NOTE | 2017-09-23 08:54 | General Progress Note ---
Assessment/Plan Assessment/Plan (1) Atypical chest pain (2) COPD exacerbation Patient will be continued on Tylenol for pain and Ativan D/w Dr. Miller and he concurred. Subjective Date patient seen: September 23, 2017 Time patient seen: 08:30 - am Allergies: Coded Allergies: NO KNOWN ALLERGIES (Unverified Allergy, Unknown, 03/01/15) Subjective Constitutional: Reports: no symptoms Eye: Reports: no symptoms ENT: Reports: no symptoms Respiratory: Reports: shortness of breath Cardiovascular: Reports: no symptoms Gastrointestinal: Reports: no symptoms Genitourinary: Reports: no symptoms Musculoskeletal: Reports: no symptoms Skin: Reports: no symptoms Psychiatric: Reports: no symptoms Neurological: Reports: no symptoms Endocrine: Reports: no symptoms Hematologic/Lymphatic: Reports: no symptoms Subjective Patient is in bed no signs of pain or distress at this time. Objective Last 24 Hour Vital Signs Date Time Temp Pulse Resp B/P (MAP) Pulse Ox O2 Delivery O2 Flow Rate FiO2 09/23/17 08:43 118 134/84 09/23/17 08:06 118 26 96 Nasal Cannula 3.0 32 09/23/17 04:00 94 09/23/17 04:00 98.2 84 20 134/84 97 Nasal Cannula 3.0 98.2 09/23/17 01:36 94 20 96 Nasal Cannula 3.0 32 09/23/17 01:35 90 20 93 Nasal Cannula 3.0 32 09/23/17 00:08 3.0 09/23/17 00:00 90 09/23/17 00:00 98.1 89 20 119/79 96 Nasal Cannula 3.0 98.1 09/22/17 20:00 98 Nasal Cannula 3.0 32 09/22/17 20:00 97 09/22/17 20:00 103 20 98 Nasal Cannula 3.0 32 09/22/17 20:00 101 20 94 Nasal Cannula 3.0 32 09/22/17 20:00 Nasal Cannula 3.0 32 09/22/17 20:00 3.0 09/22/17 20:00 98.2 91 20 122/69 99 Nasal Cannula 3.0 98.2 09/22/17 16:00 112 09/22/17 16:00 3.0 09/22/17 13:11 95 16 99 Nasal Cannula 3.0 32 09/22/17 13:05 93 16 93 Nasal Cannula 3.0 32 09/22/17 12:14 90 09/22/17 12:03 96 Nasal Cannula 3.0 32 09/22/17 12:01 Nasal Cannula 3.0 32 09/22/17 12:00 97.8 90 20 125/72 96 Nasal Cannula 3.0 97.8 09/22/17 12:00 3.0 Intake and Output 09/22/17 09/23/17 19:00 07:00 Intake Total 750 ml 840 ml Output Total 825 ml 600 ml Balance -75 ml 240 ml Intake Oral 540 ml 240 ml IV Total 210 ml 600 ml Output Urine Total 825 ml 600 ml # Voids 1 # Bowel Movements 1 Laboratory Tests 09/22/17 09:20: Arterial Blood pH 7.316L, Arterial Blood Partial Pressure CO2 56.8*H, Arterial Blood Partial Pressure O2 68.6L, Arterial Blood HCO3 28.3H, Arterial Blood Oxygen Saturation 90.7L, Arterial Blood Base Excess 1.4, Shekhar Test Positive 09/22/17 09:45: White Blood Count 12.9H, Red Blood Count 4.75, Hemoglobin 10.2L, Hematocrit 34.7L, Mean Corpuscular Volume 73L, Mean Corpuscular Hemoglobin 21.4L, Mean Corpuscular Hemoglobin Concent 29.2L, Red Cell Distribution Width 17.5H, Platelet Count 289, Mean Platelet Volume 7.9, Neutrophils (%) (Auto) , Lymphocytes (%) (Auto) , Monocytes (%) (Auto) , Eosinophils (%) (Auto) , Basophils (%) (Auto) , Differential Total Cells Counted 100, Neutrophils % ( Manual) 80H, Lymphocytes % (Manual) 19L, Monocytes % (Manual) 1, Eosinophils % ( Manual) 0, Basophils % (Manual) 0, Band Neutrophils 0, Platelet Estimate Adequate, Platelet Morphology Normal, Hypochromasia 1+, Anisocytosis 1+, Sodium Level 139, Potassium Level 4.9, Chloride Level 101, Carbon Dioxide Level 23, Anion Gap 15, Blood Urea Nitrogen 22H, Creatinine 1.7H, Estimat Glomerular Filtration Rate 49.6, Glucose Level 126H, Uric Acid 9.3H, Calcium Level 8.7, Phosphorus Level 4.0, Magnesium Level 1.7L, Total Bilirubin 0.3, Aspartate Amino Transf (AST/SGOT) 149H, Alanine Aminotransferase (ALT/SGPT) 55, Alkaline Phosphatase 79, Total Creatine Kinase 2842H, Troponin I 0.120H, C-Reactive Protein, Quantitative 2.9H, Total Protein 8.0, Albumin 3.4, Globulin 4.6, Albumin/Globulin Ratio 0.7L 09/23/17 03:50: White Blood Count 14.1H, Red Blood Count 3.91L, Hemoglobin 8.4L, Hematocrit 28.4L, Mean Corpuscular Volume 73L, Mean Corpuscular Hemoglobin 21.5L, Mean Corpuscular Hemoglobin Concent 29.6L, Red Cell Distribution Width 17.1H, Platelet Count 265, Mean Platelet Volume 7.4, Neutrophils (%) (Auto) , Lymphocytes (%) (Auto) , Monocytes (%) (Auto) , Eosinophils (%) (Auto) , Basophils (%) (Auto) , Sodium Level 139, Potassium Level 4.3, Chloride Level 106 , Carbon Dioxide Level 29, Anion Gap 4L, Blood Urea Nitrogen 24H, Creatinine 1.2 , Estimat Glomerular Filtration Rate > 60, Glucose Level 136H, Uric Acid 8.4H, Calcium Level 8.5, Phosphorus Level 1.9L, Magnesium Level 2.0, Total Bilirubin 0.2, Aspartate Amino Transf (AST/SGOT) 94H, Alanine Aminotransferase (ALT/SGPT) 47, Alkaline Phosphatase 61, Total Creatine Kinase 1321H, Troponin I 0.076H, Total Protein 6.8, Albumin 3.0L, Globulin 3.8, Albumin/Globulin Ratio 0.8L, Hemoglobin A1c 5.5, Ferritin 16, Gamma Glutamyl Transpeptidase 21, Pro-B-Type Natriuretic Peptide 2642H, Triglycerides Level 55, Cholesterol Level 132, LDL Cholesterol 59, HDL Cholesterol 67H, Cholesterol/HDL Ratio 2.0L, Vitamin B12 Level 389, Folate 3.7L, Thyroid Stimulating Hormone (TSH) 0.306L, Cortisol AM Sample [Pending] Height (Feet): 5 Height (Inches): 8.00 Weight (Pounds): 125 Objective General Appearance: no apparent distress, alert HEENT: PERRL, EOMI Neck: non-tender, supple Respiratory/Chest: decreased breath sounds Cardiovascular/Chest: normal rate, regular rhythm Abdomen: non tender, soft Extremities: non-tender, normal inspection Skin Exam: normal pigmentation, warm/dry Neurologic: alert, responsive NOAH SILVA September 23, 2017 08:54
[2017-09-23] MEDS ORDERED: dilTIAZem HCl CD 120mg cap ORAL SCH (09:00)
--- NOTE | 2017-09-23 09:41 | Pulmonology Progress Note ---
Assessment/Plan Problems: (1) COPD with exacerbation (2) Respiratory distress (3) Rhabdomyolysis (4) Elevated troponin I level (5) Severe protein-calorie malnutrition (6) Hypoxia (7) Hypoalbuminemia Assessment/Plan ASSESSMENT: The patient is a 61-year-old male smoker with a history of COPD, seizure disorder, hypertension presenting with shortness of breath and altered mental status likely secondary to hypercarbia, and opiate narcosis on top of underlying chronic obstructive pulmonary disease. His workup is also positive for acute kidney injury, rhabdomyolysis, lactic acidosis , and elevated cardiac biomarkers, likely secondary to demand ischemia. He did receive a dose of intravenous Lovenox in the emergency department. Despite his elevated BNP, clinically he is dry and dehydrated. PROBLEM LIST: 1. Chronic obstructive pulmonary disease with acute exacerbation. 2. Altered mental status, secondary to hypercarbia and CO2 and opiate narcosis. 3. Opiate overdose. 4. Acute kidney injury. 5. Lactic acidosis. 6. Rhabdomyolysis. 7. Elevated cardiac biomarkers, likely demand ischemia. 8. History of hypertension. 9. History of seizure disorder. TREATMENT PLAN: 1. Optimize pulmonary hygiene/mobilize as tolerated. 2. P.r.n. BiPAP. 3. [id number] and p.r.n. bronchodilators. 4. Solu-Medrol 60 mg IV daily (D3) 5. Observe off of antibiotics for any signs of infection. 6. Decrease IVF 7. F/U cards and renal recs 8. Consider GI eval for evaluation of cystic pancreatic lesion 9. Aspiration precautions, VSS, [employer] recs 10. DVT Px: Hep SQ Subjective Allergies: Coded Allergies: NO KNOWN ALLERGIES (Unverified Allergy, Unknown, 03/01/15) Subjective AFVSS, O2 needs stable Awake and alert Less SOB, no cough, no F/C, no CP CT AP demonstrates a cystic panc lesion CR better, trops downtrending Objective Last 24 Hour Vital Signs Date Time Temp Pulse Resp B/P (MAP) Pulse Ox O2 Delivery O2 Flow Rate FiO2 09/23/17 08:43 118 134/84 09/23/17 08:06 118 26 96 Nasal Cannula 3.0 32 09/23/17 08:00 97.5 118 14 122/69 94 Nasal Cannula 3.0 97.5 09/23/17 08:00 109 09/23/17 04:00 94 09/23/17 04:00 98.2 84 20 134/84 97 Nasal Cannula 3.0 98.2 09/23/17 01:36 94 20 96 Nasal Cannula 3.0 32 09/23/17 01:35 90 20 93 Nasal Cannula 3.0 32 09/23/17 00:08 3.0 09/23/17 00:00 90 09/23/17 00:00 98.1 89 20 119/79 96 Nasal Cannula 3.0 98.1 09/22/17 20:00 98 Nasal Cannula 3.0 32 09/22/17 20:00 97 09/22/17 20:00 103 20 98 Nasal Cannula 3.0 32 09/22/17 20:00 101 20 94 Nasal Cannula 3.0 32 09/22/17 20:00 Nasal Cannula 3.0 32 09/22/17 20:00 3.0 09/22/17 20:00 98.2 91 20 122/69 99 Nasal Cannula 3.0 98.2 09/22/17 16:00 112 09/22/17 16:00 3.0 09/22/17 13:11 95 16 99 Nasal Cannula 3.0 32 09/22/17 13:05 93 16 93 Nasal Cannula 3.0 32 09/22/17 12:14 90 09/22/17 12:03 96 Nasal Cannula 3.0 32 09/22/17 12:01 Nasal Cannula 3.0 32 09/22/17 12:00 97.8 90 20 125/72 96 Nasal Cannula 3.0 97.8 09/22/17 12:00 3.0 Intake and Output 09/22/17 09/23/17 19:00 07:00 Intake Total 750 ml 840 ml Output Total 825 ml 600 ml Balance -75 ml 240 ml Intake Oral 540 ml 240 ml IV Total 210 ml 600 ml Output Urine Total 825 ml 600 ml # Voids 1 # Bowel Movements 1 General Appearance: no acute distress, cachetic HEENT: normocephalic, atraumatic, anicteric, mucous membranes moist Respiratory/Chest: chest wall non-tender, lungs clear - but distant, normal breath sounds, no respiratory distress Cardiovascular: normal peripheral pulses, normal rate, regular rhythm Abdomen: normal bowel sounds, soft, non tender, no organomegaly, non distended Extremities: no cyanosis, no clubbing, no edema Laboratory Tests 09/22/17 09:45: White Blood Count 12.9H, Red Blood Count 4.75, Hemoglobin 10.2L, Hematocrit 34.7L, Mean Corpuscular Volume 73L, Mean Corpuscular Hemoglobin 21.4L, Mean Corpuscular Hemoglobin Concent 29.2L, Red Cell Distribution Width 17.5H, Platelet Count 289, Mean Platelet Volume 7.9, Neutrophils (%) (Auto) , Lymphocytes (%) (Auto) , Monocytes (%) (Auto) , Eosinophils (%) (Auto) , Basophils (%) (Auto) , Differential Total Cells Counted 100, Neutrophils % ( Manual) 80H, Lymphocytes % (Manual) 19L, Monocytes % (Manual) 1, Eosinophils % ( Manual) 0, Basophils % (Manual) 0, Band Neutrophils 0, Platelet Estimate Adequate, Platelet Morphology Normal, Hypochromasia 1+, Anisocytosis 1+, Sodium Level 139, Potassium Level 4.9, Chloride Level 101, Carbon Dioxide Level 23, Anion Gap 15, Blood Urea Nitrogen 22H, Creatinine 1.7H, Estimat Glomerular Filtration Rate 49.6, Glucose Level 126H, Uric Acid 9.3H, Calcium Level 8.7, Phosphorus Level 4.0, Magnesium Level 1.7L, Total Bilirubin 0.3, Aspartate Amino Transf (AST/SGOT) 149H, Alanine Aminotransferase (ALT/SGPT) 55, Alkaline Phosphatase 79, Total Creatine Kinase 2842H, Troponin I 0.120H, C-Reactive Protein, Quantitative 2.9H, Total Protein 8.0, Albumin 3.4, Globulin 4.6, Albumin/Globulin Ratio 0.7L 09/23/17 03:50: White Blood Count 14.1H, Red Blood Count 3.91L, Hemoglobin 8.4L, Hematocrit 28.4L, Mean Corpuscular Volume 73L, Mean Corpuscular Hemoglobin 21.5L, Mean Corpuscular Hemoglobin Concent 29.6L, Red Cell Distribution Width 17.1H, Platelet Count 265, Mean Platelet Volume 7.4, Neutrophils (%) (Auto) , Lymphocytes (%) (Auto) , Monocytes (%) (Auto) , Eosinophils (%) (Auto) , Basophils (%) (Auto) , Sodium Level 139, Potassium Level 4.3, Chloride Level 106 , Carbon Dioxide Level 29, Anion Gap 4L, Blood Urea Nitrogen 24H, Creatinine 1.2 , Estimat Glomerular Filtration Rate > 60, Glucose Level 136H, Uric Acid 8.4H, Calcium Level 8.5, Phosphorus Level 1.9L, Magnesium Level 2.0, Total Bilirubin 0.2, Aspartate Amino Transf (AST/SGOT) 94H, Alanine Aminotransferase (ALT/SGPT) 47, Alkaline Phosphatase 61, Total Creatine Kinase 1321H, Troponin I 0.076H, Total Protein 6.8, Albumin 3.0L, Globulin 3.8, Albumin/Globulin Ratio 0.8L, Hemoglobin A1c 5.5, Ferritin 16, Gamma Glutamyl Transpeptidase 21, Pro-B-Type Natriuretic Peptide 2642H, Triglycerides Level 55, Cholesterol Level 132, LDL Cholesterol 59, HDL Cholesterol 67H, Cholesterol/HDL Ratio 2.0L, Vitamin B12 Level 389, Folate 3.7L, Thyroid Stimulating Hormone (TSH) 0.306L, Cortisol AM Sample [Pending] Current Medications Medications (Trade) Dose Ordered Sig/Agustin Route PRN Reason Start Time Stop Time Status Last Admin Dose Admin Acetaminophen (Tylenol) 500 mg Q4H PRN ORAL For Pain 09/22/17 00:00 10/22/17 00:00 09/22/17 01:59 Albuterol/ Ipratropium (Albuterol/ Ipratropium) 3 ml Q6HRT HHN 09/22/17 01:00 09/27/17 00:59 09/23/17 08:06 Diltiazem HCl (Cardizem CD) 120 mg DAILY ORAL 09/23/17 09:00 10/23/17 08:59 09/23/17 08:43 Fluoxetine HCl (PROzac) 20 mg DAILY ORAL 09/23/17 09:00 10/23/17 08:59 09/23/17 08:43 Heparin Sodium (Porcine) (Heparin 5000 units/ml) 5,000 units BID SUBQ 09/22/17 09:00 10/22/17 08:59 09/23/17 08:44 Lansoprazole (Prevacid) 30 mg BID ORAL 09/22/17 18:00 10/22/17 17:59 09/23/17 08:42 Lorazepam (Ativan) 1 mg Q6H PRN ORAL For Anxiety 09/22/17 09:30 09/29/17 09:29 09/23/17 08:42 Methylprednisolone Sodium Succinate (Solu-MEDROL) 60 mg DAILY IVP 09/22/17 09:00 10/22/17 08:59 09/23/17 08:43 Sodium Chloride 1,000 ml @ 100 mls/hr Q10H IV 09/22/17 19:00 10/22/17 18:59 09/23/17 06:04 Tamsulosin HCl (Flomax) 0.4 mg BID ORAL 09/22/17 18:00 10/22/17 17:59 09/23/17 08:43 CLYDE RICH M.D. September 23, 2017 09:41
--- NOTE | 2017-09-23 11:11 | Nephrology Progress Note ---
Assessment/Plan Problem List: (1) Acute renal failure (2) Rhabdomyolysis (3) Anemia (4) COPD with exacerbation (5) Drug overdose Assessment Acute on chronic renal failure- COPD Rhabdo- Drug overdose Anemia Low BP on presentation Malnutrition BPH troponin leak Plan Gastric support Hydrate Flomax pulm toilet monitor CPK b12- Iron- Folate Subjective ROS Limited/Unobtainable: No Constitutional: Reports: malaise Objective Objective Last 24 Hour Vital Signs Date Time Temp Pulse Resp B/P (MAP) Pulse Ox O2 Delivery O2 Flow Rate FiO2 09/23/17 08:43 118 134/84 09/23/17 08:16 114 20 94 Nasal Cannula 3.0 32 09/23/17 08:06 118 26 96 Nasal Cannula 3.0 32 09/23/17 08:04 Nasal Cannula 3.0 32 09/23/17 08:04 94 Nasal Cannula 3.0 32 09/23/17 08:00 97.5 118 14 122/69 94 Nasal Cannula 3.0 97.5 09/23/17 08:00 109 09/23/17 04:00 94 09/23/17 04:00 98.2 84 20 134/84 97 Nasal Cannula 3.0 98.2 09/23/17 01:36 94 20 96 Nasal Cannula 3.0 32 09/23/17 01:35 90 20 93 Nasal Cannula 3.0 32 09/23/17 00:08 3.0 09/23/17 00:00 90 09/23/17 00:00 98.1 89 20 119/79 96 Nasal Cannula 3.0 98.1 09/22/17 20:00 98 Nasal Cannula 3.0 32 09/22/17 20:00 97 09/22/17 20:00 103 20 98 Nasal Cannula 3.0 32 09/22/17 20:00 101 20 94 Nasal Cannula 3.0 32 09/22/17 20:00 Nasal Cannula 3.0 32 09/22/17 20:00 3.0 09/22/17 20:00 98.2 91 20 122/69 99 Nasal Cannula 3.0 98.2 09/22/17 16:00 112 09/22/17 16:00 3.0 09/22/17 13:11 95 16 99 Nasal Cannula 3.0 32 09/22/17 13:05 93 16 93 Nasal Cannula 3.0 32 09/22/17 12:14 90 09/22/17 12:03 96 Nasal Cannula 3.0 32 09/22/17 12:01 Nasal Cannula 3.0 32 09/22/17 12:00 97.8 90 20 125/72 96 Nasal Cannula 3.0 97.8 09/22/17 12:00 3.0 Intake and Output 09/22/17 09/23/17 19:00 07:00 Intake Total 750 ml 840 ml Output Total 825 ml 600 ml Balance -75 ml 240 ml Intake Oral 540 ml 240 ml IV Total 210 ml 600 ml Output Urine Total 825 ml 600 ml # Voids 1 # Bowel Movements 1 Laboratory Tests 09/23/17 03:50: White Blood Count 14.1H, Red Blood Count 3.91L, Hemoglobin 8.4L, Hematocrit 28.4L, Mean Corpuscular Volume 73L, Mean Corpuscular Hemoglobin 21.5L, Mean Corpuscular Hemoglobin Concent 29.6L, Red Cell Distribution Width 17.1H, Platelet Count 265, Mean Platelet Volume 7.4, Neutrophils (%) (Auto) , Lymphocytes (%) (Auto) , Monocytes (%) (Auto) , Eosinophils (%) (Auto) , Basophils (%) (Auto) , Sodium Level 139, Potassium Level 4.3, Chloride Level 106 , Carbon Dioxide Level 29, Anion Gap 4L, Blood Urea Nitrogen 24H, Creatinine 1.2 , Estimat Glomerular Filtration Rate > 60, Glucose Level 136H, Hemoglobin A1c 5.5, Uric Acid 8.4H, Calcium Level 8.5, Phosphorus Level 1.9L, Magnesium Level 2.0, Ferritin 16, Total Bilirubin 0.2, Gamma Glutamyl Transpeptidase 21, Aspartate Amino Transf (AST/SGOT) 94H, Alanine Aminotransferase (ALT/SGPT) 47, Alkaline Phosphatase 61, Total Creatine Kinase 1321H, Troponin I 0.076H, Pro-B- Type Natriuretic Peptide 2642H, Total Protein 6.8, Albumin 3.0L, Globulin 3.8, Albumin/Globulin Ratio 0.8L, Triglycerides Level 55, Cholesterol Level 132, LDL Cholesterol 59, HDL Cholesterol 67H, Cholesterol/HDL Ratio 2.0L, Vitamin B12 Level 389, Folate 3.7L, Thyroid Stimulating Hormone (TSH) 0.306L, Cortisol AM Sample [Pending] Height (Feet): 5 Height (Inches): 8.00 Weight (Pounds): 125 General Appearance: no apparent distress Cardiovascular: tachycardia Respiratory/Chest: decreased breath sounds Abdomen: soft CELESTE CHOE September 23, 2017 11:11
[2017-09-23] MEDS ORDERED: Gadavist 7.5mMol/7.5ml vial IV PRN (11:30)
--- NOTE | 2017-09-23 11:30 | GI Initial Consult Note ---
History of Present Illness General Date patient seen: September 23, 2017 Time patient seen: 10:00 Reason for Hospitalization: Generalized Weakness Referring physician: Dr. Brennan Reason for Consultation: PANCREATIC LESION Present Illness HPI Patient is brought in for complaints of shortness of breath Upon arrival the patient reports that the patient was found with her morphine pills in his hand and appeared to be altered Patient is extremely hypoxic has history of COPD Is on oxygen at home Patient himself is altered and cannot provide significant history History of present illness is limited GI consulted for multicystic focus in the uncinate process measuring about 2 to 3 cm. Pt seen, awake A&Ox 4 with noted SOB. No N/V/D or abdominal pain noted. History of Hypoalbuminemia, anemia, UGIB, severe malnutrition and ETOH abuse. Presents today with anemia and mild troponin elevation. Had previous endoscopy at [facility], see summary below. Endoscopic records from [facility] reviewed - s/p EGD , unremarkable - s/p colonoscopy, internal hemorrhoids - recommend SB capsule endoscopy if heme positive, can be done as outpatient Home Meds Active Scripts Cephalexin* (KEFLEX*) 500 Mg Capsule, 500 MG ORAL EVERY 12 HOURS, #8 CAP 0 Refills Prov:Kim Turcios NP 10/26/16 Fluoxetine Hcl* (FLUOXETINE HCL*) 20 Mg Capsule, 20 MG ORAL DAILY for 30 Days, CAP Prov:Tyler Randolph MD 10/22/16 Theophylline (THEODUR*) 100 Mg Tab.er.12h, 100 MG ORAL EVERY 12 HOURS for 30 Days, TAB Prov:Tyler Randolph MD 10/22/16 Prednisolone* (PRELONE*) 15 Mg/5 Ml Solution, 45 MG ORAL DAILY for 7 Days, ML Prov:Amador Morgan DO 08/03/16 Prednisone (Prednisone) 20 Mg Tablet, 40 MG PO DAILY, #5 TAB Prov:Toni Barrientos MD 03/01/15 Reported Medications Unable to Obtain Medications (UNABLE TO OBTAIN MEDS) 1 Ea Ea 09/22/17 Flunisolide (Aerospan) 8.9 Gm Hfa.aer.ad, 8.9 GM IH 10/19/16 Atorvastatin Calcium* (LIPITOR*) 10 Mg Tablet, 10 MG ORAL BEDTIME, TAB 10/19/16 Thiamine Hcl* (VITAMIN B-1*) 100 Mg Tablet, 100 MG ORAL DAILY, #30 TAB 0 Refills 10/19/16 Spironolact/Hydrochlorothiazid (SPIRONOLACTONE-HCTZ 25-25 TAB) 1 Each Tablet, 1 TAB ORAL DAILY, TAB 10/19/16 Prednisone* (PREDNISONE*) 20 Mg Tablet, 20 MG ORAL DAILY, TAB 0 Refills 10/19/16 Lorazepam* (LORAZEPAM*) 1 Mg Tablet, 1 MG ORAL THREE TIMES A DAY, TAB 10/19/16 Losartan Potassium* (LOSARTAN POTASSIUM*) 25 Mg Tablet, 25 MG ORAL DAILY, TAB 10/19/16 Trazodone* (TRAZODONE*) 150 Mg Tablet, 50 MG ORAL BEDTIME, TAB 10/19/16 Acetaminophen (Acetaminophen) 650 Mg/20.3 Ml Solution, 650 MG ORAL Q6H PRN for Prn Headache/Temp > 101, ML 0 Refills 06/15/16 Cholecalciferol (Vitamin D3)* (VITAMIN D*) 1,000 Unit Tablet, 1000 UNIT ORAL DAILY, #30 TAB 06/15/16 Magnesium (MAGNESIUM) 250 Mg Tablet, 500 MG PO DAILY, TAB 06/15/16 Sennosides (SENNA) 8.6 Mg Tablet, PO, TAB 06/15/16 Ferrous Sulfate* (FERROUS SULFATE*) 325 Mg Tablet, 325 MG ORAL DAILY, #30 TAB 0 Refills 05/25/16 Folic Acid* (FOLIC ACID*) 1 Mg Tablet, 1 MG ORAL DAILY, TAB 05/25/16 Aspirin* (ASPIR 81*) 81 Mg Tablet.dr, 81 MG ORAL DAILY, TAB 05/25/16 Flunisolide (Aerospan) 8.9 Gm Hfa.aer.ad, 8.9 GM IH DAILY 05/25/16 Umeclidinium Brm/Vilanterol Tr (Anoro Ellipta 62.5-25 Mcg INH) 1 Each Blst.w.dev , 2 PUFFS INH DAILY 05/25/16 Cyanocobalamin (Vitamin B-12) (Vitamin B-12) 2,000 Mcg Tablet, 2000 MCG PO DAILY , TAB 05/25/16 Nitroglycerin (NITROGLYCERIN) 0.4 Mg Tab.subl, 0.4 MG SL Three times PRN for CHEST PAIN, TAB 05/25/16 Omeprazole (OMEPRAZOLE) 40 Mg Capsule.dr, 40 MG ORAL DAILY, CAP 05/25/16 Med list reviewed/reconciled: Yes Allergies: Coded Allergies: NO KNOWN ALLERGIES (Unverified Allergy, Unknown, 03/01/15) Patient History History Provided By: Patient, Medical Record PMH Narrative Past Medical History: see triage record Pertinent Family History: none Reviewed Nursing Documentation: PMH: Agreed; PSxH: Agreed Nursing Documentation-PMH Hx Cardiac Problems: Yes Hx Hypertension: Yes Hx Asthma: Yes Hx COPD: Yes Hx Cancer: No Hx Gastrointestinal Problems: No Hx Neurological Problems: Yes Hx Seizures: Yes - > couple of years ago Social History: Reports: alcohol use Review of Systems All Other Systems: negative except mentioned in HPI Physical Exam Vital Signs Date Time Temp Pulse Resp B/P (MAP) Pulse Ox O2 Delivery O2 Flow Rate FiO2 09/21/17 18:44 97.9 130 17 85/55 62 Room Air 97.9 09/21/17 19:40 2.0 09/21/17 19:40 28 Sp02 EP Interpretation: reviewed, normal Labs Laboratory Tests Test 09/23/17 03:50 White Blood Count 14.1 K/UL (4.8-10.8) H Red Blood Count 3.91 M/UL (4.70-6.10) L Hemoglobin 8.4 G/DL (14.2-18.0) L Hematocrit 28.4 % (42.0-52.0) L Mean Corpuscular Volume 73 FL (80-99) L Mean Corpuscular Hemoglobin 21.5 PG (27.0-31.0) L Mean Corpuscular Hemoglobin Concent 29.6 G/DL (32.0-36.0) L Red Cell Distribution Width 17.1 % (11.6-14.8) H Platelet Count 265 K/UL (150-450) Mean Platelet Volume 7.4 FL (6.5-10.1) Neutrophils (%) (Auto) % (45.0-75.0) Lymphocytes (%) (Auto) % (20.0-45.0) Monocytes (%) (Auto) % (1.0-10.0) Eosinophils (%) (Auto) % (0.0-3.0) Basophils (%) (Auto) % (0.0-2.0) Sodium Level 139 MMOL/L (136-145) Potassium Level 4.3 MMOL/L (3.5-5.1) Chloride Level 106 MMOL/L (98-107) Carbon Dioxide Level 29 MMOL/L (21-32) Anion Gap 4 mmol/L (5-15) L Blood Urea Nitrogen 24 mg/dL (7-18) H Creatinine 1.2 MG/DL (0.55-1.30) Estimat Glomerular Filtration Rate > 60 mL/min (>60) Glucose Level 136 MG/DL (74-106) H Hemoglobin A1c 5.5 % (4.3-6.0) Uric Acid 8.4 MG/DL (2.6-7.2) H Calcium Level 8.5 MG/DL (8.5-10.1) Phosphorus Level 1.9 MG/DL (2.5-4.9) L Magnesium Level 2.0 MG/DL (1.8-2.4) Iron Level Pending Unsaturated Iron Binding Pending Ferritin 16 NG/ML (8-388) Total Bilirubin 0.2 MG/DL (0.2-1.0) Gamma Glutamyl Transpeptidase 21 U/L (5-85) Aspartate Amino Transf (AST/SGOT) 94 U/L (15-37) H Alanine Aminotransferase (ALT/SGPT) 47 U/L (12-78) Alkaline Phosphatase 61 U/L (46-116) Total Creatine Kinase 1321 U/L (26-308) H Troponin I 0.076 ng/mL (0.000-0.056) Pro-B-Type Natriuretic Peptide 2642 pg/mL (0-125) H Total Protein 6.8 G/DL (6.4-8.2) Albumin 3.0 G/DL (3.4-5.0) L Globulin 3.8 g/dL Albumin/Globulin Ratio 0.8 (1.0-2.7) L Triglycerides Level 55 MG/DL (30-150) Cholesterol Level 132 MG/DL (< 200) LDL Cholesterol 59 mg/dL (<100) HDL Cholesterol 67 MG/DL (40-60) H Cholesterol/HDL Ratio 2.0 (3.3-4.4) L Vitamin B12 Level 389 PG/ML (193-986) Folate 3.7 NG/ML (8.6-58.9) L Thyroid Stimulating Hormone (TSH) 0.306 uiU/mL (0.358-3.740) Cortisol AM Sample Pending General Appearance: well appearing, no apparent distress, alert, thin Head: normocephalic EENT: PERRL/EOMI, normal ENT inspection Neck: supple Respiratory: normal breath sounds, no respiratory distress Cardiovascular: normal rate Gastrointestinal: normal inspection, non tender, soft, normal bowel sounds, non -distended Rectal: deferred Genitourinary: deferred Musculoskeletal: normal inspection, back normal Neurologic: normal inspection, alert, oriented x3, responsive Psychiatric: normal inspection, judgement/insight normal, memory normal Skin: normal inspection, normal color, no rash, warm/dry, palpation normal, well hydrated Lymphatic: normal inspection, no adenopathy Current Medications Current Medications Medications (Trade) Dose Ordered Sig/Agustin Route PRN Reason Start Time Stop Time Status Last Admin Dose Admin Acetaminophen (Tylenol) 500 mg Q4H PRN ORAL For Pain 09/22/17 00:00 10/22/17 00:00 09/22/17 01:59 Albuterol/ Ipratropium (Albuterol/ Ipratropium) 3 ml Q6HRT HHN 09/22/17 01:00 09/27/17 00:59 09/23/17 08:06 Cyanocobalamin (Vitamin B12) 1,000 mcg ONCE ONCE SUBQ 09/23/17 11:15 09/23/17 11:16 UNV Diltiazem HCl (Cardizem CD) 120 mg DAILY ORAL 09/23/17 09:00 10/23/17 08:59 09/23/17 08:43 Fluoxetine HCl (PROzac) 20 mg DAILY ORAL 09/23/17 09:00 10/23/17 08:59 09/23/17 08:43 Folic Acid (Folate) 5 mg DAILY ORAL 09/23/17 11:00 10/23/17 10:59 UNV Heparin Sodium (Porcine) (Heparin 5000 units/ml) 5,000 units BID SUBQ 09/22/17 09:00 10/22/17 08:59 09/23/17 08:44 Iron Sucrose 200 mg/Sodium Chloride 60 ml @ 200 mls/hr ONCE ONCE IVPB 09/23/17 11:15 09/23/17 11:32 UNV Lansoprazole (Prevacid) 30 mg BID ORAL 09/22/17 18:00 10/22/17 17:59 09/23/17 08:42 Lorazepam (Ativan) 1 mg Q6H PRN ORAL For Anxiety 09/22/17 09:30 09/29/17 09:29 09/23/17 08:42 Methylprednisolone Sodium Succinate (Solu-MEDROL) 60 mg DAILY IVP 09/22/17 09:00 10/22/17 08:59 09/23/17 08:43 Sodium Chloride 1,000 ml @ 50 mls/hr Q20H IV 09/23/17 10:00 10/22/17 09:59 09/23/17 09:56 Tamsulosin HCl (Flomax) 0.4 mg BID ORAL 09/22/17 18:00 10/22/17 17:59 09/23/17 08:43 GI: Plan Problems: (1) Pancreatic lesion (2) ETOH abuse (3) Anemia (4) Severe protein-calorie malnutrition (5) Hypoalbuminemia Plan CT AP reviewed >> Multicystic focus in the uncinate process measuring about 2 to 3 cm. history of ETOH abuse patient will require cardiac clearance prior procedure given elevated troponin levels MRI, pancreatic protocol ordered anemia work up OB stool r/o GI bleed monitor H&H, prn transfusions bowel regime ppi fu labs, [id number] will consider endoscopy if necessary Discussed with Dr. Patton. Thank you for this patient referral, we will follow. The patient was seen and examined at bedside and all new and available data was reviewed in the patients chart. I agree with the above findings, impression and plan. (Patient seen earlier today. Signature stamp does not reflect patient encounter time.). - MD Nicole DangeloD[facility] [employer] September 23, 2017 11:29
[2017-09-23 11:36] LABS: % IRON SATURATION 2 % (15-50); IRON 8 ug/dL (50-175); TOTAL IRON BINDING CAPACITY 355 ug/dL (250-450)
[2017-09-23 12:00] VITALS: BP 113/64
[2017-09-23] MEDS ORDERED: Vitamin B12 1000mcg/ml Inj SUBQ SCH (12:00)
[2017-09-23] MEDS ORDERED: Iron Sucrose 200 MG in NS 110 ML IV ONE (13:00)
--- NOTE | 2017-09-23 13:30 | History and Physical Report ---
DATE OF ADMISSION: 09/21/2017 HISTORY OF PRESENT ILLNESS: The patient is admitted for COPD exacerbation. The patient is a very poor historian, also apparently took morphine, had elevated pCO2 and creatinine and BNP. The patient's in the past. Cannot get any history from the patient due to dementia. PAST MEDICAL HISTORY: Significant for hyperlipidemia, COPD, vitamin B12 deficiency, iron deficiency, hypertension, GERD, and constipation. ALLERGIES: No known allergies. . SOCIAL HISTORY: History of smoking, history of drug abuse, as well as history of alcohol abuse. MEDICATIONS: Lipitor, vitamin D and B12, iron, fluoxetine, folic acid, hydrochlorothiazide, losartan, omeprazole, prednisone, , theophylline, and thiamine. FAMILY HISTORY: Noncontributory. REVIEW OF SYSTEMS: HEENT: Denies headaches. Denies shortness of breath. Denies cough. CARDIOVASCULAR: Denies chest pain. GASTROINTESTINAL: Denies nausea, vomiting, or diarrhea. EXTREMITIES: . CENTRAL NERVOUS SYSTEM: . PHYSICAL EXAMINATION: VITAL SIGNS: Pulse is 90 and no blood pressure is recorded. HEENT: PERRLA. NECK: Supple without lymphadenopathy. CHEST: Clear to auscultation. GASTROINTESTINAL: Soft, nontender, and nondistended. No organomegaly. EXTREMITIES: No edema. Reflexes on both sides. NEUROLOGIC: Oriented to name only. LABORATORY DATA: Troponin was 0.12. Sodium 139, potassium 4.9, BUN of 22, creatinine 1.7, and glucose of 126. Magnesium 1.7. WBC of 12, hemoglobin 12.5, and platelets 328. ASSESSMENT AND PLAN: 1. Borderline troponin, could be due to dehydration. The patient is . No . 2. Leukocytosis. 3. Dehydration. 4. COPD exacerbation. 5. Mild rhabdomyolysis. 6. Acute renal failure, due to dehydration most likely. I have asked Dr. Byers, Dr. Miller, Dr. Pretty, Dr. Rowe, and Dr. Christina to see the patient for the above-mentioned diagnoses and treatment. The patient also has a psychiatric history. Amador Brennan M.D. DR: JEAN JOB#: [id number] CC:
[2017-09-23 16:00] VITALS: BP 123/76
[2017-09-23] MEDS ORDERED: LORazepam 1mg tab ORAL PRN (16:00)
[2017-09-23] MEDS ORDERED: Acetaminophen 500mg (ES) tab ORAL PRN (20:00)
[2017-09-23 20:22] VITALS: BP 148/84
[2017-09-23] MEDS ORDERED: Iron Sucrose 100 MG in NS 110 ML IV SCH ×4 (21:00)
--- NOTE | 2017-09-23 22:05 | General Progress Note ---
Assessment/Plan Problem List: (1) Rhabdomyolysis ICD Codes: M62.82 - Rhabdomyolysis SNOMED: 155336917 (2) Hypoalbuminemia ICD Codes: E88.09 - Other disorders of plasma-protein metabolism, not elsewhere classified SNOMED: 329551902 (3) Severe protein-calorie malnutrition ICD Codes: E43 - Unspecified severe protein-calorie malnutrition SNOMED: 670616417 (4) COPD (chronic obstructive pulmonary disease) ICD Codes: J44.9 - Chronic obstructive pulmonary disease, unspecified SNOMED: 79513958 (5) ETOH abuse ICD Codes: F10.10 - Alcohol abuse, uncomplicated SNOMED: 14094716, 46705631 (6) Pancreatic lesion ICD Codes: K86.9 - Disease of pancreas, unspecified SNOMED: 0059871 Status: progressing Assessment/Plan has cystic lesion on pancreas consulted heme/onc and gi for above copd wanted to leave ama however changed his decsion and stayed afebrile Subjective ROS Limited/Unobtainable: Yes Allergies: Coded Allergies: NO KNOWN ALLERGIES (Unverified Allergy, Unknown, 03/01/15) Objective Last 24 Hour Vital Signs Date Time Temp Pulse Resp B/P (MAP) Pulse Ox O2 Delivery O2 Flow Rate FiO2 09/23/17 20:22 97.3 115 19 148/84 91 97.3 09/23/17 20:00 Room Air 21 09/23/17 20:00 88 20 97 Room Air 21 09/23/17 20:00 96 Room Air 21 09/23/17 20:00 83 20 96 Room Air 21 09/23/17 16:00 97.5 94 21 123/76 90 97.5 09/23/17 16:00 Room Air 09/23/17 15:31 106 22 99 Nasal Cannula 3.0 32 09/23/17 15:21 102 22 95 Nasal Cannula 3.0 32 09/23/17 12:00 97.7 84 16 113/64 100 Nasal Cannula 3.0 97.7 09/23/17 08:43 118 134/84 09/23/17 08:16 114 20 94 Nasal Cannula 3.0 32 09/23/17 08:06 118 26 96 Nasal Cannula 3.0 32 09/23/17 08:04 Nasal Cannula 3.0 32 09/23/17 08:04 94 Nasal Cannula 3.0 32 09/23/17 08:00 97.5 118 14 122/69 94 Nasal Cannula 3.0 97.5 09/23/17 08:00 109 09/23/17 04:00 94 09/23/17 04:00 98.2 84 20 134/84 97 Nasal Cannula 3.0 98.2 09/23/17 01:36 94 20 96 Nasal Cannula 3.0 32 09/23/17 01:35 90 20 93 Nasal Cannula 3.0 32 09/23/17 00:08 3.0 09/23/17 00:00 90 09/23/17 00:00 98.1 89 20 119/79 96 Nasal Cannula 3.0 98.1 Intake and Output 09/22/17 09/23/17 19:00 07:00 Intake Total 750 ml 840 ml Output Total 825 ml 600 ml Balance -75 ml 240 ml Intake Oral 540 ml 240 ml IV Total 210 ml 600 ml Output Urine Total 825 ml 600 ml # Voids 1 # Bowel Movements 1 Laboratory Tests 09/23/17 03:50: White Blood Count 14.1H, Red Blood Count 3.91L, Hemoglobin 8.4L, Hematocrit 28.4L, Mean Corpuscular Volume 73L, Mean Corpuscular Hemoglobin 21.5L, Mean Corpuscular Hemoglobin Concent 29.6L, Red Cell Distribution Width 17.1H, Platelet Count 265, Mean Platelet Volume 7.4, Neutrophils (%) (Auto) , Lymphocytes (%) (Auto) , Monocytes (%) (Auto) , Eosinophils (%) (Auto) , Basophils (%) (Auto) , Sodium Level 139, Potassium Level 4.3, Chloride Level 106 , Carbon Dioxide Level 29, Anion Gap 4L, Blood Urea Nitrogen 24H, Creatinine 1.2 , Estimat Glomerular Filtration Rate > 60, Glucose Level 136H, Hemoglobin A1c 5.5, Uric Acid 8.4H, Calcium Level 8.5, Phosphorus Level 1.9L, Magnesium Level 2.0, Iron Level 8L, Total Iron Binding Capacity 355, Percent Iron Saturation 2L , Unsaturated Iron Binding 347H, Ferritin 16, Total Bilirubin 0.2, Gamma Glutamyl Transpeptidase 21, Aspartate Amino Transf (AST/SGOT) 94H, Alanine Aminotransferase (ALT/SGPT) 47, Alkaline Phosphatase 61, Total Creatine Kinase 1321H, Troponin I 0.076H, Pro-B-Type Natriuretic Peptide 2642H, Total Protein 6.8, Albumin 3.0L, Globulin 3.8, Albumin/Globulin Ratio 0.8L, Triglycerides Level 55, Cholesterol Level 132, LDL Cholesterol 59, HDL Cholesterol 67H, Cholesterol/HDL Ratio 2.0L, Vitamin B12 Level 389, Folate 3.7L, Thyroid Stimulating Hormone (TSH) 0.306L, Cortisol AM Sample [Pending] Height (Feet): 5 Height (Inches): 8.00 Weight (Pounds): 125 General Appearance: confused Cardiovascular: normal rate Respiratory/Chest: lungs clear Amador Brennan MD September 23, 2017 22:05
--- NOTE | 2017-09-23 23:54 | Cardiology Progress Note ---
Assessment/Plan Assessment/Plan 1. Dyspnea, hypoxic hypercarbia respiratory failure due to opiate and benzodiazepine overdose. 2D echo shows normal LV systolic and diastolic function. Chest x-ray shows no pulmonary edema. PPV of beta-natriuretic peptide not that great. Physical exam is in favor of severe emphysema. 2. Slight elevation of troponin I level could be secondary to troponin leak in view of renal failure with associated small rhabdomyolysis or demand ischemia as there were some questionable changes on the lateral leads. A 2D echocardiography does not show any wall motion abnormalities. Subjective Subjective Sinus rhythm at 83. Objective Last 24 Hour Vital Signs Date Time Temp Pulse Resp B/P (MAP) Pulse Ox O2 Delivery O2 Flow Rate FiO2 09/23/17 20:22 97.3 115 19 148/84 91 97.3 09/23/17 20:00 Room Air 21 09/23/17 20:00 88 20 97 Room Air 21 09/23/17 20:00 96 Room Air 21 09/23/17 20:00 83 20 96 Room Air 21 09/23/17 16:00 97.5 94 21 123/76 90 97.5 09/23/17 16:00 Room Air 09/23/17 15:31 106 22 99 Nasal Cannula 3.0 32 09/23/17 15:21 102 22 95 Nasal Cannula 3.0 32 09/23/17 12:00 97.7 84 16 113/64 100 Nasal Cannula 3.0 97.7 09/23/17 08:43 118 134/84 09/23/17 08:16 114 20 94 Nasal Cannula 3.0 32 09/23/17 08:06 118 26 96 Nasal Cannula 3.0 32 09/23/17 08:04 Nasal Cannula 3.0 32 09/23/17 08:04 94 Nasal Cannula 3.0 32 09/23/17 08:00 97.5 118 14 122/69 94 Nasal Cannula 3.0 97.5 09/23/17 08:00 109 09/23/17 04:00 94 09/23/17 04:00 98.2 84 20 134/84 97 Nasal Cannula 3.0 98.2 09/23/17 01:36 94 20 96 Nasal Cannula 3.0 32 09/23/17 01:35 90 20 93 Nasal Cannula 3.0 32 09/23/17 00:08 3.0 09/23/17 00:00 90 09/23/17 00:00 98.1 89 20 119/79 96 Nasal Cannula 3.0 98.1 Intake and Output 09/22/17 09/23/17 19:00 07:00 Intake Total 750 ml 840 ml Output Total 825 ml 600 ml Balance -75 ml 240 ml Intake Oral 540 ml 240 ml IV Total 210 ml 600 ml Output Urine Total 825 ml 600 ml # Voids 1 # Bowel Movements 1 2D Echo: EF 65%, Grade II LV DD or Pseudo-normal LV physio, s/o mod. elevated LAP Laboratory Tests Test 09/23/17 03:50 White Blood Count 14.1 K/UL (4.8-10.8) H Red Blood Count 3.91 M/UL (4.70-6.10) L Hemoglobin 8.4 G/DL (14.2-18.0) L Hematocrit 28.4 % (42.0-52.0) L Mean Corpuscular Volume 73 FL (80-99) L Mean Corpuscular Hemoglobin 21.5 PG (27.0-31.0) L Mean Corpuscular Hemoglobin Concent 29.6 G/DL (32.0-36.0) L Red Cell Distribution Width 17.1 % (11.6-14.8) H Platelet Count 265 K/UL (150-450) Mean Platelet Volume 7.4 FL (6.5-10.1) Neutrophils (%) (Auto) % (45.0-75.0) Lymphocytes (%) (Auto) % (20.0-45.0) Monocytes (%) (Auto) % (1.0-10.0) Eosinophils (%) (Auto) % (0.0-3.0) Basophils (%) (Auto) % (0.0-2.0) Sodium Level 139 MMOL/L (136-145) Potassium Level 4.3 MMOL/L (3.5-5.1) Chloride Level 106 MMOL/L (98-107) Carbon Dioxide Level 29 MMOL/L (21-32) Anion Gap 4 mmol/L (5-15) L Blood Urea Nitrogen 24 mg/dL (7-18) H Creatinine 1.2 MG/DL (0.55-1.30) Estimat Glomerular Filtration Rate > 60 mL/min (>60) Glucose Level 136 MG/DL (74-106) H Hemoglobin A1c 5.5 % (4.3-6.0) Uric Acid 8.4 MG/DL (2.6-7.2) H Calcium Level 8.5 MG/DL (8.5-10.1) Phosphorus Level 1.9 MG/DL (2.5-4.9) L Magnesium Level 2.0 MG/DL (1.8-2.4) Iron Level 8 ug/dL (50-175) L Total Iron Binding Capacity 355 ug/dL (250-450) Percent Iron Saturation 2 % (15-50) L Unsaturated Iron Binding 347 ug/dL (112-346) H Ferritin 16 NG/ML (8-388) Total Bilirubin 0.2 MG/DL (0.2-1.0) Gamma Glutamyl Transpeptidase 21 U/L (5-85) Aspartate Amino Transf (AST/SGOT) 94 U/L (15-37) H Alanine Aminotransferase (ALT/SGPT) 47 U/L (12-78) Alkaline Phosphatase 61 U/L (46-116) Total Creatine Kinase 1321 U/L (26-308) H Troponin I 0.076 ng/mL (0.000-0.056) Pro-B-Type Natriuretic Peptide 2642 pg/mL (0-125) H Total Protein 6.8 G/DL (6.4-8.2) Albumin 3.0 G/DL (3.4-5.0) L Globulin 3.8 g/dL Albumin/Globulin Ratio 0.8 (1.0-2.7) L Triglycerides Level 55 MG/DL (30-150) Cholesterol Level 132 MG/DL (< 200) LDL Cholesterol 59 mg/dL (<100) HDL Cholesterol 67 MG/DL (40-60) H Cholesterol/HDL Ratio 2.0 (3.3-4.4) L Vitamin B12 Level 389 PG/ML (193-986) Folate 3.7 NG/ML (8.6-58.9) L Thyroid Stimulating Hormone (TSH) 0.306 uiU/mL (0.358-3.740) Cortisol AM Sample Pending Bharat Rowe MD September 23, 2017 23:54
[2017-09-24] MEDS: Albuterol/Ipratropium 3ml neb HHN SCH ×3 (00:08→07:41)
[2017-09-24 00:36] VITALS: BP 139/80
[2017-09-24 04:00] VITALS: BP 140/78
[2017-09-24 07:41] LABS: BASOPHILS % (AUTO) 0.3 % (0.0-2.0); HEMATOCRIT 27.7 % (42.0-52.0); HEMOGLOBIN 8.4 G/DL (14.2-18.0); LYMPHOCYTES % (AUTO) 11.2 % (20.0-45.0); MEAN CORPUSCULAR VOLUME 71 FL (80-99); MONOCYTES % (AUTO) 5.8 % (1.0-10.0); NEUTROPHILS % (AUTO) 82.6 % (45.0-75.0); PLATELET COUNT 248 K/UL (150-450); RED BLOOD COUNT 3.88 M/UL (4.70-6.10); RED CELL DISTRIBUTION WIDTH 16.7 % (11.6-14.8); WHITE BLOOD COUNT 11.3 K/UL (4.8-10.8)
[2017-09-24 08:00] VITALS: BP 143/74
--- NOTE | 2017-09-24 08:56 | Pulmonology Progress Note ---
Assessment/Plan Problems: (1) COPD with exacerbation (2) Respiratory distress (3) Rhabdomyolysis (4) Elevated troponin I level (5) Severe protein-calorie malnutrition (6) Hypoxia (7) Hypoalbuminemia Assessment/Plan ASSESSMENT: The patient is a 61-year-old male smoker with a history of COPD, seizure disorder, hypertension presenting with shortness of breath and altered mental status likely secondary to hypercarbia, and opiate narcosis on top of underlying chronic obstructive pulmonary disease. His workup is also positive for acute kidney injury, rhabdomyolysis, lactic acidosis , and elevated cardiac biomarkers, likely secondary to demand ischemia. He did receive a dose of intravenous Lovenox in the emergency department. Despite his elevated BNP, clinically he is dry and dehydrated. PROBLEM LIST: 1. Chronic obstructive pulmonary disease with acute exacerbation - BETTER 2. Altered mental status, secondary to hypercarbia and CO2 and opiate narcosis - BETTER 3. Opiate overdose. 4. Acute kidney injury - RESOLVED 5. Lactic acidosis - RESOLVED 6. Rhabdomyolysis. 7. Elevated cardiac biomarkers, likely demand ischemia. 8. History of hypertension. 9. History of seizure disorder. TREATMENT PLAN: 1. Optimize pulmonary hygiene/mobilize as tolerated. 2. P.r.n. BiPAP. 3. Bbbjq-ymg-yliud and p.r.n. bronchodilators. 4. D/C SM, start Pred 60 (D4/5) 5. Observe off of antibiotics for any signs of infection. 6. Consider D/C IVF 7. F/U cards and renal recs 8. F/U GI recs Re: cystic pancreatic lesion 9. Aspiration precautions, [employer] recs 10. DVT Px: Hep SQ Subjective Allergies: Coded Allergies: NO KNOWN ALLERGIES (Unverified Allergy, Unknown, 03/01/15) Subjective AFVSS, O2 needs stable No SOB, no cough, no F/C, no CP Objective Last 24 Hour Vital Signs Date Time Temp Pulse Resp B/P (MAP) Pulse Ox O2 Delivery O2 Flow Rate FiO2 09/24/17 07:46 94 20 98 Room Air 21 09/24/17 07:37 95 20 96 Room Air 21 09/24/17 07:37 Room Air 21 09/24/17 07:37 96 Room Air 09/24/17 05:29 91 20 97 Room Air 21 09/24/17 05:26 89 20 93 Room Air 21 09/24/17 04:00 97.0 83 22 140/78 93 Simple Mask 97.0 09/24/17 03:21 97.5 09/24/17 00:36 97.5 97 17 139/80 92 97.5 09/24/17 00:09 89 20 98 Room Air 21 09/24/17 00:08 86 20 95 Room Air 21 09/23/17 20:22 97.3 115 19 148/84 91 97.3 09/23/17 20:00 Room Air 21 09/23/17 20:00 88 20 97 Room Air 21 09/23/17 20:00 96 Room Air 21 09/23/17 20:00 83 20 96 Room Air 21 09/23/17 16:00 97.5 94 21 123/76 90 97.5 09/23/17 16:00 Room Air 09/23/17 15:31 106 22 99 Nasal Cannula 3.0 32 09/23/17 15:21 102 22 95 Nasal Cannula 3.0 32 09/23/17 12:00 97.7 84 16 113/64 100 Nasal Cannula 3.0 97.7 Intake and Output 09/23/17 09/24/17 19:00 07:00 Intake Total 590 ml 690 ml Balance 590 ml 690 ml Intake Oral 240 ml 240 ml IV Total 350 ml 450 ml # Voids 1 1 # Bowel Movements 3 3 General Appearance: no acute distress, cachetic HEENT: normocephalic, atraumatic, anicteric, mucous membranes moist Respiratory/Chest: chest wall non-tender, lungs clear, normal breath sounds, no respiratory distress Cardiovascular: normal peripheral pulses, normal rate, regular rhythm Abdomen: normal bowel sounds, soft, non tender, no organomegaly, non distended Extremities: no cyanosis, no clubbing, no edema Laboratory Tests 09/24/17 05:45: White Blood Count 11.3H, Red Blood Count 3.88L, Hemoglobin 8.4L, Hematocrit 27.7L, Mean Corpuscular Volume 71L, Mean Corpuscular Hemoglobin 21.6L, Mean Corpuscular Hemoglobin Concent 30.2L, Red Cell Distribution Width 16.7H, Platelet Count 248, Mean Platelet Volume 6.9, Neutrophils (%) (Auto) 82.6H, Lymphocytes (%) (Auto) 11.2L, Monocytes (%) (Auto) 5.8, Eosinophils (%) (Auto) 0.0, Basophils (%) (Auto) 0.3, Carcinoembryonic Antigen [Pending], CA 19-9 Antigen [Pending] Current Medications Medications (Trade) Dose Ordered Sig/Agustin Route PRN Reason Start Time Stop Time Status Last Admin Dose Admin Acetaminophen (Tylenol) 500 mg Q4H PRN ORAL For Pain 09/23/17 20:00 10/22/17 00:00 09/24/17 02:22 Albuterol/ Ipratropium (Albuterol/ Ipratropium) 3 ml Q6HRT HHN 09/23/17 19:00 09/27/17 00:59 09/24/17 07:41 Diltiazem HCl (Cardizem CD) 120 mg DAILY ORAL 09/24/17 09:00 10/23/17 08:59 Fluoxetine HCl (PROzac) 20 mg DAILY ORAL 09/24/17 09:00 10/23/17 08:59 Folic Acid (Folate) 5 mg DAILY ORAL 09/24/17 09:00 10/24/17 08:59 Heparin Sodium (Porcine) (Heparin 5000 units/ml) 5,000 units BID SUBQ 09/23/17 18:00 10/22/17 08:59 09/23/17 18:13 Iron Sucrose 100 mg/Sodium Chloride 115 ml @ 460 mls/hr BEDTIME IV 09/23/17 21:00 09/27/17 21:14 09/23/17 20:35 Lansoprazole (Prevacid) 30 mg BID ORAL 09/23/17 18:00 10/22/17 17:59 09/23/17 18:14 Lorazepam (Ativan) 1 mg Q6H PRN ORAL For Anxiety 09/23/17 16:00 09/29/17 15:59 09/24/17 05:55 Methylprednisolone Sodium Succinate (Solu-MEDROL) 60 mg DAILY IVP 09/24/17 09:00 10/22/17 08:59 Sodium Chloride 1,000 ml @ 50 mls/hr Q20H IV 09/23/17 16:30 10/22/17 16:29 09/23/17 18:06 Tamsulosin HCl (Flomax) 0.4 mg BID ORAL 09/23/17 18:00 10/22/17 17:59 09/23/17 18:14 CLYDE RICH M.D. September 24, 2017 08:56
--- NOTE | 2017-09-24 08:57 | Consultation ---
Consult Note Consult Note [id number] job ID - thank you for consultation! Tab Rapp MD September 24, 2017 08:57
[2017-09-24] MEDS ORDERED: dilTIAZem HCl CD 120mg cap ORAL SCH (09:00)
[2017-09-24] MEDS ORDERED: Solu-MEDROL 125mg Inj IVP SCH (09:00)
--- NOTE | 2017-09-24 09:26 | General Progress Note ---
Assessment/Plan Assessment/Plan (1) Atypical chest pain (2) COPD exacerbation Patient will be continued on Tylenol for pain and Ativan D/w Dr. Miller and he concurred. Subjective Date patient seen: September 24, 2017 Time patient seen: 07:45 - am Allergies: Coded Allergies: NO KNOWN ALLERGIES (Unverified Allergy, Unknown, 03/01/15) Subjective Constitutional: Reports: no symptoms Eye: Reports: no symptoms ENT: Reports: no symptoms Respiratory: Reports: shortness of breath Cardiovascular: Reports: no symptoms Gastrointestinal: Reports: no symptoms Genitourinary: Reports: no symptoms Musculoskeletal: Reports: no symptoms Skin: Reports: no symptoms Psychiatric: Reports: no symptoms Neurological: Reports: no symptoms Endocrine: Reports: no symptoms Hematologic/Lymphatic: Reports: no symptoms Subjective Patient is standing showing no signs of pain or distress. Objective Last 24 Hour Vital Signs Date Time Temp Pulse Resp B/P (MAP) Pulse Ox O2 Delivery O2 Flow Rate FiO2 09/24/17 08:00 97.6 93 19 143/74 97 97.6 09/24/17 07:46 94 20 98 Room Air 21 09/24/17 07:37 95 20 96 Room Air 21 09/24/17 07:37 Room Air 21 09/24/17 07:37 96 Room Air 21 09/24/17 05:29 91 20 97 Room Air 21 09/24/17 05:26 89 20 93 Room Air 09/24/17 04:00 97.0 83 22 140/78 93 Simple Mask 97.0 09/24/17 03:21 97.5 09/24/17 00:36 97.5 97 17 139/80 92 97.5 09/24/17 00:09 89 20 98 Room Air 21 09/24/17 00:08 86 20 95 Room Air 21 09/23/17 20:22 97.3 115 19 148/84 91 97.3 09/23/17 20:00 Room Air 21 09/23/17 20:00 88 20 97 Room Air 21 09/23/17 20:00 96 Room Air 21 09/23/17 20:00 83 20 96 Room Air 21 09/23/17 16:00 97.5 94 21 123/76 90 97.5 09/23/17 16:00 Room Air 09/23/17 15:31 106 22 99 Nasal Cannula 3.0 32 09/23/17 15:21 102 22 95 Nasal Cannula 3.0 32 09/23/17 12:00 97.7 84 16 113/64 100 Nasal Cannula 3.0 97.7 Intake and Output 09/23/17 09/24/17 19:00 07:00 Intake Total 590 ml 690 ml Balance 590 ml 690 ml Intake Oral 240 ml 240 ml IV Total 350 ml 450 ml # Voids 1 1 # Bowel Movements 3 3 Laboratory Tests 09/24/17 05:45: White Blood Count 11.3H, Red Blood Count 3.88L, Hemoglobin 8.4L, Hematocrit 27.7L, Mean Corpuscular Volume 71L, Mean Corpuscular Hemoglobin 21.6L, Mean Corpuscular Hemoglobin Concent 30.2L, Red Cell Distribution Width 16.7H, Platelet Count 248, Mean Platelet Volume 6.9, Neutrophils (%) (Auto) 82.6H, Lymphocytes (%) (Auto) 11.2L, Monocytes (%) (Auto) 5.8, Eosinophils (%) (Auto) 0.0, Basophils (%) (Auto) 0.3, Carcinoembryonic Antigen [Pending], CA 19-9 Antigen [Pending] Height (Feet): 5 Height (Inches): 8.00 Weight (Pounds): 125 Objective General Appearance: no apparent distress, alert HEENT: PERRL, EOMI Neck: non-tender, supple Respiratory/Chest: decreased breath sounds Cardiovascular/Chest: normal rate, regular rhythm Abdomen: non tender, soft Extremities: non-tender, normal inspection Skin Exam: normal pigmentation, warm/dry Neurologic: alert, responsive NOAH SILVA PElena September 24, 2017 09:26
[2017-09-24 09:36] VITALS: BP 149/95
[2017-09-24] MEDS: Tamsulosin 0.4mg cap ORAL SCH (09:37)
[2017-09-24] MEDS: Heparin 5000 units/ml inj SUBQ SCH (09:39)
--- NOTE | 2017-09-24 11:16 | Nephrology Progress Note ---
Assessment/Plan Problem List: (1) Acute renal failure (2) Rhabdomyolysis (3) Anemia (4) COPD with exacerbation (5) Drug overdose Assessment Acute on chronic renal failure- COPD Rhabdo- Drug overdose Anemia Low BP on presentation Malnutrition BPH troponin leak Plan no labs today Gastric support Hydrate Flomax pulm toilet monitor CPK b12- Iron- Folate Subjective ROS Limited/Unobtainable: No Constitutional: Reports: other - anxious to leave Objective Objective Last 24 Hour Vital Signs Date Time Temp Pulse Resp B/P (MAP) Pulse Ox O2 Delivery O2 Flow Rate FiO2 09/24/17 09:36 105 149/95 09/24/17 08:00 Room Air 09/24/17 08:00 97.6 93 19 143/74 97 97.6 09/24/17 07:46 94 20 98 Room Air 21 09/24/17 07:37 95 20 96 Room Air 21 09/24/17 07:37 Room Air 21 09/24/17 07:37 96 Room Air 21 09/24/17 05:29 91 20 97 Room Air 21 09/24/17 05:26 89 20 93 Room Air 21 09/24/17 04:00 97.0 83 22 140/78 93 Simple Mask 97.0 09/24/17 03:21 97.5 09/24/17 00:36 97.5 97 17 139/80 92 97.5 09/24/17 00:09 89 20 98 Room Air 21 09/24/17 00:08 86 20 95 Room Air 21 09/23/17 20:22 97.3 115 19 148/84 91 97.3 09/23/17 20:00 Room Air 09/23/17 20:00 88 20 97 Room Air 21 09/23/17 20:00 96 Room Air 21 09/23/17 20:00 83 20 96 Room Air 21 09/23/17 16:00 97.5 94 21 123/76 90 97.5 09/23/17 16:00 Room Air 09/23/17 15:31 106 22 99 Nasal Cannula 3.0 32 09/23/17 15:21 102 22 95 Nasal Cannula 3.0 32 09/23/17 12:00 97.7 84 16 113/64 100 Nasal Cannula 3.0 97.7 Intake and Output 09/23/17 09/24/17 19:00 07:00 Intake Total 590 ml 690 ml Balance 590 ml 690 ml Intake Oral 240 ml 240 ml IV Total 350 ml 450 ml # Voids 1 1 # Bowel Movements 3 3 Current Medications Medications (Trade) Dose Ordered Sig/Agustin Route PRN Reason Start Time Stop Time Status Last Admin Dose Admin Acetaminophen (Tylenol) 500 mg Q4H PRN ORAL For Pain 09/23/17 20:00 10/22/17 00:00 09/24/17 02:22 Albuterol/ Ipratropium (Albuterol/ Ipratropium) 3 ml Q6HRT HHN 09/23/17 19:00 09/27/17 00:59 09/24/17 07:41 Diltiazem HCl (Cardizem CD) 120 mg DAILY ORAL 09/24/17 09:00 10/23/17 08:59 09/24/17 09:36 Fluoxetine HCl (PROzac) 20 mg DAILY ORAL 09/24/17 09:00 10/23/17 08:59 09/24/17 09:38 Folic Acid (Folate) 5 mg DAILY ORAL 09/24/17 09:00 10/24/17 08:59 09/24/17 09:37 Heparin Sodium (Porcine) (Heparin 5000 units/ml) 5,000 units BID SUBQ 09/23/17 18:00 10/22/17 08:59 09/24/17 09:39 Iron Sucrose 100 mg/Sodium Chloride 115 ml @ 460 mls/hr BEDTIME IV 09/23/17 21:00 09/27/17 21:14 09/23/17 20:35 Lansoprazole (Prevacid) 30 mg BID ORAL 09/23/17 18:00 10/22/17 17:59 09/24/17 09:38 Lorazepam (Ativan) 1 mg Q6H PRN ORAL For Anxiety 09/23/17 16:00 09/29/17 15:59 09/24/17 05:55 Prednisone (predniSONE) 60 mg DAILY@0800 ORAL 09/24/17 09:00 10/24/17 08:59 09/24/17 09:41 Sodium Chloride 1,000 ml @ 50 mls/hr Q20H IV 09/23/17 16:30 10/22/17 16:29 09/23/17 18:06 Tamsulosin HCl (Flomax) 0.4 mg BID ORAL 09/23/17 18:00 10/22/17 17:59 09/24/17 09:37 Laboratory Tests 09/24/17 05:45: White Blood Count 11.3H, Red Blood Count 3.88L, Hemoglobin 8.4L, Hematocrit 27.7L, Mean Corpuscular Volume 71L, Mean Corpuscular Hemoglobin 21.6L, Mean Corpuscular Hemoglobin Concent 30.2L, Red Cell Distribution Width 16.7H, Platelet Count 248, Mean Platelet Volume 6.9, Neutrophils (%) (Auto) 82.6H, Lymphocytes (%) (Auto) 11.2L, Monocytes (%) (Auto) 5.8, Eosinophils (%) (Auto) 0.0, Basophils (%) (Auto) 0.3, Carcinoembryonic Antigen [Pending], CA 19-9 Antigen [Pending] Height (Feet): 5 Height (Inches): 8.00 Weight (Pounds): 125 General Appearance: no apparent distress Respiratory/Chest: decreased breath sounds Abdomen: soft CELESTE CHOE September 24, 2017 11:16
[2017-09-24] MEDS ORDERED: PREDNISONE20 MG ORAL (12:12)
--- NOTE | 2017-09-24 12:20 | GI Progress Note ---
Assessment/Plan Problems: (1) Pancreatic lesion ICD Codes: K86.9 - Disease of pancreas, unspecified SNOMED: 8521668 (2) ETOH abuse ICD Codes: F10.10 - Alcohol abuse, uncomplicated SNOMED: 78363706, 00715049 (3) Upper GI bleeding ICD Codes: K92.2 - Gastrointestinal hemorrhage, unspecified SNOMED: 22869402 (4) Anemia ICD Codes: D64.9 - Anemia, unspecified SNOMED: 044720785 Status: unchanged Status Narrative Discussed with Dr. Patton. Assessment/Plan CT AP reviewed >> Multicystic focus in the uncinate process measuring about 2 to 3 cm. history of ETOH abuse patient will require cardiac clearance prior procedure given elevated troponin levels okay for DC per GI standpoint, pancreatic lesion can be worked up as outpatient MRI, pancreatic protocol ordered >> refused by patient anemia work up OB stool r/o GI bleed monitor H&H, prn transfusions bowel regime ppi fu labs, CA19-9, CEA will consider endoscopy if necessary Subjective Subjective wants to be discharged refusing MRI Objective Last 24 Hour Vital Signs Date Time Temp Pulse Resp B/P (MAP) Pulse Ox O2 Delivery O2 Flow Rate FiO2 09/24/17 09:36 105 149/95 09/24/17 08:00 Room Air 09/24/17 08:00 97.6 93 19 143/74 97 97.6 09/24/17 07:46 94 20 98 Room Air 21 09/24/17 07:37 95 20 96 Room Air 21 09/24/17 07:37 Room Air 21 09/24/17 07:37 96 Room Air 09/24/17 05:29 91 20 97 Room Air 21 09/24/17 05:26 89 20 93 Room Air 21 09/24/17 04:00 97.0 83 22 140/78 93 Simple Mask 97.0 09/24/17 03:21 97.5 09/24/17 00:36 97.5 97 17 139/80 92 97.5 09/24/17 00:09 89 20 98 Room Air 21 09/24/17 00:08 86 20 95 Room Air 21 09/23/17 20:22 97.3 115 19 148/84 91 97.3 09/23/17 20:00 Room Air 21 09/23/17 20:00 88 20 97 Room Air 21 09/23/17 20:00 96 Room Air 21 09/23/17 20:00 83 20 96 Room Air 21 09/23/17 16:00 97.5 94 21 123/76 90 97.5 09/23/17 16:00 Room Air 09/23/17 15:31 106 22 99 Nasal Cannula 3.0 32 09/23/17 15:21 102 22 95 Nasal Cannula 3.0 32 Intake and Output 09/23/17 09/24/17 19:00 07:00 Intake Total 590 ml 690 ml Balance 590 ml 690 ml Intake Oral 240 ml 240 ml IV Total 350 ml 450 ml # Voids 1 1 # Bowel Movements 3 3 Laboratory Tests Test 09/24/17 05:45 White Blood Count 11.3 K/UL (4.8-10.8) H Red Blood Count 3.88 M/UL (4.70-6.10) L Hemoglobin 8.4 G/DL (14.2-18.0) L Hematocrit 27.7 % (42.0-52.0) L Mean Corpuscular Volume 71 FL (80-99) L Mean Corpuscular Hemoglobin 21.6 PG (27.0-31.0) L Mean Corpuscular Hemoglobin Concent 30.2 G/DL (32.0-36.0) L Red Cell Distribution Width 16.7 % (11.6-14.8) H Platelet Count 248 K/UL (150-450) Mean Platelet Volume 6.9 FL (6.5-10.1) Neutrophils (%) (Auto) 82.6 % (45.0-75.0) H Lymphocytes (%) (Auto) 11.2 % (20.0-45.0) L Monocytes (%) (Auto) 5.8 % (1.0-10.0) Eosinophils (%) (Auto) 0.0 % (0.0-3.0) Basophils (%) (Auto) 0.3 % (0.0-2.0) Carcinoembryonic Antigen Pending CA 19-9 Antigen Pending Height (Feet): 5 Height (Inches): 8.00 Weight (Pounds): 125 General Appearance: WD/WN, no apparent distress, alert, thin Cardiovascular: normal rate Respiratory/Chest: normal breath sounds, no respiratory distress Abdominal Exam: normal bowel sounds, non tender, soft Extremities: normal range of motion, non-tender Jerri Rivera NP September 24, 2017 12:20
[2017-09-24] MEDS ORDERED: D5NS 1000ml IV ONE (13:41)
[2017-09-24] MEDS ORDERED: 1/2 NS 1000ml IV ONE (13:41)
--- NOTE | 2017-09-24 14:44 | General Progress Note ---
Assessment/Plan Assessment/Plan -ativan prn -trazadone encephalopathy resolved mdd Subjective Date patient seen: September 23, 2017 Neurologic/Psychiatric: Reports: anxiety, depressed, emotional problems Allergies: Coded Allergies: NO KNOWN ALLERGIES (Unverified Allergy, Unknown, 03/01/15) Objective Last 24 Hour Vital Signs Date Time Temp Pulse Resp B/P (MAP) Pulse Ox O2 Delivery O2 Flow Rate FiO2 09/24/17 09:36 105 149/95 09/24/17 08:00 Room Air 09/24/17 08:00 97.6 93 19 143/74 97 97.6 09/24/17 07:46 94 20 98 Room Air 21 09/24/17 07:37 95 20 96 Room Air 21 09/24/17 07:37 Room Air 21 09/24/17 07:37 96 Room Air 21 09/24/17 05:29 91 20 97 Room Air 21 09/24/17 05:26 89 20 93 Room Air 21 09/24/17 04:00 97.0 83 22 140/78 93 Simple Mask 97.0 09/24/17 03:21 97.5 09/24/17 00:36 97.5 97 17 139/80 92 97.5 09/24/17 00:09 89 20 98 Room Air 21 09/24/17 00:08 86 20 95 Room Air 21 09/23/17 20:22 97.3 115 19 148/84 91 97.3 09/23/17 20:00 Room Air 21 09/23/17 20:00 88 20 97 Room Air 21 09/23/17 20:00 96 Room Air 21 09/23/17 20:00 83 20 96 Room Air 21 09/23/17 16:00 97.5 94 21 123/76 90 97.5 09/23/17 16:00 Room Air 09/23/17 15:31 106 22 99 Nasal Cannula 3.0 32 09/23/17 15:21 102 22 95 Nasal Cannula 3.0 32 Intake and Output 09/23/17 09/24/17 19:00 07:00 Intake Total 590 ml 690 ml Balance 590 ml 690 ml Intake Oral 240 ml 240 ml IV Total 350 ml 450 ml # Voids 1 1 # Bowel Movements 3 3 Laboratory Tests 09/24/17 05:45: White Blood Count 11.3H, Red Blood Count 3.88L, Hemoglobin 8.4L, Hematocrit 27.7L, Mean Corpuscular Volume 71L, Mean Corpuscular Hemoglobin 21.6L, Mean Corpuscular Hemoglobin Concent 30.2L, Red Cell Distribution Width 16.7H, Platelet Count 248, Mean Platelet Volume 6.9, Neutrophils (%) (Auto) 82.6H, Lymphocytes (%) (Auto) 11.2L, Monocytes (%) (Auto) 5.8, Eosinophils (%) (Auto) 0.0, Basophils (%) (Auto) 0.3, Carcinoembryonic Antigen [Pending], CA 19-9 Antigen [Pending] Height (Feet): 5 Height (Inches): 8.00 Weight (Pounds): 125 General Appearance: WD/WN, no apparent distress, alert Neurologic: alert, oriented x 3, responsive, depressed affect Sun Christina M.D. September 24, 2017 14:44
--- NOTE | 2017-09-24 15:00 | Consultation ---
DATE OF CONSULTATION: 09/24/2017 HEMATOLOGY/ONCOLOGY CONSULTATION CONSULTING PHYSICIAN: Tab Rapp M.D. REQUESTING PHYSICIAN: Amador Brennan M.D. REASON FOR CONSULTATION: Evaluation of anemia. IDENTIFYING DATA: Dear Dr. Brennan, The patient is a pleasant 61-year-old male with past medical history significant for COPD, vitamin D deficiency, iron deficiency, hypertension, GERD, and constipation. At this time, presents to the [facility] with shortness of breath, noted to have tachycardia, rate of 112, some nonspecific ST-T changes noted. Of note, initial chest x-ray showed cardiac silhouette, no evidence of pulmonary edema. Initial troponin was elevated. BNP was 3154. The patient noted to have creatinine of 2.6. Hematology Service consulted for ongoing anemia. PAST MEDICAL HISTORY: COPD, hypertension, . ALLERGIES: No known drug allergies. FAMILY HISTORY: Noncontributory. MEDICATIONS: Have been reviewed. REVIEW OF SYSTEMS: CONSTITUTIONAL: No fevers, chills, or night sweats. SKIN: No rashes, bumps, or itching. HEENT: No headache, hearing or vision changes. BREASTS: No lumps, pain, or discharge. PULMONARY: No cough, sputum, or shortness of breath. GASTROINTESTINAL: No nausea, vomiting, or diarrhea. GENITOURINARY: No dysuria, frequency, or urgency. MUSCULOSKELETAL: No joint swelling, muscle pain, or trauma. PHYSICAL EXAMINATION: VITAL SIGNS: Reviewed. GENERAL: No distress. LUNGS: Decreased breath sounds. CARDIOVASCULAR: Regular rate. No S3 or S4. ABDOMEN: Soft, nontender, and nondistended. EXTREMITIES: No cyanosis, swelling, or edema noted. ASSESSMENT AND RECOMMENDATIONS: 1. Anemia due to folic acid deficiency. The patient with a folate of 3.6. The patient has been started on folic acid. 2. Anemia due to iron deficiency. Ferritin was extremely low. Continue the patient on IV iron. Replete with iron as needed. Hemoglobin goal is above 7. Transfuse as needed. 3. Dyspnea on exertion - respiratory failure. He has had troponin elevation potentially secondary to demand ischemia. 4. Multicystic process 2 to 3 cm, had previous endoscopy at [facility], has been seen by GI Service. MRI pancreatic protocol pending. Imaging has been reviewed, is not yet out, not found. 5. I appreciate recommendations by GEORGE Gibbs. Tab Rapp M.D. DR: CLEMENTE JOB#: [id number] CC:
--- NOTE | 2017-09-24 23:57 | Cardiology Progress Note ---
Assessment/Plan Assessment/Plan 1. Dyspnea, hypoxic hypercarbia respiratory failure due to opiate and benzodiazepine overdose. 2D echo shows normal LV systolic and diastolic function. Chest x-ray shows no pulmonary edema. PPV of beta-natriuretic peptide not that great. Physical exam is in favor of severe emphysema. 2. Slight elevation of troponin I level could be secondary to troponin leak in view of renal failure with associated small rhabdomyolysis or demand ischemia as there were some questionable changes on the lateral leads. A 2D echocardiography does not show any wall motion abnormalities. Subjective Subjective Sinus tachycardia at 105. Objective Last 24 Hour Vital Signs Date Time Temp Pulse Resp B/P (MAP) Pulse Ox O2 Delivery O2 Flow Rate FiO2 09/24/17 09:36 105 149/95 09/24/17 08:00 Room Air 09/24/17 08:00 97.6 93 19 143/74 97 97.6 09/24/17 07:46 94 20 98 Room Air 21 09/24/17 07:37 95 20 96 Room Air 21 09/24/17 07:37 Room Air 21 09/24/17 07:37 96 Room Air 21 09/24/17 05:29 91 20 97 Room Air 21 09/24/17 05:26 89 20 93 Room Air 21 09/24/17 04:00 97.0 83 22 140/78 93 Simple Mask 97.0 09/24/17 03:21 97.5 09/24/17 00:36 97.5 97 17 139/80 92 97.5 09/24/17 00:09 89 20 98 Room Air 21 09/24/17 00:08 86 20 95 Room Air 21 Intake and Output 09/23/17 09/24/17 19:00 07:00 Intake Total 590 ml 690 ml Balance 590 ml 690 ml Intake Oral 240 ml 240 ml IV Total 350 ml 450 ml # Voids 1 1 # Bowel Movements 3 3 2D Echo: EF 65%, Grade II LV DD or Pseudo-normal LV physio, s/o mod. elevated LAP Laboratory Tests Test 09/24/17 05:45 White Blood Count 11.3 K/UL (4.8-10.8) H Red Blood Count 3.88 M/UL (4.70-6.10) L Hemoglobin 8.4 G/DL (14.2-18.0) L Hematocrit 27.7 % (42.0-52.0) L Mean Corpuscular Volume 71 FL (80-99) L Mean Corpuscular Hemoglobin 21.6 PG (27.0-31.0) L Mean Corpuscular Hemoglobin Concent 30.2 G/DL (32.0-36.0) L Red Cell Distribution Width 16.7 % (11.6-14.8) H Platelet Count 248 K/UL (150-450) Mean Platelet Volume 6.9 FL (6.5-10.1) Neutrophils (%) (Auto) 82.6 % (45.0-75.0) H Lymphocytes (%) (Auto) 11.2 % (20.0-45.0) L Monocytes (%) (Auto) 5.8 % (1.0-10.0) Eosinophils (%) (Auto) 0.0 % (0.0-3.0) Basophils (%) (Auto) 0.3 % (0.0-2.0) Carcinoembryonic Antigen Pending CA 19-9 Antigen Pending Objective GENERAL: The patient is a very unfortunate 61-year-old gentleman, in no apparent respiratory distress at this time, alert and oriented x4. HEENT: Atraumatic, normocephalic. Anicteric. Pupils are equal, round, and reactive to light and accommodation. Extraocular muscles intact. NECK: JVP is elevated just about 15 cm. No carotid bruit. CARDIOVASCULAR SYSTEM: Normal S1, S2. Regular rate and rhythm. No RV heave. Tachycardic. No murmurs, gallops, or rubs. LUNGS: Basically, no breath sounds throughout both lungs. No wheezing, crackles, or rhonchi. ABDOMEN: Soft, nontender, and nondistended. No hepatosplenomegaly. Positive bowel sounds. EXTREMITIES: No evidence of edema, clubbing, or cyanosis. Bharat Rowe MD September 24, 2017 23:57
--- NOTE | 2017-09-25 01:15 | Progress Note ---
DATE: 09/24/2017 SUBJECTIVE: The patient was seen, continues to be depressed, has anhedonia, worthlessness, hopelessness, stated that the mood lability is better. The patient did not overdose but COPD was worse today, has poor appetite. MENTAL STATUS EXAMINATION: The patient is alert and oriented times self, place, and situation he is in. Mood is depressed. Affect is constricted, congruent with mood. Thought process is concrete. Thought content, no suicidal or homicidal ideation. ASSESSMENT: Major depressive disorder, opiate dependence, not a danger to self, not a 5150. PLAN: 1. The patient will be discharged home with prescription of trazodone. 2. I also ordered a prescription for per Dr. Byers. Sun Christina M.D. DR: CJ JOB#: [id number] CC:
--- NOTE | 2017-09-25 14:45 | Discharge Summary ---
Discharge Summary Discharge Summary _ DATE OF ADMISSION: 09/21/2017 DATE OF DISCHARGE: 09/24/2017 REASON FOR ADMISSION: 61 years old male with past medical history significant for hypertension, COPD, seizure disorder, brought to emergency room for evaluation due to shortness of breath. Patient was found to be hypoxic. Patient was altered and was unable to provide any history. According to patient's , patient was found with her morphine pills in his hand. Patient was tachycardic ,heart rate 130, blood pressure 85/55, pulse oximetry was 62% on room air. WBC mildly elevated 12.0 ,hemoglobin 12.5, hematocrit 43.6. BUN 15 creatinine 2.6, stable electrolytes. AST 215. CK 5706. Troponin elevated 0.476. ProBNP 3164 ,lipase 136, lactic acid 5.5 . Urine toxicology screen was positive for opiates and benzodiazepine. Patient was given Narcane to which he responded well by becoming more awake and responsive. Chest x-ray revealed mild basal atelectasis versus scarring at the right lung base. CT abdomen and pelvis revealed multicystic focus in the uncinate process measuring 2-3 cm. ABG revealed evidence of hypoxemia and hypercapnia on room air. Patient was placed on supplemental oxygen. Patient started on the IV hydration. Patient admitted with diagnosis acute hypoxemic hypercapnic respiratory failure, COPD, drug overdose ,elevated troponin, rhabdomyolysis., acute renal failure. CONSULTANTS: patient navigator Dr. Rowe pulmonary Dr. Byers GI specialist Dr. Patton varnisher apprentice Dr. Pretty terminal gauger/oncologist Dr. Rapp psychiatrist pain specialist Dr. Miller HOSPITAL COURSE: Patient admitted. Patient started on the IV hydration. Serial troponin were closely monitored. Manager Location closely followed. Troponin from initial 0.476 down to 0.076. EKG showed initially sinus tachycardia ,nonspecific ST-T changes , possibly suggestive of ischemia ,but no ST elevation. Echocardiogram revealed preserved ejection fraction of 60-65%, no evidence of left ventricular hypertrophy, no evidence of pericardial pleural effusion. Evidence of significant left ventricular diastolic dysfunction was noted. Per patient navigator ,slight elevation of troponin could be secondary to troponin leak in view of renal failure with associated rhabdomyolysis or demand ischemia as there were questionable changes on the lateral leads. 2-D echo did not show any wall motion abnormalities. Dyspnea was likely due to COPD exacerbation. [place] closely followed. Patient was on supplemental oxygen, titrated to keep pulse oximetry above 92%. Pulmonary toilet provided around the clock and as needed with bronchodilators. BiPAP was on standby as needed. Patient initially was on intravenous steroids which gradually tapered and changed to oral eventually. [place] recommended to keep patient off antibiotics and observe for any signs or symptoms or infection. Trial of theophylline was started. DVT prophylaxis with heparin provided. Strict aspiration precautions were maintained. Bedside swallow evaluation was done, noted mild to moderate dysphagia. Functional mastication time. Recommended video swallow evaluation, can be done as outpatient. Diet provided as per speech therapist recommendations, mechanical soft ground diet with nectar thick liquids with strict aspiration/reflux precautions with direct supervision. Geography Faculty Member closely followed. Renal parameters ,electrolytes were closely monitored. Electrolytes were corrected as needed. Nephrotoxins were avoided. With IV hydration creatinine upon discharge down to 1.2, CK down to 1321. Acute renal failure was likely secondary to dehydration and rhabdomyolysis., resolved. GI specialist closely followed. MRI pancreatic protocol was ordered, but patient declined. Anemia workup revealed evidence of anemia of iron deficiency and anemia of folate deficiency. Patient was started on folic acid supplement and IV Venofer. Hemoglobin and hematocrit were closely monitored with goal to keep hemoglobin above 7 ,no need for transfusion, hemoglobin 8.4 hematocrit 27.7 prior for discharge. Bowel regimen instituted. Patient started on PPI , stool for OB check as outpatient. Outpatient GI procedure recommended. Patient with evidence of severe protein calorie malnutrition . Dietary recommendations implemented in plan of care. Patient was counseled on abstinence from alcohol, opiates and illicit drugs. Psychiatrist closely followed, diagnosed patient with major depressive disorder. According to psychiatrist, patient was not a danger to himself. On Patient started on trazodone and anxiolytic as needed. Pain specialist closely followed. Pain management provided with Tylenol and anxiolytic as needed. Supportive care provided. DVT prophylaxis provided. No seizure activity while in the hospital . Blood pressure stabilized. Prior to discharge pulse oximetry stable on room air. Patient was stable for discharge home. FINAL DIAGNOSES: Acute hypoxemic hypercapnic respiratory failure Elevated troponin, possibly due to troponin leak due to renal failure with associated small rhabdomyolysis versus demand ischemia COPD with acute exacerbation Acute renal failure on chronic renal insufficiency, resolved Rhabdomyolysis BPH Altered mental status secondary to hypercapnia and opiate overdose Opiate overdose and dependency Lactic acidosis Severe protein calorie malnutrition Pancreatic multicystic lesion ETOH abuse Anemia of folate deficiency Anemia of iron deficiency History of hypertension History of seizure disorder Major depressive disorder DISCHARGE MEDICATIONS: See Medication Reconciliation list. DISCHARGE INSTRUCTIONS: Patient was discharged home. Follow up with primary care provider in one week I have been assigned to dictate discharge summary for this account. I was not involved in the patient's management. Kim Turcios NP September 25, 2017 14:45
--- NOTE | 2017-09-28 09:00 | Consultation ---
DATE OF CONSULTATION: 09/24/2017 ENDOCRINOLOGY CONSULTATION CONSULTING PHYSICIAN: Luis Antonio Voss M.D. REFERRING PHYSICIAN: Amador Brennan M.D. REASON FOR CONSULTATION: Abnormal cortisol level. HISTORY OF PRESENT ILLNESS: The patient is a 61-year-old male with past medical history of type 2 diabetes and COPD, presenting with shortness of breath. On presentation, the patient was altered and was not able to provide history. The patient was started on IV Solu-Medrol. A serum cortisol level was obtained which was low. Endocrinology consulted for evaluation of possible cortisol deficiency, adrenal insufficiency. PAST MEDICAL HISTORY: 1. COPD and home O2 dependence. 2. Seizure disorder. 3. Hypertension. ALLERGIES TO MEDICATIONS: None. SOCIAL HISTORY: History of smoking. No alcohol. No drug use. FAMILY HISTORY: Noncontributory. REVIEW OF SYSTEMS: See HPI. PHYSICAL EXAMINATION: VITAL SIGNS: Blood pressure is 100/60, pulse of 80, temperature 98.2, respiratory rate 18. HEENT: Pupils equal and reactive to light. NECK: No JVD. HEART: Regular. LUNGS: Decreased breath sounds but clear. ABDOMEN: Positive bowel sounds. EXTREMITIES: No clubbing, cyanosis, or edema. LABORATORY VALUES: Sodium 139, potassium 4.6, chloride 106, bicarbonate 29, BUN 24, and creatinine 1.2. Lactic acid is 3.4. DIAGNOSES: 1. COPD exacerbation, treated with IV Solu-Medrol. 2. Abnormal cortisol level. DISCUSSION: The patient has been treated with Solu-Medrol and his low serum cortisol level due to suppression of the pituitary-adrenal axis.. Currently, since the patient is on Solu-Medrol, we cannot assess his serum cortisol and hopefully once his lung condition has been improved, will make and attempt and switch to Decadron so we can perform a Cortrosyn stimulation test. I will follow during hospital stay. Thank you Dr. Brennan for the courtesy of this consultation. Luis Antonio Voss M.D. DR: Chip JOB#: [id number] CC: CASA
== END 2017-09-24 13:42 | disposition home or self-care (01) | DRG 140 ==
LOC: EMR 19:25 → 2W 20:15 → EDBEDREQ 22:42 → 2W 09-22 13:29 → 4W 09-23 16:04
DX: J44.1 Chronic obstructive pulmonary disease with (acute) exacerbation (principal); J96.01 Acute respiratory failure with hypoxia; E43 Unspecified severe protein-calorie malnutrition; N17.9 Acute kidney failure, unspecified; E87.2 Acidosis; J96.02 Acute respiratory failure with hypercapnia; I24.8 Other forms of acute ischemic heart disease; F11.20 Opioid dependence, uncomplicated; R56.9 Unspecified convulsions; M62.82 Rhabdomyolysis; R74.8 Abnormal levels of other serum enzymes; N18.9 Chronic kidney disease, unspecified; N40.0 Benign prostatic hyperplasia without lower urinary tract symptoms; T40.601A Poisoning by unspecified narcotics, accidental (unintentional), initial encounter; R41.82 Altered mental status, unspecified; K86.9 Disease of pancreas, unspecified; F10.10 Alcohol abuse, uncomplicated; D52.9 Folate deficiency anemia, unspecified; D50.9 Iron deficiency anemia, unspecified; I12.9 Hypertensive chronic kidney disease with stage 1 through stage 4 chronic kidney disease, or unspecified chronic kidney disease; F32.9 Major depressive disorder, single episode, unspecified; E78.5 Hyperlipidemia, unspecified; K21.9 Gastro-esophageal reflux disease without esophagitis; E86.0 Dehydration; R07.89 Other chest pain; R13.10 Dysphagia, unspecified
CPT/HCPCS: 36415; 36600; 71045; 74176; 80053; 80061; 80307; 81003; 82378; 82533; 82550; 82553; 82607; 82728; 82746; 82803; 82977; 83036; 83540; 83550; 83605; 83690; 83735; 83880; 84100; 84443; 84484; 84550; 85007; 85025; 86140; 86703; 93005; 93306; 93970; 94640; 94660; 94664; 94760; 99291; J2310; J7620

== ENCOUNTER 2017-12-05 21:01 | Inpatient (IN) | payer MEDICAID ==
[~2017-12-05] VITALS: Ht 172.7 cm; Wt 55.4 kg
[~2017-12-05 21:01] MED LIST changes: +UNOBMED
[2017-12-05] MEDS ORDERED: Sodium Chloride 500ML 500 ML IV ONE (21:18)
[2017-12-05 21:22] VITALS: BP 118/86
[2017-12-05] MEDS ORDERED: Ipratropium 0.02% Inh Soln 2.5ml UD HHN ONE (21:30)
[2017-12-05] MEDS ORDERED: Morphine Sulfate 2mg/ml Inj(IV/IM USE ONLY) IVP ONE (21:30)
[2017-12-05] MEDS ORDERED: Solu-MEDROL 125mg Inj IVP ONE (21:30)
[2017-12-05] MEDS ORDERED: Albuterol ud Inhalation HHN ONE (21:30)
[2017-12-05 21:51] LABS: BASOPHILS % (AUTO) 2.3 % (0.0-2.0); EOSINOPHILS % (AUTO) 6.5 % (0.0-3.0); HEMATOCRIT 35.2 % (42.0-52.0); HEMOGLOBIN 10.5 G/DL (14.2-18.0); LYMPHOCYTES % (AUTO) 26.9 % (20.0-45.0); MEAN CORPUSCULAR VOLUME 71 FL (80-99); MONOCYTES % (AUTO) 7.1 % (1.0-10.0); NEUTROPHILS % (AUTO) 57.2 % (45.0-75.0); PLATELET COUNT 347 K/UL (150-450); RED BLOOD COUNT 4.96 M/UL (4.70-6.10); RED CELL DISTRIBUTION WIDTH 16.8 % (11.6-14.8); WHITE BLOOD COUNT 6.6 K/UL (4.8-10.8)
--- NOTE | 2017-12-05 21:53 | Emergency Room Report ---
History of Present Illness General Chief Complaint: Dyspnea/Respdistress Source: Patient, EMS Present Illness HPI 62-year-old male presents ED complaining of chest pain and shortness of breath 1 day. Patient states that he's been feeling chest tightness, 7 out of 10, nonradiating. History of hypertension and COPD. States he's been using his nebulizer machine all day without relief. Was given nitroglycerin and aspirin by EMS with chest pain improved. Denies drug use. Denies fevers or chills. No other aggravating relieving factors. Denies any other associated symptoms Allergies: Coded Allergies: NO KNOWN ALLERGIES (Unverified Allergy, Unknown, 03/01/15) Patient History Past Medical History: HTN, asthma, COPD, seizures Social History: Denies: smoking, alcohol use, drug use Immunizations: UTD Reviewed Nursing Documentation: PMH: Agreed; PSxH: Agreed Nursing Documentation-PMH Hx Cardiac Problems: Yes Hx Hypertension: Yes Hx Asthma: Yes Hx COPD: Yes Hx Cancer: No Hx Gastrointestinal Problems: No Hx Neurological Problems: Yes Hx Seizures: Yes Review of Systems All Other Systems: negative except mentioned in HPI Physical Exam Vital Signs Date Time Temp Pulse Resp B/P (MAP) Pulse Ox O2 Delivery O2 Flow Rate FiO2 12/05/17 21:04 97.9 92 24 118/86 89 Room Air 97.9 12/05/17 21:22 2.0 Sp02 EP Interpretation: reviewed, normal General Appearance: alert, GCS 15, non-toxic, mild distress, cachetic Head: normocephalic, atraumatic Eyes: bilateral eye normal inspection, bilateral eye PERRL ENT: hearing grossly normal, normal pharynx, no angioedema, normal voice Neck: full range of motion, supple/symm/no masses Respiratory: chest non-tender, lungs clear, decreased breath sounds, speaking full sentences Cardiovascular #1: regular rate, rhythm, no edema Cardiovascular #2: 2+ carotid (R), 2+ carotid (L), 2+ radial (R), 2+ radial (L) , 2+ dorsalis pedis (R), 2+ dorsalis pedis (L) Gastrointestinal: normal bowel sounds, non tender, soft, non-distended, no guarding, no rebound Rectal: deferred Genitourinary: normal inspection, no CVA tenderness Musculoskeletal: back normal, gait/station normal, normal range of motion, non- tender Neurologic: alert, oriented x3, responsive, motor strength/tone normal, sensory intact, speech normal Psychiatric: judgement/insight normal, memory normal, mood/affect normal, no suicidal/homicidal ideation Reflexes: 3+ bicep (R), 3+ bicep (L), 3+ tricep (R), 3+ tricep (L), 3+ knee (R) , 3+ knee (L) Skin: normal color, no rash, warm/dry, well hydrated Lymphatic: no adenopathy Medical Decision Making Diagnostic Impression: Primary Impression: COPD with exacerbation ER Course Hospital Course 62-year-old M presenting to ED with SOB, CP. h/o COPD Differential diagnoses include: Pneumonia, CHF exacerbation, pneumothorax, fluid overload Clinical course Patient placed on stretcher. On gambling monitor with stable vitals. After initial history and physical, I ordered nebulizer treatments. I ordered labs, IV fluids, EKG, chest x-ray, blood cultures, UA. Labs - no leukocytosis noted, hemoglobin/hematocrit stable, electrolytes okay, lactate okay, troponins negative CXR - hyperinflated lungs. ? infiltrate in RLL EKG - NSR, no acute ischemic changes interpreted by me abx given. Case discussed with Dr. Colin and he agreed to the patient to his service for further care and support I feel this is a highly complex case requiring extensive working including EKG/ Rhythm strip, Xray/CT/US, Blood/urine lab work, repeat exams while in ED, and administration of strong opiates/narcotics for pain control, admission to hospital or close patient follow up. Diagnosis - COPD exacerbation Patient admitted to telemetry in serious condition Labs Test 12/05/17 21:30 12/05/17 21:39 Urine Color Pale yellow Urine Appearance Clear Urine pH 6 (4.5-8.0) Urine Specific [place] 1.005 (1.005-1.035) Urine Protein Negative (NEGATIVE) Urine Glucose (UA) Negative (NEGATIVE) Urine Ketones Negative (NEGATIVE) Urine Occult Blood Negative (NEGATIVE) Urine Nitrite Negative (NEGATIVE) Urine Bilirubin Negative (NEGATIVE) Urine Urobilinogen Normal MG/DL (0.0-1.0) Urine Leukocyte Esterase Negative (NEGATIVE) White Blood Count 6.6 K/UL (4.8-10.8) Red Blood Count 4.96 M/UL (4.70-6.10) Hemoglobin 10.5 G/DL (14.2-18.0) Hematocrit 35.2 % (42.0-52.0) Mean Corpuscular Volume 71 FL (80-99) Mean Corpuscular Hemoglobin 21.2 PG (27.0-31.0) Mean Corpuscular Hemoglobin Concent 29.9 G/DL (32.0-36.0) Red Cell Distribution Width 16.8 % (11.6-14.8) Platelet Count 347 K/UL (150-450) Mean Platelet Volume 6.4 FL (6.5-10.1) Neutrophils (%) (Auto) 57.2 % (45.0-75.0) Lymphocytes (%) (Auto) 26.9 % (20.0-45.0) Monocytes (%) (Auto) 7.1 % (1.0-10.0) Eosinophils (%) (Auto) 6.5 % (0.0-3.0) Basophils (%) (Auto) 2.3 % (0.0-2.0) Sodium Level 136 MMOL/L (136-145) Potassium Level 4.3 MMOL/L (3.5-5.1) Chloride Level 101 MMOL/L (98-107) Carbon Dioxide Level 28 MMOL/L (21-32) Anion Gap 7 mmol/L (5-15) Blood Urea Nitrogen 9 mg/dL (7-18) Creatinine 1.0 MG/DL (0.55-1.30) Estimat Glomerular Filtration Rate > 60 mL/min (>60) Glucose Level 86 MG/DL (74-106) Lactic Acid Level 1.80 mmol/L (0.4-2.0) Calcium Level 9.5 MG/DL (8.5-10.1) Total Bilirubin 0.2 MG/DL (0.2-1.0) Aspartate Amino Transf (AST/SGOT) 26 U/L (15-37) Alanine Aminotransferase (ALT/SGPT) 19 U/L (12-78) Alkaline Phosphatase 85 U/L (46-116) Total Creatine Kinase 236 U/L (26-308) Creatine Kinase MB 8.2 NG/ML (0.0-3.6) Creatine Kinase MB Relative Index 3.4 Troponin I 0.000 ng/mL (0.000-0.056) Pro-B-Type Natriuretic Peptide 359 pg/mL (0-125) Total Protein 7.9 G/DL (6.4-8.2) Albumin 3.6 G/DL (3.4-5.0) Globulin 4.3 g/dL Albumin/Globulin Ratio 0.8 (1.0-2.7) EKG Diagnostic Results Rate: normal Rhythm: NSR ST Segments: no acute changes ASA given to the pt in ED: No - given by ems Rhythm Strip Diag. Results EP Interpretation: yes Rhythm: NSR, no PVC's, no ectopy Chest X-Ray Diagnostic Results Chest X-Ray Diagnostic Results : Chest X-Ray Ordered: Yes # of Views/Limited/Complete: 1 View Indication: Chest Pain EP Interpretation: Yes Interpretation: no pneumothorax, other - hyperinflated lungs. increased consolidation RLL Impression: Other - copd/pna Electronically Signed by: Electronically signed by Jordan Sosa MD Last Vital Signs Date Time Temp Pulse Resp B/P (MAP) Pulse Ox O2 Delivery O2 Flow Rate FiO2 12/05/17 21:22 97.9 92 24 118/86 97 Nasal Cannula 2.0 97.9 Status: improved Disposition: ADMITTED INPATIENT Condition: Serious Referrals: [facility],REFERRING (PCP) Jordan Sosa MD Dec 05, 2017 21:52
[2017-12-05 22:03] LABS: APPEARANCE,URINE CLEAR; BILIRUBIN, URINE NEGATIVE (NEGATIVE); COLOR,URINE PALE YELLOW; GLUCOSE, URINE (UA) NEGATIVE (NEGATIVE); KETONES,URINE NEGATIVE (NEGATIVE); LEUKOCYTE ESTERASE ,URINE NEGATIVE (NEGATIVE); NITRITE,URINE NEGATIVE (NEGATIVE); PH,URINE 6 (4.5-8.0); PROTEIN,URINE NEGATIVE (NEGATIVE); UROBILINOGEN,URINE NORMAL MG/DL (0.0-1.0)
[2017-12-05 22:07] LABS: ANION GAP 7 mmol/L (5-15); BLOOD UREA NITROGEN 9 mg/dL (7-18); CALCIUM 9.5 MG/DL (8.5-10.1); CARBON DIOXIDE 28 MMOL/L (21-32); CHLORIDE 101 MMOL/L (98-107); POTASSIUM 4.3 MMOL/L (3.5-5.1); SODIUM 136 MMOL/L (136-145)
[2017-12-05 22:21] LABS: ALANINE AMINOTRANSFERASE 19 U/L (12-78); ALBUMIN 3.6 G/DL (3.4-5.0); ALBUMIN/GLOBULIN RATIO 0.8 (1.0-2.7); ALKALINE PHOSPHATASE 85 U/L (46-116); ASPARTATE AMINO TRANSFERASE 26 U/L (15-37); BILIRUBIN,TOTAL 0.2 MG/DL (0.2-1.0); CKMB 8.2 NG/ML (0.0-3.6); CREATINE KINASE 236 U/L (26-308)
[2017-12-05] MEDS ORDERED: Azithromycin 500 MG in D5W 275 ML IVPB ONE (22:30)
[2017-12-05] MEDS ORDERED: Piperacillin/Tazobactam 3.375 GM in NS 110 ML IVPB ONE (22:30)
[2017-12-05] MEDS ORDERED: QVAR7.3 GM INH (22:59)
[2017-12-05] MEDS ORDERED: COMBIVENT RESPIM4 GM IH (22:59)
[2017-12-05] MEDS ORDERED: PROAIR HFA8.5 GM INH (22:59)
[2017-12-05 23:25] VITALS: BP 134/92
[2017-12-06] VITALS: BP 133/88
[2017-12-06] MEDS ORDERED: PROAIR HFA8.5 GM INH (00:07)
[2017-12-06] MEDS ORDERED: ACETAMINOPHEN325 M1 ORAL (00:07)
[2017-12-06] MEDS ORDERED: COMBIVENT RESPIM4 GM IH (00:07)
--- NOTE | 2017-12-06 02:15 | Consultation ---
DATE OF CONSULTATION: 12/05/2017 CARDIOLOGY CONSULT REQUESTING PHYSICIAN: Murray Colin D.O. CONSULTING PHYSICIAN: Nicolas Toure M.D. REASON FOR CONSULTATION: Chest pain. HISTORY OF PRESENT ILLNESS: This is a 62-year-old -[place] male with a history of chronic obstructive pulmonary disease. He does have a prior history of angina and had been on nitroglycerin in the past, although he did not have a refill for quite some time. For the past week, he has had increasing chest tightness, congestion, and shortness of breath, worsening today. Scant sputum production noted, but no other upper respiratory symptoms. He has not had leg swelling. He came to the emergency room and was given nitroglycerin and aspirin with improvement in his symptoms. He is on home O2 chronically and used his nebulizer therapy regularly. ALLERGIES: He has no allergies. MEDICATIONS: His medications prior to admission include nebulizers and Tylenol, although in the past, he has also been on atorvastatin and aspirin. PAST MEDICAL HISTORY: Hypertension, chronic obstructive pulmonary disease, and possible seizure disorder. SOCIAL HISTORY: Quit smoking two years ago. Greater than 50 pack year history. SOCIAL HISTORY: Alcohol. Denies illicit drug use. FAMILY HISTORY: Noncontributory. REVIEW OF SYSTEMS: A 10-point review of systems performed. All systems negative other than noted above. PHYSICAL EXAMINATION: GENERAL: Thin frail, mild respiratory distress. VITAL SIGNS: Afebrile. Blood pressure 118/86, pulse 92, respiratory rate 24, and oxygen saturation 89% on room air and 96% on 2 liters. HEENT: Temporal wasting. Pale conjunctivae. Anicteric sclerae. Oropharynx clear. No thrush. NECK: Supple. Some accessory muscle use. LUNGS: Coarse breath sounds. Diminished at bases with few expiratory wheezes. CARDIAC: Regular rhythm and rate. Normal S1, S2 with a fourth heart sound. ABDOMEN: Soft, nontender. EXTREMITIES: Good pulses. No edema. NEUROLOGIC: Nonfocal. There is no asterixis. There is a slight resting tremor. LABORATORY AND DIAGNOSTIC DATA: EKG reveals sinus rhythm with no acute abnormalities. Chest x-ray with hyperinflation and possible right lower lobe infiltrate. Labs reviewed with negative troponin. Normal lactate level and normal CBC. IMPRESSION: 1. Chronic obstructive pulmonary disease with acute exacerbation. 2. Paroxysmal bronchospasm. 3. Anginal syndrome/acute coronary syndrome. 4. Possible pneumonia. 5. Chronic hypoxia. 6. History of hyperlipidemia. 7. Possible history of seizure disorder. PLAN: 1. Cardiac monitoring. 2. Oral aspirin. 3. Serial troponins. 4. Inhaled bronchodilators. 5. Empiric antibiotics. 6. Intravenous steroids. 7. DVT prophylaxis. 8. Topical nitrates. 9. No beta-blockers in view of severe obstructive lung disease and bronchospasm. 10. Check echocardiogram. 11. Further recommendations to follow may require assessment of coronary flow during this hospital stay, although we will have to avoid adenosine analogs in view of severe lung disease. Nicolas Toure M.D. DR: CALE JOB#: [id number] CC:
[2017-12-06] MEDS: Albuterol/Ipratropium 3ml neb HHN SCH ×5 (03:31→19:55)
[2017-12-06 04:00] VITALS: BP 140/75
[2017-12-06] MEDS: Nitroglycerin 2% oint pkt TOPIC SCH ×3 (06:19→17:33)
[2017-12-06 07:25] LABS: HEMATOCRIT 35.9 % (42.0-52.0); MEAN CORPUSCULAR VOLUME 71 FL (80-99); PLATELET COUNT 340 K/UL (150-450); RED BLOOD COUNT 5.04 M/UL (4.70-6.10); WHITE BLOOD COUNT 3.9 K/UL (4.8-10.8)
[2017-12-06 07:48] LABS: % IRON SATURATION 6 % (15-50); IRON 20 ug/dL (50-175); TOTAL IRON BINDING CAPACITY 346 ug/dL (250-450)
[2017-12-06 08:00] VITALS: BP 111/65
[2017-12-06 08:17] LABS: ALANINE AMINOTRANSFERASE 22 U/L (12-78); ALBUMIN 3.4 G/DL (3.4-5.0); ALBUMIN/GLOBULIN RATIO 0.8 (1.0-2.7); ALKALINE PHOSPHATASE 86 U/L (46-116); ANION GAP 8 mmol/L (5-15); ASPARTATE AMINO TRANSFERASE 23 U/L (15-37); BILIRUBIN,TOTAL 0.3 MG/DL (0.2-1.0); BLOOD UREA NITROGEN 10 mg/dL (7-18); CALCIUM 9.7 MG/DL (8.5-10.1); CARBON DIOXIDE 25 MMOL/L (21-32); CHLORIDE 101 MMOL/L (98-107); CHOLESTEROL 145 MG/DL (< 200); HDL CHOLESTEROL 78 MG/DL (40-60); POTASSIUM 4.4 MMOL/L (3.5-5.1); SODIUM 134 MMOL/L (136-145); TRIGLYCERIDES 21 MG/DL (30-150)
[2017-12-06] MEDS: Solu-MEDROL 40mg Inj IVP SCH ×2 (08:39→20:30)
[2017-12-06] MEDS: Aspirin Baby 81mg ORAL SCH (08:39)
[2017-12-06] MEDS: Heparin 5000 units/ml inj SUBQ SCH ×2 (08:44→20:06)
--- NOTE | 2017-12-06 09:15 | Diagnostic Imaging Report ---
Indication: Shortness of breath Technique: One view of the chest Comparison: 09/21/2017 Findings: Slightly better inspiration currently. Lungs and pleural spaces are clear. Heart size is normal. Impression: No acute process
[2017-12-06 11:54] VITALS: BP 134/76
--- NOTE | 2017-12-06 12:27 | Consultation ---
History of Present Illness General Date patient seen: Dec 06, 2017 Chief Complaint: Dyspnea/Respdistress Present Illness HPI 62-year-old male with hx of End stage emphysema, Bullous disease, HTN presented to ED complaining of chest pain and shortness of breath 1 day. Patient states that he's been feeling chest tightness, 7 out of 10, nonradiating. States he's been using his nebulizer machine all day without relief. . Denies fevers or chills. Pt was visibly dyspnic and was started on nebulizer in Er and admitted to telemetry for further management. Allergies: Coded Allergies: NO KNOWN ALLERGIES (Unverified Allergy, Unknown, 03/01/15) Medication History Scheduled Beclomethasone Dipropionate 40MCG Oral Inh (Qvar 40*), 1 PUFF INH TWICE A DAY, ( Reported) Ipratropium/Albuterol Sulfate (Combivent Respimat Inhal [place]), 20 MCG IH QID, ( Reported) Scheduled PRN Acetaminophen* (Acetaminophen 325MG Tablet*), 650 MG ORAL Q6H PRN for Mild Pain (Pain Scale 1-3), (Reported) Albuterol Sulfate* (Proair Hfa*), 1 PUFF INH Q6HR PRN for Shortness of Breath, ( Reported) Discontinued Medications Aspirin* (Aspir 81*), 81 MG ORAL DAILY, (Reported) Discontinued Reason: Pt stopped taking med Atorvastatin Calcium* (Lipitor*), 10 MG ORAL BEDTIME, (Reported) Discontinued Reason: Pt stopped taking med Cephalexin* (Keflex*), 500 MG ORAL EVERY 12 HOURS Discontinued Reason: Pt stopped taking med Cholecalciferol (Vitamin D3)* (Vitamin D*), 1,000 UNIT ORAL DAILY, (Reported) Discontinued Reason: Pt stopped taking med Cyanocobalamin (Vitamin B-12) (Vitamin B-12), 2,000 MCG PO DAILY, (Reported) Discontinued Reason: Pt stopped taking med Ferrous Sulfate* (Ferrous Sulfate*), 325 MG ORAL DAILY, (Reported) Discontinued Reason: Pt stopped taking med Flunisolide (Aerospan), 8.9 GM IH DAILY, (Reported) Discontinued Reason: Pt stopped taking med Flunisolide (Aerospan), 8.9 GM IH, (Reported) Discontinued Reason: Pt stopped taking med Fluoxetine Hcl* (Fluoxetine Hcl*), 20 MG ORAL DAILY Discontinued Reason: Pt stopped taking med Folic Acid* (Folic Acid*), 1 MG ORAL DAILY, (Reported) Discontinued Reason: MD discontinued med Ipratropium/Albuterol Sulfate (Combivent Respimat Inhal [place]), 4 GM IH QID, ( Reported) Discontinued Reason: Pt stopped taking med Lorazepam* (Lorazepam*), 1 MG ORAL THREE TIMES A DAY, (Reported) Discontinued Reason: Pt stopped taking med Losartan Potassium* (Losartan Potassium*), 25 MG ORAL DAILY, (Reported) Discontinued Reason: Pt stopped taking med Magnesium (Magnesium), 500 MG PO DAILY, (Reported) Discontinued Reason: Pt stopped taking med Nitroglycerin (Nitroglycerin), 0.4 MG SL Three times PRN for CHEST PAIN, ( Reported) Discontinued Reason: Pt stopped taking med Omeprazole (Omeprazole), 40 MG ORAL DAILY, (Reported) Discontinued Reason: Pt stopped taking med Prednisone* (Prednisone*), 60 MG ORAL DAILY, (Reported) Discontinued Reason: Pt stopped taking med Sennosides (Senna), Unknown Dose PO, (Reported) Discontinued Reason: Pt stopped taking med Spironolact/Hydrochlorothiazid (Spironolactone-Hctz 25-25 Tab), 1 TAB ORAL DAILY , (Reported) Discontinued Reason: Pt stopped taking med Theophylline (Theodur*), 100 MG ORAL EVERY 12 HOURS Discontinued Reason: Pt stopped taking med Thiamine Hcl* (Vitamin B-1*), 100 MG ORAL DAILY, (Reported) Discontinued Reason: Pt stopped taking med Trazodone* (Trazodone*), 50 MG ORAL BEDTIME, (Reported) Discontinued Reason: Pt stopped taking med Umeclidinium Brm/Vilanterol Tr (Anoro Ellipta 62.5-25 Mcg INH), 2 PUFFS INH DAILY, (Reported) Discontinued Reason: Pt stopped taking med Unable to Obtain Medications (Unable To Obtain Meds), (Reported) Discontinued Reason: Pt stopped taking med Patient History Healthcare decision maker PATIENT Resuscitation status Full Code Advanced Directive on File Past Medical/Surgical History Past Medical/Surgical History: (1) ETOH abuse (2) Anemia (3) COPD (chronic obstructive pulmonary disease) Review of Systems Respiratory: Reports: cough, shortness of breath All Other Systems: negative except mentioned in HPI Physical Exam General Appearance: cachetic Lines, tubes and drains: peripheral HEENT: normocephalic, atraumatic Neck: normal alignment Respiratory/Chest: rhonchi - left, rhonchi - right Cardiovascular/Chest: normal peripheral pulses, normal rate Abdomen: normal bowel sounds, non tender Genitourinary/Rectal: normal genital exam, normal rectal exam Extremities: normal range of motion, non-tender Skin Exam: normal pigmentation 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 Last 24 Hour Vital Signs Date Time Temp Pulse Resp B/P (MAP) Pulse Ox O2 Delivery O2 Flow Rate FiO2 12/06/17 11:54 97.3 97 20 134/76 (95) 99 97.3 12/06/17 11:40 134/76 12/06/17 11:20 89 16 98 Nasal Cannula 2.0 28 12/06/17 11:10 85 16 98 Nasal Cannula 2.0 12/06/17 09:52 Nasal Cannula 2.0 Nasal Cannula 2.0 12/06/17 08:09 97 16 98 Nasal Cannula 2.0 28 12/06/17 08:00 84 12/06/17 08:00 97.0 98 20 111/65 (80) 99 97.0 12/06/17 07:59 91 16 93 Nasal Cannula 2.0 28 12/06/17 07:59 Nasal Cannula 2.0 28 12/06/17 07:59 98 Nasal Cannula 2.0 28 12/06/17 06:19 140/75 12/06/17 04:00 76 12/06/17 04:00 97.5 81 20 140/75 (96) 100 97.5 12/06/17 03:40 85 18 99 Nasal Cannula 2.0 28 12/06/17 03:31 96 Nasal Cannula 2.0 28 12/06/17 03:31 Nasal Cannula 2.0 28 12/06/17 03:31 85 18 96 Nasal Cannula 2.0 28 12/06/17 00:33 Nasal Cannula 2.0 12/06/17 00:25 104 12/06/17 00:00 97.3 92 20 133/88 (103) 97 97.3 12/05/17 23:25 97.9 97 17 134/92 94 Nasal Cannula 2.0 28 208.2 12/05/17 23:25 97.9 97 17 134/92 94 Nasal Cannula 2.0 97.9 12/05/17 21:50 88 20 99 Nasal Cannula 2.0 28 12/05/17 21:50 97.9 12/05/17 21:42 83 20 Nasal Cannula 2.0 28 12/05/17 21:41 83 20 97 Nasal Cannula 2.0 28 12/05/17 21:22 97.9 92 24 118/86 97 Nasal Cannula 2.0 97.9 12/05/17 21:22 92 24 Room Air 12/05/17 21:04 97.9 92 24 118/86 89 Room Air 97.9 Intake and Output 12/05/17 12/06/17 19:00 07:00 Intake Total 240 ml Output Total 900 ml Balance -660 ml Intake Oral 240 ml Output Urine Total 900 ml # Voids 4 Laboratory Tests Test 12/05/17 21:30 12/05/17 21:39 12/06/17 06:12 Urine Color Pale yellow Urine Appearance Clear Urine pH 6 (4.5-8.0) Urine Specific [place] 1.005 (1.005-1.035) Urine Protein Negative (NEGATIVE) Urine Glucose (UA) Negative (NEGATIVE) Urine Ketones Negative (NEGATIVE) Urine Occult Blood Negative (NEGATIVE) Urine Nitrite Negative (NEGATIVE) Urine Bilirubin Negative (NEGATIVE) Urine Urobilinogen Normal MG/DL (0.0-1.0) Urine Leukocyte Esterase Negative (NEGATIVE) White Blood Count 6.6 K/UL (4.8-10.8) 3.9 K/UL (4.8-10.8) L Red Blood Count 4.96 M/UL (4.70-6.10) 5.04 M/UL (4.70-6.10) Hemoglobin 10.5 G/DL (14.2-18.0) L 11.0 G/DL (14.2-18.0) L Hematocrit 35.2 % (42.0-52.0) L 35.9 % (42.0-52.0) L Mean Corpuscular Volume 71 FL (80-99) L 71 FL (80-99) L Mean Corpuscular Hemoglobin 21.2 PG (27.0-31.0) L 21.8 PG (27.0-31.0) L Mean Corpuscular Hemoglobin Concent 29.9 G/DL (32.0-36.0) L 30.6 G/DL (32.0-36.0) L Red Cell Distribution Width 16.8 % (11.6-14.8) H 17.0 % (11.6-14.8) H Platelet Count 347 K/UL (150-450) 340 K/UL (150-450) Mean Platelet Volume 6.4 FL (6.5-10.1) L 6.6 FL (6.5-10.1) Neutrophils (%) (Auto) 57.2 % (45.0-75.0) % (45.0-75.0) Lymphocytes (%) (Auto) 26.9 % (20.0-45.0) % (20.0-45.0) Monocytes (%) (Auto) 7.1 % (1.0-10.0) % (1.0-10.0) Eosinophils (%) (Auto) 6.5 % (0.0-3.0) H % (0.0-3.0) Basophils (%) (Auto) 2.3 % (0.0-2.0) H % (0.0-2.0) Sodium Level 136 MMOL/L (136-145) 134 MMOL/L (136-145) L Potassium Level 4.3 MMOL/L (3.5-5.1) 4.4 MMOL/L (3.5-5.1) Chloride Level 101 MMOL/L (98-107) 101 MMOL/L (98-107) Carbon Dioxide Level 28 MMOL/L (21-32) 25 MMOL/L (21-32) Anion Gap 7 mmol/L (5-15) 8 mmol/L (5-15) Blood Urea Nitrogen 9 mg/dL (7-18) 10 mg/dL (7-18) Creatinine 1.0 MG/DL (0.55-1.30) 1.0 MG/DL (0.55-1.30) Estimat Glomerular Filtration Rate > 60 mL/min (>60) > 60 mL/min (>60) Glucose Level 86 MG/DL (74-106) 159 MG/DL (74-106) H Lactic Acid Level 1.80 mmol/L (0.4-2.0) Calcium Level 9.5 MG/DL (8.5-10.1) 9.7 MG/DL (8.5-10.1) Total Bilirubin 0.2 MG/DL (0.2-1.0) 0.3 MG/DL (0.2-1.0) Aspartate Amino Transf (AST/SGOT) 26 U/L (15-37) 23 U/L (15-37) Alanine Aminotransferase (ALT/SGPT) 19 U/L (12-78) 22 U/L (12-78) Alkaline Phosphatase 85 U/L (46-116) 86 U/L (46-116) Total Creatine Kinase 236 U/L (26-308) Creatine Kinase MB 8.2 NG/ML (0.0-3.6) H Creatine Kinase MB Relative Index 3.4 Troponin I 0.000 ng/mL (0.000-0.056) 0.000 ng/mL (0.000-0.056) Pro-B-Type Natriuretic Peptide 359 pg/mL (0-125) H Total Protein 7.9 G/DL (6.4-8.2) 7.9 G/DL (6.4-8.2) Albumin 3.6 G/DL (3.4-5.0) 3.4 G/DL (3.4-5.0) Globulin 4.3 g/dL 4.5 g/dL Albumin/Globulin Ratio 0.8 (1.0-2.7) L 0.8 (1.0-2.7) L Differential Total Cells Counted 100 Neutrophils % (Manual) 86 % (45-75) H Lymphocytes % (Manual) 13 % (20-45) L Monocytes % (Manual) 1 % (1-10) Eosinophils % (Manual) 0 % (0-3) Basophils % (Manual) 0 % (0-2) Band Neutrophils 0 % (0-8) Platelet Estimate Adequate Platelet Morphology Normal Hypochromasia 1+ Anisocytosis 1+ Microcytosis 2+ Magnesium Level 1.6 MG/DL (1.8-2.4) L Iron Level 20 ug/dL (50-175) L Total Iron Binding Capacity 346 ug/dL (250-450) Percent Iron Saturation 6 % (15-50) L Unsaturated Iron Binding 326 ug/dL (112-346) Triglycerides Level 21 MG/DL (30-150) L Cholesterol Level 145 MG/DL (< 200) LDL Cholesterol 63 mg/dL (<100) HDL Cholesterol 78 MG/DL (40-60) H Cholesterol/HDL Ratio 1.9 (3.3-4.4) L Thyroid Stimulating Hormone (TSH) 0.310 uiU/mL (0.358-3.740) Height (Feet): 5 Height (Inches): 8.00 Weight (Pounds): 130 Medications Current Medications Medications (Trade) Dose Ordered Sig/Agustin Route PRN Reason Start Time Stop Time Status Last Admin Dose Admin Albuterol/ Ipratropium (Albuterol/ Ipratropium) 3 ml Q4HRT HHN 12/06/17 03:00 12/11/17 02:59 12/06/17 11:10 Aspirin (ASA) 81 mg DAILY ORAL 12/06/17 09:00 01/05/18 08:59 12/06/17 08:39 Azithromycin 250 mg/Dextrose 275 ml @ 275 mls/hr Q24HRS IV 12/06/17 23:00 12/12/17 23:59 Heparin Sodium (Porcine) (Heparin 5000 units/ml) 5,000 units EVERY 12 HOURS SUBQ 12/06/17 09:00 01/05/18 08:59 12/06/17 08:44 Methylprednisolone Sodium Succinate (Solu-MEDROL) 40 mg EVERY 12 HOURS IVP 12/06/17 09:00 01/05/18 08:59 12/06/17 08:39 Nitroglycerin (Nitro-Bid) 1 inch TID@0600,1200,1800 TOPIC 12/06/17 06:00 01/05/18 05:59 12/06/17 11:40 Assessment/Plan Problem List: (1) COPD with exacerbation ICD Codes: J44.1 - Chronic obstructive pulmonary disease with (acute) exacerbation SNOMED: 472935210 (2) ETOH abuse ICD Codes: F10.10 - Alcohol abuse, uncomplicated SNOMED: 88211510, 60663805 (3) ACS (acute coronary syndrome) ICD Codes: I24.9 - Acute ischemic heart disease, unspecified SNOMED: 542539398 Assessment/Plan respiratory treatment titrate fio2 check troponin and ekg symptomatic treatment check sputum Tyler Randolph MD Dec 06, 2017 12:27
[2017-12-06] MEDS ORDERED: Promethazine/Codeine 5ml UD ORAL PRN (12:30)
[2017-12-06] MEDS ORDERED: Albuterol/Ipratropium 3ml neb HHN SCH (13:00)
[2017-12-06 16:00] VITALS: BP 120/72
--- NOTE | 2017-12-06 16:15 | History and Physical Report ---
DATE OF ADMISSION: 12/05/2017 TIME: 11 a.m. CONSULTANTS: 1. Tyler Randolph M.D. 2. Bharat Rowe M.D. CHIEF COMPLAINT: Chest pain, chronic obstructive pulmonary disease exacerbation, shortness of breath, and weakness. HISTORY: This is a 62-year-old male, who lives at home, presents with shortness of breath x2 days, increasing, slight chest pain, substernal, dull, no radiation, and no loss of consciousness. The patient came to [place], diagnosed with the above, admitted to telemetry for further care and treatment. Currently, calm in bed and slightly short of breath. Pulmonary treatment in place. No complaint. PAST MEDICAL HISTORY: Includes chronic obstructive pulmonary disease, alcohol abuse, ACS, and acute renal failure. PAST SURGICAL HISTORY: Unknown. MEDICATIONS: Include azithromycin, methylprednisolone, nitroglycerin, albuterol, Zosyn, ipratropium, and morphine. ALLERGIES: Denies. SOCIAL HISTORY: No smoking. Positive alcohol. No intravenous drug abuse. FAMILY HISTORY: Noncontributory. REVIEW OF SYSTEMS: Slight chest pain. Slight shortness of breath. No nausea, vomiting, or diarrhea. PHYSICAL EXAMINATION: GENERAL: Calm in bed, slight short of breath, oriented x3, and in no acute distress. VITAL SIGNS: Temperature is 97 degrees, pulse 80, respirations 16, and blood pressure 111/65. CARDIOVASCULAR: No murmurs. LUNGS: Poor air exchange. ABDOMEN: Bowel sounds distant. EXTREMITIES: Show no cyanosis, clubbing, or edema. NEUROLOGIC: The patient moves all extremities. Slightly weak. LABORATORY AND DIAGNOSTIC DATA: White count 3.9, hemoglobin and hematocrit are 11 and 35, and platelets are 340,000. BMP is normal. Troponin 0.00. BNP is 359. Urinalysis shows negative. ASSESSMENT: 1. Chest pain. 2. Shortness of breath. 3. Chronic obstructive pulmonary disease exacerbation. 4. History of alcohol abuse. 5. Acute coronary syndrome. 6. Acute renal failure. PLAN: 1. Continue previous medications. 2. Pain control. 3. Cardiology followup. 4. Troponin q.8 h. x3. 5. EKG. 6. O2 and pulmonary treatment. 7. OT, PT, and dietary evaluation. 8. CBC and BMP in the morning. Murray Colin D.O. DR: NINFA JOB#: [id number] CC:
[2017-12-06 20:00] VITALS: BP 118/76
[2017-12-06] MEDS: Theophylline ER 100mg ORAL SCH (20:30)
[2017-12-06] MEDS ORDERED: Azithromycin 250 MG in D5W 275 ML IV SCH (23:00)
[2017-12-07] VITALS (7 sets, daily range): BP systolic 127–143; BP diastolic 55–88
[2017-12-07] MEDS: Albuterol/Ipratropium 3ml neb HHN SCH ×7 (00:14→23:56)
--- NOTE | 2017-12-07 04:00 | Progress Note ---
DATE: 12/06/2017 CARDIOLOGY PROGRESS NOTE SUBJECTIVE: The patient is still congested with cough and shortness of breath. No chest pain noted today. Troponin levels are negative. Monitored rhythm, sinus. OBJECTIVE: VITAL SIGNS: Blood pressure 118/76, pulse 97, and respirations 19. No fevers. Oxygen saturation on 2 liters is 95% to 99%. LUNGS: Coarse breath sounds with rhonchi and few expiratory wheezes. HEART: Regular rhythm and rate. Normal S1 and S2 with a fourth heart sound. ABDOMEN: Soft. EXTREMITIES: No edema. LABORATORY AND DIAGNOSTIC DATA: White count 3.9 and hemoglobin 11. Sodium 134, potassium 4.4, bicarbonate 25, BUN 10, creatinine 1, and glucose 159. Lactic acid normal. Magnesium 1.6. Troponin 0. LDL cholesterol 63 and TSH 0.3. IMPRESSION: 1. Chronic obstructive pulmonary disease acute exacerbation. 2. Acute bronchospasm. 3. Acute anginal syndrome. 4. Hypomagnesemia. 5. Microcytic anemia. PLAN: 1. Continue cardiac monitoring. 2. Inhaled bronchodilators. 3. Empiric antibiotics. 4. Intravenous steroids. 5. Discontinue topical nitrates. 6. IV magnesium replacement. 7. Other cardiovascular regimen without change. 8. Stool occult blood testing and outpatient GI workup to be considered. 9. Noninvasive assessment of coronary flow reserve will be obtained once the patient's pulmonary status has stabilized. Nicolas Toure M.D. DR: SHELBY JOB#: [id number] CC:
[2017-12-07 07:19] LABS: HEMATOCRIT 34.6 % (42.0-52.0); HEMOGLOBIN 10.4 G/DL (14.2-18.0); MEAN CORPUSCULAR VOLUME 71 FL (80-99); PLATELET COUNT 330 K/UL (150-450); RED BLOOD COUNT 4.86 M/UL (4.70-6.10); RED CELL DISTRIBUTION WIDTH 16.7 % (11.6-14.8); WHITE BLOOD COUNT 9.9 K/UL (4.8-10.8)
[2017-12-07 07:38] LABS: ANION GAP 10 mmol/L (5-15); BLOOD UREA NITROGEN 20 mg/dL (7-18); CALCIUM 9.8 MG/DL (8.5-10.1); CARBON DIOXIDE 27 MMOL/L (21-32); CHLORIDE 103 MMOL/L (98-107); CREATININE 1.1 MG/DL (0.55-1.30); POTASSIUM 4.2 MMOL/L (3.5-5.1); SODIUM 140 MMOL/L (136-145)
[2017-12-07] MEDS: Solu-MEDROL 40mg Inj IVP SCH (09:40)
[2017-12-07] MEDS: Theophylline ER 100mg ORAL SCH ×2 (09:40→20:54)
[2017-12-07] MEDS: Aspirin Baby 81mg ORAL SCH (09:40)
[2017-12-07] MEDS: Heparin 5000 units/ml inj SUBQ SCH (09:44)
--- NOTE | 2017-12-07 11:30 | Pulmonology Progress Note ---
Assessment/Plan Problems: (1) COPD with exacerbation (2) ETOH abuse (3) ACS (acute coronary syndrome) (4) Hypoalbuminemia (5) Anemia Assessment/Plan respiratory treatment check sputum antitussive titrate fio2 to sat of 92% Mg supplement check h/h, stool for OB ambulation for dvt prophylaxis Subjective ROS Limited/Unobtainable: No Interval Events: still coughing and dyspnic Constitutional: Reports: no symptoms HEENT: Repors: no symptoms Allergies: Coded Allergies: NO KNOWN ALLERGIES (Unverified Allergy, Unknown, 03/01/15) Objective Last 24 Hour Vital Signs Date Time Temp Pulse Resp B/P (MAP) Pulse Ox O2 Delivery O2 Flow Rate FiO2 12/07/17 11:25 Nasal Cannula 2.0 28 12/07/17 11:25 Nasal Cannula 2.0 28 12/07/17 07:36 98 18 98 Nasal Cannula 2.0 28 12/07/17 07:32 Nasal Cannula 2.0 12/07/17 07:32 98 18 97 Nasal Cannula 2.0 12/07/17 07:32 96 Nasal Cannula 2.0 12/07/17 04:00 98.3 97 20 134/88 (103) 97 98.3 12/07/17 04:00 96 12/07/17 02:55 86 20 99 Nasal Cannula 2.0 12/07/17 02:48 96 20 97 Nasal Cannula 2.0 12/07/17 00:17 92 20 99 Nasal Cannula 2.0 12/07/17 00:14 96 20 98 Nasal Cannula 2.0 12/07/17 00:00 97.7 95 20 130/82 (98) 96 97.7 12/07/17 00:00 93 12/06/17 21:00 Nasal Cannula 2.0 Nasal Cannula 2.0 12/06/17 20:00 97.0 100 19 118/76 (90) 95 97.0 12/06/17 20:00 97 12/06/17 19:10 89 20 99 Nasal Cannula 2.0 28 12/06/17 19:00 Nasal Cannula 2.0 28 12/06/17 19:00 97 20 97 Nasal Cannula 2.0 28 12/06/17 19:00 97 Nasal Cannula 2.0 28 12/06/17 17:33 120/72 12/06/17 16:00 109 12/06/17 16:00 97.5 98 20 120/72 (88) 99 97.5 12/06/17 15:18 99 16 98 Nasal Cannula 2.0 28 12/06/17 15:10 95 16 97 Nasal Cannula 2.0 28 12/06/17 12:00 94 12/06/17 11:54 97.3 97 20 134/76 (95) 99 97.3 12/06/17 11:40 134/76 Intake and Output 12/06/17 12/07/17 19:00 07:00 Intake Total 550 ml 595 ml Output Total 1600 ml Balance 550 ml -1005 ml Intake Oral 550 ml 120 ml IV Total 475 ml Output Urine Total 1600 ml # Voids 4 General Appearance: cachetic HEENT: normocephalic, atraumatic, PERRL Respiratory/Chest: crackles/rales Cardiovascular: normal peripheral pulses, normal rate Abdomen: normal bowel sounds, soft, non tender Genitourinary: normal external genitalia Microbiology Date/Time Source Procedure Growth Status 12/05/17 21:30 Blood Blood Culture - Preliminary NO GROWTH AFTER 24 HOURS Resulted 12/05/17 21:15 Blood Blood Culture - Preliminary NO GROWTH AFTER 24 HOURS Resulted 12/06/17 04:00 Sputum Gram Stain - Final Resulted 12/06/17 04:00 Sputum Sputum Culture - Preliminary NORMAL UPPER RESPIRATORY EBER AT 24 ... Resulted Laboratory Tests 12/07/17 06:35: White Blood Count 9.9#, Red Blood Count 4.86, Hemoglobin 10.4L, Hematocrit 34.6L , Mean Corpuscular Volume 71L, Mean Corpuscular Hemoglobin 21.3L, Mean Corpuscular Hemoglobin Concent 29.9L, Red Cell Distribution Width 16.7H, Platelet Count 330, Mean Platelet Volume 6.9, Neutrophils (%) (Auto) , Lymphocytes (%) (Auto) , Monocytes (%) (Auto) , Eosinophils (%) (Auto) , Basophils (%) (Auto) , Differential Total Cells Counted 100, Neutrophils % ( Manual) 90H, Lymphocytes % (Manual) 9L, Monocytes % (Manual) 1, Eosinophils % ( Manual) 0, Basophils % (Manual) 0, Band Neutrophils 0, Platelet Estimate Adequate, Platelet Morphology Normal, Hypochromasia 1+, Anisocytosis 1+, Microcytosis 2+, Sodium Level 140, Potassium Level 4.2, Chloride Level 103, Carbon Dioxide Level 27, Anion Gap 10, Blood Urea Nitrogen 20H, Creatinine 1.1, Estimat Glomerular Filtration Rate > 60, Glucose Level 122H, Calcium Level 9.8, Magnesium Level 2.3 Current Medications Medications (Trade) Dose Ordered Sig/Agustin Route PRN Reason Start Time Stop Time Status Last Admin Dose Admin Albuterol/ Ipratropium (Albuterol/ Ipratropium) 3 ml Q4HRT HHN 12/06/17 03:00 12/11/17 02:59 12/07/17 07:31 Aspirin (ASA) 81 mg DAILY ORAL 12/06/17 09:00 01/05/18 08:59 12/07/17 09:40 Azithromycin 250 mg/Dextrose 275 ml @ 275 mls/hr Q24HRS IV 12/06/17 23:00 12/12/17 23:59 12/06/17 22:26 Methylprednisolone Sodium Succinate (Solu-MEDROL) 40 mg EVERY 12 HOURS IVP 12/06/17 09:00 01/05/18 08:59 12/07/17 09:40 Promethazine HCl/ Codeine (Phenergan with Codeine) 5 ml Q4H PRN ORAL For Cough 12/06/17 12:30 01/05/18 12:29 Temazepam (Restoril) 15 mg HSPRN PRN ORAL Insomnia 12/06/17 21:45 12/13/17 21:44 12/06/17 22:26 Theophylline (Gaurav-Dur) 100 mg EVERY 12 HOURS ORAL 12/06/17 21:00 01/05/18 20:59 12/07/17 09:40 Tyler Randolph MD Dec 07, 2017 11:30
--- NOTE | 2017-12-07 14:45 | General Progress Note ---
Assessment/Plan Problem List: (1) Respiratory distress ICD Codes: R06.00 - Dyspnea, unspecified SNOMED: 843466628 (2) Hypoxia ICD Codes: R09.02 - Hypoxemia SNOMED: 668997006 (3) Acute renal failure ICD Codes: N17.9 - Acute kidney failure, unspecified SNOMED: 66472876 (4) COPD with exacerbation ICD Codes: J44.1 - Chronic obstructive pulmonary disease with (acute) exacerbation SNOMED: 330592419 (5) SOB (shortness of breath) ICD Codes: R06.02 - Shortness of breath SNOMED: 413165655 (6) Anemia ICD Codes: D64.9 - Anemia, unspecified SNOMED: 829525375 (7) ACS (acute coronary syndrome) ICD Codes: I24.9 - Acute ischemic heart disease, unspecified SNOMED: 603572355 Status: unchanged Assessment/Plan o2 pulm tx ot pt diet cbc bmp am Subjective Constitutional: Reports: weakness Allergies: Coded Allergies: NO KNOWN ALLERGIES (Unverified Allergy, Unknown, 03/01/15) All Systems: reviewed and negative except above Subjective o2nc calm sleepy Objective Last 24 Hour Vital Signs Date Time Temp Pulse Resp B/P (MAP) Pulse Ox O2 Delivery O2 Flow Rate FiO2 12/07/17 12:01 97.7 96 20 140/84 (102) 90 97.7 12/07/17 12:00 109 12/07/17 11:25 Nasal Cannula 2.0 28 12/07/17 11:25 Nasal Cannula 2.0 28 12/07/17 09:00 Nasal Cannula 2.0 Nasal Cannula 2.0 12/07/17 08:00 97.5 107 133/72 (92) 97.5 12/07/17 08:00 119 12/07/17 07:36 98 18 98 Nasal Cannula 2.0 28 12/07/17 07:32 Nasal Cannula 2.0 28 12/07/17 07:32 98 18 97 Nasal Cannula 2.0 28 12/07/17 07:32 96 Nasal Cannula 2.0 28 12/07/17 04:00 98.3 97 20 134/88 (103) 97 98.3 12/07/17 04:00 96 12/07/17 02:55 86 20 99 Nasal Cannula 2.0 28 12/07/17 02:48 96 20 97 Nasal Cannula 2.0 28 12/07/17 00:17 92 20 99 Nasal Cannula 2.0 28 12/07/17 00:14 96 20 98 Nasal Cannula 2.0 28 12/07/17 00:00 97.7 95 20 130/82 (98) 96 97.7 12/07/17 00:00 93 12/06/17 21:00 Nasal Cannula 2.0 Nasal Cannula 2.0 12/06/17 20:00 97.0 100 19 118/76 (90) 95 97.0 12/06/17 20:00 97 12/06/17 19:10 89 20 99 Nasal Cannula 2.0 28 12/06/17 19:00 Nasal Cannula 2.0 28 12/06/17 19:00 97 20 97 Nasal Cannula 2.0 28 12/06/17 19:00 97 Nasal Cannula 2.0 28 12/06/17 17:33 120/72 12/06/17 16:00 109 12/06/17 16:00 97.5 98 20 120/72 (88) 99 97.5 12/06/17 15:18 99 16 98 Nasal Cannula 2.0 28 12/06/17 15:10 95 16 97 Nasal Cannula 2.0 28 Intake and Output 12/06/17 12/07/17 19:00 07:00 Intake Total 550 ml 595 ml Output Total 1600 ml Balance 550 ml -1005 ml Intake Oral 550 ml 120 ml IV Total 475 ml Output Urine Total 1600 ml # Voids 4 Laboratory Tests 12/07/17 06:35: White Blood Count 9.9#, Red Blood Count 4.86, Hemoglobin 10.4L, Hematocrit 34.6L , Mean Corpuscular Volume 71L, Mean Corpuscular Hemoglobin 21.3L, Mean Corpuscular Hemoglobin Concent 29.9L, Red Cell Distribution Width 16.7H, Platelet Count 330, Mean Platelet Volume 6.9, Neutrophils (%) (Auto) , Lymphocytes (%) (Auto) , Monocytes (%) (Auto) , Eosinophils (%) (Auto) , Basophils (%) (Auto) , Differential Total Cells Counted 100, Neutrophils % ( Manual) 90H, Lymphocytes % (Manual) 9L, Monocytes % (Manual) 1, Eosinophils % ( Manual) 0, Basophils % (Manual) 0, Band Neutrophils 0, Platelet Estimate Adequate, Platelet Morphology Normal, Hypochromasia 1+, Anisocytosis 1+, Microcytosis 2+, Sodium Level 140, Potassium Level 4.2, Chloride Level 103, Carbon Dioxide Level 27, Anion Gap 10, Blood Urea Nitrogen 20H, Creatinine 1.1, Estimat Glomerular Filtration Rate > 60, Glucose Level 122H, Calcium Level 9.8, Magnesium Level 2.3 Height (Feet): 5 Height (Inches): 8.00 Weight (Pounds): 130 General Appearance: lethargic EENT: normal ENT inspection Neck: normal alignment Cardiovascular: normal peripheral pulses, normal rate, regular rhythm Respiratory/Chest: chest wall non-tender, lungs clear, normal breath sounds Abdomen: normal bowel sounds, non tender, soft Extremities: normal inspection Edema: no edema noted Arm (L), no edema noted Arm (R), no edema noted Leg (L), no edema noted Leg (R), no edema noted Pedal (L), no edema noted Pedal (R), no edema noted Generalized Neurologic: motor weakness Skin: normal pigmentation, warm/dry Murray Colin DO Dec 07, 2017 14:45
[2017-12-07] MEDS ORDERED: Azithromycin 250mg tab ORAL SCH (22:00)
[2017-12-08] VITALS (7 sets, daily range): BP systolic 121–131; BP diastolic 60–78
--- NOTE | 2017-12-08 03:15 | Progress Note ---
DATE: 12/07/2017 CARDIOLOGY PROGRESS NOTE SUBJECTIVE: The patient has less shortness of breath. No chest pain. Monitored rhythm sinus and sinus tachycardia. OBJECTIVE: VITAL SIGNS: Blood pressure 133/72, pulse 107, respirations 18, and oxygen saturation on 2 liters is 97%. LUNGS: Diminished breath sounds. Few wheezes. HEART: Regular rhythm. Rapid rate. Normal S1, S2. ABDOMEN: Soft. EXTREMITIES: No edema. LABORATORY DATA: White count 10 and hemoglobin 10.4. Sputum culture is normal haylee. Sodium 140, potassium 4.2, magnesium 2.3, BUN 20, and creatinine 1.1. IMPRESSION: 1. Chronic obstructive pulmonary disease exacerbation with acute bronchospasm, improved. 2. Hypomagnesemia, corrected. 3. Hyponatremia, corrected. 4. Acute coronary insufficiency, stabilized. 5. No signs of acute ischemia at this time. 6. Controlled hypertension. PLAN: 1. Steroid taper. 2. Continue current cardiovascular regimen. 3. Defer assessment of coronary flow reserve until pulmonary parameters improved further. 4. Maintain anti-platelet therapy with aspirin. Nicolas Toure M.D. DR: JOSE JOB#: [id number] CC:
[2017-12-08] MEDS: Albuterol/Ipratropium 3ml neb HHN SCH ×5 (03:45→20:17)
[2017-12-08 07:36] LABS: BASOPHILS % (AUTO) 1.3 % (0.0-2.0); EOSINOPHILS % (AUTO) 0.8 % (0.0-3.0); HEMATOCRIT 32.2 % (42.0-52.0); HEMOGLOBIN 9.6 G/DL (14.2-18.0); LYMPHOCYTES % (AUTO) 27.7 % (20.0-45.0); MEAN CORPUSCULAR VOLUME 72 FL (80-99); MONOCYTES % (AUTO) 6.2 % (1.0-10.0); PLATELET COUNT 272 K/UL (150-450); RED BLOOD COUNT 4.48 M/UL (4.70-6.10); RED CELL DISTRIBUTION WIDTH 16.7 % (11.6-14.8); WHITE BLOOD COUNT 7.9 K/UL (4.8-10.8)
[2017-12-08 07:52] LABS: ANION GAP 8 mmol/L (5-15); BLOOD UREA NITROGEN 17 mg/dL (7-18); CALCIUM 9.3 MG/DL (8.5-10.1); CARBON DIOXIDE 28 MMOL/L (21-32); CHLORIDE 105 MMOL/L (98-107); POTASSIUM 3.1 MMOL/L (3.5-5.1); SODIUM 141 MMOL/L (136-145)
[2017-12-08] MEDS ORDERED: Solu-MEDROL 40mg Inj IVP SCH (09:00)
[2017-12-08] MEDS: Aspirin Baby 81mg ORAL SCH (09:28)
[2017-12-08] MEDS: Theophylline ER 100mg ORAL SCH ×2 (09:28→21:21)
--- NOTE | 2017-12-08 12:18 | Pulmonology Progress Note ---
Assessment/Plan Problems: (1) Epistaxis (2) COPD with exacerbation (3) ETOH abuse (4) ACS (acute coronary syndrome) (5) Hypoalbuminemia (6) Anemia Assessment/Plan dc aspirin since pt has nose bleeding one dose of Amicar respiratory treatment check sputum antitussive titrate fio2 to sat of 92% Mg supplement check h/h, stool for OB ambulation for dvt prophylaxis Subjective ROS Limited/Unobtainable: No Interval Events: has nose bleeding Constitutional: Reports: no symptoms HEENT: Repors: no symptoms Respiratory: Reports: no symptoms Allergies: Coded Allergies: NO KNOWN ALLERGIES (Unverified Allergy, Unknown, 03/01/15) Objective Last 24 Hour Vital Signs Date Time Temp Pulse Resp B/P (MAP) Pulse Ox O2 Delivery O2 Flow Rate FiO2 12/08/17 10:52 68 16 100 Nasal Cannula 2.0 28 12/08/17 10:44 66 16 100 Nasal Cannula 2.0 28 12/08/17 08:00 97.8 129 20 130/72 (91) 99 97.8 12/08/17 06:44 65 16 100 Nasal Cannula 2.0 28 12/08/17 06:38 Nasal Cannula 2.0 28 12/08/17 06:38 100 Nasal Cannula 2.0 28 12/08/17 06:36 63 16 100 Nasal Cannula 2.0 28 12/08/17 04:00 79 12/08/17 04:00 97.5 66 20 129/69 (89) 99 97.5 12/08/17 03:45 82 20 95 Nasal Cannula 2.0 12/08/17 03:45 80 18 93 Nasal Cannula 2.0 12/08/17 00:00 84 12/08/17 00:00 97.3 87 21 124/76 (92) 93 97.3 12/07/17 23:56 84 18 92 Nasal Cannula 2.0 28 12/07/17 23:56 86 20 94 Nasal Cannula 2.0 28 12/07/17 20:00 92 Nasal Cannula 2.0 28 12/07/17 20:00 98.3 87 23 139/84 (102) 95 98.3 12/07/17 20:00 Nasal Cannula 2.0 28 12/07/17 20:00 86 18 92 Nasal Cannula 2.0 28 12/07/17 20:00 92 20 93 Nasal Cannula 2.0 28 12/07/17 20:00 92 12/07/17 19:58 Nasal Cannula 2.0 Nasal Cannula 2.0 12/07/17 16:00 97.5 101 20 143/88 (106) 94 97.5 12/07/17 16:00 113 12/07/17 15:31 98 19 98 Room Air 21 12/07/17 15:17 101 18 97 Room Air 21 Intake and Output 12/07/17 12/08/17 19:00 07:00 Intake Total 890 ml 100 ml Output Total 650 ml 950 ml Balance 240 ml -850 ml Intake Oral 890 ml 100 ml Output Urine Total 650 ml 950 ml # Voids 1 5 General Appearance: cachetic HEENT: normocephalic, atraumatic Respiratory/Chest: chest wall non-tender, lungs clear, normal breath sounds Cardiovascular: normal peripheral pulses, normal rate Abdomen: normal bowel sounds, soft, non tender Genitourinary: normal external genitalia Extremities: no cyanosis Skin: no lesions 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 Microbiology Date/Time Source Procedure Growth Status 12/05/17 21:30 Blood Blood Culture - Preliminary NO GROWTH AFTER 48 HOURS Resulted 12/05/17 21:15 Blood Blood Culture - Preliminary NO GROWTH AFTER 48 HOURS Resulted 12/06/17 04:00 Sputum Gram Stain - Final Complete 12/06/17 04:00 Sputum Sputum Culture - Final NORMAL UPPER RESPIRATORY EBER PRESENT Complete Laboratory Tests 12/08/17 07:05: White Blood Count 7.9, Red Blood Count 4.48L, Hemoglobin 9.6L, Hematocrit 32.2L , Mean Corpuscular Volume 72L, Mean Corpuscular Hemoglobin 21.5L, Mean Corpuscular Hemoglobin Concent 29.9L, Red Cell Distribution Width 16.7H, Platelet Count 272, Mean Platelet Volume 6.5, Neutrophils (%) (Auto) 64.0, Lymphocytes (%) (Auto) 27.7, Monocytes (%) (Auto) 6.2, Eosinophils (%) (Auto) 0.8, Basophils (%) (Auto) 1.3, Sodium Level 141, Potassium Level 3.1L, Chloride Level 105, Carbon Dioxide Level 28, Anion Gap 8, Blood Urea Nitrogen 17, Creatinine 1.0, Estimat Glomerular Filtration Rate > 60, Glucose Level 107H, Calcium Level 9.3 Current Medications Medications (Trade) Dose Ordered Sig/Agustin Route PRN Reason Start Time Stop Time Status Last Admin Dose Admin Albuterol/ Ipratropium (Albuterol/ Ipratropium) 3 ml Q4HRT HHN 12/06/17 03:00 12/11/17 02:59 12/08/17 10:44 Aspirin (ASA) 81 mg DAILY ORAL 12/06/17 09:00 01/05/18 08:59 12/08/17 09:28 Azithromycin (Zithromax) 250 mg Q24H ORAL 12/07/17 22:00 12/14/17 21:59 12/07/17 21:00 Methylprednisolone Sodium Succinate (Solu-MEDROL) 40 mg DAILY IVP 12/08/17 09:00 01/05/18 08:59 12/08/17 09:29 Promethazine HCl/ Codeine (Phenergan with Codeine) 5 ml Q4H PRN ORAL For Cough 12/06/17 12:30 01/05/18 12:29 Temazepam (Restoril) 15 mg HSPRN PRN ORAL Insomnia 12/06/17 21:45 12/13/17 21:44 12/07/17 21:34 Theophylline (Gaurav-Dur) 100 mg EVERY 12 HOURS ORAL 12/06/17 21:00 01/05/18 20:59 12/08/17 09:28 Tyler Randolph MD Dec 08, 2017 12:18
--- NOTE | 2017-12-08 12:40 | General Progress Note ---
Assessment/Plan Problem List: (1) Respiratory distress ICD Codes: R06.00 - Dyspnea, unspecified SNOMED: 820904503 (2) Hypoxia ICD Codes: R09.02 - Hypoxemia SNOMED: 456920694 (3) Acute renal failure ICD Codes: N17.9 - Acute kidney failure, unspecified SNOMED: 14782268 (4) COPD with exacerbation ICD Codes: J44.1 - Chronic obstructive pulmonary disease with (acute) exacerbation SNOMED: 287748369 (5) SOB (shortness of breath) ICD Codes: R06.02 - Shortness of breath SNOMED: 153163852 (6) Anemia ICD Codes: D64.9 - Anemia, unspecified SNOMED: 857646124 (7) ACS (acute coronary syndrome) ICD Codes: I24.9 - Acute ischemic heart disease, unspecified SNOMED: 867291321 Status: stable, progressing Assessment/Plan o2 pulm tx ot pt diet cbc bmp am dc plan Subjective Constitutional: Reports: weakness Respiratory: Reports: shortness of breath Allergies: Coded Allergies: NO KNOWN ALLERGIES (Unverified Allergy, Unknown, 03/01/15) All Systems: reviewed and negative except above Subjective calm sleepy Objective Last 24 Hour Vital Signs Date Time Temp Pulse Resp B/P (MAP) Pulse Ox O2 Delivery O2 Flow Rate FiO2 12/08/17 10:52 68 16 100 Nasal Cannula 2.0 12/08/17 10:44 66 16 100 Nasal Cannula 2.0 28 12/08/17 08:00 97.8 129 20 130/72 (91) 99 97.8 12/08/17 06:44 65 16 100 Nasal Cannula 2.0 28 12/08/17 06:38 Nasal Cannula 2.0 28 12/08/17 06:38 100 Nasal Cannula 2.0 28 12/08/17 06:36 63 16 100 Nasal Cannula 2.0 12/08/17 04:00 79 12/08/17 04:00 97.5 66 20 129/69 (89) 99 97.5 12/08/17 03:45 82 20 95 Nasal Cannula 2.0 28 12/08/17 03:45 80 18 93 Nasal Cannula 2.0 28 12/08/17 00:00 84 12/08/17 00:00 97.3 87 21 124/76 (92) 93 97.3 12/07/17 23:56 84 18 92 Nasal Cannula 2.0 28 12/07/17 23:56 86 20 94 Nasal Cannula 2.0 28 12/07/17 20:00 92 Nasal Cannula 2.0 28 12/07/17 20:00 98.3 87 23 139/84 (102) 95 98.3 12/07/17 20:00 Nasal Cannula 2.0 28 12/07/17 20:00 86 18 92 Nasal Cannula 2.0 28 12/07/17 20:00 92 20 93 Nasal Cannula 2.0 28 12/07/17 20:00 92 12/07/17 19:58 Nasal Cannula 2.0 Nasal Cannula 2.0 12/07/17 16:00 97.5 101 20 143/88 (106) 94 97.5 12/07/17 16:00 113 12/07/17 15:31 98 19 98 Room Air 21 12/07/17 15:17 101 18 97 Room Air 21 Intake and Output 12/07/17 12/08/17 19:00 07:00 Intake Total 890 ml 100 ml Output Total 650 ml 950 ml Balance 240 ml -850 ml Intake Oral 890 ml 100 ml Output Urine Total 650 ml 950 ml # Voids 1 5 Laboratory Tests 12/08/17 07:05: White Blood Count 7.9, Red Blood Count 4.48L, Hemoglobin 9.6L, Hematocrit 32.2L , Mean Corpuscular Volume 72L, Mean Corpuscular Hemoglobin 21.5L, Mean Corpuscular Hemoglobin Concent 29.9L, Red Cell Distribution Width 16.7H, Platelet Count 272, Mean Platelet Volume 6.5, Neutrophils (%) (Auto) 64.0, Lymphocytes (%) (Auto) 27.7, Monocytes (%) (Auto) 6.2, Eosinophils (%) (Auto) 0.8, Basophils (%) (Auto) 1.3, Sodium Level 141, Potassium Level 3.1L, Chloride Level 105, Carbon Dioxide Level 28, Anion Gap 8, Blood Urea Nitrogen 17, Creatinine 1.0, Estimat Glomerular Filtration Rate > 60, Glucose Level 107H, Calcium Level 9.3 Height (Feet): 5 Height (Inches): 8.00 Weight (Pounds): 122 General Appearance: lethargic EENT: normal ENT inspection Neck: normal alignment Cardiovascular: normal peripheral pulses, normal rate, regular rhythm Respiratory/Chest: chest wall non-tender, decreased breath sounds Abdomen: normal bowel sounds, non tender, soft Extremities: normal inspection Edema: no edema noted Arm (L), no edema noted Arm (R), no edema noted Leg (L), no edema noted Leg (R), no edema noted Pedal (L), no edema noted Pedal (R), no edema noted Generalized Neurologic: responsive, motor weakness Skin: normal pigmentation, warm/dry Murray Colin Dec 08, 2017 12:40
[2017-12-08] MEDS ORDERED: Aminocaproic Acid Inj 5,000 MG in NS 110 ML IV ONE (13:30)
[2017-12-08] MEDS ORDERED: Tubing IV Secondary IV ONE (16:53)
[2017-12-08] MEDS ORDERED: Promethazine/Codeine 5ml UD ORAL PRN (21:00)
[2017-12-08] MEDS ORDERED: Azithromycin 250mg tab ORAL SCH (22:00)
[2017-12-09] VITALS: BP 129/76
[2017-12-09] MEDS: Albuterol/Ipratropium 3ml neb HHN SCH ×6 (00:34→19:23)
--- NOTE | 2017-12-09 04:00 | Progress Note ---
DATE: 12/08/2017 CARDIOLOGY PROGRESS NOTE SUBJECTIVE: Less short of breath. Still hypoxic. No chest pain. OBJECTIVE: VITAL SIGNS: Blood pressure 130/72, heart rate 65 to 129, respiratory rate 16 to 20, and afebrile. Overall, heart rate stable with single elevation as noted. LUNGS: Diminished breath sounds. Few wheezing. HEART: Regular rhythm and rate. Normal S1, S2. ABDOMEN: Soft. EXTREMITIES: Trace edema. LABORATORY DATA: White count 7.9, hemoglobin 9.6. Potassium 3.1, BUN 17, and creatinine 1.0. IMPRESSION: 1. Hypokalemia, hypomagnesemia, status post replacement therapy. 2. Chronic obstructive pulmonary disease exacerbation. 3. Anginal episode. 4. Paroxysmal bronchospasm. PLAN: 1. Replace potassium. 2. Recheck lytes and magnesium. 3. Continue steroid taper. 4. Antiplatelet therapy. 5. Outpatient stress test once pulmonary parameters at baseline. Nicolas Toure M.D. DR: RONDA JOB#: [id number] CC:
[2017-12-09 07:29] LABS: BASOPHILS % (AUTO) 0.8 % (0.0-2.0); EOSINOPHILS % (AUTO) 0.5 % (0.0-3.0); HEMATOCRIT 30.6 % (42.0-52.0); HEMOGLOBIN 9.3 G/DL (14.2-18.0); MEAN CORPUSCULAR VOLUME 72 FL (80-99); MONOCYTES % (AUTO) 7.8 % (1.0-10.0); PLATELET COUNT 250 K/UL (150-450); RED BLOOD COUNT 4.24 M/UL (4.70-6.10); WHITE BLOOD COUNT 10.8 K/UL (4.8-10.8)
[2017-12-09 07:46] VITALS: BP 133/79
[2017-12-09 07:51] LABS: ANION GAP 9 mmol/L (5-15); BLOOD UREA NITROGEN 17 mg/dL (7-18); CALCIUM 9.2 MG/DL (8.5-10.1); CARBON DIOXIDE 28 MMOL/L (21-32); CHLORIDE 106 MMOL/L (98-107); CREATININE 0.9 MG/DL (0.55-1.30); POTASSIUM 3.4 MMOL/L (3.5-5.1); SODIUM 142 MMOL/L (136-145)
[2017-12-09] MEDS: Theophylline ER 100mg ORAL SCH (09:18)
[2017-12-09 12:47] VITALS: BP 124/77
--- NOTE | 2017-12-09 13:14 | Pulmonology Progress Note ---
Assessment/Plan Problems: (1) Epistaxis (2) COPD with exacerbation (3) ETOH abuse (4) ACS (acute coronary syndrome) (5) Hypoalbuminemia (6) Anemia Assessment/Plan c/o lump behind left breast, US of breast ordered. nose bleed stop respiratory treatment check sputum antitussive titrate fio2 to sat of 92% Mg supplement check h/h, stool for OB ambulation for dvt prophylaxis Subjective ROS Limited/Unobtainable: No Allergies: Coded Allergies: NO KNOWN ALLERGIES (Unverified Allergy, Unknown, 03/01/15) Objective Last 24 Hour Vital Signs Date Time Temp Pulse Resp B/P (MAP) Pulse Ox O2 Delivery O2 Flow Rate FiO2 12/09/17 12:47 97.6 97 20 124/77 (93) 98 97.6 12/09/17 12:11 89 22 98 Nasal Cannula 2.0 28 12/09/17 12:05 86 22 98 Nasal Cannula 2.0 28 12/09/17 09:00 Nasal Cannula 4.0 Nasal Cannula 4.0 12/09/17 07:50 97 20 98 Nasal Cannula 2.0 28 12/09/17 07:46 98.7 105 19 133/79 (97) 98.7 12/09/17 07:42 Nasal Cannula 5.0 12/09/17 07:42 98 Nasal Cannula 5.0 12/09/17 07:41 93 20 98 Nasal Cannula 5.0 12/09/17 03:00 Nasal Cannula 2.0 28 12/09/17 03:00 Nasal Cannula 2.0 28 12/09/17 00:00 98.1 80 19 129/76 (93) 94 98.1 12/08/17 23:10 87 20 98 Nasal Cannula 2.0 28 12/08/17 23:00 97 20 99 Nasal Cannula 2.0 28 12/08/17 21:00 Nasal Cannula 2.0 Nasal Cannula 2.0 12/08/17 20:40 97.8 98 20 131/72 (91) 95 97.8 12/08/17 20:00 98.1 103 18 121/60 (80) 97 98.1 12/08/17 19:20 89 20 96 Nasal Cannula 2.0 28 12/08/17 19:10 Nasal Cannula 2.0 28 12/08/17 19:10 96 Nasal Cannula 2.0 28 12/08/17 19:10 96 20 96 Nasal Cannula 2.0 28 12/08/17 16:00 97.8 103 19 124/68 (86) 97.8 12/08/17 15:43 98 12/08/17 14:59 86 20 100 Nasal Cannula 2.0 28 12/08/17 14:52 88 20 98 Nasal Cannula 2.0 28 Intake and Output 12/08/17 12/09/17 19:00 07:00 Intake Total 520 ml 500 ml Output Total 100 ml 900 ml Balance 420 ml -400 ml Intake Oral 520 ml 500 ml Output Urine Total 100 ml 900 ml # Voids 2 4 General Appearance: WD/WN HEENT: normocephalic, atraumatic Respiratory/Chest: chest wall non-tender, lungs clear Cardiovascular: normal peripheral pulses, normal rate Abdomen: normal bowel sounds, soft, non tender Genitourinary: normal external genitalia Laboratory Tests 12/09/17 06:30: White Blood Count 10.8, Red Blood Count 4.24L, Hemoglobin 9.3L, Hematocrit 30.6L , Mean Corpuscular Volume 72L, Mean Corpuscular Hemoglobin 21.9L, Mean Corpuscular Hemoglobin Concent 30.3L, Red Cell Distribution Width 17.0H, Platelet Count 250, Mean Platelet Volume 6.8, Neutrophils (%) (Auto) 74.0, Lymphocytes (%) (Auto) 17.0L, Monocytes (%) (Auto) 7.8, Eosinophils (%) (Auto) 0.5, Basophils (%) (Auto) 0.8, Sodium Level 142, Potassium Level 3.4L, Chloride Level 106, Carbon Dioxide Level 28, Anion Gap 9, Blood Urea Nitrogen 17, Creatinine 0.9, Estimat Glomerular Filtration Rate > 60, Glucose Level 92, Calcium Level 9.2, Magnesium Level 1.6L, Pro-B-Type Natriuretic Peptide 265H Current Medications Medications (Trade) Dose Ordered Sig/Agustin Route PRN Reason Start Time Stop Time Status Last Admin Dose Admin Albuterol/ Ipratropium (Albuterol/ Ipratropium) 3 ml Q4HRT HHN 12/08/17 23:00 12/11/17 02:59 12/09/17 12:03 Azithromycin (Zithromax) 250 mg Q24H ORAL 12/08/17 22:00 12/14/17 21:59 12/08/17 21:22 Promethazine HCl/ Codeine (Phenergan with Codeine) 5 ml Q4H PRN ORAL For Cough 12/08/17 21:00 01/07/18 20:59 Temazepam (Restoril) 15 mg HSPRN PRN ORAL Insomnia 12/08/17 21:45 12/13/17 21:44 12/08/17 23:12 Theophylline (Gaurav-Dur) 100 mg EVERY 12 HOURS ORAL 12/08/17 21:00 01/05/18 20:59 12/09/17 09:18 Tyler Randolph MD Dec 09, 2017 13:14
--- NOTE | 2017-12-09 13:52 | General Progress Note ---
Assessment/Plan Problem List: (1) Respiratory distress ICD Codes: R06.00 - Dyspnea, unspecified SNOMED: 639470420 (2) Hypoxia ICD Codes: R09.02 - Hypoxemia SNOMED: 820890351 (3) Acute renal failure ICD Codes: N17.9 - Acute kidney failure, unspecified SNOMED: 82525758 (4) COPD with exacerbation ICD Codes: J44.1 - Chronic obstructive pulmonary disease with (acute) exacerbation SNOMED: 248792223 (5) SOB (shortness of breath) ICD Codes: R06.02 - Shortness of breath SNOMED: 007177824 (6) Anemia ICD Codes: D64.9 - Anemia, unspecified SNOMED: 674916784 (7) ACS (acute coronary syndrome) ICD Codes: I24.9 - Acute ischemic heart disease, unspecified SNOMED: 032653958 Status: unchanged Assessment/Plan o2 pulm tx ot pt diet cbc bmp am dc plan Subjective Constitutional: Reports: weakness Respiratory: Reports: shortness of breath Allergies: Coded Allergies: NO KNOWN ALLERGIES (Unverified Allergy, Unknown, 03/01/15) All Systems: reviewed and negative except above Subjective o2nc calm Objective Last 24 Hour Vital Signs Date Time Temp Pulse Resp B/P (MAP) Pulse Ox O2 Delivery O2 Flow Rate FiO2 12/09/17 12:47 97.6 97 20 124/77 (93) 98 97.6 12/09/17 12:11 89 22 98 Nasal Cannula 2.0 12/09/17 12:05 86 22 98 Nasal Cannula 2.0 12/09/17 09:00 Nasal Cannula 4.0 Nasal Cannula 4.0 12/09/17 07:50 97 20 98 Nasal Cannula 2.0 12/09/17 07:46 98.7 105 19 133/79 (97) 98.7 12/09/17 07:42 Nasal Cannula 5.0 12/09/17 07:42 98 Nasal Cannula 5.0 12/09/17 07:41 93 20 98 Nasal Cannula 5.0 12/09/17 03:00 Nasal Cannula 2.0 12/09/17 03:00 Nasal Cannula 2.0 12/09/17 00:00 98.1 80 19 129/76 (93) 94 98.1 12/08/17 23:10 87 20 98 Nasal Cannula 2.0 28 12/08/17 23:00 97 20 99 Nasal Cannula 2.0 28 12/08/17 21:00 Nasal Cannula 2.0 Nasal Cannula 2.0 12/08/17 20:40 97.8 98 20 131/72 (91) 95 97.8 12/08/17 20:00 98.1 103 18 121/60 (80) 97 98.1 12/08/17 19:20 89 20 96 Nasal Cannula 2.0 28 12/08/17 19:10 Nasal Cannula 2.0 28 12/08/17 19:10 96 Nasal Cannula 2.0 28 12/08/17 19:10 96 20 96 Nasal Cannula 2.0 28 12/08/17 16:00 97.8 103 19 124/68 (86) 97.8 12/08/17 15:43 98 12/08/17 14:59 86 20 100 Nasal Cannula 2.0 28 12/08/17 14:52 88 20 98 Nasal Cannula 2.0 28 Intake and Output 12/08/17 12/09/17 19:00 07:00 Intake Total 520 ml 500 ml Output Total 100 ml 900 ml Balance 420 ml -400 ml Intake Oral 520 ml 500 ml Output Urine Total 100 ml 900 ml # Voids 2 4 Laboratory Tests 12/09/17 06:30: White Blood Count 10.8, Red Blood Count 4.24L, Hemoglobin 9.3L, Hematocrit 30.6L , Mean Corpuscular Volume 72L, Mean Corpuscular Hemoglobin 21.9L, Mean Corpuscular Hemoglobin Concent 30.3L, Red Cell Distribution Width 17.0H, Platelet Count 250, Mean Platelet Volume 6.8, Neutrophils (%) (Auto) 74.0, Lymphocytes (%) (Auto) 17.0L, Monocytes (%) (Auto) 7.8, Eosinophils (%) (Auto) 0.5, Basophils (%) (Auto) 0.8, Sodium Level 142, Potassium Level 3.4L, Chloride Level 106, Carbon Dioxide Level 28, Anion Gap 9, Blood Urea Nitrogen 17, Creatinine 0.9, Estimat Glomerular Filtration Rate > 60, Glucose Level 92, Calcium Level 9.2, Magnesium Level 1.6L, Pro-B-Type Natriuretic Peptide 265H Height (Feet): 5 Height (Inches): 8.00 Weight (Pounds): 122 General Appearance: alert EENT: normal ENT inspection Neck: normal alignment Cardiovascular: normal peripheral pulses, normal rate, regular rhythm Respiratory/Chest: chest wall non-tender, decreased breath sounds Abdomen: normal bowel sounds, non tender, soft Extremities: normal inspection Edema: no edema noted Arm (L), no edema noted Arm (R), no edema noted Leg (L), no edema noted Leg (R), no edema noted Pedal (L), no edema noted Pedal (R), no edema noted Generalized Neurologic: responsive, motor weakness Skin: normal pigmentation, warm/dry Murray Colin Dec 09, 2017 13:52
--- NOTE | 2017-12-09 15:22 | Consultation ---
History of Present Illness General Date patient seen: Dec 09, 2017 Chief Complaint: Dyspnea/Respdistress Reason for Consultation: left breast mass Present Illness HPI 62 year old male currently hospitalized for COPD and SOB noted a left breast mass. States that about 1 week ago he first noticed an abnormal left breast mass. cannot recall if it has been present prior. no symptoms but can express pain when he palpates it at times. Surgery called to evaluate left breast mass. ultrasound being performed. patient seen, chart reviewed patient examined. Allergies: Coded Allergies: NO KNOWN ALLERGIES (Unverified Allergy, Unknown, 03/01/15) Medication History Scheduled Beclomethasone Dipropionate 40MCG Oral Inh (Qvar 40*), 1 PUFF INH TWICE A DAY, ( Reported) Ipratropium/Albuterol Sulfate (Combivent Respimat Inhal [place]), 20 MCG IH QID, ( Reported) Scheduled PRN Acetaminophen* (Acetaminophen 325MG Tablet*), 650 MG ORAL Q6H PRN for Mild Pain (Pain Scale 1-3), (Reported) Albuterol Sulfate* (Proair Hfa*), 1 PUFF INH Q6HR PRN for Shortness of Breath, ( Reported) Discontinued Medications Aspirin* (Aspir 81*), 81 MG ORAL DAILY, (Reported) Discontinued Reason: Pt stopped taking med Atorvastatin Calcium* (Lipitor*), 10 MG ORAL BEDTIME, (Reported) Discontinued Reason: Pt stopped taking med Cephalexin* (Keflex*), 500 MG ORAL EVERY 12 HOURS Discontinued Reason: Pt stopped taking med Cholecalciferol (Vitamin D3)* (Vitamin D*), 1,000 UNIT ORAL DAILY, (Reported) Discontinued Reason: Pt stopped taking med Cyanocobalamin (Vitamin B-12) (Vitamin B-12), 2,000 MCG PO DAILY, (Reported) Discontinued Reason: Pt stopped taking med Ferrous Sulfate* (Ferrous Sulfate*), 325 MG ORAL DAILY, (Reported) Discontinued Reason: Pt stopped taking med Flunisolide (Aerospan), 8.9 GM IH DAILY, (Reported) Discontinued Reason: Pt stopped taking med Flunisolide (Aerospan), 8.9 GM IH, (Reported) Discontinued Reason: Pt stopped taking med Fluoxetine Hcl* (Fluoxetine Hcl*), 20 MG ORAL DAILY Discontinued Reason: Pt stopped taking med Folic Acid* (Folic Acid*), 1 MG ORAL DAILY, (Reported) Discontinued Reason: MD discontinued med Ipratropium/Albuterol Sulfate (Combivent Respimat Inhal [place]), 4 GM IH QID, ( Reported) Discontinued Reason: Pt stopped taking med Lorazepam* (Lorazepam*), 1 MG ORAL THREE TIMES A DAY, (Reported) Discontinued Reason: Pt stopped taking med Losartan Potassium* (Losartan Potassium*), 25 MG ORAL DAILY, (Reported) Discontinued Reason: Pt stopped taking med Magnesium (Magnesium), 500 MG PO DAILY, (Reported) Discontinued Reason: Pt stopped taking med Nitroglycerin (Nitroglycerin), 0.4 MG SL Three times PRN for CHEST PAIN, ( Reported) Discontinued Reason: Pt stopped taking med Omeprazole (Omeprazole), 40 MG ORAL DAILY, (Reported) Discontinued Reason: Pt stopped taking med Prednisone* (Prednisone*), 60 MG ORAL DAILY, (Reported) Discontinued Reason: Pt stopped taking med Sennosides (Senna), Unknown Dose PO, (Reported) Discontinued Reason: Pt stopped taking med Spironolact/Hydrochlorothiazid (Spironolactone-Hctz 25-25 Tab), 1 TAB ORAL DAILY , (Reported) Discontinued Reason: Pt stopped taking med Theophylline (Theodur*), 100 MG ORAL EVERY 12 HOURS Discontinued Reason: Pt stopped taking med Thiamine Hcl* (Vitamin B-1*), 100 MG ORAL DAILY, (Reported) Discontinued Reason: Pt stopped taking med Trazodone* (Trazodone*), 50 MG ORAL BEDTIME, (Reported) Discontinued Reason: Pt stopped taking med Umeclidinium Brm/Vilanterol Tr (Anoro Ellipta 62.5-25 Mcg INH), 2 PUFFS INH DAILY, (Reported) Discontinued Reason: Pt stopped taking med Unable to Obtain Medications (Unable To Obtain Meds), (Reported) Discontinued Reason: Pt stopped taking med Patient History History Provided By: Patient, Medical Record, PMD Healthcare decision maker PATIENT Resuscitation status Full Code Advanced Directive on File Past Medical/Surgical History Past Medical/Surgical History: (1) Left breast mass (2) Severe protein-calorie malnutrition (3) Acute respiratory failure (4) Infection (5) Laryngitis (6) Chest pain (7) Upper GI bleeding (8) Pancreatic lesion (9) COPD with exacerbation (10) COPD (chronic obstructive pulmonary disease) (11) Anemia (12) ETOH abuse (13) ACS (acute coronary syndrome) (14) Hypoalbuminemia (15) Acute renal failure (16) Respiratory distress (17) SOB (shortness of breath) (18) Hypoxia (19) Epistaxis Review of Systems All Other Systems: negative except mentioned in HPI Physical Exam General Appearance: no apparent distress, alert HEENT: mucous membranes moist, PERRL Neck: normal inspection Respiratory/Chest: lungs clear, normal breath sounds, no respiratory distress, no accessory muscle use Breasts: other - 3cm mobile left breast layla-areolar mass Cardiovascular/Chest: regular rhythm Abdomen: non tender, soft, no organomegaly, no mass Extremities: non-tender Skin Exam: warm/dry Neurologic: alert, oriented x 3 Last 24 Hour Vital Signs Date Time Temp Pulse Resp B/P (MAP) Pulse Ox O2 Delivery O2 Flow Rate FiO2 12/09/17 12:47 97.6 97 20 124/77 (93) 98 97.6 12/09/17 12:11 89 22 98 Nasal Cannula 2.0 12/09/17 12:05 86 22 98 Nasal Cannula 2.0 12/09/17 09:00 Nasal Cannula 4.0 Nasal Cannula 4.0 12/09/17 07:50 97 20 98 Nasal Cannula 2.0 28 12/09/17 07:46 98.7 105 19 133/79 (97) 98.7 12/09/17 07:42 Nasal Cannula 5.0 12/09/17 07:42 98 Nasal Cannula 5.0 12/09/17 07:41 93 20 98 Nasal Cannula 5.0 12/09/17 03:00 Nasal Cannula 2.0 12/09/17 03:00 Nasal Cannula 2.0 12/09/17 00:00 98.1 80 19 129/76 (93) 94 98.1 12/08/17 23:10 87 20 98 Nasal Cannula 2.0 28 12/08/17 23:00 97 20 99 Nasal Cannula 2.0 28 12/08/17 21:00 Nasal Cannula 2.0 Nasal Cannula 2.0 12/08/17 20:40 97.8 98 20 131/72 (91) 95 97.8 12/08/17 20:00 98.1 103 18 121/60 (80) 97 98.1 12/08/17 19:20 89 20 96 Nasal Cannula 2.0 28 12/08/17 19:10 Nasal Cannula 2.0 28 12/08/17 19:10 96 Nasal Cannula 2.0 28 12/08/17 19:10 96 20 96 Nasal Cannula 2.0 28 12/08/17 16:00 97.8 103 19 124/68 (86) 97.8 12/08/17 15:43 98 Intake and Output 12/08/17 12/09/17 19:00 07:00 Intake Total 520 ml 500 ml Output Total 100 ml 900 ml Balance 420 ml -400 ml Intake Oral 520 ml 500 ml Output Urine Total 100 ml 900 ml # Voids 2 4 Laboratory Tests Test 12/09/17 06:30 White Blood Count 10.8 K/UL (4.8-10.8) Red Blood Count 4.24 M/UL (4.70-6.10) L Hemoglobin 9.3 G/DL (14.2-18.0) L Hematocrit 30.6 % (42.0-52.0) L Mean Corpuscular Volume 72 FL (80-99) L Mean Corpuscular Hemoglobin 21.9 PG (27.0-31.0) L Mean Corpuscular Hemoglobin Concent 30.3 G/DL (32.0-36.0) L Red Cell Distribution Width 17.0 % (11.6-14.8) H Platelet Count 250 K/UL (150-450) Mean Platelet Volume 6.8 FL (6.5-10.1) Neutrophils (%) (Auto) 74.0 % (45.0-75.0) Lymphocytes (%) (Auto) 17.0 % (20.0-45.0) L Monocytes (%) (Auto) 7.8 % (1.0-10.0) Eosinophils (%) (Auto) 0.5 % (0.0-3.0) Basophils (%) (Auto) 0.8 % (0.0-2.0) Sodium Level 142 MMOL/L (136-145) Potassium Level 3.4 MMOL/L (3.5-5.1) L Chloride Level 106 MMOL/L (98-107) Carbon Dioxide Level 28 MMOL/L (21-32) Anion Gap 9 mmol/L (5-15) Blood Urea Nitrogen 17 mg/dL (7-18) Creatinine 0.9 MG/DL (0.55-1.30) Estimat Glomerular Filtration Rate > 60 mL/min (>60) Glucose Level 92 MG/DL (74-106) Calcium Level 9.2 MG/DL (8.5-10.1) Magnesium Level 1.6 MG/DL (1.8-2.4) L Pro-B-Type Natriuretic Peptide 265 pg/mL (0-125) H Height (Feet): 5 Height (Inches): 8.00 Weight (Pounds): 122 Medications Current Medications Medications (Trade) Dose Ordered Sig/Agustin Route PRN Reason Start Time Stop Time Status Last Admin Dose Admin Albuterol/ Ipratropium (Albuterol/ Ipratropium) 3 ml Q4HRT HHN 12/08/17 23:00 12/11/17 02:59 12/09/17 15:13 Azithromycin (Zithromax) 250 mg Q24H ORAL 12/08/17 22:00 12/14/17 21:59 12/08/17 21:22 Promethazine HCl/ Codeine (Phenergan with Codeine) 5 ml Q4H PRN ORAL For Cough 12/08/17 21:00 01/07/18 20:59 Temazepam (Restoril) 15 mg HSPRN PRN ORAL Insomnia 12/08/17 21:45 12/13/17 21:44 12/08/17 23:12 Theophylline (Gaurav-Dur) 100 mg EVERY 12 HOURS ORAL 12/08/17 21:00 01/05/18 20:59 12/09/17 09:18 Assessment/Plan Problem List: (1) Left breast mass Assessment & Plan: 62M with left breast mass. unsure of duration. mild discomfort with palpation. 3cm hard mobile mass subareolar. no right mass. no nipple inversion. -ultrasound pending -likely has been present for some time. always concerns for breast mass in male. -recommend outpatient biopsy/mammogram. will refer patient to [facility] at [id number] [facility] discussed findings with patient and plan. patient expresses understanding for outpatient follow up ICD Codes: N63.20 - Unspecified lump in the left breast, unspecified quadrant SNOMED: [id number] Yvon Stein Dec 09, 2017 15:22
--- NOTE | 2017-12-09 15:36 | Diagnostic Imaging Report ---
Indication: Palpable left subareolar mass Technique: Grayscale and duplex images of the palpable abnormality in the left breast Comparison: Reference made to a chest CT of 05/25/2016 Findings: Deep to the left nipple, there is an ill-defined mixed, mostly low, echogenicity to area which measures approximately 2.5 x 2.5 x 1.1 cm. No significant vascularity demonstrated. Impression: 2.5 2.5 x 1.1 cm ill-defined mixed echogenicity mass deep to the left nipple, corresponding to palpable abnormality. Note that no such abnormality was seen on the prior chest CT of May 2016. Differential considerations include unilateral gynecomastia, neoplasm. Abscess deemed unlikely given the imaging appearance, but is not completely excludable
[2017-12-09 16:00] VITALS: BP 124/76
[2017-12-09] MEDS ORDERED: Theophylline ER 100mg ORAL SCH (18:45)
--- NOTE | 2017-12-10 04:15 | Progress Note ---
DATE: 12/09/2017 CARDIOLOGY PROGRESS NOTE SUBJECTIVE: No chest pain. Less shortness of breath. Nose bleeding has resolved. Cough has decreased. He received IV magnesium yesterday. OBJECTIVE: VITAL SIGNS: Blood pressure 124/77, pulse 97, and respirations 20. LUNGS: Diminished breath sounds. No wheezing. Few rhonchi. HEART: Regular rhythm and rate. Normal S1 and S2 with a fourth heart sound. ABDOMEN: Soft. EXTREMITIES: No edema. LABORATORY AND DIAGNOSTIC DATA: Breast ultrasound reveals left breast mass. IMPRESSION: 1. Acute on chronic diastolic congestive heart failure, now compensated. 2. Chronic obstructive pulmonary disease exacerbation, improved. 3. Acute bronchospasm, resolved. 4. Breast mass, possibly malignant. 5. Chronic stable angina. 6. Atherosclerotic cardiovascular disease. PLAN: 1. Stable from cardiovascular standpoint for outpatient care. 2. Mammogram with biopsy anticipated. 3. Oral steroid taper with bronchodilator therapy long-term. 4. Avoid cigarette smoke. Nicolas Toure M.D. DR: SHELBY JOB#: [id number] CC:
--- NOTE | 2017-12-10 08:20 | Discharge Summary ---
Discharge Summary Discharge Summary _ DATE OF ADMISSION: 12/05/2017 DATE OF DISCHARGE: 12/09/2017 CONSULTANTS: Dr. Nicolas Stein BRIEF HOSPITAL COURSE: Patient is a 62-year-old male, who lives at home, presented to ED with complaints of increased shortness of breath for 2 days, accompanied by dull chest pain, substernal, with no radiation, no loss of consciousness. He has history of COPD, hypertension, alcohol abuse and CAD. He stated that he had been using the nebulizer machine at home without any relief. He was given nitroglycerin and aspirin by EMS with improvement of symptoms. On evaluation at ED, blood pressure was stable, he was saturating 89% on room air. He was given nebulizer treatments. Blood work was without leukocytosis, hemoglobin and hematocrit was stable. Troponin was negative. Urinalysis negative. He had a chest x-ray done that showed hyperinflated lungs with possible infiltrate in the right lower lung as interpreted by ED physician. EKG was in normal sinus rhythm with no acute ischemic changes. He was then admitted for evaluation of acute COPD exacerbation and for evaluation of chest pain. He was seen by school psychologist assistant and house decorator. Patient had greater than 50-pack -year smoking history and quit 2 years ago. He was given inhaled bronchodilators and was started on IV Solu-Medrol. He was started on theophylline. He was given IV azithromycin. Serial troponins were monitored. He was given aspirin. Lipid panel was checked, LDL was 63. He was given magnesium, and potassium replacement. Patient came in with abnormal left breast mass noted a week prior to admission. Surgery was called to evaluate breast mass. Breast ultrasound showed a 2.5 x 2.5 x 1.1 ill-defined mixed echogenicity mass deep to the left nipple. He was recommended outpatient biopsy/mammogram and patient was referred to [facility]. He had an episode of nosebleed. Aspirin was discontinued. Troponins were negative. Steroid was tapered. Breathing improved. He was then discharged home. Advised to follow-up as outpatient. FINAL DIAGNOSES: Acute COPD exacerbation Acute on chronic diastolic congestive heart failure, now compensated Acute bronchospasm, resolved Left breast mass Epistaxis EtOH abuse Hypoalbuminemia Hypokalemia Hyponatremia, corrected Hypomagnesemia, corrected Anemia Chronic stable angina Atherosclerotic cardiovascular disease DISPOSITION: Patient was discharged home. DISCHARGE MEDICATIONS: Refer to Discharge Medication List. DISCHARGE INSTRUCTIONS: Follow up within a week. Need to follow-up for breast biopsy/mammogram. I have been assigned to dictate discharge summary on this account, and I was not involved in the patient's management. Chely Almonte NP Dec 10, 2017 08:20
--- NOTE | 2017-12-10 14:11 | Cardiology Report ---
APPROVED REPORT EKG Measurement Heart [id number] Normal sinus rhythm Normal ECG
--- NOTE | 2017-12-10 15:34 | Cardiology Report ---
APPROVED REPORT EXAM: Two-dimensional and M-mode echocardiogram with Doppler and color Doppler. INDICATION Angina pectoris M-Mode DIMENSIONS IVSd1.2 (0.7-1.1cm)Left Atrium (MM)3.3 (1.6-4.0cm) LVDd3.4 (3.5-5.6cm)Aortic Root3.7 (2.0-3.7cm) PWd1.4 (0.7-1.1cm)Aortic Cusp Exc.1.9 (1.5-2.0cm) LVDs3.0 (2.5-4.0cm) PWs0.9 cm Normal left ventricular chamber size, systolic function and wall motion to extent visualized. Left ventricular ejection fraction estimated to be 60 %. Mild left ventricular hypertrophy. Anterior Echo-free space, may be due to pericardial fat or effusion. All other cardiac chamber sizes are within normal limits. Focal aortic valve sclerosis with adequate cusp excursion. Thickened mitral valve leaflets with normal excursion. Mitral annulus and aortic root calcification. Pulmonic valve not well visualized. Normal tricuspid valve structure. IVC at normal size with physiologic collapse. A color flow and spectral Doppler study was performed and revealed: Trace mitral regurgitation. Mitral diastolic velocities suggest reduced left ventricular relaxation c/w mild LV diastolic dysfunction (Grade I ). Trace tricuspid regurgitation. Tricuspid systolic velocities suggests peak right ventricular systolic pressure of 21 mmHg.
== END 2017-12-09 19:35 | disposition home or self-care (01) | DRG 140 ==
LOC: EDUNIT# 21:01 → EDBD 21:01 → EMR 21:20 → 2E 22:20 → EDBEDREQ 22:39 → 2E 12-08 17:38 → 3E 12-08 20:40
DX: J44.1 Chronic obstructive pulmonary disease with (acute) exacerbation (principal); I50.33 Acute on chronic diastolic (congestive) heart failure; N17.9 Acute kidney failure, unspecified; E88.09 Other disorders of plasma-protein metabolism, not elsewhere classified; E83.42 Hypomagnesemia; F10.10 Alcohol abuse, uncomplicated; D50.9 Iron deficiency anemia, unspecified; I11.0 Hypertensive heart disease with heart failure; N63.0 Unspecified lump in unspecified breast; R04.0 Epistaxis; E87.6 Hypokalemia; Z87.891 Personal history of nicotine dependence; R09.02 Hypoxemia; I25.118 Atherosclerotic heart disease of native coronary artery with other forms of angina pectoris; J98.01 Acute bronchospasm
CPT/HCPCS: 36415; 71045; 80048; 80053; 80061; 81003; 82550; 82553; 83540; 83550; 83605; 83735; 83880; 84443; 84484; 85007; 85025; 87040; 87070; 87205; 93005; 93306; 94640; 94664; 94760; 97803; J7620; J8499